=== PATIENT | male | born 1955 | race Two or more races ===

== ENCOUNTER 2020-01-07 09:00 | Outpatient (REF) | payer MEDICARE, MEDICAID, SELFPAY ==
--- NOTE | 2020-01-07 09:10 | MR_ITS ---
EXAMINATION: MR LUMBAR SPINE WITHOUT CONTRAST CLINICAL INFORMATION: Low back pain and sciatica. COMPARISON: None TECHNIQUE: MRI of the lumbar spine was obtained using routine sequences without contrast. FINDINGS: VERTEBRAL BODIES AND PARASPINAL STRUCTURES: The marrow signal is homogeneous. There is a slight retrosubluxation at L4-L5. No compression fractures identified. Epidural lipomatosis present in the mid to lower lumbar spinal canal with varying degrees of thecal sac distortion. The paraspinal soft tissues are unremarkable. There are mild degenerative changes of the SI joints. CONUS MEDULLARIS AND CAUDA EQUINA: Normal, terminating at the level of L1. No lower cord signal abnormality is seen. The cauda equina nerve roots appear normal. SPINAL LEVELS: L1-L2: No significant disc pathology. No central canal stenosis or foraminal narrowing. L2-L3: Very small central disc protrusion and mild facet arthropathy. No central canal stenosis or foraminal narrowing. L3-L4: Mild generalized disc bulge and oxbo-go-xufuprto facet arthropathy without central canal stenosis. Epidural lipomatosis mildly distorts the thecal sac. Mild bilateral foraminal narrowing. L4-L5: Mild posterior disc bulge with a shallow central disc protrusion. No central canal stenosis. Mild facet arthropathy. Epidural lipomatosis funv-ds-tzkqqjzgud distorts the thecal sac. Hdri-ut-lhvtbwjh bilateral foraminal narrowing, more so on the right side. L5-S1: Obbx-vl-cinnfcpi facet arthropathy. Epidural lipomatosis present. No disc abnormality. No central canal stenosis or foraminal narrowing. MR/MR lumbar spine wo con IMPRESSION: Mild lumbar spondylitic changes. Small disc protrusions at L2-L3 and L3-L4. No central canal stenosis. Moderate right-sided foraminal narrowing at L4-L5. Epidural lipomatosis in the mid to lower lumbar spinal canal with thecal sac distortion.
== END 2020-01-07 09:01 | disposition home or self-care (01) ==
LOC: HO.MRI 09:00
PROVIDERS: PCP Internal Medicine Geriatric Medicine; Visit Provider Emergency Medicine
DX: M54.40 Lumbago with sciatica, unspecified side (principal); R29.898 Other symptoms and signs involving the musculoskeletal system
CPT/HCPCS: 72148

== ENCOUNTER → 2020-03-28 10:54 | Outpatient (BNVA) | payer MEDICARE, MEDICAID, SELFPAY | PROVIDERS: PCP Internal Medicine Geriatric Medicine; Visit Provider Nurse Practitioner Family | DX: I47.1 Supraventricular tachycardia (principal); I10 Essential (primary) hypertension; R00.2 Palpitations | CPT/HCPCS: 99212 ==

== ENCOUNTER → 2020-10-04 13:12 | Outpatient (BNVA) | payer OTHER, MEDICAID, SELFPAY | PROVIDERS: PCP Internal Medicine Geriatric Medicine; Referring Provider Internal Medicine Geriatric Medicine; Visit Provider Internal Medicine Cardiovascular Disease ==

== ENCOUNTER 2020-12-06 17:26 | Outpatient (REF) | payer OTHER, MEDICAID, SELFPAY ==
--- NOTE | ~2020-12-06 | MR_ITS ---
EXAMINATION: MR SHOULDER WITHOUT CONTRAST, LEFT CLINICAL INFORMATION: Left shoulder pain. Decreased range of motion. COMPARISON: Left shoulder radiographs dated 10/16/2016 TECHNIQUE: Multisequence MR imaging of the left shoulder was obtained without contrast on a high-field strength scanner. FINDINGS: ROTATOR CUFF: Mild supraspinatus and infraspinatus tendinosis. No measurable rotator cuff tendon defect. No muscle atrophy or fatty infiltration. BICEPS: Normal. CORACOACROMIAL ARCH: The undersurface of the acromion is curved with lateral subacromial spurs. Moderate acromioclavicular osteoarthritis. Mild fluid and edema within the subacromial-subdeltoid bursa, consistent with minimal bursitis. Subacromial space: 0.4 cm. Subcoracoid space: 0.8 cm. LABRUM/CAPSULE: No displaced labral tear. Intact joint capsule. GLENOHUMERAL JOINT/MARROW: Central glenoid and medial humeral head articular cartilage thinning with areas of fpho-lkny-sliwzknsv loss. Tiny marginal osteophytes. MR/MR shoulder LT wo con IMPRESSION: 1. Mild supraspinatus and infraspinatus tendinosis without a measurable tendon defect. The subacromial space is narrowed measuring 0.4 cm, which can be seen in the setting of impingement. 2. Minimal subacromial-subdeltoid bursitis. 3. Moderate acromioclavicular and mild glenohumeral osteoarthritis.
== END 2020-12-06 17:27 | disposition home or self-care (01) ==
LOC: HO.MRI 17:26
PROVIDERS: PCP Internal Medicine Geriatric Medicine; Visit Provider Nurse Practitioner Primary Care
DX: M19.012 Primary osteoarthritis, left shoulder (principal); M25.512 Pain in left shoulder
CPT/HCPCS: 73221

== ENCOUNTER 2020-12-12 08:13 | Outpatient (REF) | payer OTHER, MEDICAID, SELFPAY ==
--- NOTE | ~2020-12-12 | XR_ITS ---
EXAMINATION: XR SHOULDER, LEFT CLINICAL INFORMATION: Left shoulder pain. COMPARISON: Left shoulder MRI dated 12/06/2020. TECHNIQUE: Grashey, scapular Y, and axillary views of the left shoulder. FINDINGS: Small acromioclavicular marginal osteophytes with subacromial spurring appears unchanged. Moderate glenohumeral joint space narrowing with marginal osteophytes, unchanged. No osseous erosion. No fracture or dislocation. XR/XR shoulder LT min 2V IMPRESSION: Moderate glenohumeral and acromioclavicular osteoarthritis as well as subacromial spurring. Findings are unchanged.
== END 2020-12-12 08:14 | disposition home or self-care (01) ==
LOC: HO.HOSX 08:13
PROVIDERS: Visit Provider Physician Assistant
DX: M75.102 Unspecified rotator cuff tear or rupture of left shoulder, not specified as traumatic (principal); M19.012 Primary osteoarthritis, left shoulder
CPT/HCPCS: 73030; J1020

== ENCOUNTER → 2021-01-23 11:47 | Outpatient (BNVA) | payer OTHER, MEDICAID, SELFPAY | PROVIDERS: Visit Provider Physician Assistant ==

== ENCOUNTER → 2021-04-03 12:34 | Outpatient (BNVA) | payer OTHER, MEDICAID, SELFPAY | PROVIDERS: Visit Provider Physician Assistant ==

== ENCOUNTER → 2021-05-02 11:36 | Outpatient (BNVA) | payer OTHER, MEDICAID, SELFPAY | PROVIDERS: Visit Provider Physician Assistant ==

== ENCOUNTER → 2021-06-06 14:46 | Outpatient (BNVA) | payer OTHER, MEDICAID, SELFPAY | PROVIDERS: PCP Internal Medicine Geriatric Medicine; Visit Provider Nurse Practitioner Family | DX: Z13.89 Encounter for screening for other disorder (principal) ==

== ENCOUNTER 2021-06-09 09:28 | Outpatient (REF) | payer MEDICARE, MEDICAID, SELFPAY ==
--- NOTE | ~2021-06-09 | XR_ITS ---
EXAMINATION: XR HIP, LEFT CLINICAL INFORMATION: Pain COMPARISON: None TECHNIQUE: Two views of the left hip. FINDINGS: Bone alignment is normal. No fracture or dislocation is seen. There is mild arthritis at the left hip joint with joint space narrowing and osteophyte formation. Soft tissues are unremarkable. XR/XR hip LT min 2V IMPRESSION: Mild left hip arthritis.
[2021-06-09 10:19] LABS: Hematocrit 44.6 % (42.0-52.0); Hemoglobin 13.9 g/dl (14.0-18.0); Mean Corpuscular HGB Conc 31.2 g/dl (31.0-36.0); Mean Corpuscular Hemoglobin 25.3 pg (27.0-33.0); Mean Corpuscular Volume 81.1 fL (80.0-98.0); Mean Platelet Volume 10.3 fL (9.4-12.4); Platelet Count 178 X10*3/uL (160-400); Red Cell Distribution Width 13.5 % (11.0-16.0); White Blood Count 3.9 X10*3/uL (4.8-10.8)
[2021-06-09 10:48] LABS: Alanine Aminotransferase 14 U/L (0-40); Albumin Level 4.4 g/dL (3.5-5.0); Alkaline Phosphatase 106 U/L (39-117); Anion Gap 13 (12-20); Aspartate Amino Transferase 13 U/L (5-37); Bilirubin Direct 0.2 mg/dL (0.0-0.5); Bilirubin Total 0.4 mg/dL (0.0-1.0); Blood Urea Nitrogen 13 mg/dL (9-16); Carbon Dioxide 25 mmol/L (22-29); Chloride 102 mmol/L (96-108); Cholesterol 130 mg/dL; Estimated Glomerular Filt Rate > 60; Glucose Random 285 mg/dL (60-115); HDL Cholesterol 38 mg/dL; LDL Cholesterol Calculated 75 mg/dl; Potassium 5.1 mmol/L (3.3-5.1); Sodium 135 mmol/L (135-145); Total Protein 6.9 g/dL (6.5-8.0); Triglycerides 85 mg/dL
[2021-06-09 11:09] LABS: Prostate Specific Antigen 1.75 ng/mL (<0.05-4.0)
[2021-06-09 11:30] LABS: Creatinine Urine 54.92 mg/dL; Microalbumin Urine < 5.0 mg/L
== END 2021-06-09 09:29 | disposition home or self-care (01) ==
LOC: HO.XRAY 09:28
PROVIDERS: Absent Provider Internal Medicine Geriatric Medicine; PCP Internal Medicine Geriatric Medicine; Visit Provider Nurse Practitioner Family
DX: Z12.5 Encounter for screening for malignant neoplasm of prostate (principal); M25.552 Pain in left hip; E11.9 Type 2 diabetes mellitus without complications; Z79.899 Other long term (current) drug therapy
CPT/HCPCS: 36415; 73502; 80048; 80061; 80076; 82043; 84153; 85027

== ENCOUNTER 2021-08-15 06:36 | Outpatient (REF) | payer MEDICARE, MEDICAID, SELFPAY ==
--- NOTE | ~2021-08-15 | FL_ITS ---
EXAMINATION: XR FLUOROSCOPY WITH IMAGES CLINICAL INFORMATION: Sacral coccygeal disorder COMPARISON: None. TECHNIQUE: Fluoroscopy performed by Dr. Evangelista Farias. Fluoroscopy time: 0.2 minutes DAP: 1.19 Gycm2 Images: 2 FINDINGS: Images demonstrate needle overlying the left sacroiliac joint. FL/FL guidance in treatment room IMPRESSION: Fluoroscopy for pain management procedure.
== END 2021-08-15 06:37 | disposition home or self-care (01) ==
LOC: HO.RADIR 06:36
PROVIDERS: Visit Provider Anesthesiology
DX: M53.3 Sacrococcygeal disorders, not elsewhere classified (principal); M25.552 Pain in left hip; M47.816 Spondylosis without myelopathy or radiculopathy, lumbar region
CPT/HCPCS: 27096; J3300

== ENCOUNTER → 2021-09-05 13:02 | Outpatient (BNVA) | payer MEDICARE, MEDICAID, SELFPAY | PROVIDERS: PCP Internal Medicine Geriatric Medicine; Visit Provider Nurse Practitioner Family | DX: M47.816 Spondylosis without myelopathy or radiculopathy, lumbar region (principal); M53.3 Sacrococcygeal disorders, not elsewhere classified; M25.552 Pain in left hip; Z98.890 Other specified postprocedural states | CPT/HCPCS: 99212 ==

== ENCOUNTER 2021-10-10 06:24 | Outpatient (REF) | payer MEDICARE, MEDICAID, SELFPAY ==
--- NOTE | ~2021-10-10 | FL_ITS ---
EXAMINATION: XR FLUOROSCOPY WITH IMAGES CLINICAL INFORMATION: M47.816 - Spondylosis without myelopathy or radiculopathy, lumbar region COMPARISON: MR lumbar spine 01/07/2020 TECHNIQUE: Fluoroscopy performed by Dr. Evangelista Farias. Fluoroscopy time: 0.4 minutes. Cumulative Dose: 19.1 mGy. DAP: 5.22 Gy-cm2. Images: 4. FINDINGS: There are spinal needles overlying the outer left neural foramina at L2, L3, L4, and L5. There is contrast seen in the respective nerve sheaths. Some early transforaminal epidural extension is suggested. No visible vascular communication. FL/FL guidance in treatment room IMPRESSION: Fluoroscopy for pain management procedures.
== END 2021-10-10 06:25 | disposition home or self-care (01) ==
LOC: HO.RADIR 06:24
PROVIDERS: Visit Provider Anesthesiology
DX: M47.816 Spondylosis without myelopathy or radiculopathy, lumbar region (principal); M53.3 Sacrococcygeal disorders, not elsewhere classified; M25.552 Pain in left hip
CPT/HCPCS: 64493; 64494; 64495

== ENCOUNTER → 2021-10-11 12:59 | Outpatient (BNVA) | payer MEDICARE, MEDICAID, SELFPAY | PROVIDERS: PCP Internal Medicine Geriatric Medicine; Visit Provider Internal Medicine Cardiovascular Disease | DX: I47.1 Supraventricular tachycardia (principal); I10 Essential (primary) hypertension; Z79.899 Other long term (current) drug therapy | CPT/HCPCS: 93005; 99212 ==

== ENCOUNTER → 2021-12-29 11:12 | Outpatient (BNVA) | payer MEDICARE, MEDICAID, SELFPAY | PROVIDERS: PCP Internal Medicine Geriatric Medicine; Visit Provider Nurse Practitioner Family | DX: M25.512 Pain in left shoulder (principal); M75.102 Unspecified rotator cuff tear or rupture of left shoulder, not specified as traumatic; M53.3 Sacrococcygeal disorders, not elsewhere classified; M47.816 Spondylosis without myelopathy or radiculopathy, lumbar region; M54.50 Low back pain, unspecified | CPT/HCPCS: 99212 ==

== ENCOUNTER → 2022-04-20 12:20 | Outpatient (BNVA) | payer MEDICARE, MEDICAID, SELFPAY | PROVIDERS: PCP Internal Medicine Geriatric Medicine; Visit Provider Physician Assistant | DX: M75.102 Unspecified rotator cuff tear or rupture of left shoulder, not specified as traumatic (principal) | CPT/HCPCS: 20610; 99212; J1020 ==

== ENCOUNTER 2022-06-08 09:45 | Outpatient (REF) | payer MEDICARE, MEDICAID, SELFPAY ==
--- NOTE | ~2022-06-08 | XR_ITS ---
EXAMINATION: XR CERVICAL SPINE CLINICAL INFORMATION: Spondylosis and radiculopathy. COMPARISON: None available. TECHNIQUE: 6 views of the cervical spine, inclusive of flexion and extension views, were obtained. FINDINGS: Vertebral bodies normally aligned with normal height. Multilevel degenerative disc change manifested by endplate osteophytes with mild and/or minimal disc space narrowing with involvement of C5-C6, C6-C7 and C7-T1. Mild bony encroachment on the right neural foramina C5-C6 and C6-C7 and on the left C6-C7. Remaining bone and soft tissues unremarkable. XR/XR cervical spine min 6V IMPRESSION: Mild multilevel spondylosis of the cervical spine.
== END 2022-06-08 09:46 | disposition home or self-care (01) ==
LOC: HO.XRAY 09:45
PROVIDERS: PCP Internal Medicine Geriatric Medicine; Visit Provider Nurse Practitioner Family
DX: M47.22 Other spondylosis with radiculopathy, cervical region (principal); M62.838 Other muscle spasm; M25.512 Pain in left shoulder
CPT/HCPCS: 72052; 99212

== ENCOUNTER → 2022-06-21 15:28 | Outpatient (BNVA) | payer MEDICARE, MEDICAID, SELFPAY | PROVIDERS: PCP Internal Medicine Geriatric Medicine; Visit Provider Nurse Practitioner Family | DX: M62.838 Other muscle spasm (principal); M25.512 Pain in left shoulder; M75.102 Unspecified rotator cuff tear or rupture of left shoulder, not specified as traumatic; M47.812 Spondylosis without myelopathy or radiculopathy, cervical region; M54.12 Radiculopathy, cervical region | CPT/HCPCS: 99212 ==

== ENCOUNTER 2022-08-01 06:10 | Outpatient (REF) | payer MEDICARE, MEDICAID, SELFPAY ==
--- NOTE | ~2022-08-01 | FL_ITS ---
EXAMINATION: FL FLUOROSCOPY WITH IMAGES CLINICAL INFORMATION: Radiculopathy, cervical region. COMPARISON: None available. TECHNIQUE: Fluoroscopy Supervised By: Dr. Caldwell Fluoroscopy Time: 0.5 minutes Cumulative Dose: 3.84 mGy-cm DAP: 0.517 uGy-cm2 Images: 4 FINDINGS: Images demonstrate needle placement and contrast injection adjacent to the bilateral lateral C3-C4 and C5 vertebrae FL/FL guidance in treatment room IMPRESSION: Fluoroscopic guidance for pain management procedure
== END 2022-08-01 06:11 | disposition home or self-care (01) ==
LOC: CF 06:10
PROVIDERS: Visit Provider Internal Medicine
DX: M47.812 Spondylosis without myelopathy or radiculopathy, cervical region (principal); M54.12 Radiculopathy, cervical region
CPT/HCPCS: 64490; 64491

== ENCOUNTER 2022-10-08 08:22 | Outpatient (REF) | payer MEDICARE, MEDICAID, SELFPAY ==
[2022-10-08 12:23] LABS: Estimated Average Glucose 160 mg/dL; Hemoglobin A1c % 7.2 %
[2022-10-08 12:32] LABS: Alanine Aminotransferase 16 U/L (0-40); Albumin Level 4.4 g/dL (3.5-5.0); Alkaline Phosphatase 91 U/L (39-117); Aspartate Amino Transferase 15 U/L (5-37); Bilirubin Direct 0.1 mg/dL (0.0-0.5); Bilirubin Total 0.3 mg/dL (0.0-1.0); Cholesterol 201 mg/dL; HDL Cholesterol 51 mg/dL; LDL Cholesterol Calculated 116 mg/dl; Total Protein 7.3 g/dL (6.5-8.0); Triglycerides 170 mg/dL
[2022-10-08 13:04] LABS: Vitamin B12 616 pg/mL (200-900)
== END 2022-10-08 08:23 | disposition home or self-care (01) ==
LOC: HO.HHCL 08:22
PROVIDERS: Visit Provider Internal Medicine Geriatric Medicine
DX: E11.9 Type 2 diabetes mellitus without complications (principal); Z79.4 Long term (current) use of insulin
CPT/HCPCS: 36415; 80061; 80076; 82607; 83036

== ENCOUNTER 2022-11-09 08:52 | Outpatient (AMB) | payer MEDICARE, MEDICAID, SELFPAY ==
--- NOTE | 2022-11-09 09:14 | A.OFFVIS_ITS ---
Intake Vital Signs 11/09/22 09:15 Height 5 ft 9 in Weight 206 lb 12.697 oz BMI 30.5 BP 120/82 Blood Pressure Location Lt brachial Position Sitting Pulse 69 Pulse Source Monitor Intake Visit Reasons: 1 year f/u Intake Note: 1 year follow up with EKG. 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 Name: Jana [id number] [employer] Accompanied by: Self / Same As Patient Allergies No Known Allergies [No Known Allergies*] Allergy (Verified 11/09/22 09:17) Medication List - Last Reconciled 11/09/22 by ELIZABETH Farfan amitriptyline 75 mg PO BEDTIME buspirone 5 mg PO DAILY carvedilol 6.25 mg PO BID docusate sodium 100 mg PO BID empagliflozin (Jardiance) 25 mg PO QAM finasteride 5 mg PO QAM ibuprofen 600 mg PO Q6H PRN insulin glargine (Lantus Solostar U-100 Insulin) 28 units subcut QAM insulin lispro 10 units subcut TID lancets (OneTouch Delica Plus Lancet) As directed lisinopril 20 mg PO DAILY magnesium oxide 400 mg PO DAILY metformin 850 mg PO BID metformin 500 mg PO BID methocarbamol 750 mg PO BID PRN 30 days naloxone 4 mg/actuation 1 spray intranasal DAILY omeprazole 40 mg PO DAILY oxycodone-acetaminophen 5-325 mg (Percocet) 1 tab PO TID PRN pen needle, diabetic ([place]) As directed rosuvastatin 40 mg PO DAILY sertraline 50 mg PO QAM sildenafil (Viagra) 50 mg PO DAILY PRN tamsulosin 0.8 mg PO DAILY HPI 1 year f/u HPI Details Landen is a 67-year-old male with past medical history of diabetes, hypertension, hyperlipidemia, SVT who presents for follow-up. Today he reports he has been feeling generally well. He does notice heart palpitations at times occurring about once a month and lasting up to 30 seconds. No sustained rapid or irregular rates noted. He is not overly bothered by this sensation. He denies having chest pain or pressure at rest or with activity. No concerning shortness of breath, presyncope, syncope, falls. No PND, orthopnea or edema. He tells me he walks routinely and is able to climb stairs without issues. He is taking his meds as directed. 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 [facility] Medical History Diabetes type 2, controlled Palpitations SVT (supraventricular tachycardia) HLD (hyperlipidemia) HTN (hypertension) Surgical History S/P shoulder surgery Family History Father CVD (cardiovascular disease) Mother Cancer Social History Alcohol intake: former Year quit: 2016 Patient Tobacco Use Status: Former Tobacco user Quit Date: 2009 Years Smoked: 25 +/- Current occupational status: retired Current occupation: rt handed Review of Systems Const All systems reviewed & are unremarkable except as noted in HPI and below Denies weakness ENT Denies dizziness Card Denies chest pain, Denies chest pain with activity, Denies syncope, Denies rapid heart rate, Denies pedal edema, Denies edema, Denies leg edema, Denies lightheadedness, Denies palpitations, Denies dyspnea, Denies dyspnea on exertion and Denies orthopnea Resp Denies cough, Denies dyspnea and Denies dyspnea on exertion GI Denies hematochezia and Denies change in stool character Musc Denies abnormal gait, Denies muscle cramps, Denies muscle weakness, Denies n umbness, Denies radiating pain into limb and Denies tingling Neuro Denies abnormal gait, Denies dizziness, Denies syncope, Denies numbness, Denies tingling and Denies weakness Endo Denies palpitations Physical Exam Vital Signs: Last Vital Signs Pulse 69 11/09/22 09:15 BP 120/82 11/09/22 09:15 BMI result Body Mass Index 30.5 Const General: cooperative, healthy appearing, comfortable and no acute distress Orientation/consciousness: patient oriented x3 Neck Neck: Yes normal visual inspection Resp Effort & Inspection: normal respiratory effort Auscultation: clear to auscultation bilaterally, no crackles, no rales, no rhonchi and no wheezes Cardio Jugular venous distension: no JVD Rate: regular rate Rhythm: regular rhythm Heart sounds: S1 normal heart sound present, S2 normal heart sound present, no murmurs and no rubs Neuro General: patient oriented x3 Extrem General: Yes normal to inspection Psych Appearance: grossly normal Mental Status: mental status grossly normal Speech and movement: Normal speech and movement present Office Procedures EKG Details: Today, read by me, normal sinus rhythm with sinus arrhythmia, left axis deviation, can not exclude prior anterior infarct, rate 69, QTC 385 ms [id number], Complete Assessment & Plan Assessment & Plan (1) SVT (supraventricular tachycardia): Code(s): I47.1 - Supraventricular tachycardia Plan: History of SVT. He has been on carvedilol for heart rate control. He does report brief intermittent heart palpitations about once a month lasting seconds and resolving. He is not bothered or concerned by this palpitation. Reviewed reduction in caffeinated beverages, staying well hydrated getting good rest. Activity as tolerated. Instructed to call if he has increasing amounts of heart palpitations. (2) Palpitations: Code(s): R00.2 - Palpitations (3) Abnormal EKG: Code(s): R94.31 - Abnormal electrocardiogram [ECG] [EKG] Plan: EKG done today is showing normal sinus rhythm with sinus arrhythmia, left axis deviation and can not exclude anterior infarct. In appearance this EKG does seem similar to his last EKG however no recent cardiac testing is noted in our system. He has multiple cardiac risk factors including obesity, hypertension, hyperlipidemia and uncontrolled diabetes. He has no reports of anginal sounding symptoms but is not doing much for exertional activities. Will obtain an echocardiogram to assess for any structural heart disease. Will check an exercise nuclear stress test to evaluate for ischemia or prior infarct. Cardiology follow-up 2 months, sooner if needed. Signs and symptoms of angina reviewed with him. (4) HTN (hypertension): Code(s): I10 - Essential (primary) hypertension Qualifiers: Hypertension type: primary hypertension Qualified Code(s): I10 - Essential (primary) hypertension Plan: Well controlled at this time (5) HLD (hyperlipidemia): Code(s): E78.5 - Hyperlipidemia, unspecified Qualifiers: Hyperlipidemia type: unspecified Qualified Code(s): E78.5 - Hyperlipidemia, unspecified Plan: [place] LDL goal less than 70 in patient with diabetes. Followed by his PCP. Continue rosuvastatin Orders: Orders CA echo transthoracic complete Today R00.2 - Palpitations, R94.31 - Abnormal electrocardiogram [ECG] [EKG] CA stress test Today R00.2 - Palpitations, R94.31 - Abnormal electrocardiogram [ECG] [EKG] NM cardiolite stress test Today R00.2 - Palpitations, R94.31 - Abnormal electrocardiogram [ECG] [EKG] Coding Level of Care Code Est Pt Level 4 (36822) Diagnoses SVT (supraventricular tachycardia) I47.1 Palpitations R00.2 Abnormal EKG R94.31 Primary hypertension I10 Hypertension type: primary hypertension Hyperlipidemia, unspecified hyperlipidemia type E78.5 Hyperlipidemia type: unspecified CPT Codes EKG - CPT: [id number], Complete ([id number])
[2022-11-09 09:15] VITALS: BP 120/82; PULSE 69; BMI 30.5
== END 2022-11-09 09:58 | disposition home or self-care (01) ==
PROVIDERS: PCP Internal Medicine Geriatric Medicine; Referring Provider Internal Medicine Geriatric Medicine; Visit Provider Nurse Practitioner Family
DX: I47.1 Supraventricular tachycardia (principal); R00.2 Palpitations; R94.31 Abnormal electrocardiogram [ECG] [EKG]; I10 Essential (primary) hypertension; E78.5 Hyperlipidemia, unspecified
CPT/HCPCS: 93010; 99214

== ENCOUNTER → 2022-11-09 08:52 | Outpatient (BNVA) | payer MEDICARE, MEDICAID, SELFPAY | PROVIDERS: PCP Internal Medicine Geriatric Medicine; Referring Provider Internal Medicine Geriatric Medicine; Visit Provider Nurse Practitioner Family | DX: I47.1 Supraventricular tachycardia (principal); I10 Essential (primary) hypertension; R00.2 Palpitations; R94.31 Abnormal electrocardiogram [ECG] [EKG]; E78.5 Hyperlipidemia, unspecified | CPT/HCPCS: 93005; 99212 ==

== ENCOUNTER → 2022-12-06 13:41 | Outpatient (REF) | payer MEDICARE, MEDICAID, SELFPAY ==
--- NOTE | 2022-12-06 13:44 | CA_ITS ---
Transthoracic Echocardiogram Patient (Last, First, Middle): Landen Byers, Gender: Male Date of : 1955 Age: 67 Procedure Date: 12/06/2022 Procedure Type: Transthoracic Echocardiogram Location: OP Height: 175.26 cm Weight: 92.99 kg BSA: 2.09 m2 Heart Rate: bpm BP: 110 / 68 mmHg Disability Manager: TO Referring MD: Macey Noe RAIL BONDERKingsley Symptoms: R94.31 - Abnormal electrocardiogram [ECG] [EKG] Study Quality: Adequate Conclusions: - Normal left ventricular size, thickness, systolic function, and wall motion. The visually estimated ejection fraction is between 55-60%. Diastolic function is normal for age. - Normal right ventricular cavity size and systolic function. Findings Left Ventricle Normal left ventricular size, thickness, systolic function, and wall motion. The visually estimated ejection fraction is between 55-60%. Diastolic function is normal for age. Right Ventricle Normal right ventricular cavity size and systolic function. Atria The left atrium is likely dilated. The right atrium is normal in size. Aortic Valve Normal aortic valve structure and function. There is no aortic valve stenosis. There is no aortic valve regurgitation. Mitral Valve The mitral valve appears normal. There is no mitral valve regurgitation. There is no mitral valve stenosis. Pulmonic Valve The pulmonic valve is normal. There is no pulmonic valve regurgitation. Tricuspid Valve Normal tricuspid valve structure. There is trace tricuspid valve regurgitation. Normal right atrial pressure. There is no evidence of pulmonary hypertension. Great Vessels There is mild dilatation of the ascending aorta measuring 3.50 cm. The visualized portions of the pulmonary artery and branches are normal. Venous The inferior vena cava is normal in size and collapses greater than 50% with inspiration. Pericardium/Pleural There is no evidence of pericardial effusion. Measurements 2D Linear Measurements IVSd: 1.10 0.6-0.9/0.6-1.0 cm LVIDd: 5.03 3.9-5.3/4.2-5.9 cm LVIDd Index: 2.41 2.4-3.2/2.2-3.1 cm/m2 LVIDs: 2.84 2.0-3.6 cm LVPWd: 0.84 0.7-1.1 cm LA Diam: 3.30 2.7-3.8/3.0-4.0 cm LAIDs Index: 1.58 1.5-2.3 cm/m2 LV Mass: 219.65 67-162/88-224 g LV Mass Index: 105.09 43-95/49-115 g/m2 LVOT Diam: 2.20 3.0+(-)1.3 cm 2D Systolic Function EF 4C: 60.20 >55% EF 2C: 61.80 >55% EF BiP: 60.40 >55% Mitral Valve MV VTI: 0.26 MV Pk Miko: 1.22 MV Mn Miko: 0.69 MV Pk Grad: 6.00 MV Mn Grad: 2.00 MV Pk E: 0.78 MV PK A: 0.87 MV Decel Time: 221.00 E/A: 0.90 E'Lateral: 11.90 E'Medial: 6.53 E/E' Med: 12.00 E/E' Lat: 6.60 PHT: 65.00 MVA PHT: 3.38 MVA Continuity: 2.86 Decel [place]: 3.55 Aortic Valve AoV Pk Miko: 1.25 AoV Mn Mkio: 0.88 AoV VTI: 0.25 AoV Pk Grad: 6.00 Aov Mn Grad: 3.00 JOHN Cont.VTI: 2.94 LVOT LVOT Pk Miko: 1.02 LVOT Mn Miko: 0.66 LVOT VTI: 0.19 LVOT Pk Grad: 4.00 LVOT Mn Grad: 2.00 LVOT Diam: 2.20 LVOT Area: 3.80 Diastolic Function MV Pk E: 0.78 MV Pk A: 0.87 E/A: 0.90 E'Medial: 6.53 E/E' Med: 12.00 E' Laterial: 11.90 E/E' Lat: 6.60 Right Ventricle TAPSE (mm): 25.80 TVS' Miko: 13.40 Tricuspid Valve TR Pk Miko: 1.43 TR Pk Grad: 8.00 RA Press: 3.00 RVSP: 11.00 Great Vessels Aorta Sinus of Valsalva: 3.62 2.0-3.5 cm Ao Asc: 3.50 2.1-3.4 cm Updated in Other Vendor System with Status of Final Barak Monsalve MD electronically signed on 12/08/2022 6:10:23 PM with status of Final
== END ==
LOC: HO.CARD 13:41
PROVIDERS: PCP Internal Medicine Geriatric Medicine; Visit Provider Nurse Practitioner Family
DX: R00.2 Palpitations (principal); R94.31 Abnormal electrocardiogram [ECG] [EKG]
CPT/HCPCS: 93306

== ENCOUNTER → 2022-12-06 13:44 | Outpatient (BNV) | payer MEDICARE, MEDICAID, SELFPAY | PROVIDERS: PCP Internal Medicine Geriatric Medicine; Visit Provider Internal Medicine Cardiovascular Disease | DX: R94.31 Abnormal electrocardiogram [ECG] [EKG] (principal) | CPT/HCPCS: 93306 ==

== ENCOUNTER 2022-12-07 10:20 | Outpatient (AMB) | payer MEDICARE, MEDICAID, SELFPAY ==
[2022-12-07 11:28] VITALS: BP 131/75; PULSE 91; O2SAT 99; BMI 30.5
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
== END 2022-12-07 11:37 | disposition home or self-care (01) ==
PROVIDERS: PCP Internal Medicine Geriatric Medicine; Visit Provider Nurse Practitioner Family
DX: M47.817 Spondylosis without myelopathy or radiculopathy, lumbosacral region (principal); M51.36 Other intervertebral disc degeneration, lumbar region; M54.16 Radiculopathy, lumbar region
CPT/HCPCS: 99214

== ENCOUNTER → 2022-12-07 10:20 | Outpatient (BNVA) | payer MEDICARE, MEDICAID, SELFPAY | PROVIDERS: PCP Internal Medicine Geriatric Medicine; Visit Provider Nurse Practitioner Family | DX: M47.817 Spondylosis without myelopathy or radiculopathy, lumbosacral region (principal); M51.36 Other intervertebral disc degeneration, lumbar region; M54.16 Radiculopathy, lumbar region | CPT/HCPCS: 99212 ==

== ENCOUNTER → 2022-12-11 07:31 | Outpatient (REF) | payer MEDICARE, MEDICAID, SELFPAY ==
--- NOTE | ~2022-12-11 | NM_ITS ---
EXERCISE MYOCARDIAL PERFUSION STUDY INDICATION: Abnormal EKG, assess for coronary disease and ischemia TECHNIQUE: The patient was brought in for an exercise perfusion study on 12/11/2022. Patient performed exercise as per Gabe protocol and was injected 30 mCi of sestamibi once target heart rate was achieved. Images were obtained using the SPECT gamma camera interlaced with the gating device. Images were obtained in supine position. Resting perfusion study was performed on 12/13/2022. Patient was administered 30 mCi of sestamibi intravenously at rest. Images were then obtained in supine position. Images were processed with the software and compared side to side in short axis, horizontal long axis and vertical long axis views. Total DLP 84mGy-cm. FINDINGS: Raw images were reviewed. There is subdiaphragmatic tracer uptake noted near the inferior wall. The stress perfusion study showed no significant perfusion abnormality. Both uncorrected as well as CT attenuation corrected images. The gated study shows reduced LV systolic function with calculated LVEF of 47%. LV cavity is normal in size. The gated study shows normal wall thickening and contraction of segments. Resting study shows no significant perfusion defects. Gating at rest not performed. The findings are consistent with no clear reversible or fixed perfusion defects. NM/NM cardiolite stress test IMPRESSION: 1. Myocardial perfusion imaging study shows probably normal myocardial perfusion. 2. Gated LVEF is 47% during stress. Gating not obtained during rest. Correlate with echocardiogram. EKG component of the test reported separately.
--- NOTE | 2022-12-11 07:33 | CA_ITS ---
Acquisition Time: 2022-12-11 07:51:12 Total Exercise Time: 00:05:01 Test Indications: ABN EKG Medications: SEE H Protocol: MERCEDES Max HR: 139 BPM 91% of Pred: 152 BPM Max BP: 164/080 mmHG Max Work Load: 7.0 METS Exercise stress test exercise 5 min 1 sec of Mercedes protocl achieving 90% MPHR, without anginal symptoms, without arrhythmias, with normotensive response to exercise, without EKG changes. Nuclear images pending. Test reviewed with Dr. Lopez. Referred By: Macey Noe Overread By: Evelyn Staley
== END ==
LOC: HO.CARD 07:31
PROVIDERS: PCP Internal Medicine Geriatric Medicine; Visit Provider Nurse Practitioner Family
DX: R00.2 Palpitations (principal); R94.31 Abnormal electrocardiogram [ECG] [EKG]
CPT/HCPCS: 78452; 93017; A9500

== ENCOUNTER → 2022-12-11 07:33 | Outpatient (BNV) | payer MEDICARE, MEDICAID, SELFPAY | PROVIDERS: PCP Internal Medicine Geriatric Medicine; Visit Provider Nurse Practitioner | DX: R94.31 Abnormal electrocardiogram [ECG] [EKG] (principal); R00.2 Palpitations | CPT/HCPCS: 78452; 93016; 93018 ==

== ENCOUNTER → 2022-12-14 11:54 | Outpatient (BNVA) | payer MEDICARE, MEDICAID, SELFPAY | PROVIDERS: PCP Internal Medicine Geriatric Medicine; Visit Provider Nurse Practitioner ==

== ENCOUNTER 2023-01-04 09:27 | Outpatient (AMB) | payer MEDICARE, MEDICAID, SELFPAY ==
[2023-01-04 09:54] VITALS: BP 114/72; PULSE 85; BMI 30.5
--- NOTE | 2023-01-04 09:54 | MHC.OFFVIS ---
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[employer] Language: [employer] Custodian Name: gulshan narvaez [id number] Allergies No Known Allergies [No Known Allergies*] Allergy (Verified 01/04/23 09:56) Medication List - Last Reconciled 01/04/23 by Macey Noe NP-C amitriptyline 75 mg PO BEDTIME buspirone 5 mg PO DAILY carvedilol 6.25 mg PO BID docusate sodium 100 mg PO BID empagliflozin (Jardiance) 25 mg PO QAM finasteride 5 mg PO QAM ibuprofen 600 mg PO Q6H PRN insulin glargine (Lantus Solostar U-100 Insulin) 28 units subcut QAM insulin lispro 10 units subcut TID lancets (OneTouch Delica Plus Lancet) As directed lisinopril 20 mg PO DAILY magnesium oxide 400 mg PO DAILY metformin 500 mg PO BID methocarbamol 750 mg PO BID PRN 30 days naloxone 4 mg/actuation 1 spray intranasal DAILY omeprazole 40 mg PO DAILY oxycodone-acetaminophen 5-325 mg (Percocet) 1 tab PO TID PRN pen needle, diabetic (P[place]ips) As directed rosuvastatin 40 mg PO DAILY sertraline 50 mg PO QAM sildenafil (Viagra) 50 mg PO DAILY PRN tamsulosin 0.8 mg PO DAILY HPI 3 month f/u after testing HPI Details Landne is a 67-year-old male with past medical history of diabetes, hypertension, hyperlipidemia, SVT, abnormal EKG who recently had an echocardiogram and nuclear stress test and now presents for follow-up. Today he reports he has been doing well since his last visit. He has no concerning symptoms. He denies chest discomfort, shortness of breath. He has no sustained rapid or irregular heart palpitations. No presyncope, syncope, falls. He is taking his medications as directed. is present. 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 [facility] Medical History Lumbar degenerative disc disease Diabetes type 2, controlled Palpitations SVT (supraventricular tachycardia) HLD (hyperlipidemia) HTN (hypertension) Surgical History S/P shoulder surgery Family History Father CVD (cardiovascular disease) Mother Cancer Social History Alcohol intake: former Year quit: 2016 Patient Tobacco Use Status: Former Tobacco user Quit Date: 2009 Years Smoked: 25 +/- Current occupational status: retired Current occupation: rt handed Review of Systems Const All systems reviewed & are unremarkable except as noted in HPI and below ENT Denies dizziness Card Denies chest pain, Denies chest pain at rest, Denies chest pain with activity, Denies rapid heart rate, Denies pedal edema, Denies edema, Denies leg edema, Denies lightheadedness, Denies palpitations, Denies dyspnea, Denies dyspnea on exertion and Denies orthopnea Resp Denies cough, Denies dyspnea and Denies dyspnea on exertion GI Denies hematochezia and Denies change in stool character Musc Denies abnormal gait, Denies limited range of motion, Denies muscle cramps, Denies muscle weakness, Denies numbness, Denies radiating pain into limb, Denies stiffness and Denies tingling Neuro Denies abnormal gait, Denies dizziness, Denies numbness and Denies tingling Endo Denies palpitations Physical Exam Vital Signs: Last Vital Signs Pulse 85 01/04/23 09:54 BP 114/72 01/04/23 09:54 BMI result Body Mass Index 30.5 Const General: cooperative, healthy appearing, comfortable and no acute distress Orientation/consciousness: patient oriented x3 Neck Neck: Yes normal visual inspection Resp Effort & Inspection: normal respiratory effort Auscultation: clear to auscultation bilaterally, no crackles, no rales, no rhonchi and no wheezes Cardio Jugular venous distension: no JVD Rate: regular rate Rhythm: regular rhythm Heart sounds: S1 normal heart sound present, S2 normal heart sound present, no murmurs and no rubs Skin General skin exam: no rashes or lesions noted Neuro General: patient oriented x3 Extrem General: Yes normal to inspection, No no pedal edema and No calf tenderness Psych Appearance: grossly normal Mental Status: mental status grossly normal Speech and movement: Normal speech and movement present Assessment & Plan Assessment & Plan (1) Abnormal EKG: Code(s): R94.31 - Abnormal electrocardiogram [ECG] [EKG] Plan: EKG done last visit was showing normal sinus rhythm with sinus arrhythmia, left axis deviation and can not exclude anterior infarct. In appearance this EKG was similar to his last EKG however no recent cardiac testing wa noted in our system. He has multiple cardiac risk factors including obesity, hypertension, hyperlipidemia and uncontrolled diabetes. He has no reports of anginal sounding symptoms but is not doing much for exertional activities. He then underwent echocardiogram on 12/06/2022 showing EF 55-60%, no valve abnormalities, no regional wall motion abnormalities, normal RV. An exercise nuclear stress test was done on 12/11/2022 showing exercise 5 minutes, no anginal symptoms, no EKG changes and normal myocardial perfusion imaging however EF noted at 47%. The EF on his echocardiogram was normal. Spent time reviewing test results with him in detail. Cardiac risk factor modification reviewed. No medication changes made. Signs and symptoms of angina reviewed. Cardiology follow-up in 1 year, sooner if needed (2) SVT (supraventricular tachycardia): Code(s): I47.1 - Supraventricular tachycardia Plan: History of SVT. He has been on carvedilol for heart rate control. He does report brief intermittent heart palpitations about once a month lasting seconds and resolving. He is not bothered or concerned by this palpitation. Reviewed reduction in caffeinated beverages, staying well hydrated getting good rest. Activity as tolerated. Instructed to call if he has increasing amounts of heart palpitations. (3) Palpitations: Code(s): R00.2 - Palpitations (4) HTN (hypertension): Code(s): I10 - Essential (primary) hypertension Qualifiers: Hypertension type: primary hypertension Qualified Code(s): I10 - Essential (primary) hypertension Plan: Well controlled at this time (5) HLD (hyperlipidemia): Code(s): E78.5 - Hyperlipidemia, unspecified Qualifiers: Hyperlipidemia type: unspecified Qualified Code(s): E78.5 - Hyperlipidemia, unspecified Plan: [place] LDL goal less than 70 in patient with diabetes. Followed by his PCP. Continue rosuvastatin Coding Level of Care Code Est Pt Level 3 (82586) Diagnoses Abnormal EKG R94.31 SVT (supraventricular tachycardia) I47.1 Palpitations R00.2 Primary hypertension I10 Hypertension type: primary hypertension Hyperlipidemia, unspecified hyperlipidemia type E78.5 Hyperlipidemia type: unspecified Time Spent (min) 22
== END 2023-01-04 10:16 | disposition home or self-care (01) ==
PROVIDERS: PCP Internal Medicine Geriatric Medicine; Visit Provider Nurse Practitioner Family
DX: R94.31 Abnormal electrocardiogram [ECG] [EKG] (principal); I47.1 Supraventricular tachycardia; R00.2 Palpitations; I10 Essential (primary) hypertension; E78.5 Hyperlipidemia, unspecified
CPT/HCPCS: 99213

== ENCOUNTER → 2023-01-04 09:27 | Outpatient (BNVA) | payer MEDICARE, MEDICAID, SELFPAY | PROVIDERS: PCP Internal Medicine Geriatric Medicine; Visit Provider Nurse Practitioner Family | DX: R94.31 Abnormal electrocardiogram [ECG] [EKG] (principal); I10 Essential (primary) hypertension; I47.10 Supraventricular tachycardia, unspecified; R00.2 Palpitations; E78.5 Hyperlipidemia, unspecified | CPT/HCPCS: 99212 ==

== ENCOUNTER 2023-01-07 08:46 | Outpatient (REF) | payer MEDICARE, MEDICAID, SELFPAY ==
[2023-01-07 11:51] LABS: Alanine Aminotransferase 16 U/L (0-40); Albumin Level 4.5 g/dL (3.5-5.0); Alkaline Phosphatase 97 U/L (39-117); Aspartate Amino Transferase 15 U/L (5-37); Bilirubin Direct 0.2 mg/dL (0.0-0.5); Bilirubin Total 0.2 mg/dL (0.0-1.0); Cholesterol 123 mg/dL (<200); HDL Cholesterol 48 mg/dL (>40); LDL Cholesterol Calculated 50 mg/dL (<100); Total Protein 7.3 g/dL (6.5-8.0); Triglycerides 129 mg/dL (<150)
== END 2023-01-07 08:47 | disposition home or self-care (01) ==
LOC: HO.HHCL 08:46
PROVIDERS: Visit Provider Internal Medicine Geriatric Medicine
DX: E11.9 Type 2 diabetes mellitus without complications (principal); Z79.4 Long term (current) use of insulin
CPT/HCPCS: 36415; 80061; 80076

== ENCOUNTER 2023-03-12 15:41 | Outpatient (REF) | payer MEDICARE, MEDICAID, SELFPAY ==
--- NOTE | ~2023-03-12 | MR_ITS ---
EXAMINATION: MR LUMBAR SPINE WITHOUT CONTRAST CLINICAL INFORMATION: Right lower extremity radiculopathy. Low back pain. COMPARISON: Prior MRI dated 01/07/2020. TECHNIQUE: Multiplanar, multisequence imaging was obtained. FINDINGS: VERTEBRAL BODIES AND PARASPINAL STRUCTURES: The marrow signal is within normal limits. No loss of disc height evident. Reduced intradiscal signal again most notable at the L4-L5 level where there is a mild posterior subluxation. No marrow or soft tissue edema is seen. There is a mild rightward curvature of the lumbar spine. The paraspinal soft tissues appear normal and there are mild degenerative changes of the sacroiliac joints. CONUS MEDULLARIS AND CAUDA EQUINE: The distal cord, conus tip, and cauda equina nerve roots appear normal. Lumbar epidural lipomatosis is again visible which contributes to varying degrees of thecal sac distortion. SPINAL LEVELS: L1-L2: No disc pathology, central canal stenosis, or foraminal narrowing. L2-L3: Small central disc protrusion and mild disc bulge with mild facet arthropathy. No central canal stenosis or foraminal narrowing. L3-L4: Mild disc bulge and bcrk-dg-nfwehpfj hypertrophic facet arthropathy are stable without central canal stenosis. Mild epidural fat prominence contributes to a mild degree of thecal sac distortion, as on prior imaging. Mild bilateral foraminal narrowing. L4-L5: Retrosubluxation and broad-based disc bulge with a small left paracentral disc protrusion are stable with mild facet arthropathy. Epidural fat prominence contributes to mild thecal sac distortion. No central canal stenosis. Mild left and moderate right foraminal narrowing are stable. The thecal sac is mild to moderately distorted at the mid L4 vertebral body level due to epidural fat prominence. L5-S1: Well-hydrated disc with hypertrophic facet arthropathy. No central canal stenosis. Facet spurring mildly encroaches upon the superior portions of the neural foramina contacting the exiting L5 nerve roots, otherwise unchanged. Epidural fat prominence is stable with moderate thecal sac distortion at the mid L5 vertebral body level. MR/MR lumbar spine wo con IMPRESSION: Relatively stable multilevel lumbar spondylosis with epidural lipomatosis contributing to mild to moderate thecal sac distortion. Small disc protrusions at the L2-L3 and L4-L5 levels. No central canal stenosis. Moderate right foraminal narrowing at the L4-L5 level. Facet spurring at the L5-S1 level mildly encroaches upon the superior portions of the neural foramina with stable mild impression upon the exiting L5 nerve roots.
== END 2023-03-12 15:42 | disposition home or self-care (01) ==
LOC: HO.MRI 15:41
PROVIDERS: PCP Internal Medicine Geriatric Medicine; Visit Provider Nurse Practitioner Family
DX: M54.16 Radiculopathy, lumbar region (principal); M51.36 Other intervertebral disc degeneration, lumbar region; M47.817 Spondylosis without myelopathy or radiculopathy, lumbosacral region
CPT/HCPCS: 72148

== ENCOUNTER 2023-03-19 07:12 | Day surgery (SDC) | payer OTHER, SELFPAY ==
--- NOTE | 2023-03-18 09:00 | P.CONAN_ITS ---
HPI - Anesthesia Eval Consult details Narrative: 67yo M for Colonoscopy Cardiac w/u 11/2022 for hx SVT and abnormal EKG. ECHO and Stress OK. [facility] Active Problems Active Problems: All Active Problems (Updated 01/24/23 @ 18:47 by ROSALIND Etienne) Tubular adenoma of colon (Acute) Pre-op examination (Acute) Glenohumeral arthritis (Acute) Chronic, continuous use of opioids (Acute) Chronic pain (Acute) BPH (benign prostatic hyperplasia) (Acute) History of pancreatitis (Acute) History of alcohol abuse (Acute) Lumbosacral spondylosis (Acute) Lumbar degenerative disc disease (Acute) Abnormal EKG (Acute) Cervical radiculitis (Acute) Cervical spondylosis (Acute) Muscle spasm (Acute) Cervical spondylosis with radiculopathy (Acute) Left shoulder pain (Acute) Spondylosis of lumbar region without myelopathy or radiculopathy (Acute) Sacroiliac joint pain (Acute) Left hip pain (Acute) Low back pain (Acute) Lumbar radiculopathy (Acute) Painful arc syndrome of left shoulder (Acute) Palpitations (Acute) SVT (supraventricular tachycardia) (Acute) HLD (hyperlipidemia) (Acute) HTN (hypertension) (Acute) Past Medical History Medical History Lumbar degenerative disc disease Diabetes type 2, controlled Palpitations SVT (supraventricular tachycardia) HLD (hyperlipidemia) HTN (hypertension) Family History Family History Father CVD (cardiovascular disease) Mother Cancer Surgical History Surgical History S/P shoulder surgery Social History Social History Alcohol intake: former Year quit: 2016 Patient Tobacco Use Status: Former Tobacco user Quit Date: 2009 Years Smoked: 25 +/- Current occupational status: retired Current occupation: rt handed Meds Allergies Allergy/AdvReac Type Severity Reaction Status Date / Time No Known Allergies Allergy Verified 01/04/23 09:56 [No Known Allergies*] Home Medications Medication Instructions Recorded Confirmed Last Taken Type lisinopril 20 mg tablet 20 mg PO DAILY 02/01/21 11/10/23 Unknown History oxycodone-acetaminophen 5 mg-325 1 tab PO TID PRN 03/28/20 01/04/23 Unknown History mg tablet (Percocet) sertraline 50 mg tablet 50 mg PO QAM 10/11/21 01/04/23 Unknown History amitriptyline 75 mg tablet 75 mg PO BEDTIME 12/29/21 01/04/23 Unknown History docusate sodium 100 mg capsule 100 mg PO BID 12/29/21 01/04/23 Unknown History ibuprofen 600 mg tablet 600 mg PO Q6H PRN moderate pain 12/29/21 01/04/23 Unknown History naloxone 4 mg/actuation nasal spray 1 spray intranasal DAILY 12/29/21 01/04/23 Unknown History omeprazole 40 mg capsule,delayed 40 mg PO DAILY 12/29/21 01/04/23 Unknown History release sildenafil 50 mg tablet (Viagra) 50 mg PO DAILY PRN 12/29/21 01/04/23 Unknown History carvedilol 6.25 mg tablet 6.25 mg PO BID 06/08/22 01/04/23 Unknown History finasteride 5 mg tablet 5 mg PO QAM 06/08/22 01/04/23 Unknown History insulin lispro 100 unit/mL 10 unit subcut TID 06/08/22 01/04/23 Unknown History subcutaneous pen lancets 33 gauge (OneTouch Delica #100 ea 06/08/22 01/04/23 Unknown History Plus Lancet) pen needle, diabetic 32 gauge x #50 ea 06/08/22 01/04/23 Unknown History (Pentips) tamsulosin 0.4 mg capsule 0.8 mg PO DAILY 06/21/22 01/04/23 Unknown History buspirone 5 mg tablet 5 mg PO DAILY 11/09/22 01/04/23 Unknown History empagliflozin 25 mg tablet 25 mg PO QAM 11/09/22 01/04/23 Unknown History (Jardiance) insulin glargine 100 unit/mL (3 28 unit subcut QAM 11/09/22 01/04/23 Unknown History mL) subcutaneous pen (Lantus Solostar U-100 Insulin) metformin 500 mg tablet 500 mg PO BID 11/09/22 01/04/23 Unknown History rosuvastatin 40 mg tablet 40 mg PO DAILY 11/09/22 01/04/23 Unknown History Exam Narrative Narrative: EKG 10/2022 normal sinus rhythm with sinus arrhythmia, left axis deviation, can not exclude prior anterior infarct, rate 69, QTC 385 ms ECHO 11/2022 Conclusions: - Normal left ventricular size, thickness, systolic function, and wall motion. The visually estimated ejection fraction is between 55-60%. Diastolic function is normal for age. - Normal right ventricular cavity size and systolic function. NM cardiolite stress test 11/2022 IMPRESSION: 1. Myocardial perfusion imaging study shows probably normal myocardial perfusion. 2. Gated LVEF is 47% during stress. Gating not obtained during rest. Correlate with echocardiogram. EKG component of the test reported separately. Assessment and Plan Assessment Anesthesia Assessment: Chart Reviewed
[2023-03-19 08:00] VITALS: BMI 30.2
[2023-03-19 08:18] VITALS: BP 148/80; PULSE 97; RESP 18; TEMP 36.7; O2SAT 96
[2023-03-19] MEDS: Lactated Ringers 1,000 ML 100 ML IVCONT (08:26)
[2023-03-19 08:28] LABS: Glucose, Whole Blood 197 mg/dL (60-115)
--- NOTE | 2023-03-19 08:28 | MHC.SHP ---
Pre-Procedural Eval Section A Date of Service: 03/19/23 The patient is an INPATIENT: No The History & Physical has been completed within 30 days and I have reviewed it.: No Section B Chief Complaint: Colon cancer screening Relevant Family History (Specify if Yes): No Relevant Social History: Tobacco Use (former smoker) Present Medications: see Short Stay Collaborative assessment Medical History: Significant History (Lumbar degenerative disc disease Diabetes type 2, controlled Palpitations SVT (supraventricular tachycardia) HLD (hyperlipidemia) HTN (hypertension)) History of Previous Operations: Relevant previous surgery/procedure and date(s) (History of shoulder surgery) Allergies: Allergies Allergy/AdvReac Type Severity Reaction Status Date / Time No Known Allergies Allergy Verified 01/04/23 09:56 [No Known Allergies*] Review of Systems Sugical H&P ROS: Negative: Constitution, Cardiovascular, Respiratory and Gastrointestinal Exam Surgical H&P Exam: Normal: Heart, Normal: Lungs, Normal: Extremities and Normal: Abdomen Plan Diagnosis/Plan: Unchanged I have reviewed the history and physical and performed a pertinent physical examination on my patient. No changes have occurred unless specified. Time Spent With Patient Time: Total time managing care of this patient today ____ minutes.
--- NOTE | 2023-03-19 08:39 | HO.ANESPROP2 ---
[facility] Active Problems Active Problems: All Active Problems (Updated 01/24/23 @ 18:47 by ROSALIND Etienne) Tubular adenoma of colon (Acute) Pre-op examination (Acute) Glenohumeral arthritis (Acute) Chronic, continuous use of opioids (Acute) Chronic pain (Acute) BPH (benign prostatic hyperplasia) (Acute) History of pancreatitis (Acute) History of alcohol abuse (Acute) Lumbosacral spondylosis (Acute) Lumbar degenerative disc disease (Acute) Abnormal EKG (Acute) Cervical radiculitis (Acute) Cervical spondylosis (Acute) Muscle spasm (Acute) Cervical spondylosis with radiculopathy (Acute) Left shoulder pain (Acute) Spondylosis of lumbar region without myelopathy or radiculopathy (Acute) Sacroiliac joint pain (Acute) Left hip pain (Acute) Low back pain (Acute) Lumbar radiculopathy (Acute) Painful arc syndrome of left shoulder (Acute) Palpitations (Acute) SVT (supraventricular tachycardia) (Acute) HLD (hyperlipidemia) (Acute) HTN (hypertension) (Acute) Past Medical History Medical History Lumbar degenerative disc disease Diabetes type 2, controlled Palpitations SVT (supraventricular tachycardia) HLD (hyperlipidemia) HTN (hypertension) Family History Family History Father CVD (cardiovascular disease) Mother Cancer Family history of problems with anesthesia: No Surgical History Surgical History S/P shoulder surgery History of Problems with Anesthesia: No Social History Social History Alcohol intake: former Year quit: 2017 Patient Tobacco Use Status: Former Tobacco user Quit Date: 2009 Years Smoked: 25 +/- Are you DNR?: No Advance Directives: No Advance Directives Information Provided: Yes Nutrition Risks: No Nutritional Risk Current occupational status: retired Current occupation: rt handed Meds Allergies Allergy/AdvReac Type Severity Reaction Status Date / Time No Known Allergies Allergy Verified 01/04/23 09:56 [No Known Allergies*] Active Medications: Current Medications Lactated Ringer's (Lr) 1,000 mls @ 100 mls/hr IVCONT .Q10H JOEL Last Admin: 03/19/23 08:26 Dose: 100 mls/hr Home Medications Medication Instructions Recorded Confirmed Last Taken Type lisinopril 20 mg tablet 20 mg PO DAILY 03/28/20 01/04/23 Unknown History oxycodone-acetaminophen 5 mg-325 1 tab PO TID PRN 03/28/20 01/04/23 Unknown History mg tablet (Percocet) sertraline 50 mg tablet 50 mg PO QAM 10/11/21 01/04/23 Unknown History amitriptyline 75 mg tablet 75 mg PO BEDTIME 12/29/21 01/04/23 Unknown History docusate sodium 100 mg capsule 100 mg PO BID 12/29/21 01/04/23 Unknown History ibuprofen 600 mg tablet 600 mg PO Q6H PRN moderate pain 12/29/21 01/04/23 Unknown History naloxone 4 mg/actuation nasal spray 1 spray intranasal DAILY 12/29/21 01/04/23 Unknown History omeprazole 40 mg capsule,delayed 40 mg PO DAILY 12/29/21 01/04/23 Unknown History release sildenafil 50 mg tablet (Viagra) 50 mg PO DAILY PRN 12/29/21 01/04/23 Unknown History carvedilol 6.25 mg tablet 6.25 mg PO BID 06/08/22 01/04/23 Unknown History finasteride 5 mg tablet 5 mg PO QAM 06/08/22 01/04/23 Unknown History insulin lispro 100 unit/mL 10 unit subcut TID 06/08/22 01/04/23 Unknown History subcutaneous pen lancets 33 gauge (OneTouch Delica #100 ea 06/08/22 01/04/23 Unknown History Plus Lancet) pen needle, diabetic 32 gauge x #50 ea 06/08/22 01/04/23 Unknown History (Pentips) tamsulosin 0.4 mg capsule 0.8 mg PO DAILY 06/21/22 01/04/23 Unknown History buspirone 5 mg tablet 5 mg PO DAILY 11/09/22 01/04/23 Unknown History empagliflozin 25 mg tablet 25 mg PO QAM 11/09/22 01/04/23 Unknown History (Jardiance) insulin glargine 100 unit/mL (3 28 unit subcut QAM 11/09/22 01/04/23 Unknown History mL) subcutaneous pen (Lantus Solostar U-100 Insulin) metformin 500 mg tablet 500 mg PO BID 11/09/22 01/04/23 Unknown History rosuvastatin 40 mg tablet 40 mg PO DAILY 11/09/22 01/04/23 Unknown History Exam Height,Weight and Vital Signs: Height 5 ft 9 in Weight 92.624 kg Last Vital Signs Temp 98.1 F 03/19/23 08:18 Pulse 97 03/19/23 08:18 Resp 18 03/19/23 08:18 BP 148/80 H 03/19/23 08:18 Pulse Ox 96 03/19/23 08:18 O2 Del Method Room Air 03/19/23 08:18 Pertinent Lab Results Pertinent Lab Results: Laboratory Tests 03/19/23 08:06 POC Glucose 197 H Airway Mallampati Class: III TM Dist: >3cm Neck ROM: Full Assessment and Plan Assessment Anesthesia Assessment: Anesthesia Plan Discussed and Chart Reviewed Final Anesthetic Review Family History of Problems with Anesthesia: No History of Problems with Anesthesia: No NPO: Yes ASA Class: II Final Preanesthetic Review: No Changes in Pt Med Stat, Meds/Allgs Chart Reviewed, Consent Obtained/Reviewed and Anes Risks/Benef Reviewed Patient Risk: Intermediate Procedure Risk: Low Anesthetic Plan Anesthetic Plan: TIVA Disposition: Standard PACU
--- NOTE | 2023-03-19 09:45 | W.PM.OPN ---
Operative Note Operative Note Date of Service: 03/19/23 Narrative: COLONOSCOPY TILL CECUM WITH SNARE POLYPECTOMY Pre-op diagnosis: Colon cancer screening Post-op diagnosis:? Colon polyps, AVMs right colon, diverticulosis, hemorrhoid Endoscopist:? Clint Suarez MD Anesthesia:?MAC Consent: Indications for the procedure and potential complications of bleeding, perforation, reaction to medications and missed diagnosis were discussed with the patient and informed consent was obtained. Instrument: Olympus PCF H 190 L variable stiffness pediatric colonoscope Monitoring: Vital signs and clinical assessment, intermittent blood pressure monitoring, continuous EKG monitoring, Pulse oximetry and Carbon Dioxide monitoring were done throughout the procedure. Please see anesthesia flowsheet. Colon withdrawl time was 24 minutes. Procedure: The patient was placed in the left lateral decubitis position and pre-procedure medications were administered. After a digital rectal examination of the ano-rectum, the video colonoscope was inserted into the rectum and advanced through the colon to the cecum. The colonoscope was slowly withdrawn in a retrograde panoramic fashion and the colon mucosa was carefully examined including a retroflexed view of the rectum. Findings and interventions are described below. Procedure Difficulty: Colon was long and tortuous and there was some loop formation. LLQ pressure was applied to intubate the cecum Findings: Terminal Ileum: Not evaluated Cecum: Two 10-12 mm non-bleeding AVMs Ascending Colon: Two 10-12 mm non-bleeding AVMs Transverse Colon: Normal Descending Colon: Normal Sigmoid Colon: Two 7-8 mm diminutive appearing polyps - removed with a cold snare and both the polyps were not retrieved. Moderate diverticulosis Rectum: Normal Ano-rectum: Moderate internal hemorrhoids Colon preparation: Fair despite copious irrigation There was undigested vegetable matter throughout the colon which could not be suctioned [place] Bowel Preparation Scale Right colon; 1 Transverse colon: 1 Left colon; 1 (0 = Unprepared colon segment with mucosa not seen due to solid stool that cannot be cleared. 1 = Portion of mucosa of the colon segment seen, but other areas of the colon segment not well seen due to staining, residual stool and/or opaque liquid. 2 = Minor amount of residual staining, small fragments of stool and/or opaque liquid, but mucosa of colon segment seen well. 3 = Entire mucosa of colon segment seen well with no residual staining, small fragments of stool or opaque liquid) Impression and Post Procedure Diagnosis: Colonoscopy Findings: Two small polyps removed - polyps were not retrieved A few 10-12 mm non-bleeding AVMs in the right colon Moderate diverticulosis seen in the sigmoid colon Moderate hemorrhoids on retroflexed exam. Prep was fair despite copious irrigation There was undigested vegetable matter throughout the colon which could not be suctioned Plan: Patient has an appointment on 04/02/23 in the [facility] with Dori Darling NP . Repeat Colonoscopy in 1-2 years due to fair prep (Dulcolax 2 tablets) daily starting 5 days before colonoscopy and adult colonoscope for next colonoscopy. Colon polyps and diverticulosis handouts were given in the discharge area
[2023-03-19 10:59] VITALS: BP 117/97; PULSE 110; RESP 16; TEMP 36.2; O2SAT 98
[2023-03-19 11:22] VITALS: BP 127/73; PULSE 88; RESP 16; TEMP 36.2; O2SAT 98
== END 2023-03-19 11:50 | disposition home or self-care (01) ==
PROVIDERS: PCP Internal Medicine Geriatric Medicine; Visit Provider Internal Medicine Gastroenterology
PROC: 0DJD8ZZ Inspection of Lower Intestinal Tract, Via Natural or Artificial Opening Endoscopic (ICD-10-PCS; CPT 45378; principal; 2023-03-19 09:20)
DX: Z12.11 Encounter for screening for malignant neoplasm of colon (principal); K55.20 Angiodysplasia of colon without hemorrhage; K57.30 Diverticulosis of large intestine without perforation or abscess without bleeding; K64.8 Other hemorrhoids; K56.2 Volvulus; Z86.010 Personal history of colon polyps; E11.9 Type 2 diabetes mellitus without complications; I10 Essential (primary) hypertension; E78.5 Hyperlipidemia, unspecified; F10.11 Alcohol abuse, in remission; Z87.891 Personal history of nicotine dependence; Z79.4 Long term (current) use of insulin; Z79.02 Long term (current) use of antithrombotics/antiplatelets; Z79.84 Long term (current) use of oral hypoglycemic drugs; Z79.899 Other long term (current) drug therapy
CPT/HCPCS: 45385; 82947; J1596; J2704

== ENCOUNTER → 2023-03-19 07:12 | Outpatient (BNV) | payer OTHER, SELFPAY | PROVIDERS: PCP Internal Medicine Geriatric Medicine; Visit Provider Internal Medicine Gastroenterology | DX: Z12.11 Encounter for screening for malignant neoplasm of colon (principal); K55.20 Angiodysplasia of colon without hemorrhage; K57.30 Diverticulosis of large intestine without perforation or abscess without bleeding; K64.8 Other hemorrhoids | CPT/HCPCS: 45385 ==

== ENCOUNTER 2023-03-22 12:58 | Outpatient (AMB) | payer OTHER, SELFPAY ==
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
[2023-03-22 13:16] VITALS: BP 139/68; PULSE 88; O2SAT 97; BMI 30.3
== END 2023-03-22 13:45 | disposition home or self-care (01) ==
PROVIDERS: PCP Internal Medicine Geriatric Medicine; Visit Provider Nurse Practitioner Family
DX: M62.838 Other muscle spasm (principal); G89.29 Other chronic pain; M53.3 Sacrococcygeal disorders, not elsewhere classified; M54.16 Radiculopathy, lumbar region; M51.36 Other intervertebral disc degeneration, lumbar region; M47.817 Spondylosis without myelopathy or radiculopathy, lumbosacral region
CPT/HCPCS: 99214

== ENCOUNTER → 2023-03-22 12:58 | Outpatient (BNVA) | payer OTHER, SELFPAY | PROVIDERS: PCP Internal Medicine Geriatric Medicine; Visit Provider Nurse Practitioner Family | DX: M62.838 Other muscle spasm (principal); G89.29 Other chronic pain; M53.3 Sacrococcygeal disorders, not elsewhere classified; M54.16 Radiculopathy, lumbar region; M51.36 Other intervertebral disc degeneration, lumbar region; M47.817 Spondylosis without myelopathy or radiculopathy, lumbosacral region | CPT/HCPCS: 99212 ==

== ENCOUNTER 2023-04-02 12:36 | Outpatient (AMB) | payer OTHER, SELFPAY ==
--- NOTE | 2023-04-02 12:48 | MHC.OFFVIS ---
Intake Vital Signs 04/02/23 12:57 Height 5 ft 9 in Weight 200 lb BMI 29.5 BP 114/63 Blood Pressure Location Lt brachial Position Sitting Pulse 86 Intake Visit Reasons: S/P [place]; Dr. Young Intake Note: Patient follow up for Colonoscopy results. Patient cc: acid reflex with burning sensation more at night time, constipation and some throat discomfort with hot drinks. Patient wanted an EGD. Denies any other GI issues. Floor Care Specialist Required: Yes Floor Care Specialist Name: [facility] [place] Accompanied by: Self / Same As Patient Allergies No Known Allergies [No Known Allergies*] Allergy (Verified 03/22/23 13:16) HPI S/P [place]; Dr. Young HPI Details Assessment & Plan (1) Pre-op examination: Code(s): Z01.818 - Encounter for other preprocedural examination Plan: [place] #Elaina Live He is here with his who is supportive. He has had a prior colonoscopy about 5 years ago. This was at [facility], he does not know the results. He suffers CIC which is well controlled on his colace and he has GERD that is well controlled on his omeprazole. There are no prior problems with anesthesia or sedation. He was just cleared by cardiology for an irregular HB and he denies any respiratory problems. No ID problems. He may have had polyps on his last colonoscopy, this is very unclear, there is no known FHX of crc or polyps. . (2) Tubular adenoma of colon: Code(s): D12.6 - Benign neoplasm of colon, unspecified (3) Chronic, continuous use of opioids: Code(s): F11.90 - Opioid use, unspecified, uncomplicated (4) History of alcohol abuse: Code(s): F10.11 - Alcohol abuse, in remission (5) SVT (supraventricular tachycardia): Code(s): I47.1 - Supraventricular tachycardia COLONOSCOPY 03/19/23 Findings: Terminal Ileum: Not evaluated Cecum: Two 10-12 mm non-bleeding AVMs Ascending Colon: Two 10-12 mm non-bleeding AVMs Transverse Colon: Normal Descending Colon: Normal Sigmoid Colon: Two 7-8 mm diminutive appearing polyps - removed with a cold snare and both the polyps were not retrieved. Moderate diverticulosis Rectum: Normal Ano-rectum: Moderate internal hemorrhoids Colon preparation: Fair despite copious irrigation There was undigested vegetable matter throughout the colon which could not be suctioned Impression and Post Procedure Diagnosis: Colonoscopy Findings: Two small polyps removed - polyps were not retrieved A few 10-12 mm non-bleeding AVMs in the right colon Moderate diverticulosis seen in the sigmoid colon Moderate hemorrhoids on retroflexed exam. Prep was fair despite copious irrigation There was undigested vegetable matter throughout the colon which could not be suctioned Plan: Patient has an appointment on 04/02/23 in the GI Clinic with Dori Darling NP . Repeat Colonoscopy in 1-2 years due to fair prep (Dulcolax 2 tablets) daily starting 5 days before colonoscopy and adult colonoscope for next colonoscopy TODAY'S VISIT [place] #Elaina Hernandez The procedure needs to be repeated in 2 years due to insufficient prep and an un retrieved polyp.(Dulcolax 2 tablets) daily starting 5 days before colonoscopy and adult colonoscope for next colonoscopy. With review of the instructions, he says that no one called me to explain how to prep,I called the office the night before. He also ate solid foods, fearing that his BS would drop, until noon the day before. He is on insulin, so I will also provide instructions about holding insulin the day before to avoid hypoglycemia. The procedure was well tolerated. The results were explained and the patient is agreeable to the follow-up interval as stated. The bowel pattern has returned to normal. Education was provided to tell any 1st degree relatives about their findings to be sure that they are screened by age 45. Educated that they will be put on a recall list when it is time for their repeat scope but should they move out of state or away from the hospital they will need to remember along with their primary to repeat the procedure in a timely fashion to avoid any adverse complications. He presents with a new complaint of increasing GERD. This has been a problem since I was dx'ed as diabetic. This was 7 years ago. He has a lot of CIC and says I am always taking laxatives. But he describes a gel tab that sounds like colace and admits he goes 2-3 days w/o a BM. He also has comorbid chronic percocet use as a c/f. Not on any GLP -1's r/t risk of pancreatits. He had requested an EGD, but I think there are other things to be explored first. Also getting HP stool. ROV 4 weeks. [facility] Medical History (Updated 04/02/23 @ 14:02 by ROSALIND Etienne) Pre-op examination Cervical radiculitis Cervical spondylosis Muscle spasm Left shoulder pain Low back pain Lumbar degenerative disc disease Diabetes type 2, controlled Palpitations SVT (supraventricular tachycardia) HLD (hyperlipidemia) HTN (hypertension) Surgical History Hx of colonoscopy S/P shoulder surgery Family History Father CVD (cardiovascular disease) Mother Cancer Social History Alcohol intake: former Year quit: 2017 Patient Tobacco Use Status: Former Tobacco user Quit Date: 2009 Years Smoked: 25 +/- Current occupational status: retired Current occupation: rt handed Review of Systems Const Denies fatigue, Denies fever(s), Denies night sweats, Denies poor appetite and Denies weight loss ENT Reports Normal hearing present, Denies dental pain, Denies dysphagia, Denies hearing loss, Denies mouth pain, Denies odynophagia, Denies throat swelling, Denies tongue swelling and Reports other (Dentition adequate) Card Reports no additional complaints Resp Reports no additional complaints GI Details: Denies abdominal pain, Denies melena, Reports bloating, Denies hematochezia, Reports constipation, Denies GI cramping, Denies dysphagia, Denies excessive flatus, Denies early satiety, Reports heartburn, Denies diarrhea, Denies nausea, Denies odynophagia, Denies vomiting and Denies hematemesis Musc Reports back pain, Reports myalgias, Reports arthralgias and Reports stiffness Skin/Breast Denies pruritus, Denies lesions, Denies rash and Denies jaundice Neuro Reports Normal hearing present and Denies Abnormal speech present Endo Denies fatigue Aller/Immun Denies throat swelling and Denies tongue swelling Physical Exam Vital Signs: Last Vital Signs Pulse 86 04/02/23 12:57 BP 114/63 04/02/23 12:57 BMI result Body Mass Index 29.5 Const General: cooperative, no acute distress, well developed and well groomed Nutritional Appearance: well nourished and overweight Orientation/consciousness: oriented to person, oriented to place and oriented to time Limitations: No language barrier HEENT Head: Yes normocephalic and Yes atraumatic Eyes General: appearance normal, both eyes and all related structures Pupils: Equal, round and reactive pupils present Neck Neck: Yes normal visual inspection and Yes no lymphadenopathy Thyroid: Thyroid normal Resp Effort & Inspection: normal respiratory effort and able to speak in complete sentences Auscultation: clear to auscultation bilaterally Cardio Rate: regular rate Rhythm: regular rhythm Heart sounds: Normal, physiologic split S2 sound present Peripheral pulses: radial pulses present and posterior tibial pulses present GI Inspection: No distended and No Abdominal panniculus present Palpation (GI): Soft to palpation, nontender, no guarding, not rigid and No hepatosplenomegaly present Percussion: Yes normal to percussion Auscultation: normal bowel sounds Rectal Exam - Male: Yes deferred Skin General skin exam: no rashes or lesions noted, turgor normal, skin not dry, no jaundice, No spider nevi and no striae Rashes: no rashes Nails: normal Neuro General: oriented to person, oriented to place and oriented to time Cranial nerves: Yes Equal, round and reactive pupils present and Yes Normal hearing present Speech: No Abnormal speech present Extrem General: Yes normal to inspection, No clubbing, No cyanosis and No edema Psych Appearance: grossly normal and well kempt Mental Status: mental status grossly normal Speech and movement: Normal speech and movement present Affect: normal affect Attitude: cooperative Thought process: Normal thought process present and not confabulating Thought content: Normal thought content present Insight: Limited insight present (Psych) Judgement: Limited judgement present (Psych) Results Reviewed Results Reviewed: COLONOSCOPY 03/19/23 Findings: Terminal Ileum: Not evaluated Cecum: Two 10-12 mm non-bleeding AVMs Ascending Colon: Two 10-12 mm non-bleeding AVMs Transverse Colon: Normal Descending Colon: Normal Sigmoid Colon: Two 7-8 mm diminutive appearing polyps - removed with a cold snare and both the polyps were not retrieved. Moderate diverticulosis Rectum: Normal Ano-rectum: Moderate internal hemorrhoids Colon preparation: Fair despite copious irrigation There was undigested vegetable matter throughout the colon which could not be suctioned Impression and Post Procedure Diagnosis: Colonoscopy Findings: Two small polyps removed - polyps were not retrieved A few 10-12 mm non-bleeding AVMs in the right colon Moderate diverticulosis seen in the sigmoid colon Moderate hemorrhoids on retroflexed exam. Prep was fair despite copious irrigation There was undigested vegetable matter throughout the colon which could not be suctioned Plan: Patient has an appointment on 04/02/23 in the GI Clinic with Dori Darling NP . Repeat Colonoscopy in 1-2 years due to fair prep (Dulcolax 2 tablets) daily starting 5 days before colonoscopy and adult colonoscope for next colonoscopy Assessment & Plan Assessment & Plan (1) Tubular adenoma of colon: Comment: 2023 scope= poor prep and several un retrieved polyps repeat in 2 years; With review of the instructions, he says that no one called me to explain how to prep,I called the office the night before. He also ate solid foods, fearing that his BS would drop, until noon the day before. He is on insulin, so I will also provide instructions about holding insulin the day before to avoid hypoglycemia. aeb Code(s): D12.6 - Benign neoplasm of colon, unspecified (2) AVM (arteriovenous malformation) of colon: Comment: Discovered on 2023 scope, nonbleeding at that time Code(s): K55.20 - Angiodysplasia of colon without hemorrhage (3) Chronic idiopathic constipation: Code(s): K59.04 - Chronic idiopathic constipation (4) GERD (gastroesophageal reflux disease): Code(s): K21.9 - Gastro-esophageal reflux disease without esophagitis Plan [place] #Elaina David The procedure needs to be repeated in 2 years due to insufficient prep and an un retrieved polyp.(Dulcolax 2 tablets) daily starting 5 days before colonoscopy and adult colonoscope for next colonoscopy. With review of the instructions, he says that no one called me to explain how to prep,I called the office the night before. He also ate solid foods, fearing that his BS would drop, until noon the day before. He is on insulin, so I will also provide instructions about holding insulin the day before to avoid hypoglycemia. The procedure was well tolerated. The results were explained and the patient is agreeable to the follow-up interval as stated. The bowel pattern has returned to normal. Education was provided to tell any 1st degree relatives about their findings to be sure that they are screened by age 45. Educated that they will be put on a recall list when it is time for their repeat scope but should they move out of state or away from the hospital they will need to remember along with their primary to repeat the procedure in a timely fashion to avoid any adverse complications. He presents with a new complaint of increasing GERD. This has been a problem since I was dx'ed as diabetic. This was 7 years ago. He has a lot of CIC and says I am always taking laxatives. But he describes a gel tab that sounds like colace and admits he goes 2-3 days w/o a BM. He also has comorbid chronic percocet use as a c/f. Not on any GLP -1's r/t risk of pancreatits. He has chronic back pain but denies taking a lot of NSAIDs which could contribute to his GERD is well. He will soon be having repeat back injections and shoulder injections which he is found helpful for his chronic pain in the past. He has failed Colace, senna, Dulcolax, MiraLax, and fiber therapy in the past for his constipation. I am going to try starting him on Linzess although I am uncertain what exactly his insurance covers so we may need to change this to a different chronic constipation medication. He is on omeprazole 40 mg once a day. However, if we can not restore general GI motility it will help to increase his acid reducing therapy. He had requested an EGD, but I think there are other things to be explored first. Also getting HP stool. ROV 4 weeks. Orders: Orders H pylori Ag Stool Today K21.9 - Gastro-esophageal reflux disease without esophagitis Medications: New omeprazole 40 mg PO DAILY 30 caps 6RF K21.9 - Gastro-esophageal reflux disease without esophagitis linaclotide (Linzess) 145 mcg PO QAM 30 caps 3RF K59.04 - Chronic idiopathic constipation Coding Level of Care Code Est Pt Level 4 (99945) Diagnoses Tubular adenoma of colon D12.6 AVM (arteriovenous malformation) of colon K55.20 Chronic idiopathic constipation K59.04 GERD (gastroesophageal reflux disease) K21.9
[2023-04-02 12:57] VITALS: BP 114/63; PULSE 86; BMI 29.5
== END 2023-04-02 13:27 | disposition home or self-care (01) ==
PROVIDERS: PCP Internal Medicine Geriatric Medicine; Visit Provider Nurse Practitioner
DX: D12.6 Benign neoplasm of colon, unspecified (principal); K55.20 Angiodysplasia of colon without hemorrhage; K59.04 Chronic idiopathic constipation; K21.9 Gastro-esophageal reflux disease without esophagitis
CPT/HCPCS: 99214

== ENCOUNTER → 2023-04-02 12:36 | Outpatient (BNVA) | payer OTHER, SELFPAY | PROVIDERS: PCP Internal Medicine Geriatric Medicine; Visit Provider Nurse Practitioner | DX: D12.6 Benign neoplasm of colon, unspecified (principal); K55.20 Angiodysplasia of colon without hemorrhage; K59.04 Chronic idiopathic constipation; K21.9 Gastro-esophageal reflux disease without esophagitis | CPT/HCPCS: 99212 ==

== ENCOUNTER 2023-04-29 09:35 | Outpatient (REF) | payer OTHER, SELFPAY | END 2023-04-29 09:36 | disposition home or self-care (01) | LOC: HO.LNP 09:35 | PROVIDERS: Visit Provider Nurse Practitioner | DX: K21.9 Gastro-esophageal reflux disease without esophagitis (principal) | CPT/HCPCS: 87338 ==

== ENCOUNTER 2023-05-01 12:46 | Outpatient (AMB) | payer OTHER, SELFPAY ==
--- NOTE | 2023-05-01 12:57 | A.OFFVIS_ITS ---
Intake Vital Signs 05/01/23 13:01 Height 5 ft 9 in Weight 210 lb 12.191 oz BMI 31.1 BP 111/71 Blood Pressure Location Rt brachial Position Sitting Pulse 101 H Intake Visit Reasons: 4 week follow up GERD, CIC Intake Note: Patient in follow up of GERD and CIC. CC: Patient c/o GERD he states he is taking Omeprazole but it does not help much. National Account Manager Required: Yes Accompanied by: Self / Same As Patient Allergies No Known Allergies [No Known Allergies*] Allergy (Verified 05/01/23 13:10) HPI 4 week follow up GERD, CIC HPI Details Assessment & Plan (1) Tubular adenoma of colon: Comment: 2023 scope= poor prep and several un ret rieved polyps repeat in 2 years; With review of the instructions, he says that no one called me to explain how to prep,I called the office the night before. He also ate solid foods, fearing that his BS would drop, until noon the day before. He is on insulin, so I will also provide instructions about holding insulin the day before to avoid hypoglycemia. aeb Code(s): D12.6 - Benign neoplasm of colon, unspecified (2) AVM (arteriovenous malformation) of colon: Comment: Discovered on 2023 scope, nonbleeding at that time Code(s): K55.20 - Angiodysplasia of colon without hemorrhage (3) Chronic idiopathic constipation: Code(s): K59.04 - Chronic idiopathic constipation (4) GERD (gastroesophageal reflux diseas e): Code(s): K21.9 - Gastro-esophageal reflux disease without esophagitis Plan [place] #Elaina David The procedure needs to be repeated in 2 years due to insufficient prep and an un retrieved polyp.(Dulcolax 2 tablets) daily starting 5 days before colonoscopy and adult colonoscope for next colonoscopy. With review of the instructions, he says that no one called me to explain how to prep,I called the office the night before. He also ate solid foods, fearing that his BS would drop, until noon the day before. He is on insulin, so I will also provide instructions about holding insulin the day before to avoid hypoglycemia. The procedure was well tolerated. The results were explained and the patient is agreeable to the follow-up interval as stated. The bowel pattern has returned to normal. Education was provided to tell any 1st degree relatives about their findings to be sure that they are screened by age 45. Educated that they will be put on a recall list when it is time for their repeat scope but should they move out of state or away from the hospital they will need to remember along with their primary to repeat the procedure in a timely fashion to avoid any adverse complications. He presents with a new complaint of increasing GERD. This has been a problem since I was dx'ed as diabetic. This was 7 years ago. He has a lot of CIC and says I am always taking laxatives. But he describes a gel tab that sounds like colace and admits he goes 2-3 days w/o a BM. He also has comorbid chronic percocet use as a c/f. Not on any GLP -1's r/t risk of pancreatits. He has chronic back pain but denies taking a lot of NSAIDs which could contribute to his GERD is well. He will soon be having repeat back injections and shoulder injections which he is found helpful for his chronic pain in the past. He has failed Colace, senna, Dulcolax, MiraLax, and fiber therapy in the past for his constipation. I am going to try starting him on Linzess although I am uncertain what exactly his insurance covers so we may need to change this to a different chronic constipation medication. He is on omeprazole 40 mg once a day. However, if we can not restore general GI motility it will help to incre ase his acid reducing therapy. He had requested an EGD, but I think there are other things to be explored first. Also getting HP stool. ROV 4 weeks. Orders: Orders H pylori Ag Stool Today K21.9 - Gastro-eso phageal reflux dis ease without esoph agitis Medications: New omeprazole 40 mg PO DAILY 30 caps 6RF K21.9 - Gastro-eso phageal reflux dis ease without esoph agitis linaclotide (Linze ss) 145 mcg PO QAM 30 caps 3RF K59.04 - Chronic i diopathic constipa tion Laboratory Tests 04/29/23 07:55 Stool H. pylori Ag negative TODAYS VISIT [place]ian #[id number] He received the Linzess 145 and the omeprazole 40mg qd but he still is not moving his bowels well, and the omeprazole is only helping a bit as she still has acid brash and food going up. We will increase the Linzess to 290mcg and add famotidine to the omeprazole. Contributing factors for his CIC are percocet, CCB, TCA, metformin. ROV 3 weeks. PFSH Medical History Pre-op examination Cervical radiculitis Cervical spondylosis Muscle spasm Left shoulder pain Low back pain Lumbar degenerative disc disease Diabetes type 2, controlled Palpitations SVT (supraventricular tachycardia) HLD (hyperlipidemia) HTN (hypertension) Surgical History Hx of colonoscopy S/P shoulder surgery Family History Father CVD (cardiovascular disease) Mother Cancer Social History Alcohol intake: former Year quit: 2017 Patient Tobacco Use Status: Former Tobacco user Quit Date: 2009 Years Smoked: 25 +/- Current occupational status: retired Current occupation: rt handed Review of Systems Const Denies fatigue, Denies fever(s), Denies night sweats, Denies poor appetite and Denies weight loss ENT Reports Normal hearing present, Denies dental pain, Denies dysphagia, Denies hearing loss, Denies mouth pain, Denies odynophagia, Denies throat swelling, Denies tongue swelling and Reports other (Dentition adequate) Card Reports no additional complaints Resp Reports no additional complaints GI Details: Denies abdominal pain, Denies melena, Denies bloating, Denies hematochezia, Reports constipation, Denies GI cramping, Denies dysphagia, Denies excessive flatus, Denies early satiety, Reports heartburn, Denies diarrhea, Denies nausea, Denies odynophagia, Denies vomiting and Denies hematemesis Skin/Breast Denies pruritus, Denies lesions, Denies rash and Denies jaundice Neuro Reports Normal hearing present and Denies Abnormal speech present Endo Denies fatigue Aller/Immun Denies throat swelling and Denies tongue swelling Physical Exam Vital Signs: Last Vital Signs Pulse 101 H 05/01/23 13:01 BP 111/71 05/01/23 13:01 BMI result Body Mass Index 31.1 Const General: cooperative, no acute distress, well developed and well groomed Nutritional Appearance: well nourished and obese Orientation/consciousness: oriented to person, oriented to place and oriented to time Limitations: language barrier HEENT Head: Yes normocephalic and Yes atraumatic Eyes General: appearance normal, both eyes and all related structures Pupils: Equal, round and reactive pupils present Neck Neck: Yes normal visual inspection and Yes no lymphadenopathy Thyroid: Thyroid normal Resp Effort & Inspection: normal respiratory effort and able to speak in complete sentences Auscultation: clear to auscultation bilaterally Cardio Rate: regular rate Rhythm: regular rhythm Heart sounds: Normal, physiologic split S2 sound present Peripheral pulses: radial pulses present and posterior tibial pulses present GI Inspection: No distended, No Abdominal panniculus present and Yes obesity Palpation (GI): Soft to palpation, nontender, no guarding, not rigid and No hepatosplenomegaly present Percussion: Yes normal to percussion Auscultation: normal bowel sounds Rectal Exam - Male: Yes deferred Skin General skin exam: no rashes or lesions noted, turgor normal, skin not dry, no jaundice, No spider nevi and no striae Rashes: no rashes Nails: normal Neuro General: oriented to person, oriented to place and oriented to time Cranial nerves: Yes Equal, round and reactive pupils present and Yes Normal hearing present Speech: No Abnormal speech present Extrem General: Yes normal to inspection, No clubbing, No cyanosis and No edema Psych Appearance: grossly normal and well kempt Mental Status: mental status grossly normal Speech and movement: Normal speech and movement present Affect: normal affect Attitude: cooperative Thought process: Normal thought process present and not confabulating Thought content: Normal thought content present Insight: Limited insight present (Psych) Judgement: Limited judgement present (Psych) Assessment & Plan Assessment & Plan (1) GERD (gastroesophageal reflux disease): Code(s): K21.9 - Gastro-esophageal reflux disease without esophagitis (2) Chronic idiopathic constipation: Code(s): K59.04 - Chronic idiopathic constipation (3) Tubular adenoma of colon: Comment: 2023 scope= poor prep and several un retrieved polyps repeat in 2 years; With review of the instructions, he says that no one called me to explain how to prep,I called the office the night before. He also ate solid foods, fearing that his BS would drop, until noon the day before. He is on insulin, so I will also provide instructions about holding insulin the day before to avoid hypoglycemia. aeb Code(s): D12.6 - Benign neoplasm of colon, unspecified Plan [place] #[id number] He received the Linzess 145 and the omeprazole 40mg qd but he still is not moving his bowels well, and the omeprazole is only helping a bit as she still has acid brash and food going up. We will increase the Linzess to 290mcg and add famotidine to the omeprazole. Contributing factors for his CIC are percocet, CCB, TCA, metformin. ROV 3 weeks. Medications: New linaclotide (Linzess) 290 mcg PO QAM 30 days 30 caps 6RF K59.04 - Chronic idiopathic constipation famotidine (Pepcid) 40 mg PO BEDTIME 30 tabs 6RF On Hold linaclotide (Linzess) Hold Comment: Doctor's Order 145 mcg PO QAM 30 caps 3RF K59.04 - Chronic idiopathic constipation Coding Level of Care Code Est Pt Level 3 (32464) Diagnoses GERD (gastroesophageal reflux disease) K21.9 Chronic idiopathic constipation K59.04 Tubular adenoma of colon D12.6
[2023-05-01 13:01] VITALS: BP 111/71; PULSE 101; BMI 31.1
== END 2023-05-01 13:33 | disposition home or self-care (01) ==
PROVIDERS: PCP Internal Medicine Geriatric Medicine; Visit Provider Nurse Practitioner
DX: K21.9 Gastro-esophageal reflux disease without esophagitis (principal); K59.04 Chronic idiopathic constipation; D12.6 Benign neoplasm of colon, unspecified
CPT/HCPCS: 99213

== ENCOUNTER → 2023-05-01 12:46 | Outpatient (BNVA) | payer OTHER, SELFPAY | PROVIDERS: PCP Internal Medicine Geriatric Medicine; Visit Provider Nurse Practitioner | DX: K21.9 Gastro-esophageal reflux disease without esophagitis (principal); K59.04 Chronic idiopathic constipation; D12.6 Benign neoplasm of colon, unspecified | CPT/HCPCS: 99212 ==

== ENCOUNTER 2023-05-23 13:58 | Outpatient (AMB) | payer OTHER, SELFPAY ==
--- NOTE | 2023-05-23 13:59 | A.OFFVIS_ITS ---
Intake Vital Signs 05/23/23 14:00 Height 5 ft 9 in Weight 215 lb 2.738 oz BMI 31.8 BP 129/75 Blood Pressure Location Lt brachial Position Sitting Pulse 86 Intake Visit Reasons: 3 week follow up Intake Note: Landen returns to in office visit today in follow up of constipation. CC: Patient reports that he continues having constipation after taking the Linzess. States that he feels better from GERD after starting the Famotidine. Tube Station Attendant Required: Yes Accompanied by: Self / Same As Patient Allergies No Known Allergies [No Known Allergies*] Allergy (Verified 05/23/23 14:04) HPI 3 week follow up HPI Details Assessment & Plan (1) GERD (gastroesophageal reflux diseas e): Code(s): K21.9 - Gastro-esophageal reflux disease without esophagitis (2) Chronic idiopathic constipation: Code(s): K59.04 - Chronic idiopathic constipation (3) Tubular adenoma of colon: Comment: 2023 scope= poor prep and several un ret rieved polyps repeat in 2 years; With review of the instructions, he says that no one called me to explain how to prep,I called the office the night before. He also ate solid foods, fearing that his BS would drop, until noon the day before. He is on insulin, so I will also provide instructions about holding insulin the day before to avoid hypoglycemia. aeb Code(s): D12.6 - Benign neoplasm of colon, unspecified Plan Sami #[id number] He received the Linzess 145 and the omeprazole 40mg qd but he still is not moving his bowels well, and the omeprazole is only helping a bit as she still has acid brash and food going up. We will increase the Linzess to 290mcg and add famotidine to the omeprazole. Contributing factors for his CIC are percocet, CCB, TCA, metformin. ROV 3 weeks. Medications: New linaclotide (Linze ss) 290 mcg PO QAM 30 days 30 caps 6RF K59.04 - Chronic i diopathic constipa tion famotidine (Pepcid ) 40 mg PO BEDTIME 30 tabs 6RF On Hold linaclotide (Linze ss) Hold Commen t: Doctor's Order 145 mcg PO QAM 30 caps 3RF K59.04 - Chronic i diopathic constipa tion TODAY'S VISIT Stateless #Trudy Hernandez He is taking the LInzess 290mcg but is only moving very hard stools every other day. We will now add bisacodyl 2 tabs qhs. We may need to consider reglan as well going forward. Contributing factors for his CIC are percocet, CCB, TCA, metformin Her received the famotidine and it is helping him quite well with the HB along with he omeprazole. He will be getting back injections soon for his chronic lower back pain. ROV 3-4 weeks. [facility] Medical History Pre-op examination Cervical radiculitis Cervical spondylosis Muscle spasm Left shoulder pain Low back pain Lumbar degenerative disc disease Diabetes type 2, controlled Palpitations SVT (supraventricular tachycardia) HLD (hyperlipidemia) HTN (hypertension) Surgical History Hx of colonoscopy S/P shoulder surgery Family History Father CVD (cardiovascular disease) Mother Cancer Social History Alcohol intake: former Year quit: 2016 Patient Tobacco Use Status: Former Tobacco user Quit Date: 2009 Years Smoked: 25 +/- Current occupational status: retired Current occupation: rt handed Review of Systems Const Denies fatigue, Denies fever(s), Denies night sweats, Denies poor appetite and Denies weight loss ENT Reports Normal hearing present, Denies dental pain, Denies dysphagia, Denies hearing loss, Denies mouth pain, Denies odynophagia, Denies throat swelling, Denies tongue swelling and Reports other (Dentition adequate) Card Reports no additional complaints Resp Reports no additional complaints GI Details: Denies abdominal pain, Denies melena, Denies bloating, Denies hematochezia, Reports constipation, Denies GI cramping, Denies dysphagia, Denies excessive flatus, Denies early satiety, Reports heartburn, Denies diarrhea, Denies nausea, Denies odynophagia, Denies vomiting and Denies hematemesis Musc Reports back pain Skin/Breast Denies pruritus, Denies lesions, Denies rash and Denies jaundice Neuro Reports Normal hearing present and Denies Abnormal speech present Endo Denies fatigue Aller/Immun Denies throat swelling and Denies tongue swelling Physical Exam Vital Signs: Last Vital Signs Pulse 86 05/23/23 14:00 BP 129/75 05/23/23 14:00 BMI result Body Mass Index 31.8 Const General: cooperative, no acute distress, well developed and well groomed Nutritional Appearance: well nourished and obese Orientation/consciousness: oriented to person, oriented to place and oriented to time Limitations: language barrier HEENT Head: Yes normocephalic and Yes atraumatic Eyes General: appearance normal, both eyes and all related structures Pupils: Equal, round and reactive pupils present Neck Neck: Yes normal visual inspection and Yes no lymphadenopathy Thyroid: Thyroid normal Resp Effort & Inspection: normal respiratory effort and able to speak in complete sentences Auscultation: clear to auscultation bilaterally Cardio Rate: regular rate Rhythm: regular rhythm Heart sounds: Normal, physiologic split S2 sound present Peripheral pulses: radial pulses present and posterior tibial pulses present GI Inspection: No distended, No Abdominal panniculus present and Yes obesity Palpation (GI): Soft to palpation, nontender, no guarding, not rigid and No hepatosplenomegaly present Percussion: Yes normal to percussion Auscultation: normal bowel sounds Rectal Exam - Male: Yes deferred Skin General skin exam: no rashes or lesions noted, turgor normal, skin not dry, no jaundice, No spider nevi and no striae Rashes: no rashes Nails: normal Neuro General: oriented to person, oriented to place and oriented to time Cranial nerves: Yes Equal, round and reactive pupils present and Yes Normal hearing present Speech: No Abnormal speech present Extrem General: Yes normal to inspection, No clubbing, No cyanosis and No edema Psych Appearance: grossly normal and well kempt Mental Status: mental status grossly normal Speech and movement: Normal speech and movement present Affect: normal affect Attitude: cooperative Thought process: Normal thought process present and not confabulating Thought content: Normal thought content present Insight: Limited insight present (Psych) Judgement: Limited judgement present (Psych) Assessment & Plan Assessment & Plan (1) Chronic idiopathic constipation: Code(s): K59.04 - Chronic idiopathic constipation (2) GERD (gastroesophageal reflux disease): Code(s): K21.9 - Gastro-esophageal reflux disease without esophagitis Plan Stateless #Trudy Live He is taking the LInzess 290mcg but is only moving very hard stools every other day. We will now add bisacodyl 2 tabs qhs. We may need to consider reglan as well going forward. Contributing factors for his CIC are percocet, CCB, TCA, metformin Her received the famotidine and it is helping him quite well with the HB along with he omeprazole. He will be getting back injections soon for his chronic lower back pain. ROV 3-4 weeks. Medications: New bisacodyl (Dulcolax (bisacodyl)) 10 mg (2 x 5 mg) PO BEDTIME 30 days 60 tabs 6RF Discontinued linaclotide (Linzess) Discontinued Reason: Doctor's Order 145 mcg PO QAM 30 caps 3RF K59.04 - Chronic idiopathic constipation Coding Level of Care Code Est Pt Level 3 (91785) Diagnoses Chronic idiopathic constipation K59.04 GERD (gastroesophageal reflux disease) K21.9
[2023-05-23 14:00] VITALS: BP 129/75; PULSE 86; BMI 31.8
== END 2023-05-23 14:23 | disposition home or self-care (01) ==
PROVIDERS: PCP Internal Medicine Geriatric Medicine; Visit Provider Nurse Practitioner
DX: K59.04 Chronic idiopathic constipation (principal); K21.9 Gastro-esophageal reflux disease without esophagitis
CPT/HCPCS: 99213

== ENCOUNTER → 2023-05-23 13:58 | Outpatient (BNVA) | payer OTHER, SELFPAY | PROVIDERS: PCP Internal Medicine Geriatric Medicine; Visit Provider Nurse Practitioner | DX: K59.04 Chronic idiopathic constipation (principal); K21.9 Gastro-esophageal reflux disease without esophagitis | CPT/HCPCS: 99212 ==

== ENCOUNTER 2023-05-28 07:10 | Outpatient (REF) | payer OTHER, SELFPAY | END 2023-05-28 07:11 | disposition home or self-care (01) | LOC: CF 07:10 | PROVIDERS: Visit Provider Anesthesiology | DX: Z13.89 Encounter for screening for other disorder (principal) ==

== ENCOUNTER 2023-06-04 06:08 | Outpatient (REF) | payer OTHER, SELFPAY ==
--- NOTE | ~2023-06-04 | FL_ITS ---
EXAMINATION: XR FLUOROSCOPY WITH IMAGES CLINICAL INFORMATION: Lumbar radiculopathy. COMPARISON: Portions of the MRI lumbar spine dated 03/12/2023; intraoperative fluoroscopy dated 08/01/2022. TECHNIQUE: Fluoroscopy Supervised By: Dr. Evangelista Farias. Fluoroscopy Time: 0.6 minutes. Cumulative Dose: 13.0 mGy. DAP: 2.58 Gycm2. Images: 2. FINDINGS: The submitted images show injection needles and injected contrast in the vicinity of the bilateral L4-L5 neural foramina. FL/FL guidance in treatment room IMPRESSION: Intraoperative fluoroscopic guidance is provided during lumbar pain management procedure. Please see the patient's Operative Report for full procedural details.
== END 2023-06-04 06:09 | disposition home or self-care (01) ==
LOC: CF 06:08
PROVIDERS: Visit Provider Anesthesiology
DX: M54.16 Radiculopathy, lumbar region (principal); M62.838 Other muscle spasm; M53.3 Sacrococcygeal disorders, not elsewhere classified; M47.817 Spondylosis without myelopathy or radiculopathy, lumbosacral region
CPT/HCPCS: 64483; J3301; Q9967

== ENCOUNTER 2023-06-04 08:02 | Outpatient (AMB) | payer OTHER, SELFPAY ==
--- OUTSIDE RECORDS SUMMARY | 2023-06-04 08:03 | XMS_ITS ---
Author Name Cleve Johnson Address [address] [place] [id number] Organization Unknown Address [address] [place] [id number] ALLERGIES AND ADVERSE REACTIONS No information ASSESSMENT No information CHIEF COMPLAINT No information MEDICATIONS No information OBJECTIVE DATA No information PHYSICAL EXAMINATION No information TREATMENT PLAN Planned Care Start Date Provider Encounter for Check-up [phone] PROBLEMS No information RESULTS No information REVIEW OF SYSTEMS No information SUBJECTIVE DATA No information VITAL SIGNS No information
[2023-06-04 08:08] VITALS: BP 130/70; PULSE 89; RESP 14; O2SAT 100
--- NOTE | 2023-06-04 08:08 | MHC.OFFVIS ---
Intake Vital Signs 06/04/23 08:08 06/04/23 09:23 BP 130/70 120/70 Blood Pressure Location Lt brachial Lt brachial Position Sitting Sitting Respiration 14 14 Pulse 89 80 Pulse Source Pulse Oximeter Pulse Oximeter Pulse Oximetry (%) 100 99 Oxygen Delivery Method Room Air Room Air Intake Visit Reasons: BILATERAL L4,L5 TFESI Allergies No Known Allergies [No Known Allergies*] Allergy (Verified 06/04/23 08:08) PFSH Medical History Pre-op examination Cervical radiculitis Cervical spondylosis Muscle spasm Left shoulder pain Low back pain Lumbar degenerative disc disease Diabetes type 2, controlled Palpitations SVT (supraventricular tachycardia) HLD (hyperlipidemia) HTN (hypertension) Surgical History Hx of colonoscopy S/P shoulder surgery Family History Father CVD (cardiovascular disease) Mother Cancer Social History Alcohol intake: former Year quit: 2017 Patient Tobacco Use Status: Former Tobacco user Quit Date: 2009 Years Smoked: 25 +/- Current occupational status: retired Current occupation: rt handed Physical Exam Vital Signs: Last Vital Signs Pulse 80 06/04/23 09:23 Resp 14 06/04/23 09:23 BP 120/70 06/04/23 09:23 Pulse Ox 99 06/04/23 09:23 Oxygen Delivery Method Room Air 06/04/23 09:23 Assessment & Plan Assessment & Plan (1) Muscle spasm: Code(s): M62.838 - Other muscle spasm Plan: Transforaminal epidural steroid injection bilateral L4-5. Informed consent was thoroughly explained to the patient before the procedure.? The patient came to the operating room.? He was positioned prone on operating table with a pillow under his abdomen.? Time-out was performed delineating correct site and side of the procedure, nature of the injection, name and date of of the patient. The lower back of the patient was prepped with ChloraPrep and draped with sterile utility towels.? C-arm was brought over the operating field and sq picture of L4 vertebra were demonstrated on the screen.? The right side was chosen as the side of the injection.? Tilting machine ipsilateral to the right at the level of L4 1st the most prominent picture of the left pedicle was obtained on the screen.? 3 mm below the level of the lowest point of the pedicle projection to the skin small amount of lidocaine 1% 3-4 cc was injected to anesthetize the skin.? After that 5 in 22 gauge Quincke point needle was inserted through the skin wheal and was advanced to were the L4-5 foramina on anterior posterior and oblique views intermittently.? When tip of the needle entered foramina projection on AP view injection of the contrast was performed demonstrating epidural and perineural spread of the contrast.? After that injection of the treatment medicine 4 cc of lidocaine 1% mixed with Kenalog 40 mg was injected into the foramina.? After that procedure was performed on the left side in mirror image fashion. No intrathecal and no intravascular spread of the contrast was noted. The patient tolerated procedure well. He went home without immediate complications (2) Chronic pain: Code(s): G89.29 - Other chronic pain (3) Sacroiliac joint pain: Code(s): M53.3 - Sacrococcygeal disorders, not elsewhere classified (4) Lumbar radiculopathy: Code(s): M54.16 - Radiculopathy, lumbar region (5) Lumbar degenerative disc disease: Code(s): M51.36 - Other intervertebral disc degeneration, lumbar region (6) Lumbosacral spondylosis: Code(s): M47.817 - Spondylosis without myelopathy or radiculopathy, lumbosacral region Plan Lumbar spine MRI results reviewed today and are noted above. For radicular pain, worse on the right side but with occasional symptoms on left, we will proceed with Bilateral L4-L5 TFESI with local and fluoroscopy. Most recent A1C 7.2. Patient is aware to call if pain worsens or if he develops any red flag symptoms to seek emergency care. All questions and concerns have been answered and patient agreed with the plan. Follow up after injections and sooner if needed. Anticoagulation: Patient not on anticoagulant Justification for interventional therapy: ? Patient with average pain > 6/10 ? Patient has exhausted conservative therapy, NSAIDs, physical therapy The risks, consequences, alternatives, and benefits of various treatment options were discussed with the patient in great detail, including conservative management, injections and procedures. Informed patient of hyperglycemic effects of steroids. Coding Level of Care Code Procedure Only Diagnoses Muscle spasm M62.838 Chronic pain G89.29 Sacroiliac joint pain M53.3 Lumbar radiculopathy M54.16 Lumbar degenerative disc disease M51.36 Lumbosacral spondylosis M47.817
[2023-06-04 09:23] VITALS: BP 120/70; PULSE 80; RESP 14; O2SAT 99
== END 2023-06-04 09:39 | disposition home or self-care (01) ==
LOC: HO.PMCPRC 08:02
PROVIDERS: PCP Internal Medicine Geriatric Medicine; Visit Provider Anesthesiology
DX: M54.16 Radiculopathy, lumbar region (principal); M51.36 Other intervertebral disc degeneration, lumbar region
CPT/HCPCS: 64483

== ENCOUNTER 2023-07-02 12:57 | Outpatient (AMB) | payer OTHER, SELFPAY ==
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
[2023-07-02 13:05] VITALS: BP 126/66; PULSE 102; RESP 16; O2SAT 98; BMI 30.9
== END 2023-07-02 13:12 | disposition home or self-care (01) ==
PROVIDERS: PCP Internal Medicine Geriatric Medicine; Visit Provider Nurse Practitioner Family
DX: M53.3 Sacrococcygeal disorders, not elsewhere classified (principal); M47.817 Spondylosis without myelopathy or radiculopathy, lumbosacral region; M51.36 Other intervertebral disc degeneration, lumbar region
CPT/HCPCS: 99214

== ENCOUNTER → 2023-07-02 12:57 | Outpatient (BNVA) | payer OTHER, SELFPAY | PROVIDERS: PCP Internal Medicine Geriatric Medicine; Visit Provider Nurse Practitioner Family | DX: M53.3 Sacrococcygeal disorders, not elsewhere classified (principal); M47.26 Other spondylosis with radiculopathy, lumbar region; M51.36 Other intervertebral disc degeneration, lumbar region; Z98.890 Other specified postprocedural states | CPT/HCPCS: 99212 ==

== ENCOUNTER 2023-07-11 08:43 | Outpatient (REF) | payer OTHER, SELFPAY ==
[2023-07-11 11:24] LABS: MANUAL DIFF FLAG NO
[2023-07-11 11:34] LABS: Basophils Percent Auto 0.6 % (0-2); Eosinophils Absolute Auto 0.1 X10*3/uL (0.0-0.4); Eosinophils Percent Auto 3.8 % (0-4); Hematocrit 45.4 % (42.0-52.0); Hemoglobin 14.4 g/dl (14.0-18.0); Imm Gran Abs Auto 0.05 X10*3/uL (0.00-0.03); Imm Gran Pct Auto 1.6 % (0.0-0.4); Lymphocytes Absolute Auto 1.2 X10*3/uL (1.2-4.9); Lymphocytes Percent Auto 38.6 % (20-40); Mean Corpuscular HGB Conc 31.7 g/dl (31.0-36.0); Mean Corpuscular Hemoglobin 26.1 pg (27.0-33.0); Mean Corpuscular Volume 82.2 fL (80.0-98.0); Mean Platelet Volume 10.2 fL (9.4-12.4); Monocytes Absolute Auto 0.3 X10*3/uL (0.1-1.2); Monocytes Percent Auto 10.3 % (2-11); Neutrophils Absolute Auto 1.4 x10*3/uL (2.0-8.3); Neutrophils Percent Auto 45.1 % (45-73); Platelet Count 167 X10*3/uL (160-400); Red Blood Count 5.52 X10*6/uL (4.60-5.80); Red Cell Distribution Width 15.7 % (11.0-16.0); White Blood Count 3.2 X10*3/uL (4.8-10.8)
[2023-07-11 11:48] LABS: Alanine Aminotransferase 12 U/L (0-40); Albumin Level 4.4 g/dL (3.5-5.0); Alkaline Phosphatase 67 U/L (39-117); Anion Gap 12 (12-20); Aspartate Amino Transferase 15 U/L (5-37); Bilirubin Total 0.3 mg/dL (0.0-1.0); Blood Urea Nitrogen 12 mg/dL (9-16); Calcium 9.9 mg/dL (8.4-10.2); Carbon Dioxide 28 mmol/L (22-29); Chloride 104 mmol/L (96-108); Estimated Glomerular Filt Rate > 60; Glucose Random 99 mg/dL (60-115); Sodium 140 mmol/L (135-145)
[2023-07-11 11:53] LABS: Estimated Average Glucose 177 mg/dL; Hemoglobin A1c % 7.8 % (<6.0)
[2023-07-11 13:03] LABS: Microalbumin Urine < 5.0 mg/L
== END 2023-07-11 08:44 | disposition home or self-care (01) ==
LOC: HO.HHCL 08:43
PROVIDERS: Visit Provider Internal Medicine Geriatric Medicine
DX: E11.9 Type 2 diabetes mellitus without complications (principal); I10 Essential (primary) hypertension; Z79.4 Long term (current) use of insulin
CPT/HCPCS: 36415; 80053; 82043; 82570; 83036; 85025

== ENCOUNTER 2023-07-19 10:20 | Outpatient (REF) | payer OTHER, SELFPAY ==
--- NOTE | ~2023-07-19 | XR_ITS ---
EXAMINATION: XR LUMBAR SPINE XR SACROILIAC JOINTS CLINICAL INFORMATION: Spondylosis without myelopathy or radiculopathy. COMPARISON: MRI lumbar spine 03/12/2023, x-ray lumbar spine 10/16/2016. TECHNIQUE: 5 views of the lumbar spine. 4 views of bilateral sacral joints. FINDINGS: LUMBAR SPINE: Dextroscoliosis of the thoracolumbar spine. Bones are diffusely demineralized. Facet arthritis in the lower lumbar spine. Mild multilevel lumbar spondylosis. Mild loss of disc space height at L4-L5. Atherosclerotic aortoiliac calcifications. Spondylolysis at L5-S1. BILATERAL SACROILIAC JOINTS: The bones are diffusely demineralized. Moderate degenerative changes with joint space narrowing and hypertrophic change of the bilateral sacroiliac joints. Moderate degenerative changes on limited views of the bilateral hips. XR/XR lumbar spine 4V min IMPRESSION: 1. Mild multilevel lumbar spondylosis. 2. Moderate degenerative changes bilateral sacroiliac joints.
--- NOTE | ~2023-07-19 | XR_ITS ---
EXAMINATION: XR LUMBAR SPINE XR SACROILIAC JOINTS CLINICAL INFORMATION: Spondylosis without myelopathy or radiculopathy. COMPARISON: MRI lumbar spine 03/12/2023, x-ray lumbar spine 10/16/2016. TECHNIQUE: 5 views of the lumbar spine. 4 views of bilateral sacral joints. FINDINGS: LUMBAR SPINE: Dextroscoliosis of the thoracolumbar spine. Bones are diffusely demineralized. Facet arthritis in the lower lumbar spine. Mild multilevel lumbar spondylosis. Mild loss of disc space height at L4-L5. Atherosclerotic aortoiliac calcifications. Spondylolysis at L5-S1. BILATERAL SACROILIAC JOINTS: The bones are diffusely demineralized. Moderate degenerative changes with joint space narrowing and hypertrophic change of the bilateral sacroiliac joints. Moderate degenerative changes on limited views of the bilateral hips. XR/XR sacroiliac joint min 3V IMPRESSION: 1. Mild multilevel lumbar spondylosis. 2. Moderate degenerative changes bilateral sacroiliac joints.
== END 2023-07-19 10:21 | disposition home or self-care (01) ==
LOC: HO.XRAY 10:20
PROVIDERS: PCP Internal Medicine Geriatric Medicine; Visit Provider Nurse Practitioner Family
DX: M47.817 Spondylosis without myelopathy or radiculopathy, lumbosacral region (principal); M53.3 Sacrococcygeal disorders, not elsewhere classified; M51.36 Other intervertebral disc degeneration, lumbar region; M54.16 Radiculopathy, lumbar region
CPT/HCPCS: 72110; 72202

== ENCOUNTER 2023-08-20 06:22 | Outpatient (REF) | payer OTHER, SELFPAY ==
--- NOTE | ~2023-08-20 | FL_ITS ---
EXAMINATION: XR FLUOROSCOPY WITH IMAGES CLINICAL INFORMATION: Sacrococcygeal disorder. COMPARISON: None available. TECHNIQUE: Fluoroscopy Supervised By: Dr. Evangelista Farias. Fluoroscopy Time: 9.3 seconds. Cumulative Dose: 2.8512 mGy. DAP: 1.2403 Gy-cm2. Images: 1. FINDINGS: Intraoperative fluoroscopy and spot films were performed during a procedure in the OR. A needle is present overlying the left SI joint with contrast seen within the joint. Please correlate with Dr. Evangelista Farias's report for complete details. FL/FL guidance in treatment room IMPRESSION: Intraoperative fluoroscopy and spot films were obtained. Please see Dr. Evangelista Farias's report for complete details.
== END 2023-08-20 06:23 | disposition home or self-care (01) ==
LOC: CF 06:22
PROVIDERS: Visit Provider Anesthesiology
DX: M53.3 Sacrococcygeal disorders, not elsewhere classified (principal); M47.817 Spondylosis without myelopathy or radiculopathy, lumbosacral region; M54.16 Radiculopathy, lumbar region; M51.36 Other intervertebral disc degeneration, lumbar region
CPT/HCPCS: 27096; J2795; Q9967

== ENCOUNTER 2023-08-20 12:42 | Outpatient (AMB) | payer OTHER, SELFPAY ==
--- NOTE | 2023-08-20 13:45 | A.OFFVIS_ITS ---
Vital Signs 08/20/23 13:47 08/20/23 13:48 Height 5 ft 9 in 5 ft 9 in Weight 209 lb 2 oz 209 lb 2 oz BMI 30.9 30.9 BP 126/56 L 120/60 Blood Pressure Location Lt brachial Lt brachial Position Sitting Sitting Respiration 16 16 Pulse 105 H 102 H Pulse Source Pulse Oximeter Pulse Oximeter Pulse Oximetry (%) 98 98 Oxygen Delivery Method Room Air Room Air Comment pre-op post-op Intake Visit Reasons: LEFT DIAGNOSTIC SIJ INJECTION Allergies No Known Allergies [No Known Allergies*] Allergy (Verified 08/20/23 13:49) PFSH Medical History Pre-op examination Cervical radiculitis Cervical spondylosis Muscle spasm Left shoulder pain Low back pain Lumbar degenerative disc disease Diabetes type 2, controlled Palpitations SVT (supraventricular tachycardia) HLD (hyperlipidemia) HTN (hypertension) Surgical History Hx of colonoscopy S/P shoulder surgery Family History Father CVD (cardiovascular disease) Mother Cancer Social History Alcohol intake: former Year quit: 2016 Patient Tobacco Use Status: Former Tobacco user Years Smoked: 25 +/- Current occupational status: retired Current occupation: rt handed Physical Exam Vital Signs: Last Vital Signs Pulse 102 H 08/20/23 13:48 Resp 16 08/20/23 13:48 BP 120/60 08/20/23 13:48 Pulse Ox 98 08/20/23 13:48 Oxygen Delivery Method Room Air 08/20/23 13:48 BMI result Body Mass Index 30.9 Assessment & Plan Assessment & Plan (1) Sacroiliac joint pain: Code(s): M53.3 - Sacrococcygeal disorders, not elsewhere classified Category: Medical Plan: Left diagnostic sacroiliac joint injection Informed consent was explained thoroughly to the patient. All questions about benefits and risks for the procedure were answered. Patient came to the operating room and was positioned prone on the operating table with the pillow under the pelvis. Time out was performed delineating name and of the patient, allergies and the nature of the procedure. The lower back and buttocks of the patient were prepped with ChloraPrep prepped and draped with sterile utility towels. C-arm was brought over the operating field and sq picture of patient's pelvis was demonstrated on the screen. For the left joint tilting C-arm contralateral to the site of the joint the most posterior portion of the joints was superimposed with anterior silhouette of the joint. Skin was injected in the projection of the joint slightly medial to the location of the joint with 25 gauge 1/2 inch needle using local lidocaine 2% .After that 22 gauge 3 and 1/2 inch needle was driven to the right joint in tunnel vision fashion. When needle entered the joint capsule injection of the contrast was performed demonstrating intra-articular and minimally periarticular spread of the contrast. After that 4 cc. of ropivacaine 0.5% was injected into the joint. Upon completion of the injections the needle was removed Sterile dressing was applied. Upon completion of the injection patient was taken outside of the operating room to the recovery room where recovered uneventfully. (2) Lumbosacral spondylosis: Code(s): M47.817 - Spondylosis without myelopathy or radiculopathy, lumbosacral region Category: Medical (3) Lumbar radiculopathy: Code(s): M54.16 - Radiculopathy, lumbar region Category: Medical (4) Lumbar degenerative disc disease: Code(s): M51.36 - Other intervertebral disc degeneration, lumbar region Category: Medical Plan Patient 1 month status post bilateral L4-L5 TFESI with 70% pain improvement in his back and leg pain. He he also reports left-sided low back pain that extends to his left sacral and lateral hip area with positive provocative testing for SI joint pain. Patient received therapeutic left SI joint injection in July 2021 which provided him complete pain relief for 2 weeks and 40% pain relief for next few months. Patient is interested to undergo Diagnostic Left SIJ injection with local and fluoroscopy for potential longer term treatments such as PNS Curonix trial, SI joint stabilization or RFA procedure. 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 Expectations, risks and benefits were reviewed. Patient is aware she will be contacted to schedule this procedure. All questions were answered and the patient is in agreement of plan. Follow-up after injections and sooner as needed. Anticoagulation: Patient not on anticoagulant Justification for interventional therapy: ? Patient with average pain > 6/10 ? Patient has exhausted conservative therapy, NSAIDs, physical therapy The risks, consequences, alternatives, and benefits of various treatment options were discussed with the patient in great detail, including conservative management, injections and procedures. Orders: Orders FL guidance in treatment room Today M53.3 - Sacrococcygeal disorders, not elsewhere classified Coding Level of Care Code Procedure Only Diagnoses Sacroiliac joint pain M53.3 Lumbosacral spondylosis M47.817 Lumbar radiculopathy M54.16 Lumbar degenerative disc disease M51.36
[2023-08-20 13:47] VITALS: BP 126/56; PULSE 105; RESP 16; O2SAT 98; BMI 30.9
[2023-08-20 13:48] VITALS: BP 120/60; PULSE 102; RESP 16; O2SAT 98; BMI 30.9
== END 2023-08-20 13:50 | disposition home or self-care (01) ==
LOC: HO.PMCPRC 12:42
PROVIDERS: PCP Internal Medicine Geriatric Medicine; Visit Provider Anesthesiology
DX: M53.3 Sacrococcygeal disorders, not elsewhere classified (principal)
CPT/HCPCS: 27096

== ENCOUNTER 2023-08-27 13:23 | Outpatient (AMB) | payer OTHER, SELFPAY ==
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
[2023-08-27 13:39] VITALS: BP 138/80; PULSE 88; O2SAT 100; BMI 31.0
== END 2023-08-27 13:32 | disposition home or self-care (01) ==
PROVIDERS: PCP Internal Medicine Geriatric Medicine; Visit Provider Nurse Practitioner Family
DX: M47.817 Spondylosis without myelopathy or radiculopathy, lumbosacral region (principal); M53.3 Sacrococcygeal disorders, not elsewhere classified; G89.29 Other chronic pain
CPT/HCPCS: 99214

== ENCOUNTER → 2023-08-27 13:23 | Outpatient (BNVA) | payer OTHER, SELFPAY | PROVIDERS: PCP Internal Medicine Geriatric Medicine; Visit Provider Nurse Practitioner Family | DX: M47.817 Spondylosis without myelopathy or radiculopathy, lumbosacral region (principal); M53.3 Sacrococcygeal disorders, not elsewhere classified; G89.29 Other chronic pain | CPT/HCPCS: 99212 ==

== ENCOUNTER 2024-02-17 14:02 | Outpatient (AMB) | payer OTHER, SELFPAY ==
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
[2024-02-17 14:24] VITALS: BP 138/80; PULSE 78; RESP 18; BMI 31.0
== END 2024-02-17 14:44 | disposition home or self-care (01) ==
PROVIDERS: PCP Internal Medicine Geriatric Medicine; Visit Provider Nurse Practitioner Family
DX: M53.3 Sacrococcygeal disorders, not elsewhere classified (principal); G89.29 Other chronic pain; M51.369 Other intervertebral disc degeneration, lumbar region without mention of lumbar back pain or lower extremity pain; M47.816 Spondylosis without myelopathy or radiculopathy, lumbar region
CPT/HCPCS: 99214; G2211

== ENCOUNTER → 2024-02-17 14:02 | Outpatient (BNVA) | payer OTHER, SELFPAY | PROVIDERS: PCP Internal Medicine Geriatric Medicine; Visit Provider Nurse Practitioner Family | DX: M53.3 Sacrococcygeal disorders, not elsewhere classified (principal); M47.816 Spondylosis without myelopathy or radiculopathy, lumbar region; M51.360 Other intervertebral disc degeneration, lumbar region with discogenic back pain only; G89.29 Other chronic pain | CPT/HCPCS: 99212 ==

== ENCOUNTER 2024-05-12 06:28 | Outpatient (REF) | payer OTHER, SELFPAY ==
--- NOTE | ~2024-05-12 | FL_ITS ---
EXAMINATION: FL GUIDANCE ONLY HISTORY: M53.3 - Sacrococcygeal disorders, not elsewhere classified COMPARISON: None available. TECHNIQUE: Fluoroscopy time: 0.1 minutes. Cumulative Dose: 1.21 mGy. DAP: 0.0211 mGym2 Images: 1. FINDINGS: A fluoroscopic spot film of the pelvis demonstrates a needle and contrast material in the region of the left sacroiliac joint. FL/FL guidance in treatment room IMPRESSION: Fluoroscopy during procedure. Please see procedure report for additional information. Electronically signed by: Darryl Martines MD 05/13/2024 07:05 AM EDT
== END 2024-05-12 06:29 | disposition home or self-care (01) ==
LOC: CF 06:28
PROVIDERS: Visit Provider Anesthesiology
DX: M53.3 Sacrococcygeal disorders, not elsewhere classified (principal)
CPT/HCPCS: 27096; J2003; J2795; J3301; Q9967

== ENCOUNTER 2024-05-12 12:19 | Outpatient (AMB) | payer OTHER, SELFPAY ==
[2024-05-12 12:54] VITALS: BP 160/72; PULSE 93; RESP 16; O2SAT 99
--- NOTE | 2024-05-12 12:54 | A.OFFVIS_ITS ---
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: No Allergies No Known Allergies [No Known Allergies*] Allergy (Verified 05/12/24 12:55) Medication List - Last Reconciled 05/12/24 by Luiza Fine LPN amitriptyline 75 mg PO BEDTIME bisacodyl (Dulcolax (bisacodyl)) 10 mg (2 x 5 mg) PO BEDTIME 30 days buspirone 5 mg PO DAILY carvedilol 6.25 mg PO BID docusate sodium 100 mg PO BID famotidine 40 mg PO BEDTIME finasteride 5 mg PO QAM ibuprofen 600 mg PO Q6H PRN insulin glargine (Lantus Solostar U-100 Insulin) 28 units subcut QAM insulin lispro 10 units subcut TID lancets (OneTouch Delica Plus Lancet) As directed linaclotide (Linzess) 290 mcg PO QAM 30 days lisinopril 20 mg PO DAILY magnesium oxide 400 mg PO DAILY metformin 1,000 mg PO BID methocarbamol 750 mg PO BID PRN 30 days naloxone 4 mg/actuation 1 spray intranasal DAILY omeprazole 40 mg PO DAILY oxycodone-acetaminophen 5-325 mg (Percocet) 1 tab PO TID PRN pen needle, diabetic (Pentips Pen Needle) As directed rosuvastatin 40 mg PO DAILY sertraline 50 mg PO QAM sildenafil (Viagra) 50 mg PO DAILY PRN tamsulosin 0.8 mg PO DAILY PFSH Medical History Pre-op examination Cervical radiculitis Cervical spondylosis Muscle spasm Left shoulder pain Low back pain Lumbar degenerative disc disease Diabetes type 2, controlled Palpitations SVT (supraventricular tachycardia) HLD (hyperlipidemia) HTN (hypertension) Surgical History Hx of colonoscopy S/P shoulder surgery Family History Father CVD (cardiovascular disease) Mother Cancer Social History Alcohol intake: former Year quit: 2017 Patient Tobacco Use Status: Former Tobacco user Years Smoked: 25 +/- Current occupational status: retired Current occupation: rt handed Physical Exam Vital Signs: Last Vital Signs Pulse 100 05/12/24 13:15 Resp 16 05/12/24 13:15 BP 145/65 H 05/12/24 13:15 Pulse Ox 100 05/12/24 13:15 Oxygen Delivery Method Room Air 05/12/24 13:15 Assessment & Plan Assessment & Plan (1) Sacroiliac joint pain: Code(s): M53.3 - Sacrococcygeal disorders, not elsewhere classified Category: Medical Plan Left therapeutic sacroiliac joint injection. Informed consent was thoroughly explained to the patient before the procedure.? The patient came to the operating room.? hewas positioned prone on operating table with a pillow under her abdomen.? Time-out was performed delineating correct site and side of the procedure, nature of the injection, name and date of of the patient. The lower back and upper buttocks of the patient was prepped with ChloraPrep and draped with sterile utility towels.? C-arm was brought over the operating field the image of the left sacroiliac joint was demonstrated on the screen. Tilting machine contralateral to the right the anterior portion of sacroiliac joint was superimposed of the posterior portion of the sacroiliac joint. After that projection of the sacroiliac joint to the skin was injected with mixture of lidocaine 2 % and ropivacaine 0.5% to form a skin wheal. After that 22 gauge 3- 1/2 inch needle was inserted through the skin wheal and advanced to the sacroiliac joint. After that injection of the contrast was performed delineating arthrogram of the sacroiliac joint. After that injection of the ropivacaine 0.5% 5 cc mixed with Kenalog 40 mg was performed into the joint. The needle was removed sterile Band-Aid was applied. Patient tolerated the pro cedure well. Orders: Orders FL guidance in treatment room Today M53.3 - Sacrococcygeal disorders, not elsewhere classified Coding Level of Care Code Procedure Only Diagnoses Sacroiliac joint pain M53.3
[2024-05-12 13:15] VITALS: BP 145/65; PULSE 100; RESP 16; O2SAT 100
--- OUTSIDE RECORDS SUMMARY | 2024-05-12 14:36 | XMS_ITS | Clinical Summary ---
Author Organization [employer] Address [address] [facility] 7t [place] [address] Care Team Providers Care Set Up Operator Tool Name Role Phone Name, Jh RACHEL Primary Care Provider [phone] Juliet Wren PharmD Unavailable [phone] Allergies No known active allergies Medications amitriptyline (Elavil) 75 MG tablet Take 1 tablet by mouth at bedtime. 02/22/20 22 Active busPIRone (Buspar) 5 MG tablet Take 1 tablet by mouth 2 times daily. 01/31/20 22 Active magnesium oxide (Mag-Ox) 400 (240 Mg) MG tablet Take 1 tablet by mouth 1 (one) time each day. 01/31/20 22 Active sertraline (Zoloft) 50 MG tablet Take 1 tablet by mouth in the morning. 01/31/20 22 Active Multiple Vitamins-Minera ls (Centrum Silver 50+Men) tablet Take 1 tablet by mouth Once daily. (OTC) Active docusate sodium (Colace) 100 MG capsule TAKE ONE CAPSULE TWICE DAILY 60 capsule 7 09/24/19 24 Active tamsulosin (Flomax) 0.4 MG 24 hr capsule TAKE TWO CAPSULES DAILY 30 MINUTES AFTER THE SAME MEAL 60 capsule 5 11/25/19 24 Active omeprazole (PriLOSEC) [address] capsuleIndicati ons:Essential hypertension TAKE 1 CAPSULE BY MOUTH EVERY DAY BEFORE A MEAL 30 capsule 5 11/25/19 24 Active insulin degludec (Tresiba FlexTouch) 100 UNIT/ML injectionIndica tions:Type 2 diabetes mellitus without complication, with long-term current use of insulin ([facility]) Inject 34 Units under the skin in the morning. 15 mL 5 12/24/19 24 Active insulin lispro (HumaLOG KWIKPEN) 100 UNIT/ML injectionIndica tions:Type 2 diabetes mellitus without complication, with long-term current use of insulin ([facility]) Inject 8 units subQ three times daily with meals. Do not use if not eating / skipping a meal. 15 mL 5 12/24/19 24 Active metFORMIN (Glucophage) 1000 MG tabletIndicatio ns:Type 2 diabetes mellitus without complication, with long-term current use of insulin ([facility]) Take 1 tablet (1,000 mg) by mouth with breakfast and with evening meal. 180 tablet 3 01/28/20 24 2024 Active lisinopril 20 MG tabletIndicatio ns:Type 2 diabetes mellitus without complication, with long-term current use of insulin ([facility]),Essen tial hypertension Take 1 tablet (20 mg) by mouth Once per day. 90 tablet 3 01/28/20 24 Active Viagra 100 MG tablet TAKE 1 TABLET 1 HOUR BEFORE SEXUAL RELATIONS ONCE DAILY NEEDED. 10 tablet 3 03/02/19 25 Active carvedilol (Coreg) 6.25 MG tabletIndicatio ns:Essential hypertension TAKE ONE TABLET TWICE DAILY WITH FOOD 180 tablet 1 03/18/19 25 Active naloxone (Narcan) 4 mg/0.1 mL nasal spray FOR SUSPECTED OPIOID OVERDOSE. SPRAY 0.1mL IN ONE NOSTRIL. REPEAT IN ALTERNATE NOSTRIL EVERY 2-3 MINUTES IF NEEDED. SEEK MEDICAL ATTENTION IMMEDIATELY EVEN IF PT RESPONDS. 2 each 2 04/09/19 25 Active oxyCODONE-aceta minophen (Percocet) 5-325 MG tabletIndicatio ns:Chronic pain syndrome TAKE ONE TABLET EVERY 8 HOURS NEEDED FOR PAIN 84 tablet 04/24/19 25 Active TechLite Plus Pen Skandia 32G X 4 MM misc USE FOUR DAILY 100 each 4 04/29/19 25 Active Continuous Glucose Strategic Intelligence Officer (FreeStyle Laurent 3 [place]) deviceIndicatio ns:Type 2 diabetes mellitus without complication, with long-term current use of insulin (CMS/HCC) 1 each Once per day. Use as directed for CGM 1 each 04/29/19 25 Active Continuous Glucose Sensor (FreeStyle Laurent 3 Plus Sensor) miscIndications :Type 2 diabetes mellitus without complication, with long-term current use of insulin (CMS/HCC) Apply 1 every 15 days as directed for CGM 2 each 04/29/19 25 Active glucose blood (FreeStyle Precision Chano Test) test stripIndication s:Type 2 diabetes mellitus without complication, with long-term current use of insulin ([facility]) Use to test blood sugar up to 3 times daily, as directed 100 each 04/29/19 25 Active rosuvastatin (Crestor) 40 MG tabletIndicatio ns:Type 2 diabetes mellitus without complication, with long-term current use of insulin (CMS/HCC) Take 1 tablet (40 mg) by mouth Once daily. 90 tablet 3 04/29/19 25 Active OneTouch Verio test stripIndication s:Type 2 diabetes mellitus without complication, with long-term current use of insulin ([facility]) TEST BLOOD SUGAR THREE TIMES DAILY 100 strip 11 04/30/19 25 Active Lancets (OneTouch Delica Plus [id number]) miscIndications :Type 2 diabetes mellitus without complication, with long-term current use of insulin ([facility]) TEST BLOOD SUGAR THREE TIMES DAILY 100 each 11 04/30/19 25 Active OneTouch Verio test strip TEST BLOOD SUGAR THREE TIMES DAILY 100 strip 08/31/19 23 2024 Discontinued Lancets (OneTouch Delica Plus [id number]) misc TEST BLOOD SUGAR THREE TIMES DAILY 100 each 11 08/31/19 23 2024 Discontinued Continuous Glucose Strategic Intelligence Officer (FreeStyle Laurent 2 [place]) deviceIndicatio ns:Type 2 diabetes mellitus without complication, with long-term current use of insulin ([facility]) Use as directed 1 each 06/12/19 24 2024 Discontinued(A lternate therapy) Continuous Glucose Sensor (FreeStyle Laurent 2 Sensor) miscIndications :Type 2 diabetes mellitus without complication, with long-term current use of insulin ([facility]/H[facility]) USE DIRECTED AND CHANGE EVERY 14 DAYS 2 each 06/14/19 24 2024 Discontinued(A lternate therapy) famotidine (Pepcid) 40 MG tablet TOME MICHELLE TABLETA POR V A ORAL AL ACOSTARSE 05/01/19 24 2024 Discontinued(M ed list cleanup (will not trigger notification to Pharmacy)) rosuvastatin (Crestor) 40 MG tabletIndicatio ns:Type 2 diabetes mellitus without complication, with long-term current use of insulin ([facility]) Take 1 tablet (40 mg) by mouth Once daily. 90 tablet 3 09/10/19 24 2024 Discontinued(R eorder (will not trigger notification to Pharmacy)) finasteride (Proscar) 5 MG tabletIndicatio ns:Type 2 diabetes mellitus without complication, with long-term current use of insulin ([facility]),Benig n prostatic hyperplasia with weak urinary stream TAKE ONE TABLET EVERY MORNING. DO NOT BREAK, CRUSH, DISSOLVE OR CHEW 30 tablet 10/08/19 24 2024 Discontinued(M ed list cleanup (will not trigger notification to Pharmacy)) TechLite Plus Pen Skandia 32G X 4 MM misc USE FOUR DAILY 100 each 4 11/11/19 24 2024 Discontinued oxyCODONE-aceta minophen (Percocet) 5-325 MG tabletIndicatio ns:Chronic pain syndrome Take 1 tablet by mouth every 8 (eight) hours if needed for severe pain for up to 28 days. Do not start before March 26, 2024. 84 tablet 03/26/19 25 2024 Discontinued Active Problems Problem Noted Date Diagnosed Date Acute necrotizing pancreatitis 12/12/2023 QT prolongation 12/12/2023 ISAC (iron deficiency anemia) 12/12/2023 Gastroesophageal reflux disease 12/12/2023 Fatty liver, alcoholic 12/12/2023 Hyperlipidemia 12/12/2023 Class 1 obesity 12/12/2023 Alcohol dependence in remission 12/12/2023 Tubular adenoma 10/17/2022 Overview (10/17/2022): Of the sigmoid colon [address] [place] [facility] [place] [facility] Type 2 diabetes mellitus 03/02/2022 Irregular heart beat 12/16/2017 Benign prostatic hyperplasia 09/23/2017 Nocturia 07/15/2017 Hypertension 05/14/2017 Tubular adenoma of colon 12/19/2016 Overview (12/12/2023): repeat screening colonoscopy in 2021 Splenic vein thrombosis 10/24/2016 Chronic low back pain 06/01/2016 History of alcohol abuse 06/01/2016 Shoulder pain 06/01/2016 Pseudocyst of pancreas 06/01/2016 Encounters Date Type Department Care Team Description 04/28/2024 Refill [facility] [address] [place] [address] Jh Bullard MD Type 2 diabetes mellitus without complication, with long-term current use of insulin ([facility]) 04/28/2024 Refill C [facility] [address] [place] [address] Jh Bullard MD 04/20/2024 Refill [facility] [address] [place] [address] Jh Bullard MD Chronic pain syndrome 04/08/2024 Refill C MEDICINE [address] [place] [address] Jh Bullard MD 03/25/2024 Refill C [facility] [address] [place] [address] Jh Bullard MD Chronic pain syndrome 03/18/2024 Refill C MEDICINE [address] [place] [address] Jh Bullard MD Essential hypertension 03/05/2024 1:00 PM EST Clinical Support [facility] [address] [place] [address] Cee Toussaint RN Chronic midline low back pain, unspecified whether sciatica present (Primary Dx) 03/05/2024 Telephone [facility] [address] [place] [address] Gaby Jean [place] feb recalls 03/05/2024 Travel 03/05/2024 Telephone [facility] [address] [place] [address] Cee Toussaint, EMILIO Recommend GUARD MANAGER Tier 3 02/29/2024 Refill C MEDICINE [address] [place] [address] Jh Bullard MD 02/27/2024 Refill C MEDICINE [address] [place] [address] Jh Bullard MD Chronic pain syndrome 02/24/2024 Telephone [facility] [address] [place] [address] Name, MD Jh from Last 3 Months Immunizations Name Administration Dates Next Due Pfizer Covid-19 Vaccine 12+ 02/28/2023, 1,04/08/2020 Pfizer Covid-19 Vaccine 12+ julio-sucrose (Cook Cap) 07/31/2021 Pneumococcal Conjugate PCV 13 11/19/2019 Pneumococcal Polysaccharide PPSV23 03/05/2017, RSV Bivalent 03/05/2023 TD (adult), 2 Lf tetanus tox oid, preservative free, adsorbed 03/05/2017 Tdap 06/03/2012 Zoster, Recombinant 08/01/2023(Deferred: Patient decision) Social History Tobacco Use Types Packs/Day Years Used Date Smoking Tobacco: Never Smokeless Tobacco: Never Tobacco Cessation:Counseling Given: Not Answered Alcohol Use Standard Drinks/Week Comments Never 0 (1 standard drink = 0.6 oz pur e alcohol) Depression Answer Date Recorded Patient Health Questionnaire-9 Score 0 06/14/2023 Patient Health Questionnaire-9 Score 0 06/14/2023 Last PHQ-9: Questionnaire Data Not on file 0 06/14/2023 Housing Stability Answer Date Recorded What is your housing situation today? I have kate arce 06/14/[address] you li ve. Do you have problems with any of the following? None of the above 06/14/2023 Food Insecurity Answer Date Recorded Within the past 12 months, y ou worried that your food would run out before you got money to buy more: Never True 06/14/2023 Within the past 12 months,th e food you bought just didn't last and you didn't have enough money to get more: Never True Transportation Answer Date Recorded In the past 12 months, has l ack of transportation kept you from medical appts, meetings, work or from getting things needed for daily living? No 06/14/2023 Utilities Answer Date Recorded In the past 12 months, has t he electric, gas, oil or water company threatened to shut off services in your home? No 06/14/2023 Depression Answer Date Recorded Patient Health Questionnaire-2 Score 0 06/14/2023 Sex and Gender Information Value Date Recorded Sex Assigned at Male 12/25/2021 10:25 AM EDT Legal Sex Male 10:25 AM EDT Gender Identity Male 12/25/2021 10:25 AM EDT Sexual Orientation Straight 12/25/2021 10 :25 AM EDT Last Filed Vital Signs Vital Sign Reading Time Taken Comments Blood Pressure 128/70 04/28/2024 1:27 PM EST Pulse 77 12/13/2023 2:14 PM EDT Temperature 36.6 ??C (97.8 ??F) 12/13/2023 2:14 PM ED T Respiratory Rate 14 12/13/2023 2:14 PM EDT Oxygen Saturation 98% 12/13/2023 2:14 PM EDT Inhaled Oxygen Concentration - - Weight 97.3 kg (214 lb 6.4 oz) 12/13/2023 2:14 P M EDT Height 175.3 cm (5' 9 ) 12/13/2023 2:14 PM EDT Body Mass Index 31.66 12/13/2023 2:14 PM EDT Plan of Treatment Upcoming Encounters Date Type Department Care Team (Late st Contact Info) Description 05/18/2024 1:45 PM EDT Office Visit [facility] [address] [place] [phone] Name, MD Jh [address] [place] [address] 06/04/2024 1:00 PM EDT Clinical Support [facility] [address] [place] [address] Cee Toussaint, EMILIO 06/25/2024 1:00 PM EDT Office Visit [facility] [address] [place] [address] Milvia Lincoln, OD [address] [place] [address] 10/29/2024 1:00 PM EDT Medication Management [facility] [address] [place] [address] Juliet Wren, PharmD [address] [place] [address] Health Maintenance Due Date Last Done Comments CT Colonography 1954 FIT DNA/Cologuard 1954 FIT 1954 FOBT 1954 Sigmoidoscopy 1954 Diabetes: Foot Exam 1964 Hepatitis C Screening 1972 Hepatitis A Vaccines (1 of 2 - Risk 2-dose series) 1973 Zoster Vaccines (1 of 2) 2004 Hepatitis B Vaccines (1 of 3 - Risk 3-dose series) 2014 COVID-19 Vaccine ( season) 2023 02/28/2023, 01/05/2022, 07/31/2021, Additional history exists Influenza Vaccine (#1) 2023 Lipid Panel 01/08/2024 01/07/2023, 09/25, 07/17/2022, Additional history exists Colonoscopy 04/02/2024 04/02/2023, 02/26, 12/12/2016, Additional history exists Colorectal Cancer Screening 04/02/2024 Depression Screening 06/13/2024 06/14/2023, 06/14/19 24 SDOH Screening 06/13/2024 06/14/2023 Diabetes: Urine Protein Screening 07/10/2024 07/11/2023, 07/17/2022, 02/21/2022, Additional history exists Diabetes: Hemoglobin A1C 07/29/2024 025, 01/28/2024, 10/29/2023, Additional history exists Alcohol/Substance Use Screening 08/27/2024 08/28/2023 Pneumococcal Vaccine: 50+ Years (3 of 3 - PCV20 or PCV21) 11/18/2024 11/19/2019, 03/05/2017, 04/02/2016 Eye Exam 11/23/2024 11/23/2022, 10/27, 11/23/2022, Additional history exists Tobacco Screening 12/12/2024 12/13/2023 DTaP/Tdap/Td Vaccines (3 - Td or Tdap) 03/05/2027 03/05/2017, 06/03/2012 RSV Patients and Patients Aged 60 years or older Completed 03/05/2023 HIB Vaccines Aged Out No longer eligi ble based on patient's age to complete this topic HPV Vaccines Aged Out No longer eligi ble based on patient's age to complete this topic IPV Vaccines Aged Out No longer eligi ble based on patient's age to complete this topic Meningococcal Vaccine Aged Out No mike lissy eligible based on patient's age to complete this topic RSV under 20 months Aged Out No longe r eligible based on patient's age to complete this topic Rotavirus Vaccines Aged Out No longer eligible based on patient's age to complete this topic Goals Goal Patient Goal Type Associated Problems Recent Progress Patient-Stated? Author Record your blood pressure once a week Blood Pressure No Puia, Juliet, PharmD Blood Pressure < 140/90 Blood Pressure 128/70(2024 1:27 PM EST) No Puia, Juliet, PharmD Hemoglobin A1c < 7.5 Result Component 7.2( 1:48 PM EST) No Puia, Juliet, PharmD Record your blood sugar as directed Result Component No Puia, Juliet, PharmD Note: Use CGM, ensuring sensor is scanned at least once every 8 hours to capture 24H data. Check BG manually, as directed. Procedures Procedure Name Priority Date/Time Associated Diagnosis Comments POCT GLYCATED HEMOGLOBIN, TOTAL Routine 04/28/2024 1:48 PM EST Type 2 diabetes mellitus without complication, with long-term current use of insulin ([facility]) POCT MARCELLE-14 URINE DRUG SCREEN Routine 03/05/2024 1:17 PM EST Chronic midline low back pain, unspecified whether sciatica present ALBUMIN, RANDOM URINE W/CREATININE Routine 07/11/2023 8:44 AM EDT Type 2 diabetes mellitus without complication, with long-term current use of insulin ([facility]) HM COLONOSCOPY Routine 04/02/2023 LIPID PANEL, STANDARD Routine 01/07/2023 8:51 AM EST from Last 3 Months or Most Recently Relevant to Health Maintenance Results * (ABNORMAL) POCT HGB A1C (04/28/2024 1:48 PM EST) [facility] Hemoglobin A1C 7.2(A) 4.0 - 6.0 % QC Media Lot # [id number] Blood 04/28/2024 1:48 PM EST us Jh Bullard MD POINT OF CARE TEST ENTER/EDIT OR DERABLES Final Result * POCT MARCELLE-14 Urine Drug Screen (03/05/2024 1:17 PM EST) [facility] TCA, Urine Positive Oxycodone Screen, Urine Positive Urine Urine specimen obtained by clean catch procedure / Unknown 03/05/2024 1:17 PM EST Cee Isidro RN - 03/05/2024 1:17 PM EST UTOX cup Lot#[id number] Exp. 11/19/25 Internal Pass Control us Jh Bullard MD POINT OF CARE TEST ENTER/EDIT OR DERABLES Final Result * Albumin, Random Urine W/Creatinine (07/11/2023 8:44 AM EDT) [facility] Creatinine, Urine 36.00 mg/dL [facility] Microalbumin Urine <5.0 mg/L [facility] Microalbum Creatinine Ratio Ur TNP <30 ug/mg cr [facility] Comment:Unable to calculate albumin/creatinine ratio due to lowmicroalbumin or creatinine result. Urine (Urine, Random) 07/11/2023 8:44 AM EDT 07/11/2023 11:17 AM EDT us Jh Bullard MD LAB URINE ORDERABLES Final Resul t [facility] [address] [place] [phone] * (ABNORMAL) Colonoscopy (04/02/2023) Colonoscopy Abnormal( A) Normal Comment:Tubular adenoma cecelia bob. us Jh Bullard MD HEALTH MAINTENANCE Final Result * Lipid Panel, Standard (01/07/2023 8:51 AM EST) Triglycerides 129 <150 mg/dL [facility] Comment:Desirable Triglyceri de: less than 150 mg/dLBorderline High Triglyceride 150-199 mg/dLHigh Triglyceride: 200-499 mg/dLVery High Triglyceride: greater than or equal to 5OO mg/dL Cholesterol 123 <200 mg/dL [facility] Comment:Desirable Cholestero l: less than 200 mg/dLBorderline High Cholesterol: 200-239 mg/dLHigh Cholesterol: greater than 239 mg/dL LDL Cholesterol Calculated 50 <100 mg/dL [facility] Comment:Desirable LDL: less than 100 mg/dLNear Optimal/Above Optimal LDL: 110- 129 mg/dLBorderline High LDL: 130-159 mg/dLHigh LDL: 160-189 mg/dLVery High LDL: greater than or equal to 190 mg/dL HDL Cholesterol 48 >40 mg/dL [facility] Comment:Desirable HDL: great er than 40 mg/dL Note: This HDL assay may give artificially low results in patients with liver disease. 01/07/2023 8:51 AM EST 01/07/2023 10:59 AM EST us Jh Bullard MD LAB BLOOD ORDERABLES Final Resul t [facility] [address] [place] [address] [phone] from Last 3 Months or Most Recently Relevant to Health Maintenance [id number] STANDARD Care Teams Set Up Operator Tool Relationship Specialty Start Date End Date Name, MD Jh [address] [place] [address] PCP - General Family Medicine 05/29/16 Juliet Wren, FabyD [address] [place] [address] Pharmacist Internal Medicine 07/17/22
--- OUTSIDE RECORDS SUMMARY | 2024-05-12 14:36 | XMS_ITS | Encounter Summary ---
Author Organization [employer] Address [address] [facility] [address]t [place] [address] Care Team Providers Care Milking Machine Technician Name Role Phone Jh Bullard MD Primary Care Provider [phone] Juliet Wren PharmD Unavailable [phone] Reason for Visit * Reason Onset Date Comments triage 02/08/2022 Encounter Details Date Type Department Care Team (Late st Contact Info) Description 02/08/2022 Telephone [facility] [address] [place], [place] [phone] Name, MD Jh [address] [place] [address] triage Social History Tobacco Use Types Packs/Day Years Used Date Smoking Tobacco: Never Assessed Sex and Gender Information Value Date Recorded Sex Assigned at Male 12/25/2021 10:25 AM EDT Legal Sex Male 10:25 AM EDT Gender Identity Male 12/25/2021 10:25 AM EDT Sexual Orientation Straight 12/25/2021 10 :25 AM EDT documented as of this encounter Miscellaneous Notes * Telephone Encounter - Alan Freeman - 02/08/2022 4:16 PM EST Symptoms: Back Pain - Not From Injury, Pain - Severe Outcome: Schedule an urgent appointment (within 1 hour) or talk to a nurse or provider soon Reason: No high acuity concerns reported by caller The caller accepted this outcome speaks [place] Islander documented in this encounter Plan of Treatment Upcoming Encounters Date Type Department Care Team (Late st Contact Info) Description 05/18/2024 1:45 PM EDT Office Visit [facility] [address] [facility] [place] [address] Name, MD Jh [address] [facility] [place] [address] 06/04/2024 1:00 PM EDT Clinical Support [facility] [address] [place] [address] Cee Toussaint, RN 06/25/2024 1:00 PM EDT Office Visit [facility] [address] [place] [address] Milvia Lincoln, OD [address] [facility] [place] [address] 10/29/2024 1:00 PM EDT Medication Management [facility] [address] [facility] [place] [address] Juliet Wren PharmD [address] [facility] [place] [address] documented as of this encounter Visit Diagnoses Not on filedocumented in this encounter Care Teams Milking Machine Technician Relationship Specialty Start Date End Date Name, MD Jh [facility] [place] [address] PCP - General Family Medicine 05/29/16 Juliet Wren, PharmD [facility] [place] [address] Pharmacist Internal Medicine 07/17/22 documented as of this encounter
--- OUTSIDE RECORDS SUMMARY | 2024-05-12 14:36 | XMS_ITS | Encounter Summary ---
Author Organization [employer] Address [address] [facility] [address] [place] [address] Care Team Providers Care Family Service Worker Name Role Phone Name, Jh RACHEL Primary Care Provider [phone] Juliet Wren PharmD Unavailable [phone] Reason for Visit * Reason Comments Med Refill Encounter Details Date Type Department Care Team ([facility] Contact Info) Description 04/20/2024 Refill [facility] [address] [place], [place] [phone] Name, MD Jh [address] [place] [address] Chronic pain syndrome Social History Tobacco Use Types Packs/Day Years Used Date Smoking Tobacco: Never Smokeless Tobacco: Never Alcohol Use Standard Drinks/Week Comments Never 0 [...] AM EDT documented as of this encounter Plan of Treatment Upcoming Encounters Date Type Department Care Team (Late st Contact Info) Description 05/18/2024 1:45 PM EDT Office Visit [facility] [address] [place] [phone] Name, MD Jh [address] [place] [address] 06/04/2024 1:00 PM EDT Clinical Support [facility] [address] [place] [address] Cee Toussaint RN 06/25/2024 1:00 PM EDT Office Visit [facility] [address] [place] [address] Milvia Lincoln, OD [address] [place] [address] 10/29/2024 1:00 PM EDT Medication Management [facility] [address] [place] [address] Juliet Wren PharmD [address] [place] [address] documented as of this encounter Goals Goal Patient Goal Type Associated Problems Recent Progress Patient-Stated? Author Record your blood pressure once a week Blood Pressure No Juliet Wren PharmD Blood Pressure < 140/90 Blood Pressure 128/70(2024 1:27 PM EST) No Emiliaia, Juliet, PharmD Hemoglobin A1c < 7.5 Result Component 7.2( 1:48 PM EST) No Juliet Wren, PharmD Record your blood sugar as directed Result Component No Severo Wrenyssa, PharmD Note: Use CGM, ensuring sensor is scanned at least once every 8 hours to capture 24H data. Check BG manually, as directed. documented as of this encounter Visit Diagnoses Diagnosis Chronic pain syndrome documented in this encounter Additional Health Concerns Assessment Noted Time PHQ-9 Depression Total Score: 0 06/14/19 24 2:15 PM EDT documented as of this encounter Care Teams Family Service Worker Relationship Specialty Start Date End Date Name, MD Jh [address] [place] [id number] PCP - General Family Medicine 05/29/16 Juliet Wren PharmD [address] [place] [phone] Pharmacist Internal Medicine 07/17/22 documented as of this encounter
--- OUTSIDE RECORDS SUMMARY | 2024-05-12 14:36 | XMS_ITS | Encounter Summary ---
Author Organization [employer] Address 75 [facility] 7t [place] [address] Care Team Providers Care Water Resource Specialist Name Role Phone Name, Jh RACHEL Primary Care Provider Juliet Wren PharmD Unavailable [phone] Reason for Visit * Reason Comments Med Refill Encounter Details Date Type Department Care Team ([facility] Contact Info) Description 04/28/2024 Refill [facility] CHC MED & PEDS [address] [place], [place] [phone] Name, MD Jh [address] [place] [address] Type 2 diabetes mellitus without complication, with long-term current use of insulin ([facility]) Social History Tobacco Use Types Packs/Day Years [...] Description 05/18/2024 1:45 PM EDT Office Visit [facility] MEDICINE [address] [place] [address] Name, MD Jh [address] [place] [address] 06/04/2024 1:00 PM EDT Clinical Support [address] [address] Cee Toussaint RN 06/25/2024 1:00 PM EDT Office Visit [facility] OPTOMETRY [address] [place] [address] Milvia Lincoln, OD 230 [place] [address] 10/29/2024 1:00 PM EDT Medication Management [address] [address] Juliet Wren PharmD [address] [place] [address] documented as of this encounter Goals Goal Patient Goal Type Associated Problems Recent Progress Patient-Stated? Author Record your blood pressure once a week Blood Pressure No Puia, Juliet, PharmD Blood Pressure < 140/90 Blood Pressure 128/70(2024 1:27 PM EST) No Juliet Wren, PharmD Hemoglobin A1c < 7.5 Result Component 7.2( 1:48 PM EST) No Juliet Wren, PharmD Record your blood sugar as directed Result Component No Juleit Wren, PharmD Note: Use CGM, ensuring sensor is scanned at least once every 8 hours to capture 24H data. Check BG manually, as directed. documented as of this encounter Visit Diagnoses Diagnosis Type 2 diabetes mellitus without complication, with long-term current use of insulin ([facility]) documented in this encounter Additional Health Concerns Assessment Noted Time PHQ-9 Depression Total Score: 0 06/14/19 24 2:15 PM EDT documented as of this encounter Care Teams Water Resource Specialist Relationship Specialty Start Date End Date Name, MD Jh [address] [place] [address] PCP - General Family Medicine 05/29/16 Juliet Wren PharmD [address] [place] [address] Pharmacist Internal Medicine 07/17/22 documented as of this encounter
--- OUTSIDE RECORDS SUMMARY | 2024-05-12 14:36 | XMS_ITS | Encounter Summary ---
Author Organization [email or web address] Address 75 [facility] 7t [place] [address] Care Team Providers Care Pack Mule Worker Name Role Phone Name, Jh RACHEL Primary Care Provider [phone] Juliet Wren PharmD Unavailable [phone] Reason for Visit * Reason Comments Med Refill Encounter Details Date Type Department Care Team ([facility] Contact Info) Description 04/28/2024 Refill [facility] CHC MED & PEDS [address] [place], [place] [phone] Name, MD Jh 230 [place] [address] Social History Tobacco Use Types Packs/Day Years [...] EDT Office Visit [facility] MEDICINE [address] [place] [address] Name, MD Jh [address] [place] [address] 06/04/2024 1:00 PM EDT Clinical Support [address] [address] Cee Toussaint RN 06/25/2024 1:00 PM EDT Office Visit [facility] OPTOMETRY [address] [place] [address] Milvia Lincoln, OD 230 [place] [address] 10/29/2024 1:00 PM EDT Medication Management [facility] MEDICINE [address] [place] [address] Juliet Wren PharmD [address] [place] [address] documented as of this encounter Goals Goal [...] Diagnoses Not on filedocumented in this encounter Additional Health Concerns Assessment Noted Time PHQ-9 Depression Total Score: 0 06/14/19 24 2:15 PM EDT documented as of this encounter Care Teams Pack Mule Worker Relationship Specialty Start Date End Date Name, MD Jh [address] [place] [address] PCP - General Family Medicine 05/29/16 Juliet Wren, PharmD 230 [place] [address] Pharmacist Internal Medicine 07/17/22 documented as of this encounter
--- OUTSIDE RECORDS SUMMARY | 2024-05-12 14:36 | XMS_ITS | Encounter Summary ---
Author Organization [employer] Address 75 [facility] 7t [place] [address] Care Team Providers Care Principal Clerk Name Role Phone Jh Bullard MD Primary Care Provider [phone] Juliet Wren PharmD Unavailable [phone] Reason for Visit * Reason Comments Med Refill Encounter Details Date Type Department Care Team (Late Contact Info) Description 08/07/[address] [facility] MEDICINE [address] [place] [address] [phone] Name, MD Jh 230 [place] [address] Chronic pain syndrome Social History Tobacco Use Types Packs/Day Years Used Date Smoking Tobacco: Never Smokeless Tobacco: Never Depression Answer Date Recorded Patient Health Questionnaire-9 Score 0 03/08/2022 Depression Answer Date Recorded Patient Health Questionnaire-2 Score 0 03/08/2022 Sex and Gender Information Value Date Recorded Sex Assigned at Male 12/25/2021 10:25 AM EDT Legal Sex Male 10:25 AM EDT Gender Identity Male 12/25/2021 10:25 AM EDT Sexual Orientation Straight 12/25/2021 10 :25 AM EDT COVID-19 Exposure Response Date Recorded In the last 10 days, have yo u been in contact with someone who was confirmed or suspected to have Coronavirus/COVID-19? Unable to assess 08/02/2022 12:44 PM EDT documented as of this encounter Plan of Treatment Upcoming Encounters Date Type Department Care Team (Late Contact Info) Description 05/18/2024 1:45 PM EDT Office Visit [facility] MEDICINE [address] [place] [address] Name, MD Jh 230 [place] [address] 06/04/2024 1:00 PM EDT Clinical Support [facility] MEDICINE [address] [place] [address] Cee Toussaint, EMILIO 06/25/2024 1:00 PM EDT Office Visit [facility] OPTOMETRY [address] [place] [address] Salazar, Milvia, OD 230 [place] [address] 10/29/2024 1:00 PM EDT Medication Management [facility] [address] [place] [address] Juliet Wren, PharmD 230 [place] [address] documented as of this encounter Goals Goal Patient Goal Type Associated Problems Recent Progress Patient-Stated? Author Hemoglobin A1c < 7.5 Result Component 7.2(04/28/2024 1:48 PM EST) No Juliet Wren PharmD documented as of this encounter Visit Diagnoses Diagnosis Chronic pain syndrome documented in this encounter Additional Health Concerns Assessment Noted Time PHQ-9 Depression Total Score: 0 03/08/19 23 8:49 AM EST documented as of this encounter Care Teams Principal Clerk Relationship Specialty Start Date End Date NameJh MD Darrian [place], [place] PCP - General Family Medicine 05/29/16 Juliet Wren, PharmD [address] [place] [address] Pharmacist Internal Medicine 07/17/22 documented as of this encounter
--- OUTSIDE RECORDS SUMMARY | 2024-05-12 14:36 | XMS_ITS | Clinical Summary ---
Author Organization [employer] [facility] ity Address [address] [place] [address] Care Team Providers Care Legal Records Clerk Name Role Phone Name, Jh RACHEL Primary Care Provider [phone] Social History Tobacco Use Types Packs/Day Years Used Date Smoking Tobacco: Never Smokeless Tobacco: Never Alcohol Use Standard Drinks/Week Comments No 0 (1 standard drink = 0.6 oz pur e alcohol) Sex and Gender Information Value Date Recorded Sex Assigned at Not on file Legal Sex Male 5:05 AM EST Gender Identity Not on file Sexual Orientation Not on file Obstetrics History Plan of Treatment Health Maintenance Due Date Last Done Comments DTaP,Tdap,and Td Vaccines (1 - Tdap) 1973 Zoster Vaccines (1 of 2) 2004 Pneumococcal Vaccine: 50+ Ye ars (2 of 2 - PPSV23) 11/18/2020 11/19/2019 Abdominal Aortic Aneurysm (A AA) Screen 01/28/2022 Cholesterol Screening (Lipid Panel) 01/28/2022 Colorectal Cancer Screening: Colonoscopy 01/28/2022 Depression Screening 01/28/2022 Falls Risk Assessment 01/28/2022 Hepatitis C Screening 01/28/2022 Social Influencers of Health Screening 01/28/2022 COVID-19 Vaccine (1 - 2023-2 5 season) 2023 Influenza Vaccine (#1) 2023 RSV Immunization Patients 60 + Years Old (1 - 1-dose 75+ series) 2029 HIB Vaccines Aged Out No longer eligi ble based on patient's age to complete this topic HPV Vaccines Aged Out No longer eligi ble based on patient's age to complete this topic Hepatitis A Vaccines Aged Out No long er eligible based on patient's age to complete this topic Hepatitis B Vaccines Aged Out No long er eligible based on patient's age to complete this topic IPV Vaccines Aged Out No longer eligi ble based on patient's age to complete this topic MMR Vaccines Aged Out No longer eligi ble based on patient's age to complete this topic Meningococcal ACWY Vaccine Aged Out N o longer eligible based on patient's age to complete this topic Meningococcal B Vacine Aged Out No lo nger eligible based on patient's age to complete this topic RSV Immunization Patients Un oni 20 months Aged Out No longer eligible b ased on patient's age to complete this topic Varicella Vaccines Aged Out No longer eligible based on patient's age to complete this topic Care Teams Legal Records Clerk Relationship Specialty Start Date End Date Name, MD Jh [address] [employer], [place] PCP - General Internal Medicine 11/16/19
--- OUTSIDE RECORDS SUMMARY | 2024-05-12 14:36 | XMS_ITS | Encounter Summary ---
Author Organization [employer] Address 75 [facility] 7t [place] [address] Care Team Providers Care Pastry Cook Helper Name Role Phone Name, Jh RACHEL Primary Care Provider [phone] Juliet Wren PharmD Unavailable [phone] Encounter Details Date Type Department Care Team ([facility] st Contact Info) Description 05/02/2023 Telephone [facility] PEDIATRICS [address] [place], [place] [phone] Name, MD Jh 230 [place], [place] [phone] Social History Tobacco Use Types Packs/Day Years Used Date Smoking Tobacco: Never Smokeless Tobacco: Never Alcohol Use Standard Drinks/Week Comments Never 0 (1 standard drink = 0.6 oz pur e alcohol) Depression Answer Date Recorded Patient Health Questionnaire-9 Score 0 03/08/2022 Housing Stability Answer Date Recorded What is your housing situation today? I have kate arce 12/09/[address] you li ve. Do you have problems with any of the following? None of the above 12/09/2022 Food Insecurity Answer Date Recorded Within the past 12 months, y ou worried that your food would run out before you got money to buy more: Never True 12/09/2022 Within the past 12 months,th e food you bought just didn't last and you didn't have enough money to get more: Never True Transportation Answer Date Recorded In the past 12 months, has l ack of transportation kept you from medical appts, meetings, work or from getting things needed for daily living? No 12/09/2022 Utilities Answer Date Recorded In the past 12 months, has t he electric, gas, oil or water company threatened to shut off services in your home? No 12/09/2022 Depression Answer Date Recorded Patient Health Questionnaire-2 [...] Description 05/18/2024 1:45 PM EDT Office Visit [address] [address] Name, MD Jh [address] [place] [address] 06/04/2024 1:00 PM EDT Clinical Support [address] [address] Cee Toussaint RN 06/25/2024 1:00 PM EDT Office Visit [facility] OPTOMETRY [address] [place] [address] Milvia Lincoln, OD 230 [place] [address] 10/29/2024 1:00 PM EDT Medication Management [address] [address] Juliet Wren, PharmD [address] [place] [address] documented as of this encounter Goals Goal Patient Goal Type Associated Problems Recent Progress Patient-Stated? Author Hemoglobin A1c < 7.5 Result Component 7.2( 1:48 PM EST) No Emiliaia Juliet, PharmD Record your blood sugar as [...] documented as of this encounter Care Teams Pastry Cook Helper Relationship Specialty Start Date End Date Name, MD Jh 230 [place] [address] PCP - General Family Medicine 05/29/16 Juliet Wren, Ezekiel 230 [place] [address] Pharmacist Internal Medicine 07/17/22 documented as of this encounter
--- OUTSIDE RECORDS SUMMARY | 2024-05-12 14:36 | XMS_ITS | Encounter Summary ---
Author Organization [employer] Address 75 [facility] 7t [place] [address] Care Team Providers Care Electro Mechanic Name Role Phone Jh Bullard MD Primary Care Provider [phone] Juliet Wren PharmD Unavailable [phone] Reason for Visit * Reason Comments Med Refill Encounter Details Date Type Department Care Team ([facility] st Contact Info) Description 02/26/2023 Refill [facility] MEDICINE 230 [place], [place] [phone] Name, MD Jh [address] [place], [place] [phone] Chronic pain syndrome Social History Tobacco Use [...] Description 05/18/2024 1:45 PM EDT Office Visit [facility] MEDICINE [address] [place] [address] Name, MD Jh [address] [place] [address] 06/04/2024 1:00 PM EDT Clinical Support [facility] MEDICINE [address] [place] [address] Cee Toussaint RN 06/25/2024 1:00 PM EDT Office Visit [facility] OPTOMETRY [address] [place] [address] Salazar, Milvia, OD 230 [place] [address] 10/29/2024 1:00 PM EDT Medication Management [address] [address] Puia, Juliet, PharmD [address] [place] [address] documented as of this encounter Goals Goal [...] documented as of this encounter Care Teams Electro Mechanic Relationship Specialty Start Date End Date Name, MD Jh [address] [place] [address] PCP - General Family Medicine 05/29/16 Juliet Wren PharmD [address] [place] [address] Pharmacist Internal Medicine 07/17/22 documented as of this encounter
--- OUTSIDE RECORDS SUMMARY | 2024-05-12 14:37 | XMS_ITS | Encounter Summary ---
Author Organization [employer] Address 75 [facility] 7t [place] [address] Care Team Providers Care Pyrometer Mechanic Name Role Phone Name, Jh RACHEL Primary Care Provider [phone] Juliet Wren PharmD Unavailable [phone] Encounter Details Date Type Department Care Team ([facility] st Contact Info) Description 05/16/2023 Telephone [facility] MEDICINE [address] [place], [place] [phone] Name, MD Jh 230 [place], [place] [phone] Social History Tobacco Use Types Packs/Day Years [...] Description 05/18/2024 1:45 PM EDT Office Visit [address] [address] Name, MD Jh [address] [place] [address] 06/04/2024 1:00 PM EDT Clinical Support [address] [address] Cee Toussaint RN 06/25/2024 1:00 PM EDT Office Visit [facility] OPTOMETRY [address] [place] [address] Milvia Lincoln, OD [address] [place] [address] 10/29/2024 1:00 PM EDT Medication Management [address] [address] Juliet Wren, PharmD [address] [place] [address] documented as of this encounter Goals Goal [...] documented as of this encounter Care Teams Pyrometer Mechanic Relationship Specialty Start Date End Date Name, MD Jh 230 [place] [address] PCP - General Family Medicine 05/29/16 Juliet Wren, Ezekiel [address] [place] [address] Pharmacist Internal Medicine 07/17/22 documented as of this encounter
--- OUTSIDE RECORDS SUMMARY | 2024-05-12 14:37 | XMS_ITS | Encounter Summary ---
Author Organization [employer] Address 75 [facility] 7t [place] [address] Care Team Providers Care Forming Operator Name Role Phone NameJh MD Primary Care Provider [phone] Juliet Wren PharmD Unavailable [phone] Encounter Details Date Type Department Care Team ([facility] Contact Info) Description 07/13/2022 Abstract [facility] MEDICINE [address] [place] [address] [phone] Name, MD Jh [address] [place] [address] Social History Tobacco Use Types Packs/Day Years [...] was confirmed or suspected to have Coronavirus/COVID-19? No / Unsure 06/22/2022 8:33 AM EDT documented as of this encounter Plan of Treatment Upcoming Encounters Date Type Department Care Team ([facility] Contact Info) Description 05/18/2024 1:45 PM EDT Office Visit [facility] MEDICINE [address] [place] [address] [phone] Name, MD Jh [address] [facility] [place] [address] 06/04/2024 1:00 PM EDT Clinical Support [facility] MEDICINE [address] [facility] [place] [address] Cee Toussaint, RN 06/25/2024 1:00 PM EDT Office Visit [facility] OPTOMETRY [address] [facility] [place] [address] Milvia Lincoln, OD 230 [facility] [place] [address] 10/29/2024 1:00 PM EDT Medication Management [facility] MEDICINE [address] [facility] [place] [address] Juliet Wren PharmD [address] [facility] [place] [address] documented as of this encounter Procedures Procedure Name Priority Date/Time Associated Diagnosis Comments COLONOSCOPY Routine 12/12/2016 2:15 PM EDT documented in this encounter Results * Colonoscopy (12/12/2016 2:15 PM EDT) Colonoscopy Normal Normal Narrative Lynette Grubbs - 12/12/2016 2:15 PM EDT Recommended 5 year follow up us Historical Provider HEALTH MAINTENANCE Final Result documented in this encounter Visit Diagnoses Not on filedocumented in this encounter Additional Health Concerns Assessment Noted Time PHQ-9 Depression Total Score: 0 03/08/19 23 8:49 AM EST documented as of this encounter Care Teams Forming Operator Relationship Specialty Start Date End Date Name, MD Jh Dar[place] PCP - General Family Medicine 05/29/16 [place] [address] Pharmacist Internal Medicine 07/17/22 documented as of this encounter
--- OUTSIDE RECORDS SUMMARY | 2024-05-12 14:37 | XMS_ITS ---
Author Name Ar SHAW Florian Omerniru Franze Address [address] [place] [address] Phone [phone] [facility] Care Team Providers Care Industrial Nurse Name Role Phone Lizeth Joyner Unavailable [phone] Unavailable Unavailable Unavailable [facility] Unavailable [phone] Reason for Referral Not Available Allergies, adverse reactions, alerts No known allergies History of medication use Medication Class Instructions Start Date End Date oxyCODONE-Acetaminophen 5/325 mg Tab TAKE 1 TABLET BY MOUTH EVERY 8 TO 12 HOURS NEEDED 2021-06-19 No Data Available Pentips 32 gauge x 5/32 needle USE FOUR TIMES DAILY 2021-06-06 2023-10-02 Sertraline 50 mg Tab TAKE 1 TABLET BY MO UTH EVERY MORNING 2021-06-07 No Data Available busPIRone 5 mg Tab TAKE 1 TABLET BY JESS TH TWICE DAILY IN THE MORNING AND IN THE EVENING 2021-06-07 No Data Available Carvedilol 6.25 mg Tab TAKE 1 TABLET BY MOUTH TWICE DAILY WITH FOOD 2021-03-20 No Data Available Docusate Sodium 100 mg Cap TAKE 1 CAPSUL E BY MOUTH TWICE DAILY 2021-01-02 No Data Available magnesium oxide 400 mg (241.3 mg magnesium) tablet TAKE 1 TABLET BY MOUTH EVERY DAY 2020-10-04 No Data Available metFORMIN 500 mg Tab TAKE 1 TABLET BY MO UTH TWICE DAILY IN THE MORNING AND IN THE EVENING WITH MEALS 2021-05-15 2023-06-12 Omeprazole 40 mg Cap delayed rel TAKE 1 CAPSULE BY MOUTH EVERY DAY BEFORE A MEAL 2021-03-20 No Data Available OneTouch Delica Plus [id number] Miscellaneous TEST BLOOD SUGAR THREE TIMES DAILY 2020-08-16 No Data Available OneTouch Verio Strip TEST BLOOD SUGAR TH REE TIMES DAILY 2020-08-16 No Data Available Amitriptyline 75 mg Tab TAKE 1 TABLET BY MOUTH EVERY DAY AT BEDTIME 2021-06-07 No Data Available Lantus SoloStar 100 UNIT/ML Solution Pen-injector Subcutaneous INJECT 28 UNITS SUBCUTANEOUSLY ONCE DAILY 2021-03-20 No Data Available Tamsulosin 0.4 mg Cap TAKE 1 CAPSULE BY MOUTH TWICE DAILY 2021-05-12 No Data Available Insulin Lispro (1 Unit Dial) 100 UNIT/ML Solution Pen-injector 10 UNITS PRIOR TO MEALS 3 TIMES PER DAY 2021-07-19 No Data Available Atorvastatin Calcium 20 mg Tab TAKE 1 TABLET BY MOUTH ONCE DAILY 2021-05-12 2022-11-07 Lisinopril 20 mg Tab TAKE 1 TABLET BY MO UTH EVERY DAY 2021-08-16 No Data Available Chlorhexidine Gluconate 0.12 % Solution SWISH THEN SPIT15 ML BY MOUTH TWICE A DAY 2021-08-21 No Data Available Ibuprofen 600 mg Tab TOME MICHELLE TABLETA TR ES VECES AL D A CUANDO SEA NECESARIO PARA EL DOLOR 2021-08-21 No Data Available netomat Flex System w/Device Kit TEST BLOOD SUGAR THREE TIMES DAILY 2021-09-15 No Data Available Viagra 50 mg Tab TAKE 1 TABLET 1 HOUR BEFORE SEXUAL RELATIONS ONCE DAILY NEEDED. 2021-11-24 No Data Available oxyCODONE 5 mg Tab 1 tab 2-3 times a da y PRN pain 2021-12-07 No Data Available Narcan 4 mg/0.1ML Liquid Nasal use 1 spray in one nostril in the event of opioid overdose. Call 911 after use 2021-12-07 No Data Available Chlorhexidine Gluconate 0.12 % Solution Mouth/Throat 15 ML swish and spit BID 2021-12-07 2023-10-01 Finasteride 5 mg Tab TAKE 1 TABLET BY MO UTH EVERY MORNING. DO NOT BREAK, CRUSH, DISSOLVE OR CHEW. 2022-03-08 No Data Available Methocarbamol 750 mg Tab TOME MICHELLE TABLET A POR V A ORAL DOS VECES AL D A CUANDO SEA NECESARIO FOR MUSCLE SPASM FOR 30 DAYS 2022-06-08 No Data Available FreeStyle Laurent 2 Sensor Miscellaneous USE DIRECTED AND CHANGE EVERY 14 DAYS 2022-06-22 No Data Available Jardiance 25 mg Tab TAKE 1 TABLET BY JESS TH EVERY MORNING 2022-06-22 No Data Available Rosuvastatin Calcium 40 mg Tab TAKE 1 TABLET BY MOUTH EVERY OTHER DAY 2022-10-09 No Data Available Senna-Plus 8.6/50 mg Tab TOME MICHELLE TABLET A DOS VECES AL D A CUANDO SEA NECESARIO FOR CONSTIPATION 2023-01-25 No Data Available Sulfamethoxazole-Trimethopri m 800/160 mg Tab TOME MICHELLE TABLETA DOS VECES AL D A 2023-01-25 No Data Available GaviLyte-G 236 GM Solution PLEASE SEE AT TACHED FOR DETAILED DIRECTIONS 2023-03-14 2023-10-02 Linzess 290 MCG Cap TOME 1 C PSULA POR V A ORAL CADA MA TAD FOR 30 DAYS 2023-04-02 No Data Available Famotidine 40 mg Tab TOME MICHELLE TABLETA PO R V A ORAL AL ACOSTARSE 2023-05-01 No Data Available Bisacodyl EC 5 mg Tab delayed rel TAKE 2 TABLETS BY MOUTH AT BEDTIME FOR 30 DAYS 2023-05-23 No Data Available TechLITE Pen Needle 32 gauge x 5/32 USE FOUR DAILY 2022-06-13 2023-10-02 metFORMIN 1000 mg Tab Take 2 tablets ora lly twice daily 2023-03-12 No Data Available Daily Value Multivitamin Tab take 1 tablet by mouth da jerson 2023-10-01 No Data Available TechLITE Pen Needle 32 gauge x 5/32 USE FOUR DAILY 2023-06-26 No Data Available Tresiba FlexTouch 100 UNIT/ML Solution Pen-injector INJECT 34 UNITS SUBCUTANEOUSLY EVERY MORNING 2023-12-24 No Data Available TRUEplus 5-Bevel Pen [place] 32G X 4 MM Miscellaneous USE FOUR DAILY 2023-11-11 No Data Availab le Melatonin 5 mg Cap 1-2 gummies QHS 2024-04-17 No Ian a Available Problem List Problem Status Onset Date Resolved Date History of alcohol abuse Active 2022-11-07 N/A Other problems related to [facility] facilities and other health care Active 2023-06-12 N/A Enlarged prostate Inactive 2023-10-08 N/A BPH (benign prostatic hyperplasia) Active 2021-02 0-16 N/A Major depressive disorder in partial remissionGAD Acti ve 2022-11-15 N/A Chronic midline low back pippa n without sciaticahistory of Subluxation of L4-L5 lumbar vertebraOpioid Use Active 2022-11-14 N/A Shoulder pain Active 2021-12-07 N/A Supraventricular tachycardia Active 2021-12-07 N/A Type 2 diabetes mellitus wit h mild nonproliferative diabetic retinopathy without macular edema, bilateralType 2 diabetes mellitus, with long-term current use of insulin, hyperlipidemia Active 2021-12-07 N /A Hypertensive heart disease with heart failure Active 2021-12-07 N/A Encounters Encounters Type Facility Date of Service Diagnosis/Co mplaint Medication List Documented (1159F) [facility] Medication List Documented (1159F) [facility] Medication List Documented (1159F) [facility] Medication List Documented (1159F[place] [facility] Medication List Documented (1159F) [facility] Type 2 diabetes mellitus wit h mild nonproliferative diabetic retinopathy without macular edema, bilateralGeneralized anxiety disorderHeart failure, unspecifiedPain in unspecified shoulderEnlarged prostate without lower urinary tract symptomsOther specified health statusObesity, unspecifiedBody mass index (bmi) 31.0-31.9, adultHypertensive heart disease with heart failure Medication List Documented (1159F) [facility] Medication List Documented (1159F) [facility] Estab. patient 30-39min; chronic exacerbation, 2 stable chronic or 1 acute illness add add modifier 95 for video, (do not use for phone, instead use [id number]) [facility]2022 Type 2 diabetes mellitus wit h mild nonproliferative diabetic retinopathy without macular edema, bilateralLong term (current) use of insulinGeneralized anxiety disorderHypertensive heart disease with heart failureHeart failure, unspecifiedSupraventricular tachycardiaMajor depressive disorder, recurrent, unspecifiedLong term (current) use of opiate analgesic Estab. patient 30-39min; chronic exacerbation, 2 stable chronic or 1 acute illness add add modifier 95 for video, (do not use for phone, instead use [id number]) [facility] ([place]) [place] Estab. patient 30-39min; chronic exacerbation, 2 stable chronic or 1 acute illness add add modifier 95 for video, (do not use for phone, instead use [id number]) [facility] Estab. patient 30-39min; chronic exacerbation, 2 stable chronic or 1 acute illness add add modifier 95 for video, (do not use for phone, instead use [id number]) [facility] Estab. patient 30-39min; chronic exacerbation, 2 stable chronic or 1 acute illness add add modifier 95 for video, (do not use for phone, instead use [id number]) [facility] Estab. patient 30-39min; chronic exacerbation, 2 stable chronic or 1 acute illness add add modifier 95 for video, (do not use for phone, instead use [id number]) [facility] Estab. patient 30-39min; chronic exacerbation, 2 stable chronic or 1 acute illness add add modifier 95 for video, (do not use for phone, instead use [id number]) [facility] [place] Estab. patient 20-29min; 1 stable chronic or 2 minor; add add modifier 95 for video, modifier 93 for phone [facility]/2022 Type 2 diabetes mellitus wit h mild nonproliferative diabetic retinopathy without macular edema, bilateralPersonal history of other specified conditionsOpioid use, unspecified, uncomplicatedOpioid dependence, uncomplicatedLong term (current) use of opiate analgesicPain in unspecified shoulderAlcohol abuse, in remissionUnspecified urinary incontinenceLow back pain, unspecifiedOther chronic painSubluxation of L4/L5 lumbar vertebra, sequelaEssential (primary) hypertensionMajor depressive disorder, recurrent, unspecified Estab. patient 20-29min; 1 stable chronic or 2 minor; add add modifier 95 for video, modifier 93 for phone [facility] [place]/20[place] Estab. patient 20-29min; 1 stable chronic or 2 minor; add add modifier 95 for video, modifier 93 for phone [facility] [place] Estab. patient 30-39min; chronic exacerbation, 2 stable chronic or 1 acute illness add add modifier 95 for video, (do not use for phone, instead use [id number]) [facility] [place] 06[place]/2023 Type 2 diabetes mellitus wit h mild nonproliferative diabetic retinopathy without macular edema, bilateralLong term (current) use of insulinGeneralized anxiety disorderHypertensive heart disease with heart failureSupraventricular tachycardia, unspecifiedOpioid use, unspecified, uncomplicatedPain in unspecified shoulderOther problems related to medical facilities and other health careEnlarged prostate without lower urinary tract symptomsBody mass index (bmi) 29.0-29.9, adultHeart failure, unspecifiedMajor depressive disorder, recurrent, unspecifiedAlcohol abuse, in remissionLow back pain, unspecifiedOther chronic painSubluxation of L4/L5 lumbar vertebra, sequela Estab. patient 30-39min; chronic exacerbation, 2 stable chronic or 1 acute illness add add modifier 95 for video, (do not use for phone, instead use [id number]) [facility] [place] Estab. patient 30-39min; chronic exacerbation, 2 stable chronic or 1 acute illness add add modifier 95 for video, (do not use for phone, instead use [id number]) [facility] [place] Estab. patient 30-39min; chronic exacerbation, 2 stable chronic or 1 acute illness add add modifier 95 for video, (do not use for phone, instead use [id number]) [facility] [place] Estab. patient 30-39min; chronic exacerbation, 2 stable chronic or 1 acute illness add add modifier 95 for video, (do not use for phone, instead use [id number]) [facility] ([place] 06[place]/20[place] Estab. patient 30-39min; chronic exacerbation, 2 stable chronic or 1 acute illness add add modifier 95 for video, (do not use for phone, instead use 16498-76) [facility] [place] 06[place]20[place] Estab. patient 30-39min; chronic exacerbation, 2 stable chronic or 1 acute illness add add modifier 95 for video, (do not use for phone, instead use [id number]) [facility] [place] 06[place] Estab. patient 30-39min; chronic exacerbation, 2 stable chronic or 1 acute illness add add modifier 95 for video, (do not use for phone, instead use [id number]) [facility] [place] Estab. patient 30-39min; chronic exacerbation, 2 stable chronic or 1 acute illness add add modifier 95 for video, (do not use for phone, instead use [id number]) [facility] [place] 06[place] Estab. patient 30-39min; chronic exacerbation, 2 stable chronic or 1 acute illness add add modifier 95 for video, (do not use for phone, instead use 12090-52) [facility] [place] 06[place] Estab. patient 30-39min; chronic exacerbation, 2 stable chronic or 1 acute illness add add modifier 95 for video, (do not use for phone, instead use [id number]) [facility] ([place]) 06/[place]/2023 RN, CN or CP time with patient by phone; use with 1111F, BP, A1c or other CPTII codes [facility] ([place] 10[place]/2023 Encounter for other specifie d aftercare RN, CN or CP time with patient by phone; use with 1111F, BP, A1c or other CPTII codes [facility] [place] 10/[place]/2023 No Data Available [facility] ([place]/2023 Enlarged prostate without lo wer urinary tract symptomsOther problems related to medical facilities and other health care No Data Available [facility] [place]/2023 No Data Available [facility] [place] Estab. patient 20-29min; 1 stable chronic or 2 minor; add add modifier 95 for video, modifier 93 for phone [facility] [place] 04/17/2024 Type 2 diabetes mellitus wit h mild nonproliferative diabetic retinopathy without macular edema, bilateralType 2 diabetes mellitus without complicationsLong term (current) use of insulinType 2 diabetes mellitus with other specified complicationHyperlipidemia, unspecifiedOther problems related to medical facilities and other health careHypertensive heart disease with heart failureSupraventricular tachycardia, unspecifiedPain in unspecified shoulderEnlarged prostate without lower urinary tract symptomsHeart failure, unspecified Estab. patient 20-29min; 1 stable chronic or 2 minor; add add modifier 95 for video, modifier 93 for phone [facility] Estab. patient 20-29min; 1 stable chronic or 2 minor; add add modifier 95 for video, modifier 93 for phone [facility]17/20[place] Estab. patient 20-29min; 1 stable chronic or 2 minor; add add modifier 95 for video, modifier 93 for phone [facility] 04[place]17/20[place] Estab. patient 20-29min; 1 stable chronic or 2 minor; add add modifier 95 for video, modifier 93 for phone [facility] 04[place]17/2024 Estab. patient 20-29min; 1 stable chronic or 2 minor; add add modifier 95 for video, modifier 93 for phone [facility] 04/17/2024 Estab. patient 20-29min; 1 stable chronic or 2 minor; add add modifier 95 for video, modifier 93 for phone [facility] 04/17/2024 Estab. patient 20-29min; 1 stable chronic or 2 minor; add add modifier 95 for video, modifier 93 for phone [facility] 04/17/2024 Estab. patient 20-29min; 1 stable chronic or 2 minor; add add modifier 95 for video, modifier 93 for phone [facility] 04/17/2024 Estab. patient 20-29min; 1 stable chronic or 2 minor; add add modifier 95 for video, modifier 93 for phone [facility] [place] 04/17/2024 Estab. patient 20-29min; 1 stable chronic or 2 minor; add add modifier 95 for video, modifier 93 for phone [facility] [place] 04/17/2024 Vital Signs Date of Collection Vitals 2021-12-07 13:29:02 Height - 176.53 cmWe ight - 99.34 kgBody Mass Index (BMI) - 31.88 kg/m2BP Diastolic - 85.0 mm[Hg]BP Systolic - 133.0 mm[Hg] 2022-11-07 11:48:15 Height - 176.53 cmWe ight - 91.17 kgBody Mass Index (BMI) - 29.26 kg/m2BP Diastolic - 80.0 mm[Hg]BP Systolic - 136.0 mm[Hg] 2023-06-12 11:39:46 Height - 175.26 cmWe ight - 90.72 kgBody Mass Index (BMI) - 29.53 kg/m2BP Diastolic - 80.0 mm[Hg]BP Systolic - 130.0 mm[Hg] 2024-04-17 08:12:19 Height - 175.26 cmWe ight - 99.79 kgBody Mass Index (BMI) - 32.49 kg/m2BP Diastolic - 80.0 mm[Hg]BP Systolic - 120.0 mm[Hg] Social History Social History Social History Observation Description Effec tive Time Current Smoking Status Former smoker 2024-04-25 8 Sex Male Gender identity Man History of Procedures Procedures Service Procedure code Service date Servicing provider Phone# Medication List Documented (1159F) 1159F 2021-12-07 No Data Available No Data Codi ilable Medication Review by prescribing provider or pharmacist documented (1160F) 1160F 2021-12-07 No Data Available No Data Codi ilable Functional Status Assessed (1170F) 1170F 2021-12-07 No Data Available No Data Avail able BMI obtained (3008F) 3008F 2021-12-07 No Data Availab le No Data Available No Data Available [id number] 2021-12-07 No Data Available No Data Available SBP < 130 (3074F) 3074F 2021-12-07 No Data Available No Data Available DBP 80-89 (3079F) 3079F 2021-12-07 No Data Available No Data Available Estab. patient 30-39min; chronic exacerbation, 2 stable chronic or 1 acute illness add add modifier 95 for video, (do not use for phone, instead use [id number]) 51416 2022-11-07 No Data Available No Data Availa ble Medication List Documented (1159F) 1159F 2022-11-07 No Data Available No Data Codi ilable Medication Review by prescribing provider or pharmacist documented (1160F) 1160F 2022-11-07 No Data Available No Data Codi ilable Functional Status Assessed (1170F) 1170F 2022-11-07 No Data Available No Data Avail able BMI obtained (3008F) 3008F 2022-11-07 No Data Availab le No Data Available Advance Care Directive Advance care planning discussion documented in the medical record (1158F) 1158F 2022-11-07 No Data Available No Data Availa ble Pain Assessment - Pain Documented on a Pain Scale (1125F) 1125F 2022-11-07 No Data Available No Data Codi ilable Estab. patient 20-29min; 1 stable chronic or 2 minor; add add modifier 95 for video, modifier 93 for phone [id number] 2022-11-14 No Data Available No Data Availa ble Medication List Documented (1159F) 1159F 2022-11-14 No Data Available No Data Codi ilable Pain Assessment - Pain Documented on a Pain Scale (1125F) 1125F 2022-11-14 No Data Available No Data Codi ilable Estab. patient 30-39min; chronic exacerbation, 2 stable chronic or 1 acute illness add add modifier 95 for video, (do not use for phone, instead use [id number]) 15092 2023-06-12 No Data Available No Data Availa ble Medication List Documented (1159F) 1159F 2023-06-12 No Data Available No Data Codi ilable Medication Review by prescribing provider or pharmacist documented (1160F) 1160F 2023-06-12 No Data Available No Data Codi ilable Pain Assessment - Pain Documented on a Pain Scale (1125F) 1125F 2023-06-12 No Data Available No Data Codi ilable BMI obtained (3008F) 3008F 2023-06-12 No Data Availab le No Data Available Advance Care Directive Advance care planning discussion documented in the medical record (1158F) 1158F 2023-06-12 No Data Available No Data Availa ble Advance care planning discussed and documented ? advance care plan or surrogate decision-maker was documented in the medical record. (1123F) 1123F 2023-06-12 No Data Available No Data Availa ble SBP 130-139 (3075F) 3075F 2023-06-12 No Data Availabl e No Data Available DBP 80-89 (3079F) 3079F 2023-06-12 No Data Available No Data Available Pain Assessment - Pain Documented on a Pain Scale (1125F) 1125F 2023-06-12 No Data Available No Data Codi ilable Functional Status Assessed (1170F) 1170F 2023-06-12 No Data Available No Data Avail able RN, CN or CP time with patient by phone; use with 1111F, BP, A1c or other CPTII codes 72824 2023-10-01 No Data Available No Data Avai lable Medications prescribed in hospital were reviewed and reconciled against what they were taking prior to admission during today's visit. (1111F) 1111F 2023-10-01 No Data Available No Data Availa ble No Data Available [id number] 2023-10-08 No Data Available No Data Available Advance care planning discussed and documented ? advance care plan or surrogate decision-maker was documented in the medical record. (1123F) 1123F 2023-10-08 No Data Available No Data Availa ble Advance Care Directive Advance care planning discussion documented in the medical record (1158F) 1158F 2023-10-08 No Data Available No Data Availa ble Estab. patient 20-29min; 1 stable chronic or 2 minor; add add modifier 95 for video, modifier 93 for phone [id number] 2024-04-17 No Data Available No Data Availa ble Medication List Documented (1159F) 1159F 2024-04-17 No Data Available No Data Codi ilable Medication Review by prescribing provider or pharmacist documented (1160F) 1160F 2024-04-17 No Data Available No Data Codi ilable Functional Status Assessed (1170F) 1170F 2024-04-17 No Data Available No Data Avail able Advance Care Directive Advance care planning discussion documented in the medical record (1158F) 1158F 2024-04-17 No Data Available No Data Availa ble Advance care planning discussed and documented ? advance care plan or surrogate decision-maker was documented in the medical record. (1123F) 1123F 2024-04-17 No Data Available No Data Availa ble Pain Assessment - NO pain present (1126F) 1126F 2024-04-17 No Data Available No Data A vailable SBP < 130 (3074F) 3074F 2024-04-17 No Data Available No Data Available DBP 80-89 (3079F) 3079F 2024-04-17 No Data Available No Data Available Pain Assessment - Pain Documented on a Pain Scale (1125F) 1125F 2024-04-17 No Data Available No Data Codi ilable BMI obtained (3008F) 3008F 2024-04-17 No Data Availab le No Data Available Functional Status Functional Category Effective Dates ADLsDressing - Needs assista nceBathing - Needs assistanceToileting - Needs assistanceTransfers - Needs assistanceEating - IndependentiADLsShopping - Needs assistanceMedications - Needs assistanceHousekeeping - Needs assistanceCooking - Needs assistance 2022-11-07 Fell in August 2022 2022-11-07 Reports using a cane to ambulate. -17 Fall in the last 6 months: yes, denies jenna fitch. 2024-04-17 Mental Status Status Date AOx3 2023-06-12 Assessments Date of Service Assessments 2021-12-07 13:29:02 Type 2 diabetes wan itus with mild nonproliferative diabetic retinopathy without macular edema, bilateralChronic, continuous use of opioids (prescription), Opiate dependence, continuousGAD (generalized anxiety disorder)CHF (congestive heart failure)Supraventricular tachycardiaChronic use of opiate drug for therapeutic purposeShoulder painBPH (benign prostatic hyperplasia)Difficulty demonstrating health literacyClass 1 obesity with body mass index (BMI) of 31.0 to 31.9 in adultCHF (congestive heart failure), Hypertension 2022-11-07 11:48:15 Type 2 diabetes wan itus with mild nonproliferative diabetic retinopathy without macular edema, bilateralGAD (generalized anxiety disorder)CHF (congestive heart failure), HypertensionSupraventricular tachycardiaMajor depressive disorder, recurrent, unspecifiedChronic use of opiate drug for therapeutic purpose 2022-11-14 10:32:31 Type 2 diabetes wan itus with mild nonproliferative diabetic retinopathy without macular edema, bilateralChronic, continuous use of opioids (prescription), Opiate dependence, continuousChronic use of opiate drug for therapeutic purposeShoulder painHistory of alcohol abuseUrinary incontinenceChronic midline low back pain without sciaticaSubluxation of L4-L5 lumbar vertebra, sequelaHypertensionMajor depressive disorder, recurrent, unspecified 2023-06-12 11:39:46 Other problems relat ed to medical facilities and other health careType 2 diabetes mellitus with mild nonproliferative diabetic retinopathy without macular edema, bilateralType 2 diabetes mellitus, with long-term current use of insulinGAD (generalized anxiety disorder)Hypertensive heart disease with heart failureSupraventricular tachycardiaOpioid useShoulder painBPH (benign prostatic hyperplasia)BMI 29.0-29.9,adultHistory of alcohol abuseChronic midline low back pain without sciaticaSubluxation of L4-L5 lumbar vertebra, sequelaMajor depressive disorder, recurrent, unspecified 2023-10-08 09:27:46 Patient Education to avoid future hospitalization: Call [facility] if symptoms of illness develop.Other problems related to medical facilities and other health careEnlarged prostate 2024-04-17 08:12:19 Other problems relat ed to medical facilities and other health careType 2 diabetes mellitus with mild nonproliferative diabetic retinopathy without macular edema, bilateralType 2 diabetes mellitus, with long-term current use of insulin, hyperlipidemiaHypertensive heart disease with heart failureSupraventricular tachycardiaShoulder painBPH (benign prostatic hyperplasia)History of alcohol abuseChronic midline low back pain without sciaticahistory of Subluxation of L4-L5 lumbar vertebraOpioid UseMajor depressive disorder in partial remissionGAD Plan of Care Date of Service Plans 2021-12-07 13:29:02 Medication Review by prescribing provider or pharmacist documented (1160F)Medication List Documented (1159F)Functional Status Assessed (1170F)BMI obtained (3008F)SBP < 130 (3074F)DBP 80-89 (3079F)Televideo new patient,40-59min; chronic exacerbation, 2 stable chronic or 1 acute illness add modifier 95Continue to see PCP. [facility] for any acute or disease education needs that may arise.On Lantus, Lispro, MetforminCautioned re risk of sedation, safety.Sending NarcanOn Amitriptylene, Buspirone, SertralineOn carvediloloxycodoneoxycodoneTamsulosinWill FU when pt can have a friend, BIOLOGY LECTURER or family member with himLifestyle adviceOn carvedilol, Lisinopril 2022-11-07 11:48:15 Medication Review by prescribing provider or pharmacist documented (1160F)Medication List Documented (1159F)Functional Status Assessed (1170F)Advance Care Directive Advance care planning discussion documented in the medical record (1158F)BMI obtained (3008F)SBP 130-139 (3075F)DBP 80-89 (3079F)Televideo 30-39min; chronic exacerbation, 2 stable chronic or 1 acute illness add modifier 95Advance care planning discussed and documented ? advance care plan or surrogate decision-maker was documented in the medical record. (1123F)Advance care planning discussed and documented in the medical record ? beneficiary/patient did not wish to or was unable to provide an advance care plan or name a surrogate decision-maker. (1124F)Pain Assessment - Pain Documented (1125F)Continue to see PCP. Follow-up with [facility] as needed for any acute or disease education needs that may arise.On Lantus, Lispro, MetforminUPDATE 11/24/2022Today fasting sugar 146this week: 120-140On Amitriptylene, Buspirone, SertralineOn carvedilol, LisinoprilEd re fluid intakeContinue taking medications.Continue f/u care and monitoring with PCP every 6 months.On carvedilolFU w card Q 6 monthscontinues to take amitriptyline 75 mg daily, sertraline 50mg dailycontinue to monitor PHQ9 score routinelyoxycodoneEd re risks of sedationAEsSending narcan 2022-11-14 10:32:31 Televideo 20-29min; 1 stable chronic or 2 minor; add modifier 95Continue to see PCP. Follow-up with [facility] as needed for any acute or disease education needs that may arise 17/09.On Lantus, Lispro, MetforminDiscussed diet, exercise, and lifestyle interventions. Continue taking medications.Continue f/u care and monitoring with PCP every 3-6 months. UPDATE 11/14/2022To fasting sugar 146this week: 120-140Encouragement, reinforced educationCautioned re risk of sedation, safety.Sending NarcanoxycodoneEd re risks of sedationAEsSending narcanhad surgery R shoulder circa 2013, now w R side pain.oxycodone, gets injections w ortho q2-3 monthsEd exercises for both shouldersStopped 2016Declines productsOxycodone, steroid injections w orthoDoing well.Ed re risks of opioids.carvedilollisinoprilContinue taking medications as prescribed.Montior BP routinely, low salt diet, exercise, and contact us if developing emergent HTN (eg. palpitations, blurry vision).Continue f/u care and monitoring with PCP every 3-6 months.continues to take amitriptyline 75 mg daily, sertraline 50mg dailycontinue to monitor PHQ9 score routinely 2023-06-12 11:39:46 Medication Review by prescribing provider or pharmacist documented (1160F)Medication List Documented (1159F)Functional Status Assessed (1170F)Advance Care Directive Advance care planning discussion documented in the medical record (1158F)BMI obtained (3008F)SBP < 130 (3074F)DBP <80 (3078F)Televideo 30-39min; chronic exacerbation, 2 stable chronic or 1 acute illness add modifier 95Advance care planning discussed and documented ? advance care plan or surrogate decision-maker was documented in the medical record. (1123F)Pain Assessment - Pain Documented (1125F)Continue to see PCP. Follow-up with [facility] as needed for any acute or disease education needs that may arise.CONTINGENCY PLANMDD/Anxiety Member to call for the following symptoms: Thoughts of self-harm/ Thoughts of harming others/ Worsening paranoia or delusions/ Frequent panic attacksPlanned intervention: Transfer member to [address] [place] [address]/ Hydroxyzine (Vistaril) 25mg PO q6h PRN anxiety/ Remind member of breathing exercises/ Limit extra stimulationStable Lantus, Lispro, MetforminDiscussed diet, exercise, and lifestyle interventions. Continue taking medications.Continue f/u care and monitoring with PCP every 3-6 months.StableAmitriptyline, Buspirone, SertralineDenies SI/HIContinue with psychiatrist Continue f/u care with PCP, coping mechanisms, and monitor for adverse effects.Stablecarvedilol, LisinoprilMonitor for BLE edema or acute change in weight (+5 lbs) and continue taking medications.Continue f/u care and monitoring with PCP and cardiology every 6 months.StableCarvedilolFU w cardiology and PCP every 6 monthsStableOpioid: Oxycodone Use: periodic (PRN) use onlyDiagnosis: Opioid Use F11.90Consider Naloxone in the home; educate on respiratory depression/sedation/fall riskhad surgery R shoulder circa 2013, now w R side pain.oxycodone, gets injections w ortho q2-3 monthsEd exercises for both shouldersStableTamsulosinMonitor for changes in urine output and continue with PCP and urology.StableBMI: 29.53Lifestyle adviceDiscussed diet, exercise, and lifestyle interventions to promote weight loss and achieve normal BMI. Continue f/u care and monitoring with PCP every 6 months.StableStopped 2016Continue with Etoh remission, coping mechanisms, and continue with PCP.Oxycodone, steroid injections w orthoDoing well.Ed re risks of opioids.StableAmitriptyline, Sertraline Continue with psychiatrist Denies SI/HIcontinue to monitor PHQ9 score routinely 2023-10-01 09:37:56 Oct 08, 2023, 12:30 PM 2023-10-08 09:27:46 Phone (patient, pare nt, or guardian); 5-10 minutes of medical discussion (no modifier 95)Advance care planning discussed and documented ? advance care plan or surrogate decision-maker was documented in the medical record. (1123F)PCP visit is planned for:CONTINGENCY PLANMDD/Anxiety Member to call for the following symptoms: Thoughts of self-harm/ Thoughts of harming others/ Worsening paranoia or delusions/ Frequent panic attacksPlanned intervention: Transfer member to [address] [place] [address]/ Hydroxyzine (Vistaril) 25mg PO q6h PRN anxiety/ Remind member of breathing exercises/ Limit extra stimulation Post surgery for prostate reduction 09/19Member to call for difficulty urinating, increase hematuria/blood clots, feverPlanned intervention: Instruct member to go to ER09/19 planned procedure for prostate reduction. The patient had follow up appt with urologist last saturday; No changes to current plan of care. The patient reports hematuria is less frequently; Denies any concerns at this time. Contingency plan reviewed and medication changes. 2024-04-17 08:12:19 Functional Status As sessed (1170F)Advance Care Directive Advance care planning discussion documented in the medical record (1158F)Advance care planning discussed and documented ? advance care plan or surrogate decision-maker was documented in the medical record. (1123F)SBP < 130 (3074F)DBP 80-89 (3079F)Estab. patient 20-29min; 1 stable chronic or 2 minor; add add modifier 95 for video, modifier 93 for phoneMedication List Documented (1159F)Medication Review by prescribing provider or pharmacist documented (1160F)Pain Assessment - Pain Documented on a Pain Scale (1125F)BMI obtained (3008F)Continue to see PCP. Follow-up with [facility] as needed for any acute or disease education needs that may arise.CONTINGENCY PLANMDD/Anxiety Member to call for the following symptoms: Thoughts of self-harm/ Thoughts of harming others/ Worsening paranoia or delusions/ Frequent panic attacksPlanned intervention: Transfer member to [address] [place] [address]/ Hydroxyzine (Vistaril) 25mg PO q6h PRN anxiety/ Remind member of breathing exercises/ Limit extra stimulation Post surgery for prostate reduction 09/19Member to call for difficulty urinating, increase hematuria/blood clots, feverPlanned intervention: Instruct member to go to ERStable Lantus, Lispro, Metformin, Jardiance, Tresiba, Rosuvastatin Uses CGM - reports 129 mg/dL this morning, average < 200 mg/dL Most recent a1c: 7.1% per pt report in 01/2024.Discussed diet, exercise, and lifestyle interventions. Continue taking medications.Continue f/u care and monitoring with PCP every 3-6 months.Stablecarvedilol, LisinoprilMonitor for BLE edema or acute change in weight (+5 lbs) and continue taking medications.Continue f/u care and monitoring with PCP and cardiology every 6 months.StableCarvedilolFU w cardiology and PCP every 6 monthsStableOxycodone PRN had surgery R shoulder circa 2013, now w R side pain.oxycodone, gets injections w ortho q2-3 monthsEd exercises for both shouldersStableTamsulosin, finasteride Monitor for changes in urine output and continue with PCP and urology. Patient had prostate corrective surgery in September 2023. He reports still experiencing urinary incontinence and continue with seeing urology for f/u and monitoring.StableStopped 2016Continue with Etoh remission, coping mechanisms, and continue with PCP.StableOxycodone, steroid injections w orthoDoing well.Ed re risks of opioids.Opioid: Oxycodone Use: periodic (PRN) use onlyDiagnosis: Opioid Use F11.90Consider Naloxone in the home; educate on respiratory depression/sedation/fall riskStableBuspar, Sertraline Continue with psychiatrist every 1-3 months Denies SI/HICoping mechanisms, monitor for worsening depression and continue f/u with psych. Goals Date Goal 2021-12-07 Remember to 2021-12-07 Call me if 2021-12-07 Keep it up 2023-06-12 Remember to adhere t o dietary interventions and exercise as tolerable. 2023-06-12 Contact us if devcody ping HHS, DKA, worsening anxiety, BLE swelling, sedation, acute change in weight (+5lbs), acute change in urine output or worsening depression or SI/HI. 2023-06-12 Continue taking medi cations as prescribed and f/u care and monitoring with PCP every 3-6 months. 2024-04-17 Remember to adhere t o dietary interventions and exercise as tolerable. 2024-04-17 Contact us if develo ping acute urinary changes, cardiac s/sx (eg. chest pain, palpitations), falls, HHS, DKA, worsening pain, depression, or health-related concerns. 2024-04-17 Continue taking medi cations as prescribed and f/u care and monitoring with PCP every 3-6 months. Health Concerns Date Concern 2024-04-17 Visit completed in ann audio/video.Patient/Guardian agreed to visit via telehealth. Today, patient has chief complaint of: follow up care and comprehensive review.Reviewed Allergies, Medications, Active Medical conditions, past medical/surgical history, Social history. 2024-04-17 ACP: yes. Full Code. HCP is partner Tracie Orta. 2024-04-17 Most recent hospital stay(s) or ER visit(s) and precipitating factors: denies in the last month. 2024-04-17 Informed verbal cons ent was obtained from this patient to communicate and provide care using virtual and other telecommunications tools. This patient has been explained the risks, if any, related to the encounter. I explained that care provided through video or audio communication cannot replace the need for physical examination or an in-person visit for some disorders or urgent problems.
== END 2024-05-12 13:16 | disposition home or self-care (01) ==
LOC: HO.PMCPRC 12:19
PROVIDERS: PCP Internal Medicine Geriatric Medicine; Visit Provider Anesthesiology
DX: M53.3 Sacrococcygeal disorders, not elsewhere classified (principal)
CPT/HCPCS: 27096

== ENCOUNTER 2024-05-21 10:04 | Outpatient (REF) | payer OTHER, SELFPAY ==
[2024-05-21 11:10] LABS: MANUAL DIFF FLAG NO
[2024-05-21 11:19] LABS: Basophils Percent Auto 0.8 % (0-2); Eosinophils Absolute Auto 0.1 X10*3/uL (0.0-0.4); Eosinophils Percent Auto 1.3 % (0-4); Hemoglobin 14.2 g/dl (14.0-18.0); Imm Gran Abs Auto 0.05 X10*3/uL (0.00-0.03); Imm Gran Pct Auto 1.3 % (0.0-0.4); Lymphocytes Absolute Auto 1.4 X10*3/uL (1.2-4.9); Lymphocytes Percent Auto 34.4 % (20-40); Mean Corpuscular Hemoglobin 27.2 pg (27.0-33.0); Mean Corpuscular Volume 82.4 fL (80.0-98.0); Mean Platelet Volume 10.3 fL (9.4-12.4); Monocytes Absolute Auto 0.4 X10*3/uL (0.1-1.2); Monocytes Percent Auto 9.7 % (2-11); Neutrophils Absolute Auto 2.1 x10*3/uL (2.0-8.3); Neutrophils Percent Auto 52.5 % (45-73); Platelet Count 203 X10*3/uL (160-400); Red Blood Count 5.22 X10*6/uL (4.60-5.80); Red Cell Distribution Width 14.2 % (11.0-16.0); White Blood Count 3.9 X10*3/uL (4.8-10.8)
[2024-05-21 11:46] LABS: Creatinine Urine 63.26 mg/dL; Microalbumin Urine < 5.0 mg/L
[2024-05-21 12:01] LABS: ~HepC Num1 0.15 S/CO (0.00-0.79); ~Hepatitis C Antibody Nonreactive (Nonreactive)
[2024-05-21 12:12] LABS: Alanine Aminotransferase 14 U/L (0-40); Albumin Level 4.2 g/dL (3.5-5.0); Alkaline Phosphatase 62 U/L (39-117); Anion Gap 11 (12-20); Aspartate Amino Transferase 17 U/L (5-37); Bilirubin Total 0.4 mg/dL (0.0-1.0); Blood Urea Nitrogen 12 mg/dL (9-16); Calcium 9.6 mg/dL (8.4-10.2); Carbon Dioxide 25 mmol/L (22-29); Chloride 108 mmol/L (96-108); Cholesterol 177 mg/dL (<200); Estimated Glomerular Filt Rate > 60; Glucose Random 111 mg/dL (60-115); HDL Cholesterol 55 mg/dL (>40); LDL Cholesterol Calculated 109 mg/dL (<100); Potassium 4.3 mmol/L (3.3-5.1); Sodium 140 mmol/L (135-145); Total Protein 6.7 g/dL (6.5-8.0); Triglycerides 69 mg/dL (<150)
== END 2024-05-21 10:05 | disposition home or self-care (01) ==
LOC: HO.HHCL 10:04
PROVIDERS: Visit Provider Internal Medicine Geriatric Medicine
DX: E11.9 Type 2 diabetes mellitus without complications (principal); Z79.4 Long term (current) use of insulin; I10 Essential (primary) hypertension; E78.5 Hyperlipidemia, unspecified; M54.50 Low back pain, unspecified; G89.29 Other chronic pain; Z11.59 Encounter for screening for other viral diseases
CPT/HCPCS: 36415; 80053; 80061; 82570; 85025; 86803

== ENCOUNTER 2024-05-29 11:16 | Outpatient (AMB) | payer OTHER, SELFPAY ==
[2024-05-29 11:36] VITALS: BP 136/77; O2SAT 98; BMI 30.7
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
--- OUTSIDE RECORDS SUMMARY | 2024-05-29 13:12 | XMS_ITS | Encounter Summary ---
Author Organization [employer] Address [address] [place] [address] Care Team Providers Care Desk Interviewer Name Role Phone Jh Bullard MD Primary Care Provider [phone] Juliet Wren PharmD Unavailable [phone] Reason for Visit * Reason Onset Date Comments triage 02/08/2022 Encounter Details Date Type Department Care Team (Late st Contact Info) Description 02/08/2022 Telephone [facility] [address], [place] [id number] Name, MD Jh [address] [place] [address] triage Social History Tobacco Use Types Packs/Day [...] caller The caller accepted this outcome speaks Somali documented in this encounter Plan of Treatment Upcoming Encounters Date Type Department Care Team (Late st Contact Info) Description 06/25/2024 1:00 PM EDT Office Visit [facility] [address] [place] [address] SalazarMilvia ortiz, OD [address] [place] [address] 08/06/2024 1:00 PM EDT Clinical Support [facility] [address] [place] [address] Cee Toussaint, EMILIO 10/29/2024 1:00 PM EDT Medication Management [facility] [address] [place] [address] Juliet Wren PharmD [address] [place] [address] documented as of this encounter Visit Diagnoses Not on filedocumented in this encounter Care Teams Desk Interviewer Relationship Specialty Start Date End Date Name, MD Jh [address] [place] [id number] PCP - General Family Medicine 05/29/16 Juliet Wren PharmD [address] [place] [id number] Pharmacist Internal Medicine 07/17/22 documented as of this encounter
--- OUTSIDE RECORDS SUMMARY | 2024-05-29 13:12 | XMS_ITS | Clinical Summary ---
Author Organization [facility] Address [address] [place] [address] Care Team Providers Care Agility Instructor Name Role Phone Name, Jh RACHEL Primary Care Provider [phone] Social History Tobacco Use Types Packs/Day Years [...] Influencers of Health Screening 01/28/2022 COVID-19 Vaccine ( - 2023-2 5 season) 2023 Influenza Vaccine (#1) 2023 RSV Immunization Adult Patie nts (1 - 1-dose 75+ series) 2029 HIB [...] age to complete this topic Care Teams Agility Instructor Relationship Specialty Start Date End Date Name, MD Jh [address] [place], [place] PCP - General Internal Medicine 11/16/19
--- OUTSIDE RECORDS SUMMARY | 2024-05-29 13:12 | XMS_ITS | Clinical Summary ---
Author Organization [employer] Address [address] [facility] [address] [place] [address] Care Team Providers Care Attorney Law Clerk Name Role Phone Name, Jh RACHEL Primary Care Provider [phone] Juliet Wren PharmD Unavailable [phone] Allergies No known active allergies Medications [...] MEAL 60 capsule 5 11/25/19 24 Active insulin degludec (Tresiba FlexTouch) 100 UNIT/ML injectionIndica tions:Type 2 diabetes mellitus without complication, with long-term current use of insulin ([facility]) Inject 34 Units under the skin in the morning. 15 mL 5 12/24/19 24 Active insulin lispro (HumaLOG KWIKPEN) 100 UNIT/ML injectionIndica tions:Type 2 diabetes mellitus without complication, with long-term current use of insulin ([facility]) Inject 8 units subQ three times daily with meals. Do not use if not eating / skipping a meal. 15 mL 5 12/24/19 24 Active metFORMIN (Glucophage) 1000 MG tabletIndicatio ns:Type 2 diabetes mellitus without complication, with long-term current use of insulin (CMS/HCC) Take 1 tablet (1,000 mg) by mouth with breakfast and with evening meal. 180 tablet 3 01/28/20 24 025 Active lisinopril 20 MG tabletIndicatio ns:Type 2 diabetes mellitus without complication, with long-term current use of insulin (CMS/HCC),Essen tial hypertension Take 1 tablet (20 mg) by mouth Once per day. 90 tablet 3 01/28/20 24 Active carvedilol (Coreg) 6.25 MG tabletIndicatio ns:Essential hypertension TAKE ONE TABLET TWICE DAILY WITH FOOD 180 tablet 1 03/18/19 25 Active naloxone (Narcan) 4 mg/0.1 mL nasal spray FOR SUSPECTED OPIOID OVERDOSE. SPRAY 0.1mL IN ONE NOSTRIL. REPEAT IN ALTERNATE NOSTRIL EVERY 2-3 MINUTES IF NEEDED. SEEK MEDICAL ATTENTION IMMEDIATELY EVEN IF PT RESPONDS. 2 each 2 04/09/19 25 Active TechLite Plus Pen [place] 32G X 4 MM misc USE FOUR DAILY 100 each 04/29/19 25 Active Continuous Glucose Scissors Sharpener (FreeStyle Laurent 3 [place]) deviceIndicatio ns:Type 2 diabetes mellitus without complication, with long-term current use of insulin ([facility]) 1 each Once per day. Use as directed for CGM 1 each 04/29/19 25 Active Continuous Glucose Sensor (FreeStyle Laurent 3 Plus Sensor) miscIndications :Type 2 diabetes mellitus without complication, with long-term current use of insulin ([facility]/HCC) Apply 1 every 15 days as directed for CGM 2 each 04/29/19 25 Active glucose blood (FreeStyle Precision Chano Test) test stripIndication s:Type 2 diabetes mellitus without complication, with long-term current use of insulin ([facility]) Use to test blood sugar up to 3 times daily, as directed 100 each 11 04/29/19 25 Active rosuvastatin (Crestor) 40 MG tabletIndicatio ns:Type 2 diabetes mellitus without complication, with long-term current use of insulin ([facility]) Take 1 tablet (40 mg) by mouth Once daily. 90 tablet 3 04/29/19 25 Active OneTouch Verio test stripIndication s:Type 2 diabetes mellitus without complication, with long-term current use of insulin ([facility]) TEST BLOOD SUGAR THREE TIMES DAILY 100 strip 11 04/30/19 25 Active Lancets (OneTouch Delica Plus [id number]) miscIndications :Type 2 diabetes mellitus without complication, with long-term current use of insulin ([facility]) TEST BLOOD SUGAR THREE TIMES DAILY 100 each 11 04/30/19 25 Active Viagra 100 MG tablet TAKE 1 TABLET 1 HOUR BEFORE SEXUAL RELATIONS ONCE DAILY NEEDED. 10 tablet 3 05/14/19 25 Active omeprazole (PriLOSEC) [address] capsuleIndicati ons:Essential hypertension TAKE 1 CAPSULE BY MOUTH EVERY DAY BEFORE A MEAL 30 capsule 5 05/20/19 25 Active oxyCODONE-aceta minophen (Percocet) 5-325 MG tabletIndicatio ns:Chronic pain syndrome TAKE ONE TABLET EVERY 8 HOURS NEEDED FOR PAIN 84 tablet 05/22/19 25 Active omeprazole (PriLOSEC) [address] capsuleIndicati ons:Essential hypertension TAKE 1 CAPSULE BY MOUTH EVERY DAY BEFORE A MEAL 30 capsule 5 11/25/19 24 025 Discontinued Viagra 100 MG tablet TAKE 1 TABLET 1 HOUR BEFORE SEXUAL RELATIONS ONCE DAILY NEEDED. 10 tablet 3 03/02/19 25 025 Discontinued oxyCODONE-aceta minophen (Percocet) 5-325 MG tabletIndicatio ns:Chronic pain syndrome TAKE ONE TABLET EVERY 8 HOURS NEEDED FOR PAIN 84 tablet 04/24/19 25 025 Discontinued Active Problems Problem Noted Date Diagnosed Date Acute necrotizing pancreatitis 12/12/2023 QT prolongation 12/12/2023 ISAC (iron deficiency anemia) 12/12/2023 Gastroesophageal reflux disease 12/12/2023 Fatty liver, alcoholic 12/12/2023 Hyperlipidemia 12/12/2023 Class 1 obesity 12/12/2023 Alcohol dependence in remission 12/12/2023 Tubular adenoma 10/17/2022 Overview (10/17/2022): Of the sigmoid colon 2016 Colonoscopy done at [facility] Type 2 diabetes mellitus 03/02/2022 Irregular heart beat 12/16/2017 Benign prostatic hyperplasia 09/23/2017 Nocturia 07/15/2017 Hypertension 05/14/2017 Tubular adenoma of colon 12/19/2016 Overview (12/12/2023): repeat screening colonoscopy in 2021 Splenic vein thrombosis 10/24/2016 Chronic low back pain 06/01/2016 History of alcohol abuse 06/01/2016 Shoulder pain 06/01/2016 Pseudocyst of pancreas 06/01/2016 Encounters Date Type Department Care Team Description 05/21/2024 Telephone [facility] [address] [place] [phone] Jh Bullard MD 05/21/2024 Telephone [facility] [address] [place] [address] [phone] Jh Bullard MD Med Refill 05/19/2024 Refill [facility] [address] [place] [address] Jh Bullard MD Chronic pain syndrome 05/19/2024 Telephone [facility] [address] [place], [place] [phone] Jh Bullard MD 05/18/2024 1:45 PM EDT Office Visit [facility] [address] [place] [phone] Jh Bullard MD Type 2 diabetes mellitus without complication, with long-term current use of insulin ([facility]) (Primary Dx); Hypertension, unspecified type; Hyperlipidemia, unspecified hyperlipidemia type; Need for hepatitis C screening test 05/18/2024 Travel 05/18/2024 Refill [facility] [address] [place] [address] Jh Bullard MD Essential hypertension 05/14/2024 Telephone [facility] [address] [place] [address] [phone] Gaby Jean MA chart prep 05/13/2024 Refill [facility] [address] [place], [place] [phone] Ariadna West NP 04/28/2024 Refill [facility] [address] [place] [address] NameJh MD Type 2 diabetes mellitus without complication, with long-term current use of insulin ([facility]) 04/28/2024 Refill [facility] [address] [place] [address] Jh Bullard MD 04/20/2024 Refill [facility] [address] [place] [address] Jh Bullard MD Chronic pain syndrome 04/08/2024 Refill [facility] [address] [place] [address] Jh Bullard MD 03/25/2024 Refill [facility] [address] [place] [address] Jh Bullard MD Chronic pain syndrome 03/18/2024 Refill [facility] [address] [place] [address] Jh Bullard MD Essential hypertension 03/05/2024 1:00 PM EST Clinical Support [facility] [address] [place] [phone] Cee Toussaint, stamping machine operator midline low back pain, unspecified whether sciatica present (Primary Dx) 03/05/2024 Telephone [facility] [address] [place] [address] [phone] Gaby Jean MA feb recalls 03/05/2024 Travel 03/05/2024 Telephone [facility] [address] [place] [address] [phone] Cee Toussaint, RN Recommend SENIOR TAX MANAGER Tier 3 02/29/2024 Refill [facility] [address] [place] [address] [phone] Jh Bullard MD from Last 3 Months Immunizations Name Administration Dates Next Due Pfizer Covid-19 Vaccine 12+ 02/28/2023,,04/08/2020 Pfizer Covid-19 Vaccine 12+ julio-sucrose (Cook Cap) 07/31/2021 Pneumococcal Conjugate PCV 13 11/19/2019 Pneumococcal Polysaccharide PPSV23 03/05/2017,02 /07/2016 RSV Bivalent 03/05/2023 TD (adult), 2 Lf [...] Answer Date Recorded Patient Health Questionnaire-9 Score 4 05/18/2024 Patient Health Questionnaire-9 Score 4 05/18/2024 Last PHQ-9: Questionnaire Data Not on file 0 05/18/2024 Housing Stability Answer Date Recorded What is your housing situation today? I have kate arce 06/14/[address] you li ve. Do you have problems with any of the following? None of the above 06/14/2023 Food Insecurity Answer Date Recorded Within the past 12 months, y ou worried that your food would run out before you got money to buy more: Sometimes True 2024 Within the past 12 months,th e food you bought just didn't last and you didn't have enough money to get more: Never True 05/18/2024 Transportation Answer Date Recorded In the past 12 months, has l ack of transportation kept you from medical appts, meetings, work or from getting things needed for daily living? No 06/14/2023 Utilities Answer Date Recorded In the past 12 months, has t he electric, gas, oil or water company threatened to shut off services in your home? Yes 05/18/2024 Depression Answer Date Recorded Patient Health Questionnaire-2 Score 1 05/18/2024 Internet Access Answer Date Recorded Internet Access Q1 No 05/18/2024 Internet Access Q2 I cannot afford it 05/18/2024 Sex and Gender Information Value Date Recorded Sex Assigned at Male 12/25/2021 10:25 AM EDT Legal Sex Male 10:25 AM EDT Gender Identity Male 12/25/2021 10:25 AM EDT Sexual Orientation Straight 12/25/2021 10 :25 AM EDT Last Filed Vital Signs Vital Sign Reading Time Taken Comments Blood Pressure 135/85 05/18/2024 1:36 PM EDT Pulse 54 05/18/2024 1:36 PM EDT Temperature 35.7 ??C (96.3 ??F) 05/18/2024 1:36 PM ED T Respiratory Rate 14 05/18/2024 1:36 PM EDT Oxygen Saturation 98% 05/18/2024 1:36 PM EDT Inhaled Oxygen Concentration - - Weight 95.5 kg (210 lb 9.6 oz) 05/18/2024 1:36 P M EDT Height 175.3 cm (5' 9 ) 05/18/2024 1:36 PM EDT Body Mass Index 31.1 05/18/2024 1:36 PM EDT Plan of Treatment Upcoming Encounters Date Type Department Care Team (Late st Contact Info) Description 06/25/2024 1:00 PM EDT Office Visit [facility] [address] [place] [address] Salazar, Milvia, OD [address] [place] [address] 08/06/2024 1:00 PM EDT Clinical Support [facility] [address] [place] [address] Cee Toussaint, RN 10/29/2024 1:00 PM EDT Medication Management [facility] [address] [place] [address] Juliet Wren, PharmD [address] [place] [address] Health Maintenance Due Date Last Done Comments CT Colonography 1954 FIT DNA/Cologuard 1954 FIT 1954 FOBT 1954 Sigmoidoscopy 1954 Diabetes: Foot Exam 1964 Hepatitis A Vaccines (1 of 2 - Risk 2-dose series) 1973 Zoster Vaccines (1 of 2) 2004 Hepatitis B Vaccines (1 of 3 - Risk 3-dose series) 2014 COVID-19 Vaccine ( season) 2023 02/28/2023, 01/05/2022, 07/31/2021, Additional history exists Influenza Vaccine (#1) 2023 Colonoscopy 04/02/2024 04/02/2023, 02/26, 12/12/2016, Additional history exists Colorectal Cancer Screening 04/02/2024 Diabetes: Hemoglobin A1C 07/29/2024 025, 01/28/2024, 10/29/2023, Additional history exists Alcohol/Substance Use Screening 08/27/2024 08/28/2023 Pneumococcal Vaccine: 50+ Years (3 of 3 - PCV20 or PCV21) 11/18/2024 11/19/2019, 03/05/2017, 04/02/2016 Eye Exam 11/23/2024 11/23/2022, 10/27, 11/23/2022, Additional history exists Depression Screening 05/18/2025 05/18/2024, 05/19/19 25 SDOH Screening 05/18/2025 05/18/2024 Tobacco Screening 05/18/2025 05/18/2024 Diabetes: Urine Protein Screening 05/21/2025 05/21/2024, 07/11/2023, 07/17/2022, Additional history exists Lipid Panel 05/21/2025 05/21/2024, 12/26, 10/08/2022, Additional history exists DTaP/Tdap/Td Vaccines (3 - Td or Tdap) 03/05/2027 03/05/2017, 06/03/2012 RSV Patients and Patients Aged 60 years or older Completed 03/05/2023 Hepatitis C Screening Completed 05/21/2024 HIB Vaccines Aged Out No longer eligi [...] once a week Blood Pressure No Juliet WrenEzekiel Blood Pressure < 140/90 Blood Pressure 135/85(2024 1:36 PM EDT) No Juliet Wren PharmD Hemoglobin A1c < 7.5 Result Component 7.2( 1:48 PM EST) No Juliet Wren PharmD Record your blood sugar as directed Result Component No Juliet Wren PharmD Note: Use CGM, ensuring sensor is scanned at least once every 8 hours to capture 24H data. Check BG manually, as directed. Procedures Procedure Name Priority Date/Time Associated Diagnosis Comments HEPATITIS C AB W/REFL TO HCV RNA, QN, PCR Routine 05/21/2024 10:08 AM EDT Need for hepatitis C screening test ALBUMIN, RANDOM URINE W/CREATININE Routine 05/21/2024 10:08 AM EDT Type 2 diabetes mellitus without complication, with long-term current use of insulin ([facility]) Hypertension, unspecified type Hyperlipidemia, unspecified hyperlipidemia type LIPID PANEL, STANDARD Routine 05/21/2024 10:08 AM EDT Type 2 diabetes mellitus without complication, with long-term current use of insulin ([facility]/HCC) Hypertension, unspecified type Hyperlipidemia, unspecified hyperlipidemia type COMPREHENSIVE METABOLIC PANEL Routine 05/21/2024 10:08 AM EDT Type 2 diabetes mellitus without complication, with long-term current use of insulin ([facility]) Hypertension, unspecified type Hyperlipidemia, unspecified hyperlipidemia type CBC WITH AUTO DIFFERENTIAL Routine 05/21/2024 10:08 AM EDT Type 2 diabetes mellitus without complication, with long-term current use of insulin ([facility]) Hypertension, unspecified type Hyperlipidemia, unspecified hyperlipidemia type POCT GLUCOSE Routine 05/18/2024 1:45 PM EDT Type 2 diabetes mellitus without complication, with long-term current use of insulin ([facility]) POCT GLYCATED HEMOGLOBIN, TOTAL Routine 04/28/2024 1:48 PM EST Type 2 diabetes mellitus without complication, with long-term current use of insulin ([facility]) POCT MARCELLE-14 URINE DRUG SCREEN Routine 03/05/2024 1:17 PM EST Chronic midline low back pain, unspecified whether sciatica present HM COLONOSCOPY Routine 04/02/2023 from Last 3 Months or Most Recently Relevant to Health Maintenance Results * Albumin, Random Urine W/Creatinine (05/21/2024 10:08 AM EDT) Creatinine, Urine 63.26 mg/dL [facility] Microalbumin Urine <5.0 mg/L [facility] Microalbum Creatinine Ratio Ur TNP <30 ug/mg cr [facility] Comment:Unable to calculate albumin/creatinine ratio due to lowmicroalbumin or creatinine result. Urine (Urine, Random) 05/21/2024 10:08 AM EDT 05/21/2024 11:03 AM EDT us Jh Name LAB URINE ORDERABLES Final Resul t [facility] [address] [place] [phone] * (ABNORMAL) CBC auto differential (05/21/2024 10:08 AM EDT) White Blood Count 3.9(L) 4.8 - 10.8 X10*3/uL [facility] Red Blood Count 5.22 4.60 - 5.80 X10*6/uL [facility] Hemoglobin 14.2 14.0 - 18.0 g/dl [facility] Hematocrit 43.0 42.0 - 52.0 % [facility] Mean Corpuscular Volume 82.4 80.0 - 98.0 fL [facility] Mean Corpuscular Hemoglobin 27.2 27.0 - 33.0 pg [facility] Mean Corpuscular HGB Conc 33.0 31.0 - 36.0 g/dl [facility] Red Cell Distribution Width 14.2 11.0 - 16.0 % [facility] Platelet Count 203 160 - 400 X10*3/uL [facility] Mean Platelet Volume 10.3 9.4 - 12.4 fL [facility] Neutrophils Percent Auto 52.5 45 - 73 % [facility] Imm Gran Pct Auto 1.3(H) 0.0 - 0.4 % [facility] Lymphocytes Percent Auto 34.4 20 - 40 % [facility] Monocytes Percent Auto 9.7 2 - 11 % [facility] Eosinophils Percent Auto 1.3 0 - 4 % [facility] Basophils Percent Auto 0.8 0 - 2 % [facility] NRBC Pct Auto 0.0 0.0 - 0.2 /100WBC [facility] Neutrophils Absolute Auto 2.1 2.0 - 8.3 x10*3/uL [facility] Imm Gran Abs Auto 0.05(H) 0.00 - 0.03 X10*3/uL [facility] Lymphocytes Absolute Auto 1.4 1.2 - 4.9 X10*3/uL [facility] Monocytes Absolute Auto 0.4 0.1 - 1.2 X10*3/uL [facility] Eosinophils Absolute Auto 0.1 0.0 - 0.4 X10*3/uL [facility] Basophils Absolute Auto 0.0 0.0 - 0.2 X10*3/uL [facility] NRBC Abs Auto 0.000 0.0 - 0.012 X10*3/uL [facility] Blood Venous blood specimen / Unknown 05/21/2024 10:08 AM EDT 05/21/2024 11:06 AM EDT us Jh Bullard MD LAB BLOOD ORDERABLES Final Resul t [facility] [address] [place] [phone] [phone] * Hepatitis C Antibody with Reflex to HCV, RNA, Quantitative, Real-Time PCR (05/21/2024 10:08 AM EDT) Hepatitis C Antibody Nonreactive Nonreactive [facility] Comment:Antibodies to HCV no t detected; does not exclude early acuteHCV infection. Blood Venous blood specimen / Unknown 05/21/2024 10:08 AM EDT 05/21/2024 11:01 AM EDT us Jh Bullard MD LAB BLOOD ORDERABLES Final Resul t Performing Organization Address [facility] de Phone Number [facility] [address] [place] [phone] * (ABNORMAL) Lipid Panel, Standard (05/21/2024 10:08 AM EDT) Triglycerides 69 <150 mg/dL [facility] Comment:Desirable Triglyceri de: less than 150 mg/dLBorderline High Triglyceride 150-199 mg/dLHigh Triglyceride: 200-499 mg/dLVery High Triglyceride: greater than or equal to 5OO mg/dL Cholesterol 177 <200 mg/dL [facility] Comment:Desirable Cholestero l: less than 200 mg/dLBorderline High Cholesterol: 200-239 mg/dLHigh Cholesterol: greater than 239 mg/dL LDL Cholesterol Calculated 109(H) <100 mg/dL [facility] Comment:Desirable LDL: less than 100 mg/dLNear Optimal/Above Optimal LDL: 110- 129 mg/dLBorderline High LDL: 130-159 mg/dLHigh LDL: 160-189 mg/dLVery High LDL: greater than or equal to 190 mg/dL HDL Cholesterol 55 >40 mg/dL [facility] Comment:Desirable HDL: great er than 40 mg/dL Note: This HDL assay may give artificially low results in patients with liver disease. Blood Venous blood specimen / Unknown 05/21/2024 10:08 AM EDT 05/21/2024 11:01 AM EDT us Jh Bullard MD LAB BLOOD ORDERABLES Final Resul t Performing Organization Address City/[facility] Co de Phone Number [facility] [address] [place] [phone] [phone] * (ABNORMAL) Comprehensive Metabolic Panel (05/21/2024 10:08 AM EDT) Sodium 140 135 - 145 mmol/L [facility] Potassium 4.3 3.3 - 5.1 mmol/L [facility] Comment:Slight Hemolysis.Int erpret result with caution. Chloride 108 96 - 108 mmol/L [facility] Carbon Dioxide 25 22 - 29 mmol/L [facility] Anion Gap 11(L) 12 - 20 [facility] Urea Nitrogen (BUN) 12 9 - 16 mg/dL [facility] Creatinine, Serum 0.66 0.5 - 1.4 mg/dL [facility] Estimated Glomerular Filt Rate >60 [facility] Comment:Chronic Kidney Disea se: Estimated GFR < 60 mL/min/[id number] Kidney Disease: Estimated GFR < 15 mL/min/1.73m2 Glucose 111 60 - 115 mg/dL [facility] Calcium 9.6 8.4 - 10.2 mg/dL [facility] Bilirubin, Total 0.4 0.0 - 1.0 mg/dL [facility] Aspartate Amino Transferase 17 5 - 37 U/L [facility] Comment:Slight Hemolysis.Int erpret result with caution. Alanine Aminotransferase 14 0 - 40 U/L [facility] Total Protein 6.7 6.5 - 8.0 g/dL [facility] Albumin Level 4.2 3.5 - 5.0 g/dL [facility] Alkaline Phosphatase 62 39 - 117 U/L [facility] Blood Venous blood specimen / Unknown 05/21/2024 10:08 AM EDT 05/21/2024 11:01 AM EDT us Jh Bullard MD LAB BLOOD ORDERABLES Final Resul t [facility] [address] [place] [phone] [phone] * POCT Glucose (05/18/2024 1:45 PM EDT) Glucose Blood, POC 182 60 - 200 mg/dL QC Media Lot # [id number] Lot# Expiration Date [id number] Blood Capillary blood specimen / Unknown 05/18/2024 1:45 PM EDT us Jh Bullard MD POINT OF CARE TEST ENTER/EDIT OR DERABLES Final Result * (ABNORMAL) POCT HGB A1C (04/28/2024 1:48 PM EST) Hemoglobin A1C 7.2(A) 4.0 - 6.0 % QC Media Lot # [id number] Blood 04/28/2024 1:48 PM EST Result [facility] us Jh Bullard MD POINT OF CARE TEST ENTER/EDIT OR DERABLES Final Result * POCT MARCELLE-14 Urine Drug Screen (03/05/2024 1:17 PM EST) TCA, Urine Positive Oxycodone Screen, Urine Positive Urine Urine specimen obtained by clean catch procedure / Unknown 03/05/2024 1:17 PM EST Cee Isidro RN - 03/05/2024 1:17 PM EST UTOX cup Lot#[id number] Exp. 11/19/25 Internal Pass Control Result [facility] us Jh Bullard MD POINT OF CARE TEST ENTER/EDIT OR DERABLES Final Result * (ABNORMAL) Hm Colonoscopy (04/02/2023) Colonoscopy Abnormal( A) Normal Comment:Tubular adenoma cecelia bob. Result Elvi Bullard MD HEALTH MAINTENANCE Final Result from Last 3 Months or Most Recently Relevant to Health Maintenance Insurance [facility] * Guarantor: Landen Byers Account Type Relation to Patient Date of Phone Billing Address Personal/Family Self [address] Care Teams Attorney Law Clerk Relationship Specialty Start Date End Date Name, MD Jh [address] [place] [address] PCP - General Family Medicine 05/29/16 Juliet Wren PharmD [address] [place] [address] Pharmacist Internal Medicine 07/17/22
--- OUTSIDE RECORDS SUMMARY | 2024-05-29 13:12 | XMS_ITS | Encounter Summary ---
Author Organization [employer] Address [address] [facility] [address] [place] [address] Care Team Providers Care Broadcast Operations Director Name Role Phone Name, Jh RACHEL Primary Care Provider [phone] Juliet Wren PharmD Unavailable [phone] Encounter Details Date Type Department Care Team ([facility] st Contact Info) Description 05/16/2023 Telephone [facility] [address] [place], [place] [phone] Name, MD Jh [address] [place], [place] [phone] Social History Tobacco Use Types Packs/Day Years [...] Description 06/25/2024 1:00 PM EDT Office Visit [facility] [address] [place] [address] Salazar, Milvia, OD [address] [place] [address] 08/06/2024 1:00 PM EDT Clinical Support [facility] [address] [place] [address] Cee Toussaint, EMILIO 10/29/2024 1:00 PM EDT Medication Management [facility] [address] [place] [address] PuiaJuliet, PharmD [address] [place] [address] documented as of this encounter Goals Goal [...] documented as of this encounter Care Teams Broadcast Operations Director Relationship Specialty Start Date End Date Name, MD Jh [address] [place] [address] PCP - General Family Medicine 05/29/16 Juliet Wren, Ezekiel [address] [place] [address] Pharmacist Internal Medicine 07/17/22 documented as of this encounter
--- OUTSIDE RECORDS SUMMARY | 2024-05-29 13:12 | XMS_ITS | Encounter Summary ---
Author Organization [employer] Address [address] [facility] 7t [place] [address] Care Team Providers Care Coding File Clerk Name Role Phone Jh Bullard MD Primary Care Provider [phone] Juliet Wren PharmD Unavailable [phone] Reason for Visit * Reason Comments Med Refill Encounter Details Date Type Department Care Team ([facility] st Contact Info) Description 02/26/2023 Refill [facility] MEDICINE [address] [place], [place] [phone] Name, MD Jh [address] [place], [place] [phone] Chronic pain syndrome Social History Tobacco Use [...] Description 06/25/2024 1:00 PM EDT Office Visit [facility] OPTOMETRY [address] [place] [address] Salazar, Milvia, OD 230 [place] [address] 08/06/2024 1:00 PM EDT Clinical Support [facility] MEDICINE [address] [place] [address] Cee Toussaint, RN 10/29/2024 1:00 PM EDT Medication Management [facility] MEDICINE [address] [place] [address] Juliet Wren, PharmD [address] [place] [address] documented as of this encounter Goals Goal Patient Goal Type Associated Problems Recent Progress Patient-Stated? Author Hemoglobin A1c < 7.5 Result Component 7.2( 1:48 PM EST) No PuiaSeveroJuliet, PharmD Record your blood sugar as directed Result Component No Puvelia Juliet, PharmD Note: Use CGM, ensuring sensor is scanned at least once every 8 hours to capture 24H data. Check BG manually, as directed. documented as of this encounter Visit Diagnoses Diagnosis Chronic pain syndrome documented in this encounter Additional Health Concerns Assessment Noted Time PHQ-9 Depression Total Score: 0 03/08/19 23 8:49 AM EST documented as of this encounter Care Teams Coding File Clerk Relationship Specialty Start Date End Date Name, MD Jh [address] [place] [address] PCP - General Family Medicine 05/29/16 Juliet Wren PharmD 230 [place] [address] Pharmacist Internal Medicine 07/17/22 documented as of this encounter
--- OUTSIDE RECORDS SUMMARY | 2024-05-29 13:12 | XMS_ITS | Encounter Summary ---
Author Organization [employer] Address 75 [facility] 7t [place] [address] Care Team Providers Care Boardmarker Name Role Phone Name, Jh RACHEL Primary Care Provider [phone] Juliet Wren PharmD Unavailable [phone] Encounter Details Date Type Department Care Team ([facility] Contact Info) Description 07/13/2022 Abstract [facility] MEDICINE [address] [place], [place] [phone] Name, MD Jh [address] [place] [address] Social History Tobacco Use Types Packs/Day Years [...] Upcoming Encounters Date Type Department Care Team ([facility] Contact Info) Description 06/25/2024 1:00 PM EDT Office Visit [facility] OPTOMETRY [address] [place], [place] [phone] Milvia [place], OD [address] [facility] [place] [address] 08/06/2024 1:00 PM EDT Clinical Support [facility] [address] Cee Toussaint RN 10/29/2024 1:00 PM EDT Medication Management [facility] [address] [place] [address] Juliet Wren, PharmD 230 [facility] [place] [address] documented as of this encounter Procedures Procedure [...] documented as of this encounter Care Teams Boardmarker Relationship Specialty Start Date End Date Name, MD Jh [facility] [place] [address] PCP - General Family Medicine 05/29/16 Juliet Wren, PharmDanilo [facility] [place] [place] [phone] Pharmacist Internal Medicine 07/17/22 documented as of this encounter
--- OUTSIDE RECORDS SUMMARY | 2024-05-29 13:12 | XMS_ITS | Encounter Summary ---
Author Organization [employer] Address [address] [facility] 7t [place] [address] Care Team Providers Care Thickener Operator Name Role Phone Name, Jh RACHEL Primary Care Provider [phone] Juliet Wren PharmD Unavailable [phone] Encounter Details Date Type Department Care Team ([facility] st Contact Info) Description 05/02/[address] [facility] [address] [place], [place] [phone] Name, MD Jh 230 [place], [place] [phone] Social History Tobacco Use Types Packs/Day Years [...] Description 06/25/2024 1:00 PM EDT Office Visit [facility] OPTOMETRY [address] [place] [address] Salazar, Milvia, OD 230 [place] [address] 08/06/2024 1:00 PM EDT Clinical Support [facility] MEDICINE [address] [place] [address] Cee Toussaint, EMILIO 10/29/2024 1:00 PM EDT Medication Management [facility] MED[facility] [address] [place] [address] PuiaJuliet, PharmD [address] [place] [address] documented as of this encounter Goals Goal [...] documented as of this encounter Care Teams Thickener Operator Relationship Specialty Start Date End Date Name, MD Jh [address] [facility] [place] [address] PCP - General Family Medicine 05/29/16 Juliet Wren, Ezekiel [address] [facility] [place] [address] Pharmacist Internal Medicine 07/17/22 documented as of this encounter
--- OUTSIDE RECORDS SUMMARY | 2024-05-29 13:12 | XMS_ITS ---
Author Name Willy INSPECTOR AND MENDER,FINANCIAL AID COORDINATOR,FN P,FLAT OPTICAL ELEMENT MAKER, Isabel Address [address] [place] [address] Phone [phone] Organization [facility] Care Team Providers Care Nitrating Acid Mixer Name Role Phone AguileraMagdalenoIsabel Unavailable [phone] Unavailable Unavailable Unavailable [facility] Unavailable [phone] Reason for Referral Not Available Allergies, adverse [...] 2021-03-20 No Data Available OneTouch Delica Plus Itnuap71B Miscellaneous TEST BLOOD SUGAR THREE TIMES DAILY [...] PARA EL DOLOR 2021-08-21 No Data Available [employer] Flex System w/Device Kit TEST BLOOD SUGAR [...] 2023-12-24 No Data Available TRUEplus 5-Bevel [place] 32G X 4 MM Miscellaneous USE FOUR DAILY 2023-11-11 No Data Availab le Melatonin 5 mg Cap 1-2 gummies QHS 2024-04-17 No Ian a Available Problem List Problem Status Onset Date Resolved Date History of alcohol abuse Active 2022-11-07 N/A Other problems related to de dical facilities and other health care Active 2023-06-12 [...] Service Diagnosis/Co mplaint Medication List Documented (1159F) [facility] Medication List Documented (1159F) [facility] Medication List Documented (1159F) [facility] Medication List Documented (1159F) [facility]20[place] Medication List Documented (1159F) [facility]2021 Type 2 diabetes mellitus wit h mild nonproliferative diabetic retinopathy without macular edema, bilateralGeneralized anxiety disorderHeart failure, unspecifiedPain in unspecified shoulderEnlarged prostate without lower urinary tract symptomsOther specified health statusObesity, unspecifiedBody mass index (bmi) 31.0-31.9, adultHypertensive heart disease with heart failure Medication List Documented (1159F) [facility]2021 Medication List Documented (1159F) [facility] Estab. patient 30-39min; chronic exacerbation, 2 stable chronic or 1 acute illness add add modifier 95 for video, (do not use for phone, instead use 17818-28) [facility]2022 Type 2 diabetes mellitus [...] (do not use for phone, instead use 75332-57) [facility] Estab. patient 30-39min; chronic exacerbation, 2 stable chronic or 1 acute illness add add modifier 95 for video, (do not use for phone, instead use 12106-62) [facility]2022 Estab. patient 30-39min; chronic exacerbation, 2 stable chronic or 1 acute illness add add modifier 95 for video, (do not use for phone, instead use 75455-91) [facility]/2022 Estab. patient 30-39min; chronic exacerbation, 2 stable chronic or 1 acute illness add add modifier 95 for video, (do not use for phone, instead use 63842-33) [facility]/2022 Estab. patient 30-39min; chronic exacerbation, 2 stable chronic or 1 acute illness add add modifier 95 for video, (do not use for phone, instead use 33990-21) [facility]/2022 Estab. patient 30-39min; chronic exacerbation, 2 stable chronic or 1 acute illness add add modifier 95 for video, (do not use for phone, instead use 79569-20) [facility]/2022 Estab. patient 20-29min; 1 stable chronic or 2 minor; add add modifier 95 for video, modifier 93 for phone [facility]/14/2022 Type 2 diabetes mellitus wit h [...] 95 for video, modifier 93 for phone [facility]/14/2022 Estab. patient 20-29min; 1 stable chronic or 2 minor; add add modifier 95 for video, modifier 93 for phone [facility] 11/14/2022 Estab. patient 30-39min; chronic exacerbation, 2 stable chronic or 1 acute illness add add modifier 95 for video, (do not use for phone, instead use 90962-52) [facility] 06/12/2023 Type 2 diabetes mellitus wit h [...] (do not use for phone, instead use 59437-63) [facility]12/2023 Estab. patient 30-39min; chronic exacerbation, 2 stable chronic or 1 acute illness add add modifier 95 for video, (do not use for phone, instead use 21362-38) [facility] 06/12/2023 Estab. patient 30-39min; chronic exacerbation, 2 stable chronic or 1 acute illness add add modifier 95 for video, (do not use for phone, instead use 03631-65) [facility] 06/12/2023 Estab. patient 30-39min; chronic exacerbation, 2 stable chronic or 1 acute illness add add modifier 95 for video, (do not use for phone, instead use 59906-55) [facility] 06/12/2023 Estab. patient 30-39min; chronic exacerbation, 2 stable chronic or 1 acute illness add add modifier 95 for video, (do not use for phone, instead use 11961-30) [facility] [place] 06/12/2023 Estab. patient 30-39min; chronic exacerbation, 2 stable chronic or 1 acute illness add add modifier 95 for video, (do not use for phone, instead use 78842-22) [facility] 06/12/2023 Estab. patient 30-39min; chronic exacerbation, 2 stable chronic or 1 acute illness add add modifier 95 for video, (do not use for phone, instead use 77618-71) [facility] 06/12/2023 Estab. patient 30-39min; chronic exacerbation, 2 stable chronic or 1 acute illness add add modifier 95 for video, (do not use for phone, instead use 35089-81) [facility] 06/12/2023 Estab. patient 30-39min; chronic exacerbation, 2 stable chronic or 1 acute illness add add modifier 95 for video, (do not use for phone, instead use 07428-65) [facility] 06/12/2023 Estab. patient 30-39min; chronic exacerbation, 2 stable chronic or 1 acute illness add add modifier 95 for video, (do not use for phone, instead use 34653-30) [facility] 06/12/2023 RN, CN or CP time with patient by phone; use with 1111F, BP, A1c or other CPTII codes [facility] 10/01/2023 Encounter for other specifie d aftercare RN, CN or CP time with patient by phone; use with 1111F, BP, A1c or other CPTII codes [facility] 10/01/2023 No Data Available [facility] 10/08/2023 Enlarged prostate without lo wer urinary tract symptomsOther problems related to medical facilities and other health care No Data Available [facility] 10/08/2023 No Data Available [facility] 10/08/2023 Estab. patient 20-29min; 1 stable chronic or 2 minor; add add modifier 95 for video, modifier 93 for phone [facility] 04/17/2024 Type 2 diabetes mellitus wit h mild nonproliferative diabetic retinopathy without macular edema, bilateralLong term (current) use of insulinType 2 diabetes mellitus with other specified complicationHyperlipidemia, unspecifiedHypertensive heart disease with heart failureHeart failure, unspecifiedSupraventricular tachycardia, unspecifiedPain in unspecified shoulderEnlarged prostate without lower urinary tract symptomsAlcohol abuse, in remissionPersonal history of diseases of the ms sys and conn tissOpioid use, unspecified, uncomplicatedLow back pain, unspecifiedOther chronic painGeneralized anxiety disorderMajor depressive disorder, single episode, in partial remissionOther problems related to medical facilities and other health care Estab. patient 20-29min; 1 stable chronic or 2 minor; add add modifier 95 for video, modifier 93 for phone [facility] 04/17/2024 Estab. patient 20-29min; 1 stable chronic or 2 minor; add add modifier 95 for video, modifier 93 for phone [facility] [place] 04/17/2024 Estab. patient 20-29min; 1 stable chronic or 2 minor; add add modifier 95 for video, modifier 93 for phone [facility] [place] 04/17/2024 Estab. patient 20-29min; 1 stable chronic or 2 minor; add add modifier 95 for video, modifier 93 for phone [facility] [place] 04/17/2024 Estab. patient 20-29min; 1 stable chronic or 2 minor; add add modifier 95 for video, modifier 93 for phone [facility] [place] 04/17/2024 Estab. patient 20-29min; 1 stable chronic or 2 minor; add add modifier 95 for video, modifier 93 for phone [facility] [place] 04/17/2024 Estab. patient 20-29min; 1 stable chronic or 2 minor; add add modifier 95 for video, modifier 93 for phone [facility] [place] 04/17/2024 Vital Signs Date of Collection Vitals [...] tive Time Current Smoking Status Former smoker 4 Sex Male Gender identity Man History of [...] le No Data Available No Data Available 01625 2021-12-07 No Data Available No Data Available SBP < 130 (3074F) 3074F 2021-12-07 No Data Available No Data Available DBP 80-89 (3079F) 3079F 2021-12-07 No Data Available No Data Available Estab. patient 30-39min; chronic exacerbation, 2 stable chronic or 1 acute illness add add modifier 95 for video, (do not use for phone, instead use 96866-87) 99119 2022-11-07 No Data Available No Data Availa [...] 95 for video, modifier 93 for phone 24190 2022-11-14 No Data Available No Data Availa [...] (do not use for phone, instead use 96736-59) 01435 2023-06-12 No Data Available No Data Availa [...] 1111F, BP, A1c or other CPTII codes 40091 2023-10-01 No Data Available No Data Avai lable Medications prescribed in hospital were reviewed and reconciled against what they were taking prior to admission during today's visit. (1111F) 1111F 2023-10-01 No Data Available No Data Availa ble No Data Available 30040 2023-10-08 No Data Available No Data Available [...] 95 for video, modifier 93 for phone 81834 2024-04-17 No Data Available No Data Availa ble Medication Review by prescribing provider or pharmacist documented (1160F) 1160F 2024-04-17 No Data Available No Data Codi ilable Advance Care Directive Advance care planning discussion documented in the medical record (1158F) 1158F 2024-04-17 No Data Available No Data Availa ble Advance care planning discussed and documented ? advance care plan or surrogate decision-maker was documented in the medical record. (1123F) 1123F 2024-04-17 No Data Available No Data Availa ble SBP < 130 (3074F) 3074F 2024-04-17 No Data Available No Data Available DBP 80-89 (3079F) 3079F 2024-04-17 No Data Available No Data Available Medication List Documented (1159F) 1159F 2024-04-17 No Data Available No Data Codi ilable Functional Status Assessed (1170F) 1170F 2024-04-17 No Data Available No Data Avail able Functional Status Functional Category Effective Dates ADLsDressing - Needs assista nceBathing - Needs assistanceToileting - Needs assistanceTransfers - Needs assistanceEating - IndependentiADLsShopping - Needs assistanceMedications - Needs assistanceHousekeeping - Needs assistanceCooking - Needs assistance 2022-11-07 Fell in August 2022 2022-11-07 Reports using a cane to ambulate. 4-17 Fall in the last 6 months: yes, naz fitch. 2024-04-17 Mental Status Status Date AOx3 [...] Patient Education to avoid future hospitalization: [facility] if symptoms of [facility] develop.Other problems related [...] modifier 95Continue to see PCP. [facility] or disease education needs that may arise.On Lantus, Lispro, MetforminCautioned re risk of sedation, safety.Sending NarcanOn Amitriptylene, Buspirone, SertralineOn carvediloloxycodoneoxycodoneTamsulosinWill FU when pt can have a friend, AUTOMOTIVE ALIGNMENT SPECIALIST or family member with himLifestyle adviceOn carvedilol, [...] monitoring with PCP every 3-6 months. UPDATE 11/14/2022 fasting sugar 146this week: 120-140Encouragement, reinforced educationCautioned [...] Frequent panic attacksPlanned intervention: Transfer member to [address] [place] [address]/ Hydroxyzine (Vistaril) 25mg PO q6h PRN anxiety/ [...] Frequent panic attacksPlanned intervention: Transfer member to [address] [place] [address]/ Hydroxyzine (Vistaril) 25mg PO q6h PRN anxiety/ [...] Frequent panic attacksPlanned intervention: Transfer member to [address] [place] [address]/ Hydroxyzine (Vistaril) 25mg PO q6h PRN anxiety/ [...] exercise as tolerable. 2023-06-12 Contact us if develo ping HHS, DKA, worsening anxiety, BLE swelling, [...] Concerns Date Concern 2024-04-17 Visit completed in g audio/video.Patient/Guardian agreed to visit via telehealth. Today, [...]
--- OUTSIDE RECORDS SUMMARY | 2024-05-29 13:12 | XMS_ITS | Encounter Summary ---
Author Organization [employer] Address [address] [facility] 7t [place] [address] Care Team Providers Care Dry Mixer Name Role Phone Jh Bullard MD Primary Care Provider [phone] Juliet Wren PharmD Unavailable [phone] Reason for Visit * Reason Comments Med Refill Encounter Details Date Type Department Care Team (Late Contact Info) Description 08/07/2022 Refill [facility] MEDICINE [address] [place], [place] [phone] Name, MD Jh [address] [place] [address] Chronic pain syndrome Social History Tobacco Use [...] Department Care Team (Late Contact Info) Description 06/25/2024 1:00 PM EDT Office Visit [facility] OPTOMETRY [address] [place] [address] Milvia Lincoln, OD 230 [place] [address] 08/06/2024 1:00 PM EDT Clinical Support [address] [phone] Cee Toussaint, RN 10/29/2024 1:00 PM EDT Medication Management [address] [address] Juliet Wren PharmD [address] documented as of this encounter Goals Goal [...] documented as of this encounter Care Teams Dry Mixer Relationship Specialty Start Date End Date Name, MD Jh [address] [place] [address] [phone] PCP - General Family Medicine 05/29/16 Juliet Wren PharmD [address] [place] [address] [phone] Pharmacist Internal Medicine 07/17/22 documented as of this encounter
== END 2024-05-29 11:52 | disposition home or self-care (01) ==
LOC: HO.PMC 11:17
PROVIDERS: PCP Internal Medicine Geriatric Medicine; Visit Provider Nurse Practitioner Family
DX: M53.3 Sacrococcygeal disorders, not elsewhere classified (principal); M51.369 Other intervertebral disc degeneration, lumbar region without mention of lumbar back pain or lower extremity pain; M47.817 Spondylosis without myelopathy or radiculopathy, lumbosacral region; Z79.891 Long term (current) use of opiate analgesic; G89.29 Other chronic pain; M47.812 Spondylosis without myelopathy or radiculopathy, cervical region
CPT/HCPCS: 99214; G2211

== ENCOUNTER → 2024-05-29 11:16 | Outpatient (BNVA) | payer OTHER, SELFPAY | PROVIDERS: PCP Internal Medicine Geriatric Medicine; Visit Provider Nurse Practitioner Family | DX: M53.3 Sacrococcygeal disorders, not elsewhere classified (principal); M51.369 Other intervertebral disc degeneration, lumbar region without mention of lumbar back pain or lower extremity pain; M47.817 Spondylosis without myelopathy or radiculopathy, lumbosacral region; M47.812 Spondylosis without myelopathy or radiculopathy, cervical region; M47.22 Other spondylosis with radiculopathy, cervical region; M62.838 Other muscle spasm; G89.29 Other chronic pain; F11.90 Opioid use, unspecified, uncomplicated | CPT/HCPCS: 99212 ==

== ENCOUNTER 2024-06-08 14:48 | Outpatient (REF) | payer OTHER, SELFPAY ==
--- NOTE | ~2024-06-08 | XR_ITS ---
EXAMINATION: XR CHEST 2 VIEWS HISTORY: right sided chest pain/rib pain COMPARISON: Comparison is made with the prior examination dated 01/07/2016. FINDINGS: PA and lateral views of the chest are submitted. The lungs are expanded and clear. There is no pleural effusion, pneumothorax, or pulmonary vascular congestion. The heart is normal in size. The bones are intact. XR/XR chest 2V IMPRESSION: No acute cardiopulmonary abnormality. Electronically signed by: Darryl Martines MD 06/08/2024 03:24 PM EDT
--- OUTSIDE RECORDS SUMMARY | 2024-06-08 17:21 | XMS_ITS | Clinical Summary ---
Author Organization [employer] [facility] ity Address [address] [place] [address] Care Team Providers Care International Guest Coordinator Name Role Phone Name, Jh RACHEL Primary Care Provider [phone] Social History Tobacco Use Types Packs/Day Years [...] - 2023-2 5 season) 2023 Influenza Vaccine (Season Ended) 2024 RSV Immunization Adult Patie nts (1 - [...] age to complete this topic Meningococcal B Vaccine Aged Out No l onger eligible based on patient's age to complete this topic RSV Immunization Patients Un oni 20 months Aged Out No longer eligible b ased on patient's age to complete this topic Varicella Vaccines Aged Out No longer eligible based on patient's age to complete this topic Care Teams International Guest Coordinator Relationship Specialty Start Date End Date Name, MD Jh [address] [place], [place] PCP - General Internal Medicine 11/16/19
--- OUTSIDE RECORDS SUMMARY | 2024-06-08 17:21 | XMS_ITS | Encounter Summary ---
Author Organization [employer] Address 75 [facility] 7t [place] [address] Care Team Providers Care Director Of Outside Sales Name Role Phone Jh Bullard MD Primary Care Provider [phone] Juliet Wren PharmD Unavailable [phone] Reason for Visit * Reason Comments Med Refill Encounter Details Date Type Department Care Team (Late Contact Info) Description 08/07/2022 Refill [facility] MEDICINE [address] [place], [place] [phone] Name, MD Jh [address] [place] [address] Chronic pain syndrome Social History Tobacco Use [...] Description 06/25/2024 1:00 PM EDT Office Visit [facility] OPTOMETRY [address] [place] [address] Milvia Lincoln, OD [address] [place] [address] 08/06/2024 1:00 PM EDT Clinical Support [address] [phone] Cee Toussaint, RN 10/29/2024 1:00 PM EDT Medication Management [address] [address] Juliet Wren PharmD [address] [place], [place] documented as of this encounter Goals [...] documented as of this encounter Care Teams Director Of Outside Sales Relationship Specialty Start Date End Date Name, MD Jh [address] [place] [address] [phone] PCP - General Family Medicine 05/29/16 Juliet Wren PharmD [address] [place] [phone] Pharmacist Internal Medicine 07/17/22 documented as of this encounter
--- OUTSIDE RECORDS SUMMARY | 2024-06-08 17:21 | XMS_ITS | Encounter Summary ---
Author Organization [employer] Address [address] [facility] 7t [place] [address] Care Team Providers Care Laborer Beam House Name Role Phone Name, Jh RACHEL Primary Care Provider [phone] Juliet Wren PharmD Unavailable [phone] Encounter Details Date Type Department Care Team ([facility] st Contact Info) Description 05/02/2023 Telephone [facility] PED[facility] [address] [place], [place] [phone] Name, MD Jh [address] [place], [place] [phone] Social History Tobacco Use Types Packs/Day Years [...] Description 06/25/2024 1:00 PM EDT Office Visit [facility] OPTOMETRY [address] [place] [address] Salazar, Milvia, OD [address] [place] [address] 08/06/2024 1:00 PM EDT Clinical Support [facility] MEDICINE [address] [place] [address] Cee Toussaint, EMILIO 10/29/2024 1:00 PM EDT Medication Management [facility] MEDICINE [address] [place] [address] PuiaJuliet, PharmD [address] [place] [address] documented as of this encounter Goals Goal [...] documented as of this encounter Care Teams Laborer Beam House Relationship Specialty Start Date End Date Name, MD Jh [address] [facility] [place] [address] PCP - General Family Medicine 05/29/16 Juliet Wren, Ezekiel [address] [facility] [place] [address] Pharmacist Internal Medicine 07/17/22 documented as of this encounter
--- OUTSIDE RECORDS SUMMARY | 2024-06-08 17:21 | XMS_ITS | Encounter Summary ---
Author Organization [employer] Address [address] [place] [address] Care Team Providers Care Instrument And Control Technician Name Role Phone Name, Jh RACHEL Primary Care Provider [phone] Juliet Wren PharmD Unavailable [phone] Encounter Details Date Type Department Care Team (Latest Contact Info) Description 06/08/2024 Travel Social History Tobacco Use Types Packs/Day Years Used Date Smoking Tobacco: Never Passive Smoke Exposure: Never Smokeless Tobacco: Never Alcohol Use Standard [...] Description 06/25/2024 1:00 PM EDT Office Visit [facility] [address] [place] [address] Salazar, Milvia, OD [address] [place] [address] 08/06/2024 1:00 PM EDT Clinical Support [facility] [address] [place] [address] Cee Toussaint RN 10/29/2024 1:00 PM EDT Medication Management [facility] [address] [place] [address] Puia, Juliet, PharmD [address] [place] [address] documented as of this encounter Goals Goal Patient Goal Type Associated Problems Recent Progress Patient-Stated? Author Record your blood pressure once a week Blood Pressure No Puia, Juliet, PharmD Blood Pressure < 140/90 Blood Pressure 140/82(2024 2:10 PM EDT) No Puia, Juliet, PharmD Hemoglobin A1c < [...] Assessment Noted Time PHQ-9 Depression Total Score: 4 05/19/19 25 2:01 PM EDT documented as of this encounter Care Teams Instrument And Control Technician Relationship Specialty Start Date End Date Name, MD Jh [address] [place] [address] PCP - General Family Medicine 05/29/16 Juliet Wren, Ezekiel [address] [place] [address] Pharmacist Internal Medicine 07/17/22 documented as of this encounter
--- OUTSIDE RECORDS SUMMARY | 2024-06-08 17:21 | XMS_ITS ---
Author Name Willy STONE POLISHER HAND,METAL RECLAMATION KETTLE TENDER,FN P,WALL MAN, Isabel Address [address] [place] [address] Phone [phone] Organization [facility] [employer] [facility] Care Team Providers Care Media Senior Recruiter Name Role Phone AugileraMagdalenoIsabel Unavailable [phone] Unavailable Unavailable Unavailable [facility] Unavailable [phone] Reason for Referral Not Available Allergies, adverse [...] 2021-03-20 No Data Available OneTouch Delica Plus [id number] Miscellaneous TEST BLOOD SUGAR THREE TIMES DAILY [...] PARA EL DOLOR 2021-08-21 No Data Available Upworthy Flex System w/Device Kit TEST BLOOD SUGAR [...] 2023-12-24 No Data Available TRUEplus 5-Bevel [place] 32G X 4 MM Miscellaneous USE FOUR DAILY 2023-11-11 No Data Availab le Melatonin 5 mg Cap 1-2 gummies QHS 2024-04-17 No Ian a Available Problem List Problem Status Onset Date Resolved Date History of alcohol abuse Active 2022-11-07 N/A Other problems related to in dical facilities and other health care Active [...] Service Diagnosis/Co mplaint Medication List Documented (1159F[place] [facility] Medication List Documented (1159F[place] [facility] [place] Medication List Documented (1159F[place] [facility] [place] Medication List Documented (1159F[place] [facility] [place] Medication List Documented (1159F[place] [facility] [place] Type 2 diabetes mellitus wit h mild nonproliferative diabetic retinopathy without macular edema, bilateralGeneralized anxiety disorderHeart failure, unspecifiedPain in unspecified shoulderEnlarged prostate without lower urinary tract symptomsOther specified health statusObesity, unspecifiedBody mass index (bmi) 31.0-31.9, adultHypertensive heart disease with heart failure Medication List Documented (1159F[place] [facility] [place] Medication List Documented (1159F[place] [facility] [place] Estab. patient 30-39min; chronic exacerbation, 2 stable chronic or 1 acute illness add add modifier 95 for video, (do not use for phone, instead use 70748-60) [facility] [place]2022 Type 2 diabetes mellitus [...] (do not use for phone, instead use 58089-07) [facility] [place] Estab. patient 30-39min; chronic exacerbation, 2 stable chronic or 1 acute illness add add modifier 95 for video, (do not use for phone, instead use 35069-82) [facility] [place] Estab. patient 30-39min; chronic exacerbation, 2 stable chronic or 1 acute illness add add modifier 95 for video, (do not use for phone, instead use 71855-87) [facility] [place] Estab. patient 30-39min; chronic exacerbation, 2 stable chronic or 1 acute illness add add modifier 95 for video, (do not use for phone, instead use 23773-50) [facility] [place]22 Estab. patient 30-39min; chronic exacerbation, 2 stable chronic or 1 acute illness add add modifier 95 for video, (do not use for phone, instead use 19463-92) [facility] [place]22 Estab. patient 30-39min; chronic exacerbation, 2 stable chronic or 1 acute illness add add modifier 95 for video, (do not use for phone, instead use 34163-81) [facility] [place]22 Estab. patient 20-29min; 1 stable chronic or 2 minor; add add modifier 95 for video, modifier 93 for phone [facility] [place] 11/14/2022 Type 2 diabetes mellitus wit h [...] 95 for video, modifier 93 for phone [facility] [place] 11/14/2022 Estab. patient 20-29min; 1 stable chronic or 2 minor; add add modifier 95 for video, modifier 93 for phone [facility] [place] 11/14/2022 Estab. patient 30-39min; chronic exacerbation, 2 stable chronic or 1 acute illness add add modifier 95 for video, (do not use for phone, instead use 50665-60) [facility] [place] 06[place]12/2023 Type 2 diabetes mellitus wit h [...] (do not use for phone, instead use 66674-33) [facility] [place] 06[place]12[place]23 Estab. patient 30-39min; chronic exacerbation, 2 stable chronic or 1 acute illness add add modifier 95 for video, (do not use for phone, instead use 28283-39) [facility] [place] 06/12/2023 Estab. patient 30-39min; chronic exacerbation, 2 stable chronic or 1 acute illness add add modifier 95 for video, (do not use for phone, instead use 05409-79) [facility] [place] 06/12/2023 Estab. patient 30-39min; chronic exacerbation, 2 stable chronic or 1 acute illness add add modifier 95 for video, (do not use for phone, instead use 01370-60) [facility] [place] 06/12/2023 Estab. patient 30-39min; chronic exacerbation, 2 stable chronic or 1 acute illness add add modifier 95 for video, (do not use for phone, instead use 68882-23) [facility] [place] 06/12/2023 Estab. patient 30-39min; chronic exacerbation, 2 stable chronic or 1 acute illness add add modifier 95 for video, (do not use for phone, instead use 68768-24) [facility] [place] 06/12/2023 Estab. patient 30-39min; chronic exacerbation, 2 stable chronic or 1 acute illness add add modifier 95 for video, (do not use for phone, instead use 05019-47) [facility] [place] 06/12/2023 Estab. patient 30-39min; chronic exacerbation, 2 stable chronic or 1 acute illness add add modifier 95 for video, (do not use for phone, instead use 51228-90) [facility] [place] 06/12/2023 Estab. patient 30-39min; chronic exacerbation, 2 stable chronic or 1 acute illness add add modifier 95 for video, (do not use for phone, instead use 18115-77) [facility] [place] 06/12/2023 Estab. patient 30-39min; chronic exacerbation, 2 stable chronic or 1 acute illness add add modifier 95 for video, (do not use for phone, instead use 06999-89) [facility] [place] 06/12/2023 RN, CN or CP time with patient by phone; use with 1111F, BP, A1c or other CPTII codes [facility] [place] 10/01/2023 Encounter for other specifie d aftercare RN, CN or CP time with patient by phone; use with 1111F, BP, A1c or other CPTII codes [facility] [place] 10/01/2023 No Data Available [facility] [place] 10/08/2023 Enlarged prostate without lo wer urinary tract symptomsOther problems related to medical facilities and other health care No Data Available [facility] [place] 10/08/2023 No Data Available [facility] [place] 10/08/2023 Estab. patient 20-29min; 1 stable chronic or 2 minor; add add modifier 95 for video, modifier 93 for phone [facility] [place] 04/17/2024 Type 2 diabetes mellitus wit h [...] modifier 93 for phone [facility] [place] 04/17/2024 Estab. patient 20-29min; 1 stable chronic or 2 minor; add add modifier 95 for video, modifier 93 for phone [facility] [place] 04/17/2024 Estab. patient 20-29min; 1 stable chronic or 2 minor; add add modifier 95 for video, modifier 93 for phone [facility] [place] 04/17/2024 Estab. patient 20-29min; 1 stable chronic or 2 minor; add add modifier 95 for video, modifier 93 for phone [facility] [place] 04/17/2024 Estab. patient 20-29min; 1 stable chronic or 2 minor; add add modifier 95 for video, modifier 93 for phone [facility] [place] 04/17/2024 Estab. patient 20-29min; 1 stable chronic or 2 minor; add add modifier 95 for video, modifier 93 for phone [facility] [place] 04/17/2024 Estab. patient 20-29min; 1 stable chronic or 2 minor; add add modifier 95 for video, modifier 93 for phone [facility] [place] 04/17/2024 Vital Signs Date of Collection Vitals [...] tive Time Current Smoking Status Former smoker 2024-05-26 4 Sex Male Gender identity Man History [...] le No Data Available No Data Available [id number] 2021-12-07 No Data Available No Data Available SBP < 130 (3074F) 3074F 2021-12-07 No Data Available No Data Available DBP 80-89 (3079F) 3079F 2021-12-07 No Data Available No Data Available Estab. patient 30-39min; chronic exacerbation, 2 stable chronic or 1 acute illness add add modifier 95 for video, (do not use for phone, instead use 49570-11) [id number] 2022-11-07 No Data Available No Data Availa [...] 95 for video, modifier 93 for phone [id number] 2022-11-14 No Data Available No Data Availa [...] (do not use for phone, instead use 09056-27) 05876 2023-06-12 No Data Available No Data Availa [...] 1111F, BP, A1c or other CPTII codes 27765 2023-10-01 No Data Available No Data Avai lable Medications prescribed in hospital were reviewed and reconciled against what they were taking prior to admission during today's visit. (1111F) 1111F 2023-10-01 No Data Available No Data Availa ble No Data Available [id number] 2023-10-08 No Data Available No Data Available [...] 95 for video, modifier 93 for phone 18805 2024-04-17 No Data Available No Data Availa [...] Patient Education to avoid future hospitalization: [facility] if symptoms of [facility] develop.Other problems related [...] modifier 95Continue to see PCP. [facility] or disease education needs that may arise.On Lantus, Lispro, MetforminCautioned re risk of sedation, safety.Sending NarcanOn Amitriptylene, Buspirone, SertralineOn carvediloloxycodoneoxycodoneTamsulosinWill FU when pt can have a friend, ANIMAL CONTROL OFFICER or family member with himLifestyle adviceOn carvedilol, [...] Frequent panic attacksPlanned intervention: Transfer member to [address] [place] [address]/ Hydroxyzine (Vistaril) 25mg PO q6h PRN anxiety/ [...] Frequent panic attacksPlanned intervention: Transfer member to [address] [place] [address]/ Hydroxyzine (Vistaril) 25mg PO q6h PRN anxiety/ [...] Frequent panic attacksPlanned intervention: Transfer member to [address] [place] [address]/ Hydroxyzine (Vistaril) 25mg PO q6h PRN anxiety/ [...]
--- OUTSIDE RECORDS SUMMARY | 2024-06-08 17:21 | XMS_ITS | Encounter Summary ---
Author Organization [employer] Address [address] [facility] [address] [place] [address] Care Team Providers Care Plant Maintenance Manager Name Role Phone Jh Bullard MD Primary Care Provider Juliet Wren PharmD Unavailable [phone] Reason for Visit * Reason Comments Med Refill Encounter Details Date Type Department Care Team ([facility] st Contact Info) Description 02/26/2023 Refill [facility] [address] [place], [place] [phone] Name, MD Jh [address] [place], [place] [phone] Chronic pain syndrome Social History Tobacco Use [...] 1:00 PM EDT Office Visit [facility] [address] [place] [address] Salazar, Milvia, OD [address] [place] [address] 08/06/2024 1:00 PM EDT Clinical Support [facility] [address] [place] [address] Cee Toussaint, RN 10/29/2024 1:00 PM EDT Medication Management [facility] [address] [place] [address] Juliet Wren, PharmD [address] [place] [address] documented as of this encounter Goals Goal [...] documented as of this encounter Care Teams Plant Maintenance Manager Relationship Specialty Start Date End Date Name, MD Jh [address] [place] [address] PCP - General Family Medicine 05/29/16 Juliet Wren PharmD [address] [place] [address] Pharmacist Internal Medicine 07/17/22 documented as of this encounter
--- OUTSIDE RECORDS SUMMARY | 2024-06-08 17:21 | XMS_ITS | Encounter Summary ---
Author Organization [employer] Address [address] [facility] [address] [place] [address] Care Team Providers Care Truck Greaser Name Role Phone Name, Jh RACHEL Primary Care Provider [phone] Juliet Wren PharmD Unavailable [phone] Encounter Details Date Type Department Care Team ([facility] Contact Info) Description 07/13/2022 Abstract [facility] [address] [place], [place] [phone] Name, MD Jh [address] [place] [address] Social History Tobacco Use Types Packs/Day Years [...] Upcoming Encounters Date Type Department Care Team ([facility] Contact Info) Description 06/25/2024 1:00 PM EDT Office Visit [facility] OPT[facility] [address] [place], [place] [phone] Milvia Lincoln, OD [address] [facility] [place] [place] [address] 08/06/2024 1:00 PM EDT Clinical Support [facility] [address] Cee Toussaint RN 10/29/2024 1:00 PM EDT Medication Management [facility] [address] [place] [address] Juliet Wren, PharmD [address] [facility] [place] [address] documented as of this encounter Procedures Procedure [...] documented as of this encounter Care Teams Truck Greaser Relationship Specialty Start Date End Date Name, MD Jh [facility] [place] [address] PCP - General Family Medicine 05/29/16 Juliet Wren, PharmDanilo [facility] [place] [phone] Pharmacist Internal Medicine 07/17/22 documented as of this encounter
--- OUTSIDE RECORDS SUMMARY | 2024-06-08 17:21 | XMS_ITS | Encounter Summary ---
Author Organization [employer] Address [address] [facility] 7[address] [place] [address] Care Team Providers Care Digital Performance Analyst Name Role Phone Name, Jh RACHEL Primary Care Provider [phone] Juliet Wren PharmD Unavailable [phone] Encounter Details Date Type Department Care Team ([facility] st Contact Info) Description 05/16/2023 Telephone [facility] [address] [place], [place] [phone] Name, MD Jh [address] [place], [place] [phone] Social History Tobacco Use Types Packs/Day Years [...] Office Visit [facility] OPTOMETRY [address] [place] [address] Salazar, Milvia, OD [address] [place] [address] 08/06/2024 1:00 PM EDT Clinical Support [facility] [address] [place] [address] Cee Toussaint, EMILIO 10/29/2024 1:00 PM EDT Medication Management [facility] [address] [place] [address] PuiaJuliet, PharmD [address] [place] [address] documented as of this encounter Goals Goal [...] documented as of this encounter Care Teams Digital Performance Analyst Relationship Specialty Start Date End Date Name, MD Jh [address] [facility] [place] [address] PCP - General Family Medicine 05/29/16 Juliet Wren, Ezekiel [address] [facility] [place] [address] Pharmacist Internal Medicine 07/17/22 documented as of this encounter
--- OUTSIDE RECORDS SUMMARY | 2024-06-08 17:21 | XMS_ITS | Encounter Summary ---
Author Organization [employer] Address [address] [facility] [address] [place] [address] Care Team Providers Care Finisher Polisher Name Role Phone Name, Jh RACHEL Primary Care Provider [phone] Juliet Wren PharmD Unavailable [phone] Reason for Referral * Imaging (Routine) - Authorized Specialty Diagnoses / Procedures Referred By Contac t Referred To Contact Radiology Diagnoses Right upper quadrant abdominal pain Procedures US RENAL BI Piper Johnson MD [address] [place] [address] Phone: tel: fax: [address] Phone: tel: fax: Referral ID Status Reason Start Date Expiration Date V isits Requested Visits Authorized [id number] Authorized 06/08/2024 06/08/2025 1 1 Encounter Details Date Type Department Care Team (Late st Contact Info) Description 06/08/2024 1:40 PM EDT Office Visit [facility] [address] [place] [id number] Piper Johnson MD [address] [place] [id number] Right upper quadrant abdominal pain (Primary Dx); Hematuria, unspecified type Social History Tobacco Use Types Packs/Day Years Used Date Smoking Tobacco: Never Passive Smoke Exposure: Never Smokeless Tobacco: Never Tobacco Cessation:Counseling Given: [...] AM EDT documented as of this encounter Last Filed Vital Signs Vital Sign Reading Time Taken Comments Blood Pressure 140/82 06/08/2024 2:10 PM EDT Pulse 82 06/08/2024 1:50 PM EDT Temperature 36.8 ??C (98.3 ??F) 06/08/2024 1:50 PM ED T Respiratory Rate 14 06/08/2024 1:50 PM EDT Oxygen Saturation - - Inhaled Oxygen Concentration - - Weight 94.7 kg (208 lb 12.8 oz) 06/08/2024 1:50 PM EDT Height 175.3 cm (5' 9 ) 06/08/2024 1:50 PM EDT Body Mass Index 30.83 06/08/2024 1:50 PM EDT documented in this encounter Progress Notes * Piper Johnson MD - 06/08/2024 1:40 PM EDT SUBJECTIVE: Landen Hilton is a 69 y.o. year old male who presents for Walk In Center/rib pain . Denies recent illness, injury, or hospitalization. Acute Concerns: Co right sided chest pain x 1w. Pain increases with cough but not with deep inspiration. He doesn'thave fever, chills, SOB or persistent cough. Social History Social History Narrative Not on file Patient Active Problem List Diagnosis Benign prostatic hyperplasia Chronic low back pain Hypertension History of alcohol abuse Type 2 diabetes mellitus (CMS/HCC) Splenic vein thrombosis Shoulder pain Pseudocyst of pancreas Irregular heart beat Nocturia Tubular adenoma Acute necrotizing pancreatitis Tubular adenoma of colon QT prolongation ISAC (iron deficiency anemia) Gastroesophageal reflux disease Fatty liver, alcoholic Hyperlipidemia Class 1 obesity Alcohol dependence in remission (CMS/HCC) Right upper quadrant abdominal pain Hematuria No family history on file. Review of Systems Constitutional: Negative for fever. HENT: Negative for congestion, ear pain, rhinorrhea and sore throat. Eyes: Negative for pain and discharge. Respiratory: Positive for cough. Negative for shortness of breath. Cardiovascular: Positive for chest pain. Gastrointestinal: Negative for abdominal pain, constipation, diarrhea and nausea. Endocrine: Negative for polydipsia. Genitourinary: Negative for dysuria and frequency. Musculoskeletal: Positive for myalgias. Negative for arthralgias, back pain and neck pain. Neurological: Negative for dizziness, numbness and headaches. Psychiatric/Behavioral: Negative for agitation. OBJECTIVE: Vitals: 06/08/24 1350 06/08/24 1410 BP: (!) 160/86 (!) 140/82 BP Location: Left arm Left arm Patient Position: Sitting Sitting BP Cuff Size: Adult long Adult Pulse: 82 Resp: 14 Temp: 98.3 ??F (36.8 ??C) TempSrc: Oral Weight: 208 lb 12.8 oz (94.7 kg) Height: 5' 9 (1.753 m) Physical Exam Constitutional: Appearance: Normal appearance. HENT: Right Ear: Tympanic membrane and ear canal normal. Left Ear: Tympanic membrane and ear canal normal. Mouth/Throat: Mouth: Mucous membranes are moist. Pharynx: No oropharyngeal exudate or posterior oropharyngeal erythema. Eyes: Pupils: Pupils are equal, round, and reactive to light. Cardiovascular: Rate and Rhythm: Normal rate and regular rhythm. Heart sounds: No murmur heard. Pulmonary: Breath sounds: Normal breath sounds. No wheezing. Chest: Chest wall: Tenderness (7th, 8th ribs right side) present. Abdominal: General: Bowel sounds are normal. Palpations: Abdomen is soft. Tenderness: There is abdominal tenderness in the right upper quadrant. There is right CVA tenderness. Musculoskeletal: General: Normal range of motion. Cervical back: Normal range of motion. No tenderness. Thoracic back: Tenderness (right side) present. Skin: General: Skin is warm. Neurological: General: No focal deficit present. Mental Status: He is alert and oriented to person, place, and time. Psychiatric: Mood and Affect: Mood normal. Office Visit on 06/08/2024 Component Date Value Ref Range Status Color, UA 06/08/2024 Yellow Final Clarity, UA 06/08/2024 Clear Final Glucose, UA 06/08/2024 Negative Final Bilirubin, UA 06/08/2024 Negative Final Ketones, UA 06/08/2024 Negative Final Spec Grav, UA 06/08/2024 1.005 Final Blood, UA 06/08/2024 Positive (A) Negative, None Detected Final trace-intact pH, UA 06/08/2024 6.5 Final Protein, UA 06/08/2024 Negative Final Urobilinogen, UA 06/08/2024 0.2 Final Leukocytes, UA 06/08/2024 Negative Negative, Rare, Trace Final Nitrite, UA 06/08/2024 Negative Negative, None Detected Final Appearance, UA 06/08/2024 clear Final QC Media Lot # 06/08/2024 [id number] Final Lot# Expiration Date 06/08/2024 2,[id number] Final Problem List Items Addressed This Visit Right upper quadrant abdominal pain - Primary RO rib fracture vs kidney stone Use diclofenac gel prn Increase water intake, take tylenol prn pain Order renal US to ro kidney stone Relevant Orders XR Chest 2 Views US RENAL BI Hematuria Order renal ultrasound, rule out kidney stones Follow Up: Current Outpatient Medications on File Prior to Visit Medication Sig Dispense Refill amitriptyline (Elavil) 75 MG tablet Take 1 tablet by mouth at bedtime. busPIRone (Buspar) 5 MG tablet Take 1 tablet by mouth 2 times daily. carvedilol (Coreg) 6.25 MG tablet TAKE ONE TABLET TWICE DAILY WITH FOOD 180 tablet 1 Continuous Glucose Sanitary Engineer (FreeStyle Laurent 3 [place]) device 1 each Once per day. Use as directed for CGM 1 each 0 Continuous Glucose Sensor (FreeStyle Laurent 3 Plus Sensor) misc Apply 1 every 15 days as directed for CGM 2 each 11 docusate sodium (Colace) 100 MG capsule TAKE ONE CAPSULE TWICE DAILY 60 capsule 7 glucose blood (FreeStyle Precision Chano Test) test strip Use to test blood sugar up to 3 times daily, as directed 100 each 11 insulin degludec (Tresiba FlexTouch) 100 UNIT/ML injection Inject 34 Units under the skin in the morning. 15 mL 5 insulin lispro (HumaLOG KWIKPEN) 100 UNIT/ML injection Inject 8 units subQ three times daily with meals. Do not use if not eating / skipping a meal. 15 mL 5 Lancets (GradwellTouch Delica Plus Ghhjin70S) [facility] TEST BLOOD SUGAR THREE TIMES DAILY 100 each 11 lisinopril 20 MG tablet Take 1 tablet (20 mg) by mouth Once per day. 90 tablet 3 magnesium oxide (Mag-Ox) 400 (240 Mg) MG tablet Take 1 tablet by mouth 1 (one) time each day. metFORMIN (Glucophage) 1000 MG tablet Take 1 tablet (1,000 mg) by mouth with breakfast and with evening meal. 180 tablet 3 Multiple Vitamins-Minerals (Centrum Silver 50+Men) tablet Take 1 tablet by mouth Once daily. (OTC) naloxone (Narcan) 4 mg/0.1 mL nasal spray FOR SUSPECTED OPIOID OVERDOSE. SPRAY 0.1mL IN ONE NOSTRIL. REPEAT IN ALTERNATE NOSTRIL EVERY 2-3 MINUTES IF NEEDED. SEEK MEDICAL ATTENTION IMMEDIATELY EVEN IF PT RESPONDS. 2 each 2 omeprazole (PriLOSEC) [address] capsule TAKE 1 CAPSULE BY MOUTH EVERY DAY BEFORE A MEAL 30 capsule 5 OneTouch Verio test strip TEST BLOOD SUGAR THREE TIMES DAILY 100 strip 11 oxyCODONE-acetaminophen (Percocet) 5-325 MG tablet TAKE ONE TABLET EVERY 8 HOURS NEEDED FOR PAIN84 tablet 0 rosuvastatin (Crestor) 40 MG tablet Take 1 tablet (40 mg) by mouth Once daily. 90 tablet 3 sertraline (Zoloft) 50 MG tablet Take 1 tablet by mouth in the morning. tamsulosin (Flomax) 0.4 MG 24 hr capsule TAKE TWO CAPSULES DAILY 30 MINUTES AFTER THE SAME MEAL 60 capsule 5 TechLite Plus Pen Haslet 32G X 4 MM mis USE FOUR DAILY 100 each 4 Viagra 100 MG tablet TAKE 1 TABLET 1 HOUR BEFORE SEXUAL RELATIONS ONCE DAILY NEEDED. 10 tablet 3 No current facility-administered medications on file prior to visit. documented in this encounter Miscellaneous Notes * Assessment & Plan Note - Piper Johnson MD - 06/08/2024 2:29 PM EDT Associated Problem(s): Hematuria Order renal ultrasound, rule out kidney stones * Assessment & Plan Note - Piper Johnson MD - 06/08/2024 2:17 PM EDT Associated Problem(s): Right upper quadrant abdominal pain RO rib fracture vs kidney stone Use diclofenac gel prn Increase water intake, take tylenol prn pain Order renal US to ro kidney stone documented in this encounter Plan of Treatment Upcoming Encounters Date Type Department Care Team (Late st Contact Info) Description 06/25/2024 1:00 PM EDT Office Visit [facility] [address] [place] [address] Milvia Lincoln, OD [address] [place] [address] 08/06/2024 1:00 PM EDT Clinical Support [facility] [address] [place] [address] Cee Toussaint RN 10/29/2024 1:00 PM EDT Medication Management [facility] [address] [place] [address] Juliet Wren PharmD [address] [place] [address] Scheduled Orders Name Type Priority Associated Diagnoses Orde r Schedule US RENAL BI Imaging Routine Right upper quadrant abdominal pain Expected: 06/08/2024, Expires: 06/08/2025 documented as of this encounter Goals Goal [...] as directed. documented as of this encounter Procedures Procedure Name Priority Date/Time Associated Diagnosis Comments XR CHEST 2 VIEWS Routine 06/08/2024 2:49 PM EDT Right upper quadrant abdominal pain POCT URINALYSIS DIPSTICK Routine 06/08/2024 2:30 PM EDT Hematuria, unspecified type documented in this encounter Results * XR Chest 2 Views (06/08/2024 2:49 PM EDT) Anatomical Region Laterality Modality Chest Radiographic Lily ging 06/08/2024 2:49 PM EDT Narrative 06/08/2024 3:26 PM EDT ?[facility] ?[address] ?[place] [address] ?XRay Report ? Signed ? Patient: Daniela Hilton,Landen ?MR#: [id number] ?? [id number] ? : 1955 ?Acct:[id number] ? Age/Sex: 69 / M ?ADM Date: 04/14/25 ? Loc: HO.HHCX ? Attending Dr: Piper Johnson MD ? Ordering Physician: Piper Johnson MD ?? Date of Service: 06/08/24 ?? Procedure(s): XR chest 2V ?? Accession Number(s): [id number] ? cc: Piper Johnson MD ? EXAMINATION: ??XR CHEST 2 VIEWS ? HISTORY: right sided chest pain/rib pain ? COMPARISON: Comparison is made with the prior examination dated ?? 01/07/2016. ? FINDINGS: ??PA and lateral views of the chest are submitted. The lungs ?? are expanded and clear. ??There is no pleural effusion, pneumothorax, or ?? pulmonary vascular congestion. ??The heart is normal in size. ??The bones ?? are intact. ? XR/XR chest 2V ?? IMPRESSION: ?? No acute cardiopulmonary abnormality. ? Electronically signed by: ??Darryl Martines MD ??06/08/2024 03:24 PM EDT ? Dictated By: ?Darryl Martines MD ? Signed By: ?<Electronically signed by Darryl Martines MD in OV> ?06/08/24 1524 ? DD/ 1449 ? TD/TT: 06/08/24 1511 ? Blood Typer: ? Procedure Note William, Image - 06/08/[address] [address] XRay Report Signed Patient: Daniela HiltonFarideh#: [id number] : 5Acct:[id number] Age/Sex: 69 / MADM Date: 06/08/24 Loc: HO.HHCX Attending Dr: Piper Johnson MD Ordering Physician: Piper Johnson MD Date of Service: 06/08/24 Procedure(s): XR chest 2V Accession Number(s): [id number] cc: Piper Johnson MD EXAMINATION: XR CHEST 2 VIEWS HISTORY: right sided chest pain/rib pain COMPARISON: Comparison is made with the prior examination dated 01/07/2016. FINDINGS: PA and lateral views of the chest are submitted. The lungs are expanded and clear. There is no pleural effusion, pneumothorax, or pulmonary vascular congestion. The heart is normal in size. The bones are intact. XR/XR chest 2V IMPRESSION: No acute cardiopulmonary abnormality. Electronically signed by: Darryl Martines MD 06/08/2024 03:24 PM EDT RP Dictated By: Darryl Martines MD Signed By: <Electronically signed by Darryl Martines MD in OV> 06/08/24 1524 DD/ 1449 TD/TT: 06/08/24 1511 Blood Typer: Piper Johnson MD IMG XR PROCEDURES Edited Result - Final * (ABNORMAL) POCT Urinalysis (06/08/2024 2:30 PM EDT) Color, UA Yellow Clarity, UA Clear Glucose, UA Negative Bilirubin, UA Negative Ketones, UA Negative Spec Grav, UA 1.005 Blood, UA Positive(A) Negative, None Detected Comment:trace-intact pH, UA 6.5 Protein, UA Negative Urobilinogen, UA 0.2 Leukocytes, UA Negative Negative, Rare, Trace Nitrite, UA Negative Negative, None Detected Appearance, UA clear QC Media Lot # [id number] Lot# Expiration Date 2,[id number] Urine 06/08/2024 2:30 PM EDT Piper Johnson MD POINT OF CARE TEST ENTER /EDIT ORDERABLES Final Result documented in this encounter Visit Diagnoses Diagnosis Right upper quadrant abdominal pain- Primary Hematuria, unspecified type documented in this encounter Additional Health Concerns Assessment Noted Time PHQ-9 Depression Total Score: 4 05/19/19 25 2:01 PM EDT documented as of this encounter Care Teams Finisher Polisher Relationship Specialty Start Date End Date Name, MD Jh [address] [place] [address] PCP - General Family Medicine 05/29/16 Puia, Ezekiel Chung [address] [place] [id number] Pharmacist Internal Medicine 07/17/22 documented as of this encounter
--- OUTSIDE RECORDS SUMMARY | 2024-06-08 17:21 | XMS_ITS | Clinical Summary ---
Author Organization [employer] Address [address] [facility] [address] [place] [address] Care Team Providers Care Water Manager Name Role Phone Name, Jh RACHEL Primary Care Provider [phone] Juliet Wren PharmD Unavailable [phone] Allergies No known active allergies Medications [...] complication, with long-term current use of insulin ([facility]) Inject 34 Units under the skin in the morning. 15 mL 5 12/24/19 24 Active insulin lispro (HumaLOG KWIKPEN) 100 UNIT/ML injectionIndica tions:Type 2 diabetes mellitus without complication, with long-term current use of insulin ([facility]) Inject 8 units subQ [...] 2 04/09/19 25 Active TechLite Plus Pen [place] 32G X 4 MM misc USE FOUR DAILY 100 each 04/29/19 25 Active Continuous Glucose Student Success Advisor (FreeStyle Laurent 3 [place]) deviceIndicatio ns:Type 2 diabetes mellitus without complication, with long-term current use of insulin ([facility]) 1 each Once per day. Use as directed for CGM 1 each 04/29/19 25 Active Continuous Glucose Sensor (FreeStyle Laurent 3 Plus Sensor) miscIndications :Type 2 diabetes mellitus without complication, with long-term current use of insulin ([facility]) Apply 1 every 15 days as directed for CGM 2 each 04/29/19 25 Active glucose blood (FreeStyle Precision [place] Test) test stripIndication s:Type 2 diabetes mellitus without complication, with long-term current use of insulin ([facility]) Use to test blood sugar up to 3 times daily, as directed 100 each 11 04/29/19 25 Active rosuvastatin (Crestor) 40 MG tabletIndicatio ns:Type 2 diabetes mellitus without complication, with long-term current use of insulin ([facility]) Take 1 tablet (40 mg) by mouth Once daily. 90 tablet 3 04/29/19 25 Active OneTouch Verio test stripIndication s:Type 2 diabetes mellitus without complication, with long-term current use of insulin ([facility]) TEST BLOOD SUGAR THREE TIMES DAILY 100 strip 11 04/30/19 25 Active Lancets (OneTouch Delica Plus [id number]) miscIndications :Type 2 diabetes mellitus without complication, with long-term current use of insulin ([facility]) TEST BLOOD SUGAR THREE [...] FOR PAIN 84 tablet 05/22/19 25 Active Diclofenac Sodium 1 % gel Apply 1 inch topically if needed in the morning and at bedtime (pain). 60 g 06/09/19 25 025 Active omeprazole (PriLOSEC) [address] capsuleIndicati [...] Active Problems Problem Noted Date Diagnosed Date Right upper quadrant abdominal pain 06/08/2024 Assessment & Plan (06/08/2024 2:17 PM EDT): RO rib fracture vs kidney stone Use diclofenac gel prn Increase water intake, take tylenol prn pain Order renal US to ro kidney stone Hematuria 06/08/2024 Assessment & Plan (06/08/2024 2:29 PM EDT): Order renal ultrasound, rule out kidney stones Acute necrotizing pancreatitis 12/12/2023 QT prolongation 12/12/2023 ISAC (iron deficiency anemia) 12/12/2023 Gastroesophageal reflux disease 12/12/2023 Fatty liver, alcoholic 12/12/2023 Hyperlipidemia 12/12/2023 Class 1 obesity 12/12/2023 Alcohol dependence in remission 12/12/2023 Tubular adenoma 10/17/2022 Overview (10/17/2022): Of the sigmoid colon 2016 [place] [facility] Type 2 diabetes mellitus 03/02/2022 Irregular heart beat 12/16/2017 Benign prostatic hyperplasia 09/23/2017 Nocturia 07/15/2017 Hypertension 05/14/2017 Tubular adenoma of colon 12/19/2016 Overview (12/12/2023): repeat screening colonoscopy in 2021 Splenic vein thrombosis 10/24/2016 Chronic low back pain 06/01/2016 History of alcohol abuse 06/01/2016 Shoulder pain 06/01/2016 Pseudocyst of pancreas 06/01/2016 Encounters Date Type Department Care Team Description 06/08/2024 1:40 PM EDT Office Visit [facility] [address] [place] [phone] Piper Johnson MD Right upper quadrant abdominal pain (Primary Dx); Hematuria, unspecified type 06/08/2024 Travel 05/21/2024 Telephone [facility] [address] [place] [address] Jh Bullard MD 05/21/2024 Telephone [facility] [address] [place] [address] [phone] Jh Bullard MD Med Refill 05/19/2024 Refill [facility] [address] [place], [place] [phone] Jh Bullard MD Chronic pain syndrome 05/19/2024 Telephone [facility] [address] [place], [place] [phone] Jh Bullard MD 05/18/2024 1:45 PM EDT Office Visit [facility] [address] [place] [phone] Jh Bullard MD Type 2 diabetes mellitus without complication, with long-term current use of insulin ([facility]) (Primary Dx); Hypertension, unspecified type; Hyperlipidemia, unspecified hyperlipidemia type; Need for hepatitis C screening test 05/18/2024 Travel 05/18/2024 Refill [facility] [address] [place] [address] Jh Bullard MD Essential hypertension 05/14/2024 Telephone [facility] [address] [place] [phone] Gaby Jean MA chart prep 05/13/2024 Refill [facility] [address] [place] [address] Ariadna West NP 04/28/2024 Refill [facility] [address] [place] [address] Jh Bullard MD Type 2 diabetes mellitus without complication, with long-term current use of insulin ([facility]/HCC) 04/28/2024 Refill [facility] [address] [place] [address] Jh Bullard MD 04/20/2024 Refill [facility] [address] [place] [address] Jh Bullard MD Chronic pain syndrome 04/08/2024 Refill [facility] [address] [place] [address] Jh Bullard MD 03/25/2024 Refill [facility] [address] [place] [address] Jh Bullard MD Chronic pain syndrome 03/18/2024 Refill [facility] [address] [place] [address] Jh Bullard MD Essential hypertension from Last 3 Months Immunizations Name Administration [...] 14 06/08/2024 1:50 PM EDT Oxygen Saturation 98% 05/18/2024 1:36 PM EDT Inhaled Oxygen Concentration - - Weight 94.7 kg (208 lb 12.8 oz) 06/08/2024 1:50 PM EDT Height 175.3 cm (5' 9 ) 06/08/2024 1:50 PM EDT Body Mass Index 30.83 06/08/2024 1:50 PM EDT Plan of Treatment Upcoming Encounters Date Type Department Care Team (Late st Contact Info) Description 06/25/2024 1:00 PM EDT Office Visit [facility] [address] [place] [address] Salazar, Milvia, OD [address] [place] [address] 08/06/2024 1:00 PM EDT Clinical Support [facility] [address] [place] [address] Cee Toussaint, RN 10/29/2024 1:00 PM EDT Medication Management [facility] [address] [place] [address] Juliet Wren, PharmD [address] [place] [address] Health Maintenance Due Date Last Done Comments [...] 05/18/2024, 05/19/19 25 SDOH Screening 05/18/2025 05/18/2024 Diabetes: Urine Protein Screening 05/21/2025 05/21/2024, 07/11/2023, 07/17/2022, Additional history exists Lipid Panel 05/21/2025 05/21/2024, 12/26, 10/08/2022, Additional history exists Tobacco Screening 06/08/2025 06/08/2024 DTaP/Tdap/Td Vaccines (3 - Td or Tdap) [...] Blood Pressure 140/82(2024 2:10 PM EDT) No Juliet Wren PharmD Hemoglobin [...] 06/08/2024 2:30 PM EDT Hematuria, unspecified type HEPATITIS C AB W/REFL TO HCV RNA, QN, PCR Routine 05/21/2024 10:08 AM EDT Need for hepatitis C screening test ALBUMIN, RANDOM URINE W/CREATININE Routine 05/21/2024 10:08 AM EDT Type 2 diabetes mellitus without complication, with long-term current use of insulin ([facility]) Hypertension, unspecified type Hyperlipidemia, unspecified hyperlipidemia type LIPID PANEL, STANDARD Routine 05/21/2024 10:08 AM EDT Type 2 diabetes mellitus without complication, with long-term current use of insulin ([facility]) Hypertension, unspecified type Hyperlipidemia, unspecified hyperlipidemia type COMPREHENSIVE METABOLIC PANEL Routine 05/21/2024 10:08 AM EDT Type 2 diabetes mellitus without complication, with long-term current use of insulin ([facility]) Hypertension, unspecified type Hyperlipidemia, unspecified hyperlipidemia type CBC WITH AUTO DIFFERENTIAL Routine 05/21/2024 10:08 AM EDT Type 2 diabetes mellitus without complication, with long-term current use of insulin ([facility]) Hypertension, unspecified type Hyperlipidemia, unspecified hyperlipidemia type POCT GLUCOSE Routine 05/18/2024 1:45 PM EDT Type 2 diabetes mellitus without complication, with long-term current use of insulin ([facility]) POCT GLYCATED HEMOGLOBIN, TOTAL Routine 04/28/2024 1:48 PM EST Type 2 diabetes mellitus without complication, with long-term current use of insulin ([facility]) HM COLONOSCOPY Routine 04/02/2023 from Last 3 Months or Most Recently Relevant to Health Maintenance Results * XR Chest 2 Views (06/08/2024 2:49 PM EDT) Anatomical Region Laterality Modality Chest Radiographic Lily ging 06/08/2024 2:49 PM EDT Narrative 06/08/2024 3:26 PM EDT ?[facility] ?[address] ?[place] [address] ?XRay Report ? Signed ? Patient: Landen Byers ?MR#: [id number] ?? [id number] ? : 1955 ?Acct:[id number] ? Age/Sex: 69 / M ?ADM Date: 06/08/24 ? Loc: HO.HHCX ? Attending Dr: Piper Johnson MD ? Ordering Physician: Piper Johnson MD ?? Date of Service: 06/08/24 ?? Procedure(s): XR chest 2V ?? Accession Number(s): [id number] ? cc: Piper Johnson MD ? EXAMINATION: [...] DD/ 1449 ? TD/TT: 06/08/24 1511 ? Cotton Program Technician: ? Procedure Note Donloanter, Image - 06/08/[address] [address] XRay Report Signed Patient: Farideh Byers#: [id number] : 5Acct:[id number] Age/Sex: 69 / MADM Date: 06/08/24 Loc: HO.HHCX Attending Dr: Piper Johnson MD Ordering Physician: Piper Johnson MD Date of Service: 06/08/24 Procedure(s): XR chest 2V Accession Number(s): [id number] cc: Piper Johnson MD EXAMINATION: XR CHEST [...] Darryl Martines MD 06/08/2024 03:24 PM EDT Dictated By: Darryl Martines MD Signed By: <Electronically signed by Darryl Martines MD in OV> 06/08/24 1524 DD/ 1449 TD/TT: 06/08/24 1511 Cotton Program Technician: Piper Johnson MD IMG XR PROCEDURES Edited [...] Date 2,128,126 Urine 06/08/2024 2:30 PM EDT us Piper Johnson MD POINT OF CARE TEST ENTER /EDIT ORDERABLES Final Result * Albumin, Random Urine W/Creatinine (05/21/2024 10:08 AM EDT) Creatinine, Urine 63.26 mg/dL [facility] Microalbumin Urine <5.0 mg/L [facility] Microalbum Creatinine Ratio Ur TNP <30 ug/mg cr [facility] Comment:Unable to calculate albumin/creatinine ratio due to lowmicroalbumin or creatinine result. Urine (Urine, Random) 05/21/2024 10:08 AM EDT 05/21/2024 11:03 AM EDT us Jh Bullard MD LAB URINE ORDERABLES Final Resul t [facility] [address] [place] [phone] * (ABNORMAL) CBC auto differential (05/21/2024 10:08 AM EDT) White Blood Count 3.9(L) 4.8 - 10.8 X10*3/uL [facility] Red Blood Count 5.22 4.60 - 5.80 X10*6/uL [facility] Hemoglobin 14.2 14.0 - 18.0 g/dl [facility] Hematocrit 43.0 42.0 - 52.0 % [facility] Mean Corpuscular Volume 82.4 80.0 - 98.0 fL [facility] Mean Corpuscular Hemoglobin 27.2 27.0 - 33.0 pg [facility] Mean Corpuscular HGB Conc 33.0 31.0 - 36.0 g/dl [facility] Red Cell Distribution Width 14.2 11.0 - 16.0 % [facility] Platelet Count 203 160 - 400 X10*3/uL [facility] Mean Platelet Volume 10.3 9.4 - 12.4 fL [facility] Neutrophils Percent Auto 52.5 45 - 73 % [facility] Imm Gran Pct Auto 1.3(H) 0.0 - 0.4 % [facility] Lymphocytes Percent Auto 34.4 20 - 40 % [facility] Monocytes Percent Auto 9.7 2 - 11 % [facility] Eosinophils Percent Auto 1.3 0 - 4 % [facility] Basophils Percent Auto 0.8 0 - 2 % [facility] NRBC Pct Auto 0.0 0.0 - 0.2 /100WBC [facility] Neutrophils Absolute Auto 2.1 2.0 - 8.3 x10*3/uL [facility] Imm Gran Abs Auto 0.05(H) 0.00 - 0.03 X10*3/uL [facility] Lymphocytes Absolute Auto 1.4 1.2 - 4.9 X10*3/uL [facility] Monocytes Absolute Auto 0.4 0.1 - 1.2 X10*3/uL [facility] Eosinophils Absolute Auto 0.1 0.0 - 0.4 X10*3/uL [facility] Basophils Absolute Auto 0.0 0.0 - 0.2 X10*3/uL [facility] NRBC Abs Auto 0.000 0.0 - 0.012 X10*3/uL [facility] Blood Venous blood specimen / Unknown 05/21/2024 10:08 AM EDT 05/21/2024 11:06 AM EDT us Jh Name MD LAB BLOOD ORDERABLES Final Resul t Performing Organization Address City/[facility]/ZIP Co de Phone Number [facility] [address] [place] [address] [phone] * Hepatitis C Antibody with Reflex to HCV, RNA, Quantitative, Real-Time PCR (05/21/2024 10:08 AM EDT) Hepatitis C Antibody Nonreactive Nonreactive [facility] Comment:Antibodies to HCV no t detected; does not exclude early acuteHCV infection. Blood Venous blood specimen / Unknown 05/21/2024 10:08 AM EDT 05/21/2024 11:01 AM EDT us Jh Bullard MD LAB BLOOD ORDERABLES Final Resul t Performing Organization Address [facility] Co de Phone Number [facility] [address] [place] [phone] [phone] * (ABNORMAL) Lipid Panel, Standard (05/21/2024 10:08 AM EDT) Triglycerides 69 <150 mg/dL [facility] Comment:Desirable Triglyceri de: less than 150 mg/dLBorderline High Triglyceride 150-199 mg/dLHigh Triglyceride: 200-499 mg/dLVery High Triglyceride: greater than or equal to 5OO mg/dL Cholesterol 177 <200 mg/dL [facility] Comment:Desirable Cholestero l: less than 200 mg/dLBorderline High Cholesterol: 200-239 mg/dLHigh Cholesterol: greater than 239 mg/dL LDL Cholesterol Calculated 109(H) <100 mg/dL [facility] Comment:Desirable LDL: less than 100 mg/dLNear Optimal/Above Optimal LDL: 110- 129 mg/dLBorderline High LDL: 130-159 mg/dLHigh LDL: 160-189 mg/dLVery High LDL: greater than or equal to 190 mg/dL HDL Cholesterol 55 >40 mg/dL [facility] Comment:Desirable HDL: great er than 40 mg/dL Note: This HDL assay may give artificially low results in patients with liver disease. Blood Venous blood specimen / Unknown 05/21/2024 10:08 AM EDT 05/21/2024 11:01 AM EDT us Jh Bullard MD LAB BLOOD ORDERABLES Final Resul t [facility] [address] [place] [phone] * (ABNORMAL) Comprehensive Metabolic Panel (05/21/2024 10:08 AM EDT) Sodium 140 135 - 145 mmol/L [facility] Potassium 4.3 3.3 - 5.1 mmol/L [facility] Comment:Slight Hemolysis.Int erpret result with caution. Chloride 108 96 - 108 mmol/L [facility] Carbon Dioxide 25 22 - 29 mmol/L [facility] Anion Gap 11(L) 12 - 20 [facility] Urea Nitrogen (BUN) 12 9 - 16 mg/dL [facility] Creatinine, Serum 0.66 0.5 - 1.4 mg/dL [facility] Estimated Glomerular Filt Rate >60 [facility] Comment:Chronic Kidney Disea se: Estimated GFR < 60 mL/min/1.30b5Ohgnst Kidney Disease: Estimated GFR < 15 mL/min/1.73m2 Glucose 111 60 - 115 mg/dL [facility] Calcium 9.6 8.4 - 10.2 mg/dL [facility] Bilirubin, Total 0.4 0.0 - 1.0 mg/dL [facility] Aspartate Amino Transferase 17 5 - 37 U/L [facility] Comment:Slight Hemolysis.Int erpret result with caution. Alanine Aminotransferase 14 0 - 40 U/L [facility] Total Protein 6.7 6.5 - 8.0 g/dL [facility] Albumin Level 4.2 3.5 - 5.0 g/dL [facility] Alkaline Phosphatase 62 39 - 117 U/L [facility] Blood Venous blood specimen / Unknown 05/21/2024 10:08 AM EDT 05/21/2024 11:01 AM EDT Jh Bullard MD LAB BLOOD ORDERABLES Final Resul t [facility] [address] [place] [phone] [phone] * POCT Glucose (05/18/2024 1:45 PM EDT) Glucose Blood, POC 182 60 - 200 mg/dL [employer] Media Lot # [id number] Lot# Expiration Date 82,625 Blood Capillary blood specimen / Unknown 05/18/2024 1:45 PM EDT Result [facility] Jh Bullard MD POINT OF CARE TEST ENTER/EDIT OR DERABLES Final Result * (ABNORMAL) POCT HGB A1C (04/28/2024 1:48 PM EST) Hemoglobin A1C 7.2(A) 4.0 - 6.0 % QC Media Lot # [id number] Blood 04/28/2024 1:48 PM EST Result [facility] Jh Bullard MD POINT OF CARE TEST ENTER/EDIT OR DERABLES Final Result * (ABNORMAL) Hm Colonoscopy (04/02/2023) Colonoscopy Abnormal( A) Normal Comment:Tubular adenoma cecelia bob. Jh Bullard MD HEALTH MAINTENANCE Final Result from Last 3 Months or Most Recently Relevant to Health Maintenance Insurance [id number] DUAL COMPLETE [facility] STANDARD Care Teams Water Manager Relationship Specialty Start Date End Date Name, MD Jh [address] [place] [address] PCP - General Family Medicine 05/29/16 Juliet Wren PharmD [address] [place] [address] Pharmacist Internal Medicine 07/17/22
--- OUTSIDE RECORDS SUMMARY | 2024-06-08 17:21 | XMS_ITS | Encounter Summary ---
Author Organization [employer] Address [address] [facility] [address] [place] [address] Care Team Providers Care Headhunter Name Role Phone Jh Bullard MD Primary Care Provider [phone] Juliet Wren PharmD Unavailable [phone] Reason for Visit * Reason Onset Date Comments triage 02/08/2022 Encounter Details Date Type Department Care Team (Late st Contact Info) Description 02/08/2022 Telephone [facility] [address] [place], [place] [phone] Name, MD Jh [address] [place] [address] triage Social History Tobacco Use Types Packs/Day [...] caller The caller accepted this outcome speaks Salvadorean documented in this encounter Plan of Treatment Upcoming Encounters Date Type Department Care Team (Late st Contact Info) Description 06/25/2024 1:00 PM EDT Office Visit [facility] [address] [place] [address] SalazarMilvia ortiz, OD [address] [place] [address] 08/06/2024 1:00 PM EDT Clinical Support [facility] [address] [place] [address] Cee Toussaint, EMLIIO 10/29/2024 1:00 PM EDT Medication Management [facility] [address] [place] [address] Juliet Wren PharmD [address] [place] [address] documented as of this encounter Visit Diagnoses Not on filedocumented in this encounter Care Teams Headhunter Relationship Specialty Start Date End Date Name, MD Jh [address] [place] [phone] PCP - General Family Medicine 05/29/16 Juliet Wren PharmD [address] [place] [phone] Pharmacist Internal Medicine 07/17/22 documented as of this encounter
== END 2024-06-08 14:49 | disposition home or self-care (01) ==
LOC: HO.HHCX 14:48
PROVIDERS: Visit Provider Internal Medicine
DX: R10.11 Right upper quadrant pain (principal)
CPT/HCPCS: 71046

== ENCOUNTER → 2024-06-08 14:49 | Outpatient (BNV) | payer OTHER, SELFPAY | PROVIDERS: Visit Provider Radiology Diagnostic Radiology | DX: R07.81 Pleurodynia (principal) | CPT/HCPCS: 71046 ==

== ENCOUNTER 2024-06-11 08:58 | Outpatient (AMB) | payer OTHER, SELFPAY ==
[2024-06-11 09:19] VITALS: BP 134/72; PULSE 81; BMI 31.0
--- NOTE | 2024-06-11 09:19 | MHC.OFFVIS ---
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: Street Cleaner Name: voice wells [phone] Allergies No Known Allergies [No Known Allergies*] Allergy (Verified 06/11/24 09:21) Medication List - Last Reconciled 06/11/24 by ELIZABETH Farfan amitriptyline 75 mg PO BEDTIME bisacodyl (Dulcolax (bisacodyl)) 10 mg (2 x 5 mg) PO BEDTIME 30 days buspirone 5 mg PO DAILY carvedilol 6.25 mg PO BID docusate sodium 100 mg PO BID famotidine 40 mg PO BEDTIME insulin glargine (Lantus Solostar U-100 Insulin) 28 units subcut QAM insulin lispro 10 units subcut TID lancets (OneTouch Delica Plus Lancet) As directed linaclotide (Linzess) 290 mcg PO QAM 30 days lisinopril 20 mg PO DAILY magnesium oxide 400 mg PO DAILY metformin 1,000 mg PO BID methocarbamol 750 mg PO BID PRN 30 days naloxone 4 mg/actuation 1 spray intranasal DAILY omeprazole 40 mg PO DAILY oxycodone-acetaminophen 5-325 mg (Percocet) 1 tab PO TID PRN pen needle, diabetic (Pentips Pen Needle) As directed rosuvastatin 40 mg PO DAILY sertraline 50 mg PO QAM sildenafil (Viagra) 50 mg PO DAILY PRN tamsulosin 0.8 mg PO DAILY HPI HPI numbness left hand and lips: Details: Landen is a 69-year-old male with past medical history of diabetes, hypertension, hyperlipidemia, SVT, abnormal EKG who presents for follow-up. Today he reports he has been getting some intermittent numbness along the left side of his mouth at last a few minutes and resolves. On 1 occasion he had numbness in his left hand as well. He denies any speech, swallowing or limb mobility issues. No visual changes. He has notice some increased heart palpitations. No chest discomfort, shortness of breath. No presyncope, syncope, falls. He is taking his medications as directed. is present. 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 [facility] Medical History Cervical spondylosis Pre-op examination Cervical radiculitis Muscle spasm Left shoulder pain Low back pain Lumbar degenerative disc disease Diabetes type 2, controlled Palpitations SVT (supraventricular tachycardia) HLD (hyperlipidemia) HTN (hypertension) Surgical History Hx of colonoscopy S/P shoulder surgery Family History Father CVD (cardiovascular disease) Mother Cancer Social History Alcohol intake: former Year quit: 2016 Patient Tobacco Use Status: Former Tobacco user Years Smoked: 25 +/- Current occupational status: retired Current occupation: rt handed Review of Systems Const All systems reviewed & are unremarkable except as noted in HPI and below ENT Details: left lip intermittent numbness Denies dizziness Card Details: heart palpitations Denies chest pain, Denies chest pain at rest, Denies chest pain with activity, Reports rapid heart rate, Denies pedal edema, Denies edema, Denies leg edema, Denies lightheadedness, Denies palpitations, Denies dyspnea, Denies dyspnea on exertion and Denies orthopnea Resp Denies cough, Denies dyspnea and Denies dyspnea on exertion GI Denies hematochezia and Denies change in stool character Musc Denies abnormal gait, Reports limited range of motion, Reports muscle cramps, Denies muscle weakness, Reports numbness, Denies radiating pain into limb, Denies stiffness and Denies tingling Neuro Details: Left hand numbness on one occassion Denies abnormal gait, Denies dizziness, Reports numbness and Denies tingling Endo Denies palpitations Physical Exam Vital Signs: Last Vital Signs Pulse 81 06/11/24 09:19 BP 134/72 06/11/24 09:19 BMI result Body Mass Index 31.0 Const General: cooperative, healthy appearing, comfortable and no acute distress Orientation/consciousness: patient oriented x3 Neck Neck: Yes normal visual inspection Resp Effort & Inspection: normal respiratory effort Auscultation: clear to auscultation bilaterally, no rales, no rhonchi and no wheezes Cardio Rate: regular rate Rhythm: regular rhythm Heart sounds: S1 normal heart sound present, S2 normal heart sound present, no gallops, no murmurs and no rubs Neuro General: patient oriented x3 Extrem General: Yes normal to inspection, No no pedal edema and No calf tenderness Psych Appearance: grossly normal Mental Status: mental status grossly normal Speech and movement: Normal speech and movement present Office Procedures EKG Details: Today, read by me, Sinus rhytyhm With PACs, left axis deviation, can not exclude prior anterior infarct, rate 81, QTC 4 4 millisecond [id number], Complete Assessment & Plan Assessment & Plan (1) Numbness around mouth: Code(s): R20.0 - Anesthesia of skin Category: Medical Plan: Reports intermittent numbness around the mouth and 1 occasion had additional numbness in his left hand. He is also reporting some increased heart palpitations. Currently he is asymptomatic. No carotid bruit noted on exam. EKG done today showing sinus rhythm with PACs, rate 81. Will check a Holter monitor to assess for atrial fibrillation, frequency of PACs. Will update echocardiogram. Will check a carotid ultrasound to ensure there is no carotid stenosis. Unclear if his symptom is TIA or not. Will forward this note to his PCP for further review and evaluation. Instructed to seek emergency medical care if his symptoms persist or worsen. Cardiology follow-up 2 months, sooner if needed. (2) Abnormal EKG: Code(s): R94.31 - Abnormal electrocardiogram [ECG] [EKG] Category: Medical Plan: EKG done last visit was showing normal sinus rhythm with sinus arrhythmia, left axis deviation and can not exclude anterior infarct. In appearance this EKG was similar to his last EKG however no recent cardiac testing wa noted in our system. He has multiple cardiac risk factors including obesity, hypertension, hyperlipidemia and uncontrolled diabetes. He then underwent echocardiogram on 12/06/2022 showing EF 55-60%, no valve abnormalities, no regional wall motion abnormalities, normal RV. An exercise nuclear stress test was done on 12/11/2022 showing exercise 5 minutes, no anginal symptoms, no EKG changes and normal myocardial perfusion imaging however EF noted at 47%. The EF on his echocardiogram was normal. Continue Cardiac risk factor modification. No medication changes made. Signs and symptoms of angina reviewed. (3) SVT (supraventricular tachycardia): Code(s): I47.1 - Supraventricular tachycardia Category: Medical Plan: History of SVT. He has been on carvedilol for heart rate control. He does report brief intermittent heart palpitations as above. Reviewed reduction in caffeinated beverages, staying well hydrated getting good rest. Activity as tolerated. (4) Palpitations: Code(s): R00.2 - Palpitations Category: Medical Plan: As above (5) HTN (hypertension): Code(s): I10 - Essential (primary) hypertension Category: Medical Qualifiers: Hypertension type: primary hypertension Qualified Code(s): I10 - Essential (primary) hypertension Plan: Well controlled at this time (6) HLD (hyperlipidemia): Code(s): E78.5 - Hyperlipidemia, unspecified Category: Medical Qualifiers: Hyperlipidemia type: unspecified Qualified Code(s): E78.5 - Hyperlipidemia, unspecified Plan: [place] LDL goal less than 70 in patient with diabetes. Followed by his PCP. Continue rosuvastatin (7) PAC (premature atrial contraction): Code(s): I49.1 - Atrial premature depolarization Category: Medical Plan: EKG done today shows sinus rhythm with for PACs on this 10 seconds tracing. Checking Holter as above. Plan Time spent on chart review, documentation, interview and assessment Orders: Orders ECG 7 day holter monitor Today I47.1 - Supraventricular tachycardia, I49.1 - Atrial premature depolarization CA echo transthoracic complete Today I47.1 - Supraventricular tachycardia, R00.2 - Palpitations US carotid duplex BI Today G45.9 - Transient cerebral ischemic attack, unspecified, R20.0 - Anesthesia of skin Comprehensive Met. Panel Today R00.2 - Palpitations TSH reflex Free T4 Today R00.2 - Palpitations Complete Blood Count Auto Diff Today R00.2 - Palpitations Coding Level of Care Code Est Pt Level 4 (11976) Complex EM visit Add On G2211 Diagnoses Numbness around mouth R20.0 Abnormal EKG R94.31 SVT (supraventricular tachycardia) I47.1 Palpitations R00.2 Primary hypertension I10 Hypertension type: primary hypertension Hyperlipidemia, unspecified hyperlipidemia type E78.5 Hyperlipidemia type: unspecified PAC (premature atrial contraction) I49.1 CPT Codes EKG - CPT: 32877-[id number], Complete ([id number]) Time Spent (min) 32
--- OUTSIDE RECORDS SUMMARY | 2024-06-11 09:50 | XMS_ITS | Clinical Summary ---
Author Organization [employer] [facility] ity Address [address] [place] [address] Care Team Providers Care Water Filterer Helper Name Role Phone Name, Jh RACHEL Primary Care Provider [phone] Social History Tobacco Use Types Packs/Day Years [...] age to complete this topic Care Teams Water Filterer Helper Relationship Specialty Start Date End Date Name, MD Jh [address], [place] PCP - General Internal Medicine 11/16/19
--- OUTSIDE RECORDS SUMMARY | 2024-06-11 09:50 | XMS_ITS ---
Author Name Willy SUPERVISOR DOG LICENSE OFFICER,COUNTING MACHINE OPERATOR,FN P,SHIPPING/RECEIVING MANAGER, Isabel Address [address] [place] [id number] Phone [phone] Organization [facility] [employer] [facility] Care Team Providers Care Audiology Assistant Name Role Phone AguileraMagdalenoIsabel Unavailable [phone] Unavailable Unavailable Unavailable [facility] Unavailable Reason for Referral Not Available Allergies, adverse [...] 2021-03-20 No Data Available OneTouch Delica Plus [id number] Miscellaneous TEST BLOOD SUGAR THREE TIMES DAILY [...] PARA EL DOLOR 2021-08-21 No Data Available Inotec AMD Flex System w/Device Kit TEST BLOOD SUGAR [...] 2023-12-24 No Data Available TRUEplus 5-[place] 32G X 4 MM Miscellaneous USE FOUR DAILY 2023-11-11 No Data Availab le Melatonin 5 mg Cap 1-2 gummies QHS 2024-04-17 No Ian a Available Problem List Problem Status Onset Date Resolved Date History of alcohol abuse Active 2022-11-07 N/A Other problems related to ia dical facilities and other health care Active [...] Service Diagnosis/Co mplaint Medication List Documented (1159F) [facility]2021 Medication List Documented (1159F) [facility]2021 Medication List Documented (1159F) [facility]2021 Medication List Documented (1159F) [facility]2021 Medication List Documented (1159F) [facility]/2021 Type 2 diabetes mellitus wit h mild nonproliferative diabetic retinopathy without macular edema, bilateralGeneralized anxiety disorderHeart failure, unspecifiedPain in unspecified shoulderEnlarged prostate without lower urinary tract symptomsOther specified health statusObesity, unspecifiedBody mass index (bmi) 31.0-31.9, adultHypertensive heart disease with heart failure Medication List Documented (1159F) [facility]/2021 Medication List Documented (1159F) [facility]/20[place] Estab. patient 30-39min; chronic exacerbation, 2 stable chronic or 1 acute illness add add modifier 95 for video, (do not use for phone, instead use 67794-50) [facility]/07/2022 Type 2 diabetes mellitus wit [...] (do not use for phone, instead use 06572-73) [facility]/20[place] Estab. patient 30-39min; chronic exacerbation, 2 stable chronic or 1 acute illness add add modifier 95 for video, (do not use for phone, instead use 82647-55) [facility]/20[place] Estab. patient 30-39min; chronic exacerbation, 2 stable chronic or 1 acute illness add add modifier 95 for video, (do not use for phone, instead use 55893-49) [facility]/20[place] Estab. patient 30-39min; chronic exacerbation, 2 stable chronic or 1 acute illness add add modifier 95 for video, (do not use for phone, instead use 41225-89) [facility]/07/2022 Estab. patient 30-39min; chronic exacerbation, 2 stable chronic or 1 acute illness add add modifier 95 for video, (do not use for phone, instead use 27590-20) [facility]/20[place] Estab. patient 30-39min; chronic exacerbation, 2 stable chronic or 1 acute illness add add modifier 95 for video, (do not use for phone, instead use 97165-05) [facility]/20[place] Estab. patient 20-29min; 1 stable chronic or 2 minor; add add modifier 95 for video, modifier [address] [facility]/14/2022 Type 2 diabetes mellitus wit h [...] 95 for video, modifier [address] [facility]/14/2022 Estab. patient 20-29min; 1 stable chronic or 2 minor; add add modifier 95 for video, modifier [address] [facility] 11/14/2022 Estab. patient 30-39min; chronic exacerbation, 2 stable chronic or 1 acute illness add add modifier 95 for video, (do not use for phone, instead use 01639-19) [facility] 06/12/2023 Type 2 diabetes mellitus wit h [...] (do not use for phone, instead use 13480-41) [facility] 06/12/2023 Estab. patient 30-39min; chronic exacerbation, 2 stable chronic or 1 acute illness add add modifier 95 for video, (do not use for phone, instead use 47672-66) [facility] [place] 06/12/2023 Estab. patient 30-39min; chronic exacerbation, 2 stable chronic or 1 acute illness add add modifier 95 for video, (do not use for phone, instead use 51543-49) [facility] [place] 06/12/2023 Estab. patient 30-39min; chronic exacerbation, 2 stable chronic or 1 acute illness add add modifier 95 for video, (do not use for phone, instead use 00669-20) [facility] [place] 06/12/2023 Estab. patient 30-39min; chronic exacerbation, 2 stable chronic or 1 acute illness add add modifier 95 for video, (do not use for phone, instead use 36107-26) [facility] ([place] 06[place]12/2023 Estab. patient 30-39min; chronic exacerbation, 2 stable chronic or 1 acute illness add add modifier 95 for video, (do not use for phone, instead use 31944-84) [facility] [place] 06/12/2023 Estab. patient 30-39min; chronic exacerbation, 2 stable chronic or 1 acute illness add add modifier 95 for video, (do not use for phone, instead use 89853-94) [facility] [place] 06/12/2023 Estab. patient 30-39min; chronic exacerbation, 2 stable chronic or 1 acute illness add add modifier 95 for video, (do not use for phone, instead use 71433-90) [facility] 06/12/2023 Estab. patient 30-39min; chronic exacerbation, 2 stable chronic or 1 acute illness add add modifier 95 for video, (do not use for phone, instead use 22539-77) [facility] 06/12/2023 Estab. patient 30-39min; chronic exacerbation, 2 stable chronic or 1 acute illness add add modifier 95 for video, (do not use for phone, instead use 98095-04) [facility] [place] 06/12/2023 RN, CN or CP time with patient by phone; use with 1111F, BP, A1c or other CPTII codes [facility] 10/01/2023 Encounter for other specifie d aftercare RN, CN or CP time with patient by phone; use with 1111F, BP, A1c or other CPTII codes [facility] [place] 10/01/[address] [facility] [place] 10/08/2023 Enlarged prostate without lo wer urinary tract symptomsOther problems related to medical facilities and other health care No Data Available [facility] [place] 10/08/[address] [facility] [place]/08/2023 Estab. patient 20-29min; 1 stable chronic or 2 minor; add add modifier 95 for video, modifier [address] [facility] [place] 04/17/2024 Type 2 diabetes mellitus wit h [...] modifier 93 for phone [facility]/17/20[place] Estab. patient 20-29min; 1 stable chronic or 2 minor; add add modifier 95 for video, modifier 93 for phone [facility] [place] 04/17/2024 Estab. patient 20-29min; 1 stable chronic or 2 minor; add add modifier 95 for video, modifier 93 for phone [facility] [place] 04/17/2024 Estab. patient 20-29min; 1 stable chronic or 2 minor; add add modifier 95 for video, modifier 93 for phone [facility] [place] 04/17/2024 Estab. patient 20-29min; 1 stable chronic or 2 minor; add add modifier 95 for video, modifier 93 for phone [facility] [place] 04/17/2024 Estab. patient 20-29min; 1 stable chronic or 2 minor; add add modifier 95 for video, modifier 93 for phone [facility] [place] 04/17/2024 Estab. patient 20-29min; 1 stable chronic or 2 minor; add add modifier 95 for video, modifier 93 for phone [facility] [place] 04/17/2024 Vital Signs Date of Collection Vitals [...] Time Current Smoking Status Former smoker 2024-05-26 7 Sex Male Gender identity Man History of [...] le No Data Available No Data Available [id number] 2021-12-07 No Data Available No Data Available SBP < 130 (3074F) 3074F 2021-12-07 No Data Available No Data Available DBP 80-89 (3079F) 3079F 2021-12-07 No Data Available No Data Available Estab. patient 30-39min; chronic exacerbation, 2 stable chronic or 1 acute illness add add modifier 95 for video, (do not use for phone, instead use 85396-78) 85144 2022-11-07 No Data Available No Data Availa [...] 95 for video, modifier 93 for phone [id number] 2022-11-14 No Data Available No Data Availa [...] (do not use for phone, instead use 06562-27) [id number] 2023-06-12 No Data Available No Data Availa [...] 1111F, BP, A1c or other CPTII codes 39746 2023-10-01 No Data Available No Data Avai lable Medications prescribed in hospital were reviewed and reconciled against what they were taking prior to admission during today's visit. (1111F) 1111F 2023-10-01 No Data Available No Data Availa ble No Data Available [id number] 2023-10-08 No Data Available No Data Available [...] 95 for video, modifier 93 for phone [id number] 2024-04-17 No Data Available No Data Availa [...] Education to avoid future hospitalization: Call [facility] if symptoms of illness develop.Other problems related [...] modifier 95Continue to see PCP. [facility] or disease education needs that may arise.On Lantus, Lispro, MetforminCautioned re risk of sedation, safety.Sending NarcanOn Amitriptylene, Buspirone, SertralineOn carvediloloxycodoneoxycodoneTamsulosinWill FU when pt can have a friend, DEPARTMENTAL SECRETARY or family member with himLifestyle adviceOn carvedilol, [...] Frequent panic attacksPlanned intervention: Transfer member to [address] [place] [address]/ Hydroxyzine (Vistaril) 25mg PO q6h PRN anxiety/ [...] Frequent panic attacksPlanned intervention: Transfer member to [address] [place] [address]/ Hydroxyzine (Vistaril) 25mg PO q6h PRN anxiety/ [...] Frequent panic attacksPlanned intervention: Transfer member to [address] [place] [address]/ Hydroxyzine (Vistaril) 25mg PO q6h PRN anxiety/ [...]
--- OUTSIDE RECORDS SUMMARY | 2024-06-11 09:50 | XMS_ITS | Clinical Summary ---
Author Organization [employer] Address [address] [facility] 7t [place] [address] Care Team Providers Care Room Service Food Server Name Role Phone Name, Jh RACHEL Primary Care Provider [phone] Juliet Wren PharmD Unavailable [phone] Allergies No known active allergies Medications [...] complication, with long-term current use of insulin ([facility]) Inject 34 Units under the skin in the morning. 15 mL 5 12/24/19 24 Active insulin lispro (HumaLOG KWIKPEN) 100 UNIT/ML injectionIndica tions:Type 2 diabetes mellitus without complication, with long-term current use of insulin ([facility]) Inject 8 units subQ three times daily [...] 2 04/09/19 25 Active TechLite Plus Pen [place] 32G X 4 MM misc USE FOUR DAILY 100 each 04/29/19 25 Active Continuous Glucose Bolt Header (FreeStyle Laurent 3 [place]) deviceIndicatio ns:Type 2 diabetes mellitus without complication, with long-term current use of insulin ([facility]) 1 each Once per day. Use as directed for CGM 1 each 04/29/19 25 Active Continuous Glucose Sensor (FreeStyle Laurent 3 Plus Sensor) miscIndications :Type 2 diabetes mellitus without complication, with long-term current use of insulin ([facility]) Apply 1 every 15 days as directed for CGM 2 each 04/29/19 25 Active glucose blood (FreeStyle Precision Chano Test) test stripIndication s:Type 2 diabetes mellitus without complication, with long-term current use of insulin ([facility]) Use to test blood sugar up to 3 times daily, as directed 100 each 11 04/29/19 25 Active rosuvastatin (Crestor) 40 MG tabletIndicatio ns:Type 2 diabetes mellitus without complication, with long-term current use of insulin ([facility]) Take 1 tablet (40 mg) by mouth Once daily. 90 tablet 3 04/29/19 25 Active OneTouch Verio test stripIndication s:Type 2 diabetes mellitus without complication, with long-term current use of insulin ([facility]) TEST BLOOD SUGAR THREE TIMES DAILY 100 strip 11 04/30/19 25 Active Lancets (OneTouch Delica Plus [id number]) miscIndications :Type 2 diabetes mellitus without complication, with long-term current use of insulin ([facility]) TEST BLOOD SUGAR THREE TIMES DAILY 100 [...] the sigmoid colon 2016 Colonoscopy done at [facility] Type 2 diabetes mellitus 03/02/2022 Irregular heart beat 12/16/2017 Benign prostatic hyperplasia 09/23/2017 Nocturia 07/15/2017 Hypertension 05/14/2017 Tubular adenoma of colon 12/19/2016 Overview (12/12/2023): repeat screening colonoscopy in 2021 Splenic vein thrombosis 10/24/2016 Chronic low back pain 06/01/2016 History of alcohol abuse 06/01/2016 Shoulder pain 06/01/2016 Pseudocyst of pancreas 06/01/2016 Encounters Date Type Department Care Team Description 06/08/2024 1:40 PM EDT Office Visit [facility] [address] [place] [phone] Piper Johnson MD Right upper quadrant abdominal pain (Primary Dx); Hematuria, unspecified type 06/08/2024 Travel 05/21/2024 Telephone [facility] [address] [place] [address] Jh Bullard MD 05/21/2024 Telephone [facility] [address] [place] [address] [phone] Jh Bullard MD Med Refill 05/19/2024 Refill [facility] [address] [place], [place] [phone] Jh Bullard MD Chronic pain syndrome 05/19/2024 Telephone [facility] [address] [place], [place] [phone] Jh Bullard MD 05/18/2024 1:45 PM EDT Office Visit [facility] [address] [place] [phone] Jh Bullard MD Type 2 diabetes mellitus without complication, with long-term current use of insulin ([facility]) (Primary Dx); Hypertension, unspecified type; Hyperlipidemia, unspecified hyperlipidemia type; Need for hepatitis C screening test 05/18/2024 Travel 05/18/2024 Refill [facility] [address] [place] [address] Jh Bullard MD Essential hypertension 05/14/2024 Telephone [facility] [address] [place] [address] Gaby Jean MA chart prep 05/13/2024 Refill [facility] [address] [place] [address] Ariadna [place] NP 04/28/2024 Refill [facility] [address] [place] [address] Jh Bullard MD Type 2 diabetes mellitus without complication, with long-term current use of insulin (CMS/HCC) 04/28/2024 Refill [facility] [address] [place] [address] Jh Bullard MD 04/20/2024 Refill [facility] [address] [place] [address] Jh Bullard MD Chronic pain syndrome 04/08/2024 Refill [facility] [address] [place] [address] Jh Bullard MD 03/25/2024 Refill [facility] [address] [place] [address] Jh Bullard MD Chronic pain syndrome 03/18/2024 Refill [facility] [address] [place] [address] Jh Bullard MD Essential hypertension from Last [...] 1:00 PM EDT Office Visit [facility] [address] [place] [address] Salazar, Milvia, OD [address] [place] [address] 08/06/2024 1:00 PM EDT Clinical Support [facility] [address] [place] [address] Cee Toussaint, RN 10/29/2024 1:00 PM EDT Medication Management [facility] [address] [place] [address] Juliet Wren, PharmD [address] [place] [address] Health Maintenance Due Date Last Done Comments [...] complication, with long-term current use of insulin ([facility]) Hypertension, unspecified type Hyperlipidemia, unspecified hyperlipidemia type LIPID PANEL, STANDARD Routine 05/21/2024 10:08 AM EDT Type 2 diabetes mellitus without complication, with long-term current use of insulin ([facility]) Hypertension, unspecified type Hyperlipidemia, unspecified hyperlipidemia type COMPREHENSIVE METABOLIC PANEL Routine 05/21/2024 10:08 AM EDT Type 2 diabetes mellitus without complication, with long-term current use of insulin ([facility]) Hypertension, unspecified type Hyperlipidemia, unspecified hyperlipidemia type CBC WITH AUTO DIFFERENTIAL Routine 05/21/2024 10:08 AM EDT Type 2 diabetes mellitus without complication, with long-term current use of insulin ([facility]) Hypertension, unspecified type Hyperlipidemia, unspecified hyperlipidemia type POCT GLUCOSE Routine 05/18/2024 1:45 PM EDT Type 2 diabetes mellitus without complication, with long-term current use of insulin ([facility]) POCT GLYCATED HEMOGLOBIN, TOTAL Routine 04/28/2024 1:48 PM EST Type 2 diabetes mellitus without complication, with long-term current use of insulin ([facility]) HM COLONOSCOPY Routine 04/02/2023 from Last 3 Months or Most Recently Relevant to Health Maintenance Results * XR Chest 2 Views (06/08/2024 2:49 PM EDT) Anatomical Region Laterality Modality Chest Radiographic Lily ging 06/08/2024 2:49 PM EDT Narrative 06/08/2024 3:26 PM EDT ?[facility] ?[address] ?[place] [address] ?XRay Report ? Signed ? Patient: Landen Byers ?MR#: [id number] ?? [id number] ? : 1955 ?Acct:[id number] ? Age/Sex: 69 / M ?ADM Date: 06/08/24 ? Loc: HO.HHCX ? Attending Dr: Piper Johnson MD ? Ordering Physician: Piper Johnson MD ?? Date of Service: 06/08/24 ?? Procedure(s): XR chest 2V ?? Accession Number(s): [id number] ? cc: Piper Johnson MD ? EXAMINATION: [...] DD/ 1449 ? TD/TT: 06/08/24 1511 ? Rotor Assembler: ? Procedure Note Donloanter, Image - 06/08/[address] [address] XRay Report Signed Patient: Farideh Byers#: [id number] : 5Acct:[id number] Age/Sex: 69 / MADM Date: 06/08/24 Loc: HO.HHCX Attending Dr: Piper Johnson MD Ordering Physician: Piper Johnson MD Date of Service: 06/08/24 Procedure(s): XR chest 2V Accession Number(s): [id number] cc: Piper Johnson MD EXAMINATION: XR CHEST [...] 06/08/24 1524 DD/ 1449 TD/TT: 06/08/24 1511 Rotor Assembler: Piper Johnson MD IMG XR PROCEDURES Edited [...] 10:08 AM EDT) Creatinine, Urine 63.26 mg/dL [facility] Microalbumin Urine <5.0 mg/L [facility] Microalbum Creatinine Ratio Ur TNP <30 ug/mg cr [facility] Comment:Unable to calculate albumin/creatinine ratio due to lowmicroalbumin or creatinine result. Urine (Urine, Random) 05/21/2024 10:08 AM EDT 05/21/2024 11:03 AM EDT us Jh Bullard MD LAB URINE ORDERABLES Final Resul t [facility] [address] [place] [phone] * (ABNORMAL) CBC auto differential (05/21/2024 10:08 AM EDT) White Blood Count 3.9(L) 4.8 - 10.8 X10*3/uL [facility] Red Blood Count 5.22 4.60 - 5.80 X10*6/uL [facility] Hemoglobin 14.2 14.0 - 18.0 g/dl [facility] Hematocrit 43.0 42.0 - 52.0 % [facility] Mean Corpuscular Volume 82.4 80.0 - 98.0 fL [facility] Mean Corpuscular Hemoglobin 27.2 27.0 - 33.0 pg [facility] Mean Corpuscular HGB Conc 33.0 31.0 - 36.0 g/dl [facility] Red Cell Distribution Width 14.2 11.0 - 16.0 % [facility] Platelet Count 203 160 - 400 X10*3/uL [facility] Mean Platelet Volume 10.3 9.4 - 12.4 fL [facility] Neutrophils Percent Auto 52.5 45 - 73 % [facility] Imm Gran Pct Auto 1.3(H) 0.0 - 0.4 % [facility] Lymphocytes Percent Auto 34.4 20 - 40 % [facility] Monocytes Percent Auto 9.7 2 - 11 % [facility] Eosinophils Percent Auto 1.3 0 - 4 % [facility] Basophils Percent Auto 0.8 0 - 2 % [facility] NRBC Pct Auto 0.0 0.0 - 0.2 /100WBC [facility] Neutrophils Absolute Auto 2.1 2.0 - 8.3 x10*3/uL [facility] Imm Gran Abs Auto 0.05(H) 0.00 - 0.03 X10*3/uL [facility] Lymphocytes Absolute Auto 1.4 1.2 - 4.9 X10*3/uL [facility] Monocytes Absolute Auto 0.4 0.1 - 1.2 X10*3/uL [facility] Eosinophils Absolute Auto 0.1 0.0 - 0.4 X10*3/uL [facility] Basophils Absolute Auto 0.0 0.0 - 0.2 X10*3/uL [facility] NRBC Abs Auto 0.000 0.0 - 0.012 X10*3/uL [facility] Blood Venous blood specimen / Unknown 05/21/2024 10:08 AM EDT 05/21/2024 11:06 AM EDT us Jh Name MD LAB BLOOD ORDERABLES Final Resul t Performing Organization Address City/[facility]/ZIP Co de Phone Number [facility] [address] [place] [address] [phone] * Hepatitis C Antibody with Reflex to HCV, RNA, Quantitative, Real-Time PCR (05/21/2024 10:08 AM EDT) Hepatitis C Antibody Nonreactive Nonreactive [facility] Comment:Antibodies to HCV no t detected; does not exclude early acuteHCV infection. Blood Venous blood specimen / Unknown 05/21/2024 10:08 AM EDT 05/21/2024 11:01 AM EDT us Jh Bullard MD LAB BLOOD ORDERABLES Final Resul t Performing Organization Address [facility] Co de Phone Number [facility] [address] [place] [address] [phone] * (ABNORMAL) Lipid Panel, Standard (05/21/2024 10:08 AM EDT) Triglycerides 69 <150 mg/dL [facility] Comment:Desirable Triglyceri de: less than 150 mg/dLBorderline High Triglyceride 150-199 mg/dLHigh Triglyceride: 200-499 mg/dLVery High Triglyceride: greater than or equal to 5OO mg/dL Cholesterol 177 <200 mg/dL [facility] Comment:Desirable Cholestero l: less than 200 mg/dLBorderline High Cholesterol: 200-239 mg/dLHigh Cholesterol: greater than 239 mg/dL LDL Cholesterol Calculated 109(H) <100 mg/dL [facility] Comment:Desirable LDL: less than 100 mg/dLNear Optimal/Above Optimal LDL: 110- 129 mg/dLBorderline High LDL: 130-159 mg/dLHigh LDL: 160-189 mg/dLVery High LDL: greater than or equal to 190 mg/dL HDL Cholesterol 55 >40 mg/dL [facility] Comment:Desirable HDL: great er than 40 mg/dL Note: This HDL assay may give artificially low results in patients with liver disease. Blood Venous blood specimen / Unknown 05/21/2024 10:08 AM EDT 05/21/2024 11:01 AM EDT us Jh Bullard MD LAB BLOOD ORDERABLES Final Resul t [facility] [address] [place] [phone] [phone] * (ABNORMAL) Comprehensive Metabolic Panel (05/21/2024 10:08 AM EDT) Sodium 140 135 - 145 mmol/L [facility] Potassium 4.3 3.3 - 5.1 mmol/L [facility] Comment:Slight Hemolysis.Int erpret result with caution. Chloride 108 96 - 108 mmol/L [facility] Carbon Dioxide 25 22 - 29 mmol/L [facility] Anion Gap 11(L) 12 - 20 [facility] Urea Nitrogen (BUN) 12 9 - 16 mg/dL [facility] Creatinine, Serum 0.66 0.5 - 1.4 mg/dL [facility] Estimated Glomerular Filt Rate >60 [facility] Comment:Chronic Kidney Disea se: Estimated GFR < 60 mL/min/[id number] Kidney Disease: Estimated GFR < 15 mL/min/1.73m2 Glucose 111 60 - 115 mg/dL [facility] Calcium 9.6 8.4 - 10.2 mg/dL [facility] Bilirubin, Total 0.4 0.0 - 1.0 mg/dL [facility] Aspartate Amino Transferase 17 5 - 37 U/L [facility] Comment:Slight Hemolysis.Int erpret result with caution. Alanine Aminotransferase 14 0 - 40 U/L [facility] Total Protein 6.7 6.5 - 8.0 g/dL [facility] Albumin Level 4.2 3.5 - 5.0 g/dL [facility] Alkaline Phosphatase 62 39 - 117 U/L [facility] Blood Venous blood specimen / Unknown 05/21/2024 10:08 AM EDT 05/21/2024 11:01 AM EDT Jh Bullard MD LAB BLOOD ORDERABLES Final Resul t [facility] [address] [place] [phone] * POCT Glucose (05/18/2024 1:45 PM EDT) Glucose Blood, POC 182 60 - 200 mg/dL QC Media Lot # [id number] Lot# Expiration Date [id number] Blood Capillary blood specimen / Unknown 05/18/2024 1:45 PM EDT Result [facility] Jh Bullard MD POINT OF CARE TEST ENTER/EDIT OR DERABLES Final Result * (ABNORMAL) POCT HGB A1C (04/28/2024 1:48 PM EST) Hemoglobin A1C 7.2(A) 4.0 - 6.0 % QC Media Lot # [id number] Blood 04/28/2024 1:48 PM EST Result [facility] Jh Bullard MD POINT OF CARE TEST ENTER/EDIT OR DERABLES Final Result * (ABNORMAL) Hm Colonoscopy (04/02/2023) Colonoscopy Abnormal( A) Normal Comment:Tubular adenoma cecelia bob. Jh Bulalrd MD HEALTH MAINTENANCE Final Result from Last 3 Months or Most Recently Relevant to Health Maintenance Insurance [id number] [employer] [facility] [employer] Care Teams Room Service Food Server Relationship Specialty Start Date End Date Name, MD Jh [address] [place] [address] PCP - General Family Medicine 05/29/16 Juliet Wren PharmD [address] [place] [address] Pharmacist Internal Medicine 07/17/22
--- OUTSIDE RECORDS SUMMARY | 2024-06-11 09:50 | XMS_ITS | Encounter Summary ---
Author Organization [employer] Address [address] [facility] 7t [place] [address] Care Team Providers Care Dumping Machine Operator Name Role Phone Name, Jh RACHEL Primary Care Provider [phone] Juliet Wren PharmD Unavailable [phone] Encounter Details Date Type Department Care Team ([facility] st Contact Info) Description 05/02/2023 Telephone [facility] [address] [place], [place] [phone] Name, MD Jh [address] [place], [place] [phone] Social History Tobacco Use Types Packs/Day Years [...] Description 06/25/2024 1:00 PM EDT Office Visit [facility] [address] [place] [address] Salazar, Milvia, OD [address] [place] [address] 08/06/2024 1:00 PM EDT Clinical Support [facility] [address] [place] [address] Cee Toussaint, EMILIO 10/29/2024 1:00 PM EDT Medication Management [facility] [address] [place] [address] PuiaJuliet, PharmD [address] [place] [address] documented as of this encounter Goals Goal [...] documented as of this encounter Care Teams Dumping Machine Operator Relationship Specialty Start Date End Date Name, MD Jh [address] [facility] [place] [address] PCP - General Family Medicine 05/29/16 Juliet Wren, Ezekiel [address] [facility] [place] [address] Pharmacist Internal Medicine 07/17/22 documented as of this encounter
--- OUTSIDE RECORDS SUMMARY | 2024-06-11 09:50 | XMS_ITS | Encounter Summary ---
Author Organization [email or web address] Address [address] [facility] 7t [place] [address] Care Team Providers Care Conveyor Installer Name Role Phone Jh Bullard MD Primary Care Provider Juliet Wren PharmD Unavailable [phone] Reason for Visit * Reason Comments Med Refill Encounter Details Date Type Department Care Team ([facility] st Contact Info) Description 02/26/2023 Refill [facility] [address] [place], [place] [phone] Name, MD Jh [address] [place], [place] [phone] Chronic pain syndrome Social History Tobacco Use [...] Description 06/25/2024 1:00 PM EDT Office Visit [facility] [address] [place] [address] Salazar, Milvia, OD [address] [place] [address] 08/06/2024 1:00 PM EDT Clinical Support [facility] [address] [place] [address] Cee Toussaint, RN 10/29/2024 1:00 PM EDT Medication Management [facility] [address] [place] [address] Juliet Wren, PharmD [address] [place] [address] documented as of this encounter Goals Goal [...] documented as of this encounter Care Teams Conveyor Installer Relationship Specialty Start Date End Date Name, MD Jh [address] [place] [address] PCP - General Family Medicine 05/29/16 Juliet Wren PharmD [address] [place] [address] Pharmacist Internal Medicine 07/17/22 documented as of this encounter
--- OUTSIDE RECORDS SUMMARY | 2024-06-11 09:50 | XMS_ITS | Encounter Summary ---
Author Organization [employer] Address [address] [facility] 7t [place] [address] Care Team Providers Care Lead Solutions Architect Name Role Phone Jh Bullard MD Primary Care Provider [phone] Juliet Wren PharmD Unavailable [phone] Reason for Visit * Reason Onset Date Comments triage 02/08/2022 Encounter Details Date Type Department Care Team (Late st Contact Info) Description 02/08/2022 Telephone [facility] [address] [place], [place] [phone] Name, MD Jh [address] [place] [address] triage Social History Tobacco Use Types Packs/Day [...] caller The caller accepted this outcome speaks Dominican documented in this encounter Plan of Treatment Upcoming Encounters Date Type Department Care Team (Late st Contact Info) Description 06/25/2024 1:00 PM EDT Office Visit [facility] [address] [place] [address] SalazarMilvia ortiz, OD [address] [place] [address] 08/06/2024 1:00 PM EDT Clinical Support [facility] [address] [place] [address] Cee Toussaint, EMILIO 10/29/2024 1:00 PM EDT Medication Management [facility] [address] [place] [address] Juleit Wren PharmD [address] [place] [address] documented as of this encounter Visit Diagnoses Not on filedocumented in this encounter Care Teams Lead Solutions Architect Relationship Specialty Start Date End Date Name, MD Jh [address] [place] [phone] PCP - General Family Medicine 05/29/16 Juliet Wren PharmD [address] [place] [phone] Pharmacist Internal Medicine 07/17/22 documented as of this encounter
--- OUTSIDE RECORDS SUMMARY | 2024-06-11 09:50 | XMS_ITS | Encounter Summary ---
Author Organization [employer] Address [address] [facility] 7t [place] [address] Care Team Providers Care Regulator Inspector Name Role Phone Jh Bullard MD Primary Care Provider [phone] Juliet Wren PharmD Unavailable [phone] Reason for Visit * Reason Comments Med Refill Encounter Details Date Type Department Care Team (Late Contact Info) Description 08/07/2022 Refill [facility] [address] [place] [address] Name, MD Jh [address] [place] [address] Chronic pain syndrome Social History Tobacco Use [...] Description 06/25/2024 1:00 PM EDT Office Visit [facility] [address] [place] [address] Milvia Lincoln, OD [address] [place] [address] 08/06/2024 1:00 PM EDT Clinical Support [address] [phone] Cee Toussaint, RN 10/29/2024 1:00 PM EDT Medication Management [address] [address] Juliet Wren PharmD [address] [place], [place] documented as of this encounter Goals [...] documented as of this encounter Care Teams Regulator Inspector Relationship Specialty Start Date End Date Name, MD Jh [address] [place] [address] [phone] PCP - General Family Medicine 05/29/16 Juliet Wren PharmD [address] [place] [address] [phone] Pharmacist Internal Medicine 07/17/22 documented as of this encounter
--- OUTSIDE RECORDS SUMMARY | 2024-06-11 09:50 | XMS_ITS | Encounter Summary ---
Author Organization [employer] Address [address] [facility] [address] 7[address] [place] [address] Care Team Providers Care Supervisor Fertilizer Name Role Phone Name, Jh RACHEL Primary Care Provider [phone] Juliet Wren PharmD Unavailable [phone] Encounter Details Date Type Department Care [...] Description 06/25/2024 1:00 PM EDT Office Visit [facility] [address] [place] [address] Salazar, Milvia, OD 230 [place] [address] 08/06/2024 1:00 PM EDT Clinical Support [facility] [address] [place] [address] Cee Toussaint RN 10/29/2024 1:00 PM EDT Medication Management [facility] [address] [place] [address] Puia, Juliet, PharmD [address] [place] [address] documented as of this encounter Goals Goal [...] documented as of this encounter Care Teams Supervisor Fertilizer Relationship Specialty Start Date End Date Name, MD Jh [address] [place] [address] PCP - General Family Medicine 05/29/16 Juliet Wren, Ezekiel [address] [place] [address] Pharmacist Internal Medicine 07/17/22 documented as of this encounter
--- OUTSIDE RECORDS SUMMARY | 2024-06-11 09:50 | XMS_ITS | Encounter Summary ---
Author Organization [employer] Address [address] [facility] 7t [place] [address] Care Team Providers Care Nurse Staff Industrial Name Role Phone Name, Jh RACHEL Primary Care Provider [phone] Juliet Wren PharmD Unavailable [phone] Reason for Referral * Imaging (Routine) - Authorized Specialty Diagnoses / Procedures Referred By Contac t Referred To Contact Radiology Diagnoses Right upper quadrant abdominal pain Procedures US RENAL BI Piper Johnson MD [address] [place] [address] Phone: tel: fax: [address] Phone: tel: fax: Referral ID Status Reason Start Date Expiration Date V isits Requested Visits Authorized [id number] Authorized 06/08/2024 06/08/2025 1 1 Encounter Details Date Type Department Care Team (Late st Contact Info) Description 06/08/2024 1:40 PM EDT Office Visit [facility] [address] [place] [address] Piper Johnson MD [address] [place] [address] Right upper quadrant abdominal pain (Primary Dx); [...] WITH FOOD 180 tablet 1 Continuous Glucose Powder Expert (FreeStyle Laurent 3 Ramona) device 1 each Once per day. Use [...] skipping a meal. 15 mL 5 Lancets (Clinical DataTouch Delica Plus Vwopez26Q) [facility] TEST BLOOD SUGAR THREE TIMES DAILY 100 [...] MEAL 60 capsule 5 TechLite Plus Pen Gail 32G X 4 MM mis USE FOUR [...] Description 06/25/2024 1:00 PM EDT Office Visit [facility] [address] [place] [address] Milvia Lincoln, OD [address] [place] [address] 08/06/2024 1:00 PM EDT Clinical Support [facility] [address] [place] [address] Cee Toussaint RN 10/29/2024 1:00 PM EDT Medication Management [facility] [address] [place] [address] Juliet Wren PharmD [address] [place] [address] Scheduled Orders Name Type Priority Associated Diagnoses [...] PM EDT Narrative 06/08/2024 3:26 PM EDT ?[facility] ?[address] ?[place] [address] ?XRay Report ? Signed ? Patient: Daniela Hilton,Landen ?MR#: [id number] ?? [id number] ? : 1955 ?Acct:[id number] ? Age/Sex: 69 / M ?ADM Date: 04/14/25 ? Loc: HO.HHCX ? Attending Dr: Piper Johnson MD ? Ordering Physician: Piper Johnson MD ?? Date of Service: 06/08/24 ?? Procedure(s): XR chest 2V ?? Accession Number(s): [id number] ? cc: Piper Johnson MD ? EXAMINATION: [...] DD/ 1449 ? TD/TT: 06/08/24 1511 ? Calciner Operator: ? Procedure Note William, Image - 06/08/[address] [address] XRay Report Signed Patient: Daniela HiltonFarideh#: [id number] : 5Acct:[id number] Age/Sex: 69 / MADM Date: 06/08/24 Loc: HO.HHCX Attending Dr: Piper Johnson MD Ordering Physician: Piper Johnson MD Date of Service: 06/08/24 Procedure(s): XR chest 2V Accession Number(s): [id number] cc: Piper Johnson MD EXAMINATION: XR CHEST [...] 06/08/24 1524 DD/ 1449 TD/TT: 06/08/24 1511 Calciner Operator: Piper Johnson MD IMG XR PROCEDURES Edited [...] documented as of this encounter Care Teams Nurse Staff Industrial Relationship Specialty Start Date End Date Name, MD Jh [address] [place] [address] PCP - General Family Medicine 05/29/16 Puia, Ezekiel Chung [address] [place] [address] Pharmacist Internal Medicine 07/17/22 documented as of this encounter
--- OUTSIDE RECORDS SUMMARY | 2024-06-11 09:51 | XMS_ITS | Encounter Summary ---
Author Organization [employer] Address [address] [facility] 7t [place] [address] Care Team Providers Care Human Resources Admin Name Role Phone Name, Jh RACHEL Primary Care Provider [phone] Juliet Wren PharmD Unavailable [phone] Encounter Details Date Type Department Care Team ([facility] Contact Info) Description 07/13/2022 Abstract [facility] [address] [place], [place] [phone] Name, MD Jh [address] [place] [address] Social History Tobacco Use Types Packs/Day Years [...] Upcoming Encounters Date Type Department Care Team ([facility] Contact Info) Description 06/25/2024 1:00 PM EDT Office Visit [facility] [address] [place], [place] [phone] Milvia Lincoln, OD [address] [facility] [place] [address] 08/06/2024 1:00 PM EDT Clinical Support [facility] Darrian [facility] [place] [address] Cee Toussaint RN 10/29/2024 1:00 PM EDT Medication Management [facility] [address] [place] [address] Juliet Wren, PharmD 230 [facility] [place] [address] documented as of this encounter Procedures Procedure [...] documented as of this encounter Care Teams Human Resources Admin Relationship Specialty Start Date End Date Name, MD Jh Darrian [facility] [place] [address] PCP - General Family Medicine 05/29/16 Juliet Wren, PharmDanilo Darrian [facility] [place] [place] [phone] Pharmacist Internal Medicine 07/17/22 documented as of this encounter
--- OUTSIDE RECORDS SUMMARY | 2024-06-11 09:51 | XMS_ITS | Encounter Summary ---
Author Organization [employer] Address 75 [facility] 7t [place] [address] Care Team Providers Care Fuel System Maintenance Supervisor Name Role Phone Name, Jh RACHEL Primary Care Provider [phone] Juliet Wren PharmD Unavailable [phone] Encounter Details Date Type Department Care Team ([facility] st Contact Info) Description 05/16/2023 Telephone [facility] [address] [place], [place] [phone] Name, MD Jh [address] [place], [place] [phone] Social History Tobacco Use Types Packs/Day Years [...] Description 06/25/2024 1:00 PM EDT Office Visit [facility] [address] [place] [address] Salazar, Milvia, OD [address] [place] [address] 08/06/2024 1:00 PM EDT Clinical Support [facility] [address] [place] [address] Cee Toussaint, EMILIO 10/29/2024 1:00 PM EDT Medication Management [facility] [address] [place] [address] PuiaJuliet, PharmD [address] [place] [address] documented as of this encounter Goals Goal [...] documented as of this encounter Care Teams Fuel System Maintenance Supervisor Relationship Specialty Start Date End Date Name, MD Jh [address] [facility] [place] [address] PCP - General Family Medicine 05/29/16 Juliet Wren, Ezekiel [address] [facility] [place] [address] Pharmacist Internal Medicine 07/17/22 documented as of this encounter
== END 2024-06-11 09:57 | disposition home or self-care (01) ==
LOC: HO.HCS 08:59
PROVIDERS: PCP Internal Medicine Geriatric Medicine; Visit Provider Nurse Practitioner Family
DX: R20.0 Anesthesia of skin (principal); R94.31 Abnormal electrocardiogram [ECG] [EKG]; I47.10 Supraventricular tachycardia, unspecified; R00.2 Palpitations; I10 Essential (primary) hypertension; E78.5 Hyperlipidemia, unspecified; I49.1 Atrial premature depolarization
CPT/HCPCS: 93010; 99214; G2211

== ENCOUNTER → 2024-06-11 08:58 | Outpatient (BNVA) | payer OTHER, SELFPAY | PROVIDERS: PCP Internal Medicine Geriatric Medicine; Visit Provider Nurse Practitioner Family | DX: I10 Essential (primary) hypertension (principal); E78.5 Hyperlipidemia, unspecified; R20.0 Anesthesia of skin; R94.31 Abnormal electrocardiogram [ECG] [EKG]; I47.10 Supraventricular tachycardia, unspecified; R00.2 Palpitations; I49.1 Atrial premature depolarization; Z86.73 Personal history of transient ischemic attack (TIA), and cerebral infarction without residual deficits | CPT/HCPCS: 93005; 99212 ==

== ENCOUNTER 2024-07-06 15:09 | Outpatient (REF) | payer OTHER, SELFPAY ==
--- NOTE | ~2024-07-06 | US_ITS ---
EXAMINATION: Ultrasound renal, bilaterally. CLINICAL INFORMATION: Hematuria. COMPARISON: Correlated to CT dated October 10, 2017. TECHNIQUE: Real-time ultrasound of the kidneys using grayscale and color Doppler technique. FINDINGS: Right kidney: 11 x 7 x 6 cm. Volume: 210 cc. Normal echotexture. Normal renal cortical thickness. No hydronephrosis. No solid or cystic lesion. Left kidney: 12 x 6.5 cm. Volume: 187 cc. Normal echotexture. Normal renal cortical thickness. No hydronephrosis. No gross solid or cystic lesion. US/US renal BI IMPRESSION: No hydronephrosis. Prior CT demonstrated vascular desiccation's in the renal hilum bilaterally. Electronically signed by: Wiley Forbes MD 07/06/2024 03:51 PM EDT
--- OUTSIDE RECORDS SUMMARY | 2024-07-06 15:13 | XMS_ITS | Clinical Summary ---
Author Organization [employer] [facility] ity Address [address] [place] [address] Care Team Providers Care Data Analyst Name Role Phone Name, Jh RACHEL Primary Care Provider [phone] Social History Tobacco Use Types Packs/Day Years [...] age to complete this topic Care Teams Data Analyst Relationship Specialty Start Date End Date Name, MD Jh [address] [place], [place] PCP - General Internal Medicine 11/16/19
--- OUTSIDE RECORDS SUMMARY | 2024-07-06 15:13 | XMS_ITS | Encounter Summary ---
Author Organization [employer] Address [address] [facility] [address] [place] [address] Care Team Providers Care Sales Enablement Specialist Name Role Phone Name, Jh RACHEL Primary Care Provider [phone] Juliet Wren PharmD Unavailable [phone] Encounter Details Date Type Department Care Team ([facility] st Contact Info) Description 05/02/2023 Telephone [facility] [address] [place], [place] [phone] Name, MD Jh [address] [place] [address] Social History Tobacco Use Types Packs/Day Years [...] Care Team (Late st Contact Info) Description 08/06/2024 1:00 PM EDT Clinical Support [address] [address] Cee Toussaint RN 09/29/2024 3:15 PM EDT Office Visit [address] [address] NameJh MD [address] [place] [address] 10/29/2024 1:00 PM EDT Medication Management [address] [address] PuuJliet gunn, PharmD [address] [place] [address] documented as of this encounter Goals Goal [...] documented as of this encounter Care Teams Sales Enablement Specialist Relationship Specialty Start Date End Date Jh Bullard MD [address] [place] [address] PCP - General Family Medicine 05/29/16 Juliet Wren PharmD [address] [place] [address] Pharmacist Internal Medicine 07/17/22 documented as of this encounter
--- OUTSIDE RECORDS SUMMARY | 2024-07-06 15:13 | XMS_ITS | Clinical Summary ---
Author Organization [employer] Address [address] [facility] 7t [place] [address] Care Team Providers Care Esthetician Facialist Name Role Phone Name, Jh RACHEL Primary Care Provider Juliet Wren PharmD Unavailable [phone] Allergies No known active allergies Medications [...] tablet by mouth Once daily. (OTC) Active insulin degludec (Tresiba FlexTouch) 100 UNIT/ML injectionIndica tions:Type 2 diabetes mellitus without complication, with long-term current use of insulin (CMS/HCC) Inject 34 Units under the skin in the morning. 15 mL 5 12/24/19 24 Active insulin lispro (HumaLOG KWIKPEN) 100 UNIT/ML injectionIndica tions:Type 2 diabetes mellitus without complication, with long-term current use of insulin (CMS/HCC) Inject 8 units subQ three times daily [...] IMMEDIATELY EVEN IF PT RESPONDS. 2 each 04/09/19 25 Active TechLite Plus Pen [place]ilo[place] 32G X 4 MM misc USE FOUR DAILY 100 each 04/29/19 25 Active Continuous Glucose Addresser (FreeStyle Laurent 3 [place]) deviceIndicatio ns:Type 2 diabetes mellitus without complication, with long-term current use of insulin ([facility]) 1 each Once per day. [...] complication, with long-term current use of insulin ([facility]/HCC) Use to test blood sugar up to [...] complication, with long-term current use of insulin ([facility]) TEST BLOOD SUGAR THREE TIMES DAILY 100 strip 11 04/30/19 25 Active Lancets (OneTouch Delica Plus [id number]) miscIndications :Type 2 diabetes mellitus without complication, with long-term current use of insulin ([facility]) TEST BLOOD SUGAR THREE TIMES DAILY 100 each 11 04/30/19 25 Active Viagra 100 MG tablet TAKE 1 TABLET 1 HOUR BEFORE SEXUAL RELATIONS ONCE DAILY NEEDED. 10 tablet 3 05/14/19 25 Active omeprazole (PriLOSEC) [address] capsuleIndicati ons:Essential hypertension TAKE 1 CAPSULE BY MOUTH EVERY DAY BEFORE A MEAL 30 capsule 5 05/20/19 25 Active Diclofenac Sodium 1 % gel Apply 1 inch topically if needed in the morning and at bedtime (pain). 60 g 06/09/19 25 025 Active tamsulosin (Flomax) 0.4 MG 24 hr capsule TAKE TWO CAPSULES DAILY 30 MINUTES AFTER THE SAME MEAL 60 capsule 5 06/17/19 25 Active docusate sodium (Colace) 100 MG capsule TAKE ONE CAPSULE TWICE DAILY 60 capsule 7 06/17/19 25 Active oxyCODONE-aceta minophen (Percocet) 5-325 MG tabletIndicatio ns:Chronic pain syndrome TAKE ONE TABLET EVERY 8 HOURS NEEDED FOR PAIN 84 tablet 06/18/19 25 Active docusate sodium (Colace) 100 MG capsule TAKE ONE CAPSULE TWICE DAILY 60 capsule 7 09/24/19 24 025 Discontinued tamsulosin (Flomax) 0.4 MG 24 hr capsule TAKE TWO CAPSULES DAILY 30 MINUTES AFTER THE SAME MEAL 60 capsule 5 11/25/19 24 025 Discontinued oxyCODONE-aceta minophen (Percocet) 5-325 MG tabletIndicatio ns:Chronic pain syndrome TAKE ONE TABLET EVERY 8 HOURS NEEDED FOR PAIN 84 tablet 05/22/19 25 025 Discontinued Active Problems Problem Noted [...] the sigmoid colon 2016 [place] [facility] [place] 2 diabetes mellitus 03/02/2022 Irregular heart beat 12/16/2017 Benign prostatic hyperplasia 09/23/2017 Nocturia 07/15/2017 Hypertension 05/14/2017 Tubular adenoma of colon 12/19/2016 Overview (12/12/2023): repeat screening colonoscopy in 2021 Splenic vein thrombosis 10/24/2016 Chronic low back pain 06/01/2016 History of alcohol abuse 06/01/2016 Shoulder pain 06/01/2016 Pseudocyst of pancreas 06/01/2016 Encounters Date Type Department Care Team Description 06/25/2024 1:00 PM EDT Office Visit [facility] [address] [place], [place] [phone] Salazar, Milvia, OD Diabetes type 2, no ocular involvement (CMS/HCC) (Primary Dx); RPE mottling of macula; Chorioretinal scar, left eye; 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; Combined forms of age-related cataract of both eyes; Nevus of iris of left eye; Presbyopia 06/25/2024 Travel 06/16/2024 Refill [facility] [address] [place], [place] [phone] Katie Zhong NP Chronic pain syndrome 06/13/2024 Refill [facility] [address], [place] [phone] Name, MD Jh 06/12/2024 Telephone [facility] [address] [place], [place] [phone] Gaby Jean MA august recalls 06/08/2024 1:40 PM EDT Office Visit [facility] [address] [place] [phone] Piper Johnson MD Right upper quadrant abdominal pain (Primary Dx); Hematuria, unspecified type 06/08/2024 Travel 05/21/2024 Telephone [facility] [address] [place] [phone] Jh Bullard MD 05/21/2024 Telephone [facility] [address] [place] [phone] Jh Bullard MD Med Refill 05/19/2024 Refill [facility] [address] [place] [address] Jh Bullard MD Chronic pain syndrome 05/19/2024 Telephone [facility] [address] [place] [address] Jh Bullard MD 05/18/2024 1:45 PM EDT Office Visit [facility] [address] [place] [address] Jh Bullard MD Type 2 diabetes mellitus without complication, with long-term current use of insulin (CMS/HCC) (Primary Dx); Hypertension, unspecified type; Hyperlipidemia, unspecified hyperlipidemia type; Need for hepatitis C screening test 05/18/2024 Travel 05/18/2024 Refill [facility] [address] [place] [address] Jh Bullard MD Essential hypertension 05/14/2024 Telephone [facility] [address] [place] [address] Gaby Jean MA chart prep 05/13/2024 Refill [facility] [address] [place] [phone] Ariadna West NP 04/28/2024 Refill [facility] [address] [place] [address] Jh Bullard MD Type 2 diabetes mellitus without complication, with long-term current use of insulin (CMS/HCC) 04/28/2024 Refill [facility] [address] [place] [address] Name, MD Jh 04/20/2024 Refill [facility] [address], [place] [phone] Name, MD Jh Chronic pain syndrome 04/08/2024 Refill [facility] [address] [place] [address] Name, MD Jh from Last 3 Months [...] Description 08/06/2024 1:00 PM EDT Clinical Support [address] [address] Cee Toussaint RN 09/29/2024 3:15 PM EDT Office Visit [address] [address] Name, MD Jh [address] [place] [address] 10/29/2024 1:00 PM EDT Medication Management [address] [address] Juliet Wren, PharmD [address] [place] [address] Health Maintenance Due Date Last Done Comments [...] PCV20 or PCV21) 11/18/2024 11/19/2019, 03/05/2017, 04/02/2016 Depression Screening 05/18/2025 05/18/2024, 05/19/19 25 SDOH Screening 05/18/2025 05/18/2024 Diabetes: Urine Protein Screening 05/21/2025 05/21/2024, 07/11/2023, 07/17/2022, Additional history exists Lipid Panel 05/21/2025 05/21/2024, 12/26, 10/08/2022, Additional history exists Tobacco Screening 06/08/2025 06/08/2024 Eye Exam 06/25/2026 06/25/2024, 05/0 02/2024, 06/25/2024, Additional history exists DTaP/Tdap/Td Vaccines (3 - [...] pressure once a week Blood Pressure No PuSevero gunnyssa, PharmD Blood Pressure < 140/90 Blood Pressure 140/82(2024 2:10 PM EDT) No Severo Wrenyssa, PharmD Hemoglobin A1c < 7.5 Result Component 7.2( 1:48 PM EST) No Holger Juliet, PharmD Record your blood sugar as directed Result Component No Holger Juliet, PharmD Note: Use CGM, ensuring sensor [...] complication, with long-term current use of insulin ([facility]) Hypertension, unspecified type Hyperlipidemia, unspecified hyperlipidemia type LIPID PANEL, STANDARD Routine 05/21/2024 10:08 AM EDT Type 2 diabetes mellitus without complication, with long-term current use of insulin ([facility]) Hypertension, unspecified type Hyperlipidemia, unspecified hyperlipidemia type COMPREHENSIVE METABOLIC PANEL Routine 05/21/2024 10:08 AM EDT Type 2 diabetes mellitus without complication, with long-term current use of insulin ([facility]) Hypertension, unspecified type Hyperlipidemia, unspecified hyperlipidemia type CBC WITH AUTO DIFFERENTIAL Routine 05/21/2024 10:08 AM EDT Type 2 diabetes mellitus without complication, with long-term current use of insulin ([facility]) Hypertension, unspecified type Hyperlipidemia, unspecified hyperlipidemia type POCT GLUCOSE Routine 05/18/2024 1:45 PM EDT Type 2 diabetes mellitus without complication, with long-term current use of insulin ([facility]) POCT GLYCATED HEMOGLOBIN, TOTAL Routine 04/28/2024 1:48 PM EST Type 2 diabetes mellitus without complication, with long-term current use of insulin ([facility]) HM COLONOSCOPY Routine 04/02/2023 from Last 3 Months or Most Recently Relevant to Health Maintenance Results * XR Chest 2 Views (06/08/2024 2:49 PM EDT) Anatomical Region Laterality Modality Chest Radiographic Lily ging 06/08/2024 2:49 PM EDT Narrative 06/08/2024 3:26 PM EDT ?[facility] ?[address] ?[place] [address] ?XRay Report ? Signed ? Patient: Daniela Hilton,Landen ?MR#: [id number] ?? [id number] ? : 1955 ?Acct:[id number] ? Age/Sex: 69 / M ?ADM Date: 04/14/25 ? Loc: HO.HHCX ? Attending Dr: Piper Johnson MD ? Ordering Physician: Piper Johnson MD ?? Date of Service: 06/08/24 ?? Procedure(s): XR chest 2V ?? Accession Number(s): [id number] ? cc: Piper Johnson MD ? EXAMINATION: [...] DD/ 1449 ? TD/TT: 06/08/24 1511 ? Councilperson: ? Procedure Note Donloanter, Image - 06/08/2024 [place] [address] XRay Report Signed Patient: Farideh Byers#: [id number] : 5Acct:[id number] Age/Sex: 69 / MADM Date: 06/08/24 Loc: HO.HHCX Attending Dr: Piper Johnson MD Ordering Physician: Piper Johnson MD Date of Service: 06/08/24 Procedure(s): XR chest 2V Accession Number(s): [id number] cc: Piper Johnson MD EXAMINATION: XR CHEST [...] 06/08/24 1524 DD/ 1449 TD/TT: 06/08/24 1511 Councilperson: Piper Johnson MD IMG XR PROCEDURES Edited [...] Date 2,128,126 Urine 06/08/2024 2:30 PM EDT Result [facility] Piper Johnson MD POINT OF CARE TEST ENTER /EDIT ORDERABLES Final Result * Albumin, Random Urine W/Creatinine (05/21/2024 10:08 AM EDT) Creatinine, Urine 63.26 mg/dL [facility] Microalbumin Urine <5.0 mg/L [facility] Microalbum Creatinine Ratio Ur TNP <30 ug/mg cr [facility] Comment:Unable to calculate albumin/creatinine ratio due to lowmicroalbumin or creatinine result. Urine (Urine, Random) 05/21/2024 10:08 AM EDT 05/21/2024 11:03 AM EDT Jh Bullard MD LAB URINE ORDERABLES Final Resul t [facility] [address] [place] [phone] [phone] * (ABNORMAL) CBC auto differential (05/21/2024 10:08 AM EDT) White Blood Count 3.9(L) 4.8 - 10.8 X10*3/uL [facility] Red Blood Count 5.22 4.60 - 5.80 X10*6/uL [facility] Hemoglobin 14.2 14.0 - 18.0 g/dl [facility] Hematocrit 43.0 42.0 - 52.0 % [facility] Mean Corpuscular Volume 82.4 80.0 - 98.0 fL [facility] Mean Corpuscular Hemoglobin 27.2 27.0 - 33.0 pg [facility] Mean Corpuscular HGB Conc 33.0 31.0 - 36.0 g/dl [facility] Red Cell Distribution Width 14.2 11.0 - 16.0 % [facility] Platelet Count 203 160 - 400 X10*3/uL [facility] Mean Platelet Volume 10.3 9.4 - 12.4 fL [facility] Neutrophils Percent Auto 52.5 45 - 73 % [facility] Imm Gran Pct Auto 1.3(H) 0.0 - 0.4 % [facility] Lymphocytes Percent Auto 34.4 20 - 40 % [facility] Monocytes Percent Auto 9.7 2 - 11 % [facility] Eosinophils Percent Auto 1.3 0 - 4 % [facility] Basophils Percent Auto 0.8 0 - 2 % [facility] NRBC Pct Auto 0.0 0.0 - 0.2 /100WBC [facility] Neutrophils Absolute Auto 2.1 2.0 - 8.3 x10*3/uL [facility] Imm Gran Abs Auto 0.05(H) 0.00 - 0.03 X10*3/uL [facility] Lymphocytes Absolute Auto 1.4 1.2 - 4.9 X10*3/uL [facility] Monocytes Absolute Auto 0.4 0.1 - 1.2 X10*3/uL [facility] Eosinophils Absolute Auto 0.1 0.0 - 0.4 X10*3/uL [facility] Basophils Absolute Auto 0.0 0.0 - 0.2 X10*3/uL [facility] NRBC Abs Auto 0.000 0.0 - 0.012 X10*3/uL [facility] Blood Venous blood specimen / Unknown 05/21/2024 10:08 AM EDT 05/21/2024 11:06 AM EDT us Jh Bullard MD LAB BLOOD ORDERABLES Final Resul t Performing Organization Address [facility] Co de Phone Number [facility] [address] [place] [phone] * Hepatitis C Antibody with Reflex to HCV, RNA, Quantitative, Real-Time PCR (05/21/2024 10:08 AM EDT) Hepatitis C Antibody Nonreactive Nonreactive [facility] Comment:Antibodies to HCV no t detected; does not exclude early acuteHCV infection. Blood Venous blood specimen / Unknown 05/21/2024 10:08 AM EDT 05/21/2024 11:01 AM EDT us Jh Bullard MD LAB BLOOD ORDERABLES Final Resul t Performing Organization Address [facility] Co de Phone Number [facility] [address] [place] [phone] * (ABNORMAL) Lipid Panel, Standard (05/21/2024 10:08 AM EDT) Triglycerides 69 <150 mg/dL [facility] Comment:Desirable Triglyceri de: less than 150 mg/dLBorderline High Triglyceride 150-199 mg/dLHigh Triglyceride: 200-499 mg/dLVery High Triglyceride: greater than or equal to 5OO mg/dL Cholesterol 177 <200 mg/dL [facility] Comment:Desirable Cholestero l: less than 200 mg/dLBorderline High Cholesterol: 200-239 mg/dLHigh Cholesterol: greater than 239 mg/dL LDL Cholesterol Calculated 109(H) <100 mg/dL [facility] Comment:Desirable LDL: less than 100 mg/dLNear Optimal/Above Optimal LDL: 110- 129 mg/dLBorderline High LDL: 130-159 mg/dLHigh LDL: 160-189 mg/dLVery High LDL: greater than or equal to 190 mg/dL HDL Cholesterol 55 >40 mg/dL [facility] Comment:Desirable HDL: great er than 40 mg/dL Note: This HDL assay may give artificially low results in patients with liver disease. Blood Venous blood specimen / Unknown 05/21/2024 10:08 AM EDT 05/21/2024 11:01 AM EDT us Jh Name LAB BLOOD ORDERABLES Final Resul t [facility] [address] [place] [phone] * (ABNORMAL) Comprehensive Metabolic Panel (05/21/2024 10:08 AM EDT) Sodium 140 135 - 145 mmol/L [facility] Potassium 4.3 3.3 - 5.1 mmol/L [facility] Comment:Slight Hemolysis.Int erpret result with caution. Chloride 108 96 - 108 mmol/L [facility] Carbon Dioxide 25 22 - 29 mmol/L [facility] Anion Gap 11(L) 12 - 20 [facility] Urea Nitrogen (BUN) 12 9 - 16 mg/dL [facility] Creatinine, Serum 0.66 0.5 - 1.4 mg/dL [facility] Estimated Glomerular Filt Rate >60 [facility] Comment:Chronic Kidney Disea se: Estimated GFR < 60 mL/min/[id number] Kidney Disease: Estimated GFR < 15 mL/min/1.73m2 Glucose 111 60 - 115 mg/dL [facility] Calcium 9.6 8.4 - 10.2 mg/dL [facility] Bilirubin, Total 0.4 0.0 - 1.0 mg/dL [facility] Aspartate Amino Transferase 17 5 - 37 U/L [facility] Comment:Slight Hemolysis.Int erpret result with caution. Alanine Aminotransferase 14 0 - 40 U/L [facility] Total Protein 6.7 6.5 - 8.0 g/dL [facility] Albumin Level 4.2 3.5 - 5.0 g/dL [facility] Alkaline Phosphatase 62 39 - 117 U/L [facility] Blood Venous blood specimen / Unknown 05/21/2024 10:08 AM EDT 05/21/2024 11:01 AM EDT Result Elvi Bullard MD LAB BLOOD ORDERABLES Final Resul t [facility] [address] [place] [phone] * POCT Glucose (05/18/2024 1:45 PM EDT) Glucose Blood, POC 182 60 - 200 mg/dL QC Media Lot # [id number] Lot# Expiration Date Blood Capillary blood specimen / Unknown 05/18/2024 1:45 PM EDT Result Elvi Bullard MD POINT OF CARE TEST ENTER/EDIT OR DERABLES Final Result * (ABNORMAL) POCT HGB A1C (04/28/2024 1:48 PM EST) Hemoglobin A1C 7.2(A) 4.0 - 6.0 % QC Media Lot # [id number] Blood 04/28/2024 1:48 PM EST Result Elvi Bullard MD POINT OF CARE TEST ENTER/EDIT OR DERABLES Final Result * (ABNORMAL) Colonoscopy (04/02/2023) Colonoscopy Abnormal( A) Normal Comment:Tubular adenoma cecelia bob. Result Elvi Bullard MD HEALTH MAINTENANCE Final Result from Last 3 Months or Most Recently Relevant to Health Maintenance Insurance [facility] DUAL COMPLETE [facility] STANDARD Care Teams Esthetician Facialist Relationship Specialty Start Date End Date Name, MD Jh [address] [place] [address] PCP - General Family Medicine 05/29/16 Juliet Wren, Ezekiel [address] [place] [address] Pharmacist Internal Medicine 07/17/22
--- OUTSIDE RECORDS SUMMARY | 2024-07-06 15:13 | XMS_ITS | Encounter Summary ---
Author Organization [employer] Address [address] [facility] [address] [place] [address] Care Team Providers Care Scada Technician Name Role Phone Name, Jh RACHEL Primary Care Provider [phone] Juliet Wren PharmD Unavailable [phone] Encounter Details Date Type Department Care Team ([facility] st Contact Info) Description 05/16/[address] [facility] [address] [place], [place] [phone] Name, MD Jh [address] [place] [address] Social History Tobacco Use Types Packs/Day Years [...] Description 08/06/2024 1:00 PM EDT Clinical Support [address] [address] Cee Toussaint RN 09/29/2024 3:15 PM EDT Office Visit [address] [address] NameJh MD [address] [place] [address] 10/29/2024 1:00 PM EDT Medication Management [address] [address] PuJuliet gunn, PharmD [address] [place] [address] documented as of this encounter Goals Goal [...] documented as of this encounter Care Teams Scada Technician Relationship Specialty Start Date End Date Jh Bullard MD [address] [place] [address] PCP - General Family Medicine 05/29/16 Juliet Wren PharmD [address] [place] [address] Pharmacist Internal Medicine 07/17/22 documented as of this encounter
--- OUTSIDE RECORDS SUMMARY | 2024-07-06 15:13 | XMS_ITS | Encounter Summary ---
Author Organization [employer] Address 75 [facility] [address]t [place] [address] Care Team Providers Care Hand Screen Printer Name Role Phone NameJh MD Primary Care Provider [phone] Juliet Wren PharmD Unavailable [phone] Reason for Visit * Reason Comments Med Refill Encounter Details Date Type Department Care Team ([facility] st Contact Info) Description 02/26/2023 Refill [facility] [address] [place], [place] [phone] Name, MD Jh [address] [place], [place] [phone] Chronic pain syndrome Social History Tobacco Use [...] Description 08/06/2024 1:00 PM EDT Clinical Support [address] [address] Cee Toussaint RN 09/29/2024 3:15 PM EDT Office Visit [address] [address] Name, MD Jh [address] [place] [address] 10/29/2024 1:00 PM EDT Medication Management [address] [address] PuiaJuliet, PharmD [address] [place] [phone] documented as of this encounter Goals Goal [...] documented as of this encounter Care Teams Hand Screen Printer Relationship Specialty Start Date End Date Name, MD Jh [address] [place] [address] PCP - General Family Medicine 05/29/16 Juliet Wren, FabyD [address] [place] [address] Pharmacist Internal Medicine 07/17/22 documented as of this encounter
--- OUTSIDE RECORDS SUMMARY | 2024-07-06 15:13 | XMS_ITS ---
Author Name Willy SCHEDULE MAKER,CATALOGUE AND SPECIAL PRODUCTS MANAGER,FN P,MEDICAL PLANNER, Isabel Address [address] [place] [address] Phone [phone] Organization [facility] Care Team Providers Care Parachute Rigger Name Role Phone AguileraMagdalenoIsabel Unavailable [phone] Unavailable Unavailable Unavailable [facility] Unavailable Reason for Referral Not [...] 2021-03-20 No Data Available OneTouch Delica Plus [id number] Miscellaneous TEST BLOOD SUGAR THREE TIMES DAILY [...] PARA EL DOLOR 2021-08-21 No Data Available InfoNow Flex System w/Device Kit TEST BLOOD SUGAR [...] 2023-12-24 No Data Available TRUEplus 5-[place] 32G X 4 MM Miscellaneous USE FOUR DAILY 2023-11-11 No Data Availab le Melatonin 5 mg Cap 1-2 gummies QHS 2024-04-17 No Ian a Available Problem List Problem Status Onset Date Resolved Date History of alcohol abuse Active 2022-11-07 N/A Other problems related to mo dical facilities and other health care Active [...] Diagnosis/Co mplaint Medication List Documented (1159F) [facility] Medication List Documented (1159F) [facility] Medication List Documented (1159F) [facility] Medication List Documented (1159F) [facility] Medication List Documented (1159F) [facility]2021 Type 2 diabetes mellitus wit h mild nonproliferative diabetic retinopathy without macular edema, bilateralGeneralized anxiety disorderHeart failure, unspecifiedPain in unspecified shoulderEnlarged prostate without lower urinary tract symptomsOther specified health statusObesity, unspecifiedBody mass index (bmi) 31.0-31.9, adultHypertensive heart disease with heart failure Medication List Documented (1159F) [facility] Medication List Documented (1159F) [facility] Estab. patient 30-39min; chronic exacerbation, 2 stable chronic or 1 acute illness add add modifier 95 for video, (do not use for phone, instead use 99621-43) [facility]2022 Type 2 diabetes mellitus wit [...] (do not use for phone, instead use 22364-18) [facility] Estab. patient 30-39min; chronic exacerbation, 2 stable chronic or 1 acute illness add add modifier 95 for video, (do not use for phone, instead use 20132-30) [facility] Estab. patient 30-39min; chronic exacerbation, 2 stable chronic or 1 acute illness add add modifier 95 for video, (do not use for phone, instead use 06716-40) [facility] Estab. patient 30-39min; chronic exacerbation, 2 stable chronic or 1 acute illness add add modifier 95 for video, (do not use for phone, instead use 66410-28) [facility] Estab. patient 30-39min; chronic exacerbation, 2 stable chronic or 1 acute illness add add modifier 95 for video, (do not use for phone, instead use 53674-42) [facility] Estab. patient 30-39min; chronic exacerbation, 2 stable chronic or 1 acute illness add add modifier 95 for video, (do not use for phone, instead use 25501-41) [facility] Estab. patient 20-29min; 1 stable chronic or 2 minor; add add modifier 95 for video, modifier 93 for phone [facility] 11/14/2022 Type 2 diabetes mellitus wit h [...] for video, modifier 93 for phone [facility]/14/[place] Estab. patient 20-29min; 1 stable chronic or 2 minor; add add modifier 95 for video, modifier 93 for phone [facility] 11/14/2022 Estab. patient 30-39min; chronic exacerbation, 2 stable chronic or 1 acute illness add add modifier 95 for video, (do not use for phone, instead use 47717-68) [facility] 06[place]12/2023 Type 2 diabetes mellitus wit h [...] (do not use for phone, instead use 38262-99) [facility] 06[place]23 Estab. patient 30-39min; chronic exacerbation, 2 stable chronic or 1 acute illness add add modifier 95 for video, (do not use for phone, instead use 46041-86) [facility] 06/12/[place]23 Estab. patient 30-39min; chronic exacerbation, 2 stable chronic or 1 acute illness add add modifier 95 for video, (do not use for phone, instead use 96647-79) [facility] 06[place]12/[place]23 Estab. patient 30-39min; chronic exacerbation, 2 stable chronic or 1 acute illness add add modifier 95 for video, (do not use for phone, instead use 80624-76) [facility] 06[place]12/[place]23 Estab. patient 30-39min; chronic exacerbation, 2 stable chronic or 1 acute illness add add modifier 95 for video, (do not use for phone, instead use 81683-76) [facility] [place] Estab. patient 30-39min; chronic exacerbation, 2 stable chronic or 1 acute illness add add modifier 95 for video, (do not use for phone, instead use 66234-59) [facility] 06/12/2023 Estab. patient 30-39min; chronic exacerbation, 2 stable chronic or 1 acute illness add add modifier 95 for video, (do not use for phone, instead use 10882-31) [facility] 06/12/2023 Estab. patient 30-39min; chronic exacerbation, 2 stable chronic or 1 acute illness add add modifier 95 for video, (do not use for phone, instead use 19993-24) [facility] 06/12/2023 Estab. patient 30-39min; chronic exacerbation, 2 stable chronic or 1 acute illness add add modifier 95 for video, (do not use for phone, instead use 06580-49) [facility] 06/12/2023 Estab. patient 30-39min; chronic exacerbation, 2 stable chronic or 1 acute illness add add modifier 95 for video, (do not use for phone, instead use 32054-22) [facility] 06[place]2023 RN, CN or CP time with patient by phone; use with 1111F, BP, A1c or other CPTII codes [facility] 10/01/2023 Encounter for other specifie d aftercare RN, CN or CP time with patient by phone; use with 1111F, BP, A1c or other CPTII codes [facility] 10/01/2023 No Data Available [facility] 10/08/2023 Enlarged prostate without lo wer urinary tract symptomsOther problems related to medical facilities and other health care No Data Available [facility] 10/08/2023 No Data Available [facility] 10/08/2023 Estab. patient 20-29min; 1 stable chronic or 2 minor; add add modifier 95 for video, modifier 93 for phone [facility] 04/17/2024 Type 2 diabetes mellitus wit h [...] modifier 93 for phone [facility]/17/[place] Estab. patient 20-29min; 1 stable chronic or 2 minor; add add modifier 95 for video, modifier 93 for phone [facility] 04/17/2024 Estab. patient 20-29min; 1 stable chronic or 2 minor; add add modifier 95 for video, modifier 93 for phone [facility] 04/17/2024 Estab. patient 20-29min; 1 stable chronic or 2 minor; add add modifier 95 for video, modifier 93 for phone [facility] 04/17/2024 Estab. patient 20-29min; 1 stable chronic or 2 minor; add add modifier 95 for video, modifier 93 for phone [facility] [place] 04/17/2024 Estab. patient 20-29min; 1 stable chronic or 2 minor; add add modifier 95 for video, modifier 93 for phone [facility] [place] 04/17/2024 Estab. patient 20-29min; 1 stable chronic or 2 minor; add add modifier 95 for video, modifier 93 for phone [facility] [place] 04/17/2024 Vital Signs Date of Collection Vitals [...] tive Time Current Smoking Status Former smoker 2024-06-25 2 Sex Male Gender identity Man History of [...] le No Data Available No Data Available 70163 2021-12-07 No Data Available No Data Available SBP < 130 (3074F) 3074F 2021-12-07 No Data Available No Data Available DBP 80-89 (3079F) 3079F 2021-12-07 No Data Available No Data Available Estab. patient 30-39min; chronic exacerbation, 2 stable chronic or 1 acute illness add add modifier 95 for video, (do not use for phone, instead use 47352-90) 25859 2022-11-07 No Data Available No Data Availa [...] 95 for video, modifier 93 for phone 24915 2022-11-14 No Data Available No Data Availa [...] (do not use for phone, instead use 06980-52) 42348 2023-06-12 No Data Available No Data Availa [...] 1111F, BP, A1c or other CPTII codes 02002 2023-10-01 No Data Available No Data Avai lable Medications prescribed in hospital were reviewed and reconciled against what they were taking prior to admission during today's visit. (1111F) 1111F 2023-10-01 No Data Available No Data Availa ble No Data Available 58972 2023-10-08 No Data Available No Data Available [...] 95 for video, modifier 93 for phone 57093 2024-04-17 No Data Available No Data Availa [...] Patient Education to avoid future hospitalization: [facility] of [facility].Other problems [...] modifier 95Continue to see PCP. [facility] any acute or disease education needs that may arise.On Lantus, Lispro, MetforminCautioned re risk of sedation, safety.Sending NarcanOn Amitriptylene, Buspirone, SertralineOn carvediloloxycodoneoxycodoneTamsulosinWill FU when pt can have a friend, TAVERN OPERATOR or family member with himLifestyle adviceOn carvedilol, [...] Frequent panic attacksPlanned intervention: Transfer member to [address] [place] [address]/ Hydroxyzine (Vistaril) 25mg PO q6h PRN anxiety/ [...] Frequent panic attacksPlanned intervention: Transfer member to [address] [place] [address]/ Hydroxyzine (Vistaril) 25mg PO q6h PRN anxiety/ [...] Frequent panic attacksPlanned intervention: Transfer member to [address] [place] [address]/ Hydroxyzine (Vistaril) 25mg PO q6h PRN anxiety/ [...]
--- OUTSIDE RECORDS SUMMARY | 2024-07-06 15:13 | XMS_ITS | Encounter Summary ---
Author Organization [employer] Address [address] [facility] 7t [place] [address] Care Team Providers Care Plant Maintenance Technician Name Role Phone Jh Bullard MD Primary Care Provider Juliet Wren PharmD Unavailable [phone] Reason for Visit * Reason Onset Date Comments triage 02/08/2022 Encounter Details Date Type Department Care Team (Late st Contact Info) Description 02/08/2022 Telephone [facility] [address] [place], [place] [phone] Name, MD Jh [address] [place] [address] triage Social History Tobacco Use Types Packs/Day [...] caller The caller accepted this outcome speaks Lithuanian documented in this encounter Plan of Treatment Upcoming Encounters Date Type Department Care Team (Late st Contact Info) Description 08/06/2024 1:00 PM EDT Clinical Support [address] [address] Cee Toussaint RN 09/29/2024 3:15 PM EDT Office Visit [address] [address] Name, MD Jh [address] [place] [address] 10/29/2024 1:00 PM EDT Medication Management [address] [address] Juliet Wren PharmD [address] [place] [phone] documented as of this encounter Visit Diagnoses Not on filedocumented in this encounter Care Teams Plant Maintenance Technician Relationship Specialty Start Date End Date Name, MD Jh [address] [place] [address] PCP - General Family Medicine 05/29/16 Juliet Wren, PharmD [address] [place] [address] Pharmacist Internal Medicine 07/17/22 documented as of this encounter
--- OUTSIDE RECORDS SUMMARY | 2024-07-06 15:13 | XMS_ITS | Encounter Summary ---
Author Organization [employer] Address [address] [facility] 7t [place] [address] Care Team Providers Care Importer Exporter Name Role Phone NameJh MD Primary Care Provider [phone] Juliet Wren PharmD Unavailable [phone] Reason for Visit * Reason Comments Med Refill Encounter Details Date Type Department Care Team (Late st Contact Info) Description 08/07/2022 Refill [facility] [address] [place] [address] [phone] Name, MD Jh [address] [place] [address] Chronic pain syndrome Social History Tobacco Use [...] Description 08/06/2024 1:00 PM EDT Clinical Support [address] [address] Cee Toussaint RN 09/29/2024 3:15 PM EDT Office Visit [address] [address] Name, MD Jh [address] [place] [address] 10/29/2024 1:00 PM EDT Medication Management [address] [address] Juliet Wren PharmD [address] [place] [address] documented as of this encounter Goals Goal [...] documented as of this encounter Care Teams Importer Exporter Relationship Specialty Start Date End Date Name, MD Jh [address] [place] [address] PCP - General Family Medicine 05/29/16 Juliet Wren, PharmD [address] [place] [address] Pharmacist Internal Medicine 07/17/22 documented as of this encounter
--- OUTSIDE RECORDS SUMMARY | 2024-07-06 15:13 | XMS_ITS | Encounter Summary ---
Author Organization [employer] Address [address] [facility] 7t [place] [address] Care Team Providers Care Windows Application Administrator Name Role Phone Name, Jh RACHEL Primary Care Provider [phone] Juliet Wren PharmD Unavailable [phone] Encounter Details Date Type Department Care Team (Late st Contact Info) Description 07/13/2022 Abstract [facility] [address] [place] [address] [phone] Name, MD Jh [address] [place] [address] Social History Tobacco Use Types Packs/Day Years [...] Description 08/06/2024 1:00 PM EDT Clinical Support [facility] [address] [place] [address] Cee Toussaint RN 09/29/2024 3:15 PM EDT Office Visit [facility] [address] [place] [phone] Name, [place] [address] 10/29/2024 1:00 PM EDT Medication Management [facility] [place] [phone] [place] [address] documented as of this encounter Procedures Procedure [...] documented as of this encounter Care Teams Windows Application Administrator Relationship Specialty Start Date End Date Name, [place] [address] PCP - General Family Medicine 05/29/16 Juliet Wren PharmD [place] [place] [phone] Pharmacist Internal Medicine 07/17/22 documented as of this encounter
== END 2024-07-06 15:10 | disposition home or self-care (01) ==
LOC: HO.US 15:09
PROVIDERS: PCP Internal Medicine Geriatric Medicine; Visit Provider Internal Medicine
DX: R10.11 Right upper quadrant pain (principal)
CPT/HCPCS: 76775

== ENCOUNTER → 2024-07-06 15:14 | Outpatient (BNV) | payer OTHER, SELFPAY | PROVIDERS: PCP Internal Medicine Geriatric Medicine; Visit Provider Radiology Diagnostic Radiology | DX: R31.9 Hematuria, unspecified (principal) | CPT/HCPCS: 76775 ==

== ENCOUNTER → 2024-07-15 10:37 | Outpatient (REF) | payer OTHER, SELFPAY ==
--- NOTE | 2024-07-15 10:41 | CA_ITS ---
Transthoracic Echocardiogram Patient (Last, First, Middle): Landen Byers, Gender: Male Date of : 1955 Age: 69 Procedure Date: 07/15/2024 Procedure Type: Transthoracic Echocardiogram Location: OP Height: 175.26 cm Weight: 95.26 kg BSA: 2.11 m2 Heart Rate: 90 bpm BP: 126 / 75 mmHg Electronics Teacher: SB/RC Referring MD: Macey Noe NURSE WOUND CARE-C Horizontal Resaw Operator: Aakash Shen MD Symptoms: R00.2 - Palpitations Study Quality: Adequate w contrast ECG Rhythm: Frequent atrial premature beats Conclusions: - 1. Normal LV ejection fraction 55-60% 2. Normal cardiac valvular Dopplers 3. No gross pericardial effusion Findings Procedure Information Contrast agent, definity, is being given per protocol without apparent complications. Left Ventricle Normal left ventricular size, thickness, and systolic function. The visually estimated ejection fraction is between 55-60%. Spectral Doppler is indicative of a normal filling pattern. Right Ventricle Normal right ventricular cavity size and systolic function. Atria Both atria are normal in size. There is no evidence of interatrial shunt. Aortic Valve Normal aortic valve structure and function. There is no aortic valve stenosis. There is no aortic valve regurgitation. Mitral Valve Normal mitral valve structure and function. There is trace mitral valve regurgitation. There is no mitral valve stenosis. Pulmonic Valve The pulmonic valve is likely normal. There is trace pulmonic valve regurgitation. Tricuspid Valve Likely normal tricuspid valve structure and function. Tricuspid regurgitation envelope is inadequate for calculation of right ventricular systolic pressure. There is no evidence of pulmonary hypertension. Great Vessels All visible segments of the aorta are normal in size. The pulmonary artery was not well visualized. Venous The inferior vena cava is normal in size and collapses greater than 50% with inspiration. Pericardium/Pleural There is no evidence of pericardial effusion. Prior Study Comparison No significant change compared to prior study dated: 12/06/2022. Measurements 2D Linear Measurements IVSd: 1.08 0.6-0.9/0.6-1.0 cm LVIDd: 4.56 3.9-5.3/4.2-5.9 cm LVIDd Index: 2.16 2.4-3.2/2.2-3.1 cm/m2 LVIDs: 3.28 2.0-3.6 cm LVPWd: 1.15 0.7-1.1 cm LA Diam: 3.00 2.7-3.8/3.0-4.0 cm LAIDs Index: 1.42 1.5-2.3 cm/m2 LV Mass: 226.96 67-162/88-224 g LV Mass Index: 107.56 43-95/49-115 g/m2 LVOT Diam: 2.30 3.0+(-)1.3 cm 2D Systolic Function EF 4C: 64.80 >55% EF 2C: 50.80 >55% EF BiP: 58.20 >55% Mitral Valve MV Pk E: 0.66 MV PK A: 0.84 MV Decel Time: 210.00 E/A: 0.80 E'Lateral: 8.70 E'Medial: 4.79 E/E' Med: 13.90 E/E' Lat: 7.60 PHT: 62.00 MVA PHT: 3.55 Decel [place]: 3.16 Aortic Valve AoV Pk Miko: 1.12 AoV Pk Grad: 5.00 JOHN: 3.62 LVOT LVOT Pk Miko: 1.09 LVOT Mn Miko: 0.79 LVOT VTI: 0.23 LVOT Pk Grad: 5.00 LVOT Mn Grad: 3.00 LVOT Diam: 2.30 LVOT Area: 4.15 Diastolic Function MV Pk E: 0.66 MV Pk A: 0.84 E/A: 0.80 E'Medial: 4.79 E/E' Med: 13.90 E' Laterial: 8.70 E/E' Lat: 7.60 Right Ventricle TAPSE (mm): 20.70 TVS' Miko: 12.70 Tricuspid Valve RA Press: 8.00 Great Vessels Aorta Sinus of Valsalva: 3.60 2.0-3.5 cm Ao Asc: 3.40 2.1-3.4 cm Pulmonary Valve PV Pk Miko: 0.66 Peak PV Grad: 2.00 Updated in Other Vendor System with Status of Final Aakash Shen MD electronically signed on 07/15/2024 1:41:30 PM with status of Final
--- OUTSIDE RECORDS SUMMARY | 2024-07-15 12:05 | XMS_ITS | Encounter Summary ---
Author Organization [employer] Address [address] [facility] 7t [place] [address] Care Team Providers Care Shot Lighter Name Role Phone Jh Bullard MD Primary Care Provider [phone] Juliet Wren PharmD Unavailable [phone] Reason for Visit * Reason Comments Med Refill Encounter Details Date Type Department Care Team (Late st Contact Info) Description 08/07/2022 Refill [facility] [address] [place] [address] [phone] Name, MD Jh [address] [place] [address] Chronic pain syndrome Social History Tobacco Use [...] Description 08/06/2024 1:00 PM EDT Clinical Support [address] [address] Cee Toussaint RN 09/29/2024 3:15 PM EDT Office Visit [address] [address] Name, MD Jh [address] [place] [address] 10/29/2024 1:00 PM EDT Medication Management [address] [address] Juliet Wren PharmD [address] [place] [address] documented as of this encounter Goals Goal [...] documented as of this encounter Care Teams Shot Lighter Relationship Specialty Start Date End Date Name, MD Jh [address] [place] [address] PCP - General Family Medicine 05/29/16 Juliet Wren, PharmD [address] [place] [address] Pharmacist Internal Medicine 07/17/22 documented as of this encounter
--- OUTSIDE RECORDS SUMMARY | 2024-07-15 12:05 | XMS_ITS | Encounter Summary ---
Author Organization [employer] Address [address] [facility] 7t [place] [address] Care Team Providers Care Lease Administration Analyst Name Role Phone NameJh MD Primary Care Provider [phone] Juliet Wren PharmD Unavailable [phone] Reason for Visit * Reason Onset Date Comments Med Refill 07/14/2024 Encounter Details Date Type Department Care Team (Late st Contact Info) Description 07/14/2024 Refill [facility] [address] [place], [place] [phone] Name, MD Jh [address] [place], [place] [phone] Chronic pain syndrome Social History Tobacco Use [...] encounter Miscellaneous Notes * Telephone Encounter - Cinthya Ayon RN - 07/14/2024 12:04 PM EDT [employer] checked by contract technical writer on 07/14/24. Pt picked up a 28 day supply of oxyCODONE- acetaminophen (Percocet) 5-325 MG tablet on 06/17/24. Pt due for refill tomorrow 07/15/24. Medication pended to PCP with a starting date of 07/15/24 for review. Message forwarded to PCP to review and advise. * Telephone Encounter - Helen Krause - 07/14/2024 10:50 AM EDT TC from pt requesting medication refill. Medications needing refill : oxyCODONE-acetaminophen (Percocet) 5-325 MG tablet To be sent to: [facility] - CHERYL Pruett - [address] [place] [address] St documented in this encounter Plan of Treatment Upcoming Encounters Date Type Department Care Team (Late st Contact Info) Description 08/06/2024 1:00 PM EDT Clinical Support [address] [phone] Cee Toussaint RN 09/29/2024 3:15 PM EDT Office Visit [address] [address] Name, MD Jh [place] 10/29/2024 1:00 PM EDT Medication Management [address] [phone] Puia, Juliet, PharmD [place], [place] documented as of this encounter Goals [...] documented as of this encounter Care Teams Lease Administration Analyst Relationship Specialty Start Date End Date Name, MD Jh [place], [place] [phone] PCP - General Family Medicine 05/29/16 Puia, Juliet, PharmD [place], [place] Pharmacist Internal Medicine 07/17/22 documented as of this encounter
--- OUTSIDE RECORDS SUMMARY | 2024-07-15 12:05 | XMS_ITS | Clinical Summary ---
Author Organization [employer] [facility] ity Address [address] [place] [address] Care Team Providers Care Weight Control Engineer Name Role Phone Name, Jh RACHEL Primary Care Provider [phone] Social History Tobacco Use Types Packs/Day Years [...] age to complete this topic Care Teams Weight Control Engineer Relationship Specialty Start Date End Date Name, MD Jh [address] [place], [place] PCP - General Internal Medicine 11/16/19
--- OUTSIDE RECORDS SUMMARY | 2024-07-15 12:05 | XMS_ITS | Encounter Summary ---
Author Organization [employer] Address [address] [facility] 7[address] [place] [address] Care Team Providers Care Deicer Finisher Name Role Phone Name, Jh RACHEL Primary Care Provider [phone] Juliet Wren PharmD Unavailable [phone] Encounter Details Date Type Department Care Team ([facility] st Contact Info) Description 07/13/2024 Telephone [facility] [address] [place], [place] [phone] Name, MD Jh [address] [place] [address] Social History Tobacco Use Types Packs/Day Years [...] Telephone Encounter - Cinthya Ayon RN - 07/13/2024 12:29 PM EDT Pt presented to blue team requesting results of US Renal BI. Pt reported to blue team FD that they were still experiencing symptoms. Translation provided by [facility] translator interpreter (ID#[id number]). Pt reports they have 8/10 pain in right and left side when coughing. Pt denies experiencing pain except when coughing. Pt denies other symptoms. Pt requesting results of US Renal BI. RN spoke with ordering provider who states US did not show kidney stones and results do not explain why pt is experiencing pain. recommended pt follow up with PCP or go to [facility] for evaluation. Pt reports now that they know results are not concerning, they are calmer. Pt advised to call office with any questions or concerns. Pt advised to come to [facility] if pain persists or new symptoms arise. Pt verbalized understanding and denies questions at this time. Pt has follow up with PCP on 09/29/24 at 3:15 PM. documented in this encounter Plan of Treatment Upcoming Encounters Date Type Department Care Team ([facility] st Contact Info) Description 08/06/2024 1:00 PM EDT Clinical Support [facility] [address] [place], [place] [phone] Cee Toussaint RN 09/29/2024 3:15 PM EDT Office Visit [facility] [address] [place] [address] Name, MD Jh [place], [place] 10/29/2024 1:00 PM EDT Medication Management [facility] [address] [place] [address] Puia, Juliet, PharmD Dar[place], [place] documented as of this encounter Goals [...] documented as of this encounter Care Teams Deicer Finisher Relationship Specialty Start Date End Date Name, MD Jh Darrian [place], [place] [phone] PCP - General Family Medicine 05/29/16 Puia, Juliet, PharmD [address] [place] [address] [phone] Pharmacist Internal Medicine 07/17/22 documented as of this encounter
--- OUTSIDE RECORDS SUMMARY | 2024-07-15 12:06 | XMS_ITS | Encounter Summary ---
Author Organization [employer] Address [address] [facility] 7t [place] [address] Care Team Providers Care Diver Helper Name Role Phone Jh Bullard MD Primary Care Provider [phone] Juliet Wren PharmD Unavailable [phone] Reason for Visit * Reason Onset Date Comments triage 02/08/2022 Encounter Details Date Type Department Care Team (Late st Contact Info) Description 02/08/2022 Telephone [facility] [address] [place], [place] [phone] Name, MD Jh [address] [place] [address] triage Social History Tobacco Use Types Packs/Day [...] caller The caller accepted this outcome speaks [place] documented in this encounter Plan of Treatment Upcoming Encounters Date Type Department Care Team (Late st Contact Info) Description 08/06/2024 1:00 PM EDT Clinical Support [address] [address] Cee Toussaint RN 09/29/2024 3:15 PM EDT Office Visit [address] [address] Name, MD Jh [address] [place] [address] 10/29/2024 1:00 PM EDT Medication Management [address] [address] Juliet Wren PharmD [address] [place] [address] documented as of this encounter Visit Diagnoses Not on filedocumented in this encounter Care Teams Diver Helper Relationship Specialty Start Date End Date Name, MD Jh [address] [place] [address] PCP - General Family Medicine 05/29/16 Juliet Wren, PharmD [address] [place] [address] Pharmacist Internal Medicine 07/17/22 documented as of this encounter
--- OUTSIDE RECORDS SUMMARY | 2024-07-15 12:06 | XMS_ITS ---
Author Name Willy ALUMINUM POURER,HERBICIDE SERVICE SALES REPRESENTATIVE,FN P,APPLIQUE CUTTER, Isabel Address [address] [place] [address] Phone [phone] Organization [facility] Care Team Providers Care Cashier And Waiter/Waitress Name Role Phone AguileraMagdalenoIsabel Unavailable [phone] Unavailable Unavailable Unavailable [facility] Unavailable [phone] Reason for Referral Not Available Allergies, adverse [...] 2021-03-20 No Data Available OneTouch Delica Plus Howtxk00B Miscellaneous TEST BLOOD SUGAR THREE TIMES DAILY [...] PARA EL DOLOR 2021-08-21 No Data Available Huy [place] Flex System w/Device Kit TEST BLOOD SUGAR [...] 2023-12-24 No Data Available TRUEplus 5-Bevel Pen Grawn 32G X 4 MM Miscellaneous USE FOUR DAILY 2023-11-11 No Data Availab le Melatonin 5 mg Cap 1-2 gummies QHS 2024-04-17 No Ian a Available Problem List Problem Status Onset Date Resolved Date History of alcohol abuse Active 2022-11-07 N/A Other problems related to ga dical facilities and other health care Active [...] (do not use for phone, instead use 69472-76) [facility] [place]20[place] Type 2 diabetes [...] (do not use for phone, instead use 83870-36) [facility] [place] Estab. patient 30-39min; chronic exacerbation, 2 stable chronic or 1 acute illness add add modifier 95 for video, (do not use for phone, instead use 03663-10) [facility] [place]20[place] Estab. patient 30-39min; chronic exacerbation, 2 stable chronic or 1 acute illness add add modifier 95 for video, (do not use for phone, instead use 06820-73) [facility] [place]20[place] Estab. patient 30-39min; chronic exacerbation, 2 stable chronic or 1 acute illness add add modifier 95 for video, (do not use for phone, instead use 58411-10) [facility]20[place] Estab. patient 30-39min; chronic exacerbation, 2 stable chronic or 1 acute illness add add modifier 95 for video, (do not use for phone, instead use 41681-16) [facility]20[place] Estab. patient 30-39min; chronic exacerbation, 2 stable chronic or 1 acute illness add add modifier 95 for video, (do not use for phone, instead use 21036-55) [facility] [place] 11/[place]2022 Estab. patient 20-29min; 1 stable chronic or 2 minor; add add modifier 95 for video, modifier 93 for phone [facility] [place] 11/14/2022 Type 2 diabetes mellitus wit h [...] video, modifier 93 for phone [facility] [place] 11/14/2022 Estab. patient 20-29min; 1 stable chronic or 2 minor; add add modifier 95 for video, modifier 93 for phone [facility] [place] 11/14/2022 Estab. patient 30-39min; chronic exacerbation, 2 stable chronic or 1 acute illness add add modifier 95 for video, (do not use for phone, instead use 98676-19) [facility] [place] 06/12/2023 Type 2 diabetes mellitus wit h [...] (do not use for phone, instead use 20451-31) [facility] [place] 06[place]12/2023 Estab. patient 30-39min; chronic exacerbation, 2 stable chronic or 1 acute illness add add modifier 95 for video, (do not use for phone, instead use 83926-32) [facility] [place] 06/12/2023 Estab. patient 30-39min; chronic exacerbation, 2 stable chronic or 1 acute illness add add modifier 95 for video, (do not use for phone, instead use 54285-12) [facility] [place] 06[place]12/2023 Estab. patient 30-39min; chronic exacerbation, 2 stable chronic or 1 acute illness add add modifier 95 for video, (do not use for phone, instead use 98204-48) [facility] [place] 06/12/2023 Estab. patient 30-39min; chronic exacerbation, 2 stable chronic or 1 acute illness add add modifier 95 for video, (do not use for phone, instead use 03308-52) [facility] [place] 06[place]12/2023 Estab. patient 30-39min; chronic exacerbation, 2 stable chronic or 1 acute illness add add modifier 95 for video, (do not use for phone, instead use 62247-94) [facility] [place] 06/12/2023 Estab. patient 30-39min; chronic exacerbation, 2 stable chronic or 1 acute illness add add modifier 95 for video, (do not use for phone, instead use 13168-47) [facility] [place] 06/12/2023 Estab. patient 30-39min; chronic exacerbation, 2 stable chronic or 1 acute illness add add modifier 95 for video, (do not use for phone, instead use 13140-53) [facility] [place] 06/12/2023 Estab. patient 30-39min; chronic exacerbation, 2 stable chronic or 1 acute illness add add modifier 95 for video, (do not use for phone, instead use 51968-80) [facility] [place] 06/12/2023 Estab. patient 30-39min; chronic exacerbation, 2 stable chronic or 1 acute illness add add modifier 95 for video, (do not use for phone, instead use 48192-34) [facility] [place] 06/12[place]2023 RN, CN or CP time with patient by phone; use with 1111F, BP, A1c or other CPTII codes [facility] [place] 10/01/2023 Encounter for other specifie d aftercare RN, CN or CP time with patient by phone; use with 1111F, BP, A1c or other CPTII codes [facility] [place] 10/01/2023 No Data Available [facility] [place] 10/08/2023 Enlarged prostate without lo wer urinary tract symptomsOther problems related to medical facilities and other health care No Data Available [facility] [place] 10/08/2023 No Data Available [facility] [place] 10/08/2023 Estab. patient 20-29min; 1 stable chronic or 2 minor; add add modifier 95 for video, modifier 93 for phone [facility] [place] 04/17/2024 Type 2 diabetes mellitus wit h [...] modifier 93 for phone [facility] 04/17/2024 Estab. patient 20-29min; 1 stable chronic or 2 minor; add add modifier 95 for video, modifier 93 for phone [facility] 04/17/2024 Estab. patient 20-29min; 1 stable chronic or 2 minor; add add modifier 95 for video, modifier 93 for phone [facility] 04/17/2024 Estab. patient 20-29min; 1 stable chronic or 2 minor; add add modifier 95 for video, modifier 93 for phone [facility] [place] 04/17/2024 Estab. patient 20-29min; 1 stable chronic or 2 minor; add add modifier 95 for video, modifier 93 for phone [facility] 04/17/2024 Estab. patient 20-29min; 1 stable chronic or 2 minor; add add modifier 95 for video, modifier 93 for phone [facility] 04/17/2024 Estab. patient 20-29min; 1 stable chronic or 2 minor; add add modifier 95 for video, modifier 93 for phone [facility] 04/17/2024 Vital Signs Date of Collection Vitals [...] tive Time Current Smoking Status Former smoker 2024-06-26 1 Sex Male Gender identity Man History of [...] le No Data Available No Data Available [id number] 2021-12-07 No Data Available No Data Available SBP < 130 (3074F) 3074F 2021-12-07 No Data Available No Data Available DBP 80-89 (3079F) 3079F 2021-12-07 No Data Available No Data Available Estab. patient 30-39min; chronic exacerbation, 2 stable chronic or 1 acute illness add add modifier 95 for video, (do not use for phone, instead use 30904-63) 50671 2022-11-07 No Data Available No Data Availa [...] 95 for video, modifier 93 for phone 30065 2022-11-14 No Data Available No Data Availa [...] (do not use for phone, instead use 10403-44) 36375 2023-06-12 No Data Available No Data Availa [...] 1111F, BP, A1c or other CPTII codes 65159 2023-10-01 No Data Available No Data Avai lable Medications prescribed in hospital were reviewed and reconciled against what they were taking prior to admission during today's visit. (1111F) 1111F 2023-10-01 No Data Available No Data Availa ble No Data Available 81616 2023-10-08 No Data Available No Data Available [...] 95 for video, modifier 93 for phone 22568 2024-04-17 No Data Available No Data Availa [...] Patient Education to avoid future hospitalization: [facility] if symptoms of illness develop.Other problems [...] modifier 95Continue to see PCP. [facility] or disease education needs that may arise.On Lantus, Lispro, MetforminCautioned re risk of sedation, safety.Sending NarcanOn Amitriptylene, Buspirone, SertralineOn carvediloloxycodoneoxycodoneTamsulosinWill FU when pt can have a friend, PASTRY SOUS CHEF or family member with himLifestyle adviceOn carvedilol, [...] Frequent panic attacksPlanned intervention: Transfer member to [address] [place] [address]/ Hydroxyzine (Vistaril) 25mg PO q6h PRN anxiety/ [...] Frequent panic attacksPlanned intervention: Transfer member to [address] [place] [address]/ Hydroxyzine (Vistaril) 25mg PO q6h PRN anxiety/ [...] Frequent panic attacksPlanned intervention: Transfer member to [address] [place] [address]/ Hydroxyzine (Vistaril) 25mg PO q6h PRN anxiety/ [...]
--- OUTSIDE RECORDS SUMMARY | 2024-07-15 12:06 | XMS_ITS | Encounter Summary ---
Author Organization [employer] Address 75 [facility] 7t [place] [address] Care Team Providers Care Modern Dancer Name Role Phone Name, Jh RACHEL Primary Care Provider [phone] Juliet Wren PharmD Unavailable [phone] Encounter Details Date Type Department Care Team (Late st Contact Info) Description 07/13/2022 Abstract [facility] [address] [place] [address] [phone] Name, MD Jh [address] [place] [phone] Social History Tobacco Use Types Packs/Day Years [...] Description 08/06/2024 1:00 PM EDT Clinical Support [facility] [address] [place] [address] Cee Toussaint RN 09/29/2024 3:15 PM EDT Office Visit [facility] [place] [phone] Name, [place] [address] 10/29/2024 1:00 PM EDT Medication Management [facility] [place] [phone] [place] [address] documented as of this encounter Procedures Procedure [...] documented as of this encounter Care Teams Modern Dancer Relationship Specialty Start Date End Date Name, [place] [address] PCP - General Family Medicine 05/29/16 Juliet Wren PharmD [place] [phone] Pharmacist Internal Medicine 07/17/22 documented as of this encounter
--- OUTSIDE RECORDS SUMMARY | 2024-07-15 12:06 | XMS_ITS | Encounter Summary ---
Author Organization [employer] Address 75 [facility] [address]t [place] [address] Care Team Providers Care Tufting Creeler Name Role Phone Jh Bullard MD Primary Care Provider [phone] Juliet Wren PharmD Unavailable [phone] Reason for Visit * Reason Comments Med Refill Encounter Details Date Type Department Care Team ([facility] st Contact Info) Description 02/26/2023 Refill [facility] [address] [place], [place] [phone] Name, MD Jh [address] [place], [place] [phone] Chronic pain syndrome Social History Tobacco Use [...] Description 08/06/2024 1:00 PM EDT Clinical Support [address] [address] Cee Toussaint RN 09/29/2024 3:15 PM EDT Office Visit [address] [address] Name, MD Jh [address] [place] [address] 10/29/2024 1:00 PM EDT Medication Management [address] [address] PuiaJuliet, PharmD [address] [place] [address] documented as of this encounter Goals Goal [...] documented as of this encounter Care Teams Tufting Creeler Relationship Specialty Start Date End Date Name, MD Jh [address] [place] [address] PCP - General Family Medicine 05/29/16 Juliet Wren, FabyD [address] [place] [address] Pharmacist Internal Medicine 07/17/22 documented as of this encounter
--- OUTSIDE RECORDS SUMMARY | 2024-07-15 12:06 | XMS_ITS | Encounter Summary ---
Author Organization [employer] Address [address] [place] [address] Care Team Providers Care Facilities Custodian Name Role Phone Name, Jh RACHEL Primary Care Provider [phone] Juliet Wren PharmD Unavailable [phone] Encounter Details Date Type Department Care Team ([facility] st Contact Info) Description 05/16/2023 Telephone [facility] [address] [place], [place] [phone] Name, MD Jh [address] [place] [address] Social History Tobacco Use Types Packs/Day Years [...] Description 08/06/2024 1:00 PM EDT Clinical Support [address] [address] Cee Toussaint RN 09/29/2024 3:15 PM EDT Office Visit [address] [address] NameJh MD [address] [place] [address] 10/29/2024 1:00 PM EDT Medication Management [address] [address] PuJuliet gunn, PharmD [address] [place] [address] documented as of this encounter Goals Goal [...] documented as of this encounter Care Teams Facilities Custodian Relationship Specialty Start Date End Date Jh Bullard MD [address] [place] [address] PCP - General Family Medicine 05/29/16 Juliet Wren PharmD [address] [place] [address] Pharmacist Internal Medicine 07/17/22 documented as of this encounter
--- OUTSIDE RECORDS SUMMARY | 2024-07-15 12:06 | XMS_ITS | Clinical Summary ---
Author Organization [employer] Address [address] [facility] [address] [place] [address] Care Team Providers Care Bioinformatician Name Role Phone Name, Jh RACHEL Primary Care Provider [phone] Juliet Wren PharmD Unavailable [phone] Allergies No known active allergies Medications [...] each 04/09/19 25 Active TechLite Plus Pen [place] 32G X 4 MM misc USE FOUR DAILY 100 each 04/29/19 25 Active Continuous Glucose Accounts Payable Specialist (FreeStyle Laurent 3 [place]) deviceIndicatio ns:Type 2 diabetes mellitus without complication, with long-term current use of insulin ([facility]) 1 each Once per day. [...] complication, with long-term current use of insulin ([facility]/HCC) Use to test blood sugar up to [...] complication, with long-term current use of insulin ([facility]) TEST BLOOD SUGAR THREE TIMES DAILY 100 strip 11 04/30/19 25 Active Lancets (OneTouch Delica Plus [id number]) miscIndications :Type 2 diabetes mellitus without complication, with long-term current use of insulin ([facility]) TEST BLOOD SUGAR THREE TIMES DAILY 100 each 11 04/30/19 25 Active Viagra 100 MG tablet TAKE 1 TABLET 1 HOUR BEFORE SEXUAL RELATIONS ONCE DAILY NEEDED. 10 tablet 3 05/14/19 25 Active omeprazole (PriLOSEC) [address] capsuleIndicati ons:Essential hypertension TAKE 1 CAPSULE BY MOUTH EVERY DAY BEFORE A MEAL 30 capsule 5 05/20/19 25 Active tamsulosin (Flomax) 0.4 MG 24 hr capsule TAKE TWO CAPSULES DAILY 30 MINUTES AFTER THE SAME MEAL 60 capsule 5 06/17/19 25 Active docusate sodium (Colace) 100 MG capsule TAKE ONE CAPSULE TWICE DAILY 60 capsule 7 06/17/19 25 Active oxyCODONE-aceta minophen (Percocet) 5-325 MG tabletIndicatio ns:Chronic pain syndrome Take 1 tablet by mouth every 8 (eight) hours if needed for severe pain. Do not start before July 15, 2024. 84 tablet 07/16/19 25 Active chlorhexidine (Peridex) 0.12 % solution TAKE 15 ML BY MOUTH TWICE A DAY, SPIT DO NOT SWALLOW 06/13/19 25 Active methocarbamol (Robaxin) 750 MG tablet 07/05/19 25 Active docusate sodium (Colace) 100 MG capsule TAKE ONE CAPSULE TWICE DAILY 60 capsule 7 09/24/19 24 2024 Discontinued tamsulosin (Flomax) 0.4 MG 24 hr capsule TAKE TWO CAPSULES DAILY 30 MINUTES AFTER THE SAME MEAL 60 capsule 5 11/25/19 24 2024 Discontinued oxyCODONE-aceta minophen (Percocet) 5-325 MG tabletIndicatio ns:Chronic pain syndrome TAKE ONE TABLET EVERY 8 HOURS NEEDED FOR PAIN 84 tablet 05/22/19 25 2024 Discontinued Diclofenac Sodium 1 % gel Apply 1 inch topically if needed in the morning and at bedtime (pain). 60 g 06/09/19 25 2024 oxyCODONE-aceta minophen (Percocet) 5-325 MG tabletIndicatio ns:Chronic pain syndrome TAKE ONE TABLET EVERY 8 HOURS NEEDED FOR PAIN 84 tablet 06/18/19 25 2024 Discontinued(R eorder (will not trigger notification to Pharmacy)) Active Problems Problem Noted Date Diagnosed Date [...] the sigmoid colon 2016 [place] [facility] [place] 2 diabetes mellitus 03/02/2022 Irregular heart beat 12/16/2017 Benign prostatic hyperplasia 09/23/2017 Nocturia 07/15/2017 Hypertension 05/14/2017 Tubular adenoma of colon 12/19/2016 Overview (12/12/2023): repeat screening colonoscopy in 2021 Splenic vein thrombosis 10/24/2016 Chronic low back pain 06/01/2016 History of alcohol abuse 06/01/2016 Shoulder pain 06/01/2016 Pseudocyst of pancreas 06/01/2016 Encounters Date Type Department Care Team Description 07/14/2024 Refill [facility] MEDICINE [address] [place] [address] Name, MD Jh Chronic pain syndrome 07/13/2024 Telephone [facility] MED[facility]INE [address] [place], [place] [phone] Name, MD Jh 06/25/2024 1:00 PM EDT Office Visit [facility] OPTOMETRY [address] [place] [address] Salazar, Milvia, OD Diabetes type 2, no ocular involvement (CMS/HCC) (Primary Dx); RPE mottling of macula; Chorioretinal scar, left eye; 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; Combined forms of age-related cataract of both eyes; Nevus of iris of left eye; Presbyopia 06/25/2024 Travel 06/16/2024 Refill [facility] MED [facility] PEDS [address] [place] [address] Katie Zhong NP Chronic pain syndrome 06/13/2024 Refill [facility] PED[facility] [address] [place] [address] Jh Bullard MD 06/12/2024 Telephone [facility] MED[facility]INE [address] [place] [phone] Gaby Jean MA august recalls 06/08/2024 1:40 PM EDT Office Visit [facility] [address] [place] [phone] Piper Johnson MD Right upper quadrant abdominal pain (Primary Dx); Hematuria, unspecified type 06/08/2024 Travel 05/21/2024 Telephone [facility] MED[facility]INE [address] [place] [phone] Jh Bullard MD 05/21/2024 Telephone [facility] [address] [place] [address] Jh Bullard MD Med Refill 05/19/2024 Refill [facility] PED[facility] [address] [place] [address] Jh Bullard MD Chronic pain syndrome 05/19/2024 Telephone [facility] [address] [place] [address] Jh Bullard MD 05/18/2024 1:45 PM EDT Office Visit [facility] [address] [place] [phone] Jh Bullard MD Type 2 diabetes mellitus without complication, with long-term current use of insulin (CMS/HCC) (Primary Dx); Hypertension, unspecified type; Hyperlipidemia, unspecified hyperlipidemia type; Need for hepatitis C screening test 05/18/2024 Travel 05/18/2024 Refill [facility] PEDS [address] [place] [address] Jh Bullard MD Essential hypertension 05/14/2024 Telephone [facility] MED[facility]INE [address] [place], [place] [phone] Gaby Jean MA chart prep 05/13/2024 Refill [facility] MED[facility] [address] [place], [place] [phone] Ariadna West NP 04/28/2024 Refill [facility] [address] [place], [place] [phone] Jh Bullard MD Type 2 diabetes mellitus without complication, with long-term current use of insulin ([facility]) 04/28/2024 Refill [facility] [address] [place], [place] [phone] Jh Bullard MD 04/20/2024 Refill [facility] [address] [place], [place] [phone] Jh Bullard MD Chronic pain syndrome from Last 3 Months Immunizations Immunization Administration Dates Next Due Pfizer Covid-19 Vaccine [...] Description 08/06/2024 1:00 PM EDT Clinical Support [address] [address] Cee Toussaint, RN 09/29/2024 3:15 PM EDT Office Visit [address] [address] Name, MD Jh [address] [place] [address] 10/29/2024 1:00 PM EDT Medication Management [address] [address] Juliet Wren, PharmD [address] [place] [address] Health Maintenance Due Date Last Done Comments [...] 03/05/2017, 04/02/2016 Depression Screening 05/18/2025 05/18/2024, 05/19/19 SDOH Screening 05/18/2025 05/18/2024 Diabetes: Urine Protein [...] Procedure Name Priority Date/Time Associated Diagnosis Comments US RENAL BI Routine 07/06/2024 3:35 PM EDT Right upper quadrant abdominal pain XR CHEST 2 VIEWS Routine 06/08/2024 2:49 [...] with long-term current use of insulin (CMS/HCC) Hypertension, unspecified type Hyperlipidemia, unspecified hyperlipidemia type LIPID PANEL, STANDARD Routine 05/21/2024 10:08 AM EDT Type 2 diabetes mellitus without complication, with long-term current use of insulin (CMS/HCC) Hypertension, unspecified type Hyperlipidemia, unspecified hyperlipidemia type COMPREHENSIVE METABOLIC PANEL Routine 05/21/2024 10:08 AM EDT Type 2 diabetes mellitus without complication, with long-term current use of insulin (CMS/HCC) Hypertension, unspecified type Hyperlipidemia, unspecified hyperlipidemia type CBC WITH AUTO DIFFERENTIAL Routine 05/21/2024 10:08 AM EDT Type 2 diabetes mellitus without complication, with long-term current use of insulin (CMS/HCC) Hypertension, unspecified type Hyperlipidemia, unspecified hyperlipidemia type POCT GLUCOSE Routine 05/18/2024 1:45 PM EDT Type 2 diabetes mellitus without complication, with long-term current use of insulin (CMS/HCC) POCT GLYCATED HEMOGLOBIN, TOTAL Routine 04/28/2024 1:48 PM EST Type 2 diabetes mellitus without complication, with long-term current use of insulin (CMS/HCC) HM COLONOSCOPY Routine 04/02/2023 from Last 3 Months or Most Recently Relevant to Health Maintenance Results * US RENAL BI (07/06/2024 3:35 PM EDT) Anatomical Region Laterality Modality Abdomen Ultrasound 07/06/2024 3:35 PM EDT Narrative 07/06/2024 3:54 PM EDT ? [facility] ?[address] ?[place] [address] ? Ultrasound Report ? Signed ? Patient: Landen Byers ?MR#: [id number] ?? [id number] ? : 1955 ?Acct:[id number] ? Age/Sex: 69 / M ?ADM Date: 07/06/24 ? Loc: HO.US ? Attending Dr: Piper Johnson MD ? Ordering Physician: Piper Johnson MD ?? Date of Service: 07/06/24 ?? Procedure(s): US renal BI ?? Accession Number(s): [id number] ? cc: Piper Johnson MD; Name,Jh RACHEL ? EXAMINATION: ?? Ultrasound renal, bilaterally. ? CLINICAL INFORMATION: ?? Hematuria. ? COMPARISON: ?? Correlated to CT dated October 10, 2017. ? TECHNIQUE: ? Real-time ultrasound of the kidneys using grayscale and color Doppler ?? technique. ? FINDINGS: ? Right kidney: ? 11 x 7 x 6 cm. Volume: 210 cc. ?? Normal echotexture. ?? Normal renal cortical thickness. ?? No hydronephrosis. ?? No solid or cystic lesion. ? Left kidney: ? 12 x 6.5 cm. Volume: 187 cc. ?? Normal echotexture. ?? Normal renal cortical thickness. ?? No hydronephrosis. ?? No gross solid or cystic lesion. ? US/US renal BI ?? IMPRESSION: ? No hydronephrosis. Prior CT demonstrated vascular desiccation's in the ?? renal hilum bilaterally. ? Electronically signed by: ??Wiley Forbes MD ??07/06/2024 03:51 PM ?? EDT RP ? Dictated By: ?Wiley Sanders MD ? Signed By: ?<Electronically signed by Wiley De Paz MD in OV> ? 07/06/24 1551 ? DD/ 1535 ? TD/TT: 07/06/24 1539 ? Event Organizer: ? Procedure Note Donotuseinterpreter, Image - 07/06/2024 [place] [address] Ultrasound Report Signed Patient: Farideh Byers#: [id number] : 5Acct:[id number] Age/Sex: 69 / MADM Date: 07/06/24 Loc: HO.US Attending Dr: Piper Johnson MD Ordering Physician: Piper Johnson MD Date of Service: 07/06/24 Procedure(s): US renal BI Accession Number(s): [id number] cc: Piper Johnson MD; Name,Jh RACHEL EXAMINATION: Ultrasound renal, bilaterally. CLINICAL INFORMATION: Hematuria. COMPARISON: Correlated to CT dated October 10, 2017. TECHNIQUE: Real-time ultrasound of the kidneys using grayscale and color Doppler technique. FINDINGS: Right kidney: 11 x 7 x 6 cm. Volume: 210 cc. Normal echotexture. Normal renal cortical thickness. No hydronephrosis. No solid or cystic lesion. Left kidney: 12 x 6.5 cm. Volume: 187 cc. Normal echotexture. Normal renal cortical thickness. No hydronephrosis. No gross solid or cystic lesion. US/US renal BI IMPRESSION: No hydronephrosis. Prior CT demonstrated vascular desiccation's in the renal hilum bilaterally. Electronically signed by: Wiley Forbes MD 07/06/2024 03:51 PM EDT Dictated By: Wiley Sanders MD Signed By: <Electronically signed by Wiley De Paz MDin OV> 07/06/24 1551 DD/ 1535 TD/TT: 07/06/24 1539 Event Organizer: us Piper Johnson MD IMG US PROCEDURES Final Result * XR Chest 2 Views (06/08/2024 2:49 PM EDT) Anatomical Region Laterality Modality Chest Radiographic Lily ging 06/08/2024 2:49 PM EDT Narrative 06/08/2024 3:26 PM EDT ?[facility] ?[address] ?[place] [address] ?XRay Report ? Signed ? Patient: Daniela Hilton,Landen ?MR#: [id number] ?? [id number] ? : 1955 ?Acct:[id number] ? Age/Sex: 69 / M ?ADM Date: 06/08/24 ? Loc: HO.HHCX ? Attending Dr: Piper Johnson MD ? Ordering Physician: Piper Johnson MD ?? Date of Service: 06/08/24 ?? Procedure(s): XR chest 2V ?? Accession Number(s): [id number] ? cc: Piper Johnson MD ? EXAMINATION: [...] ??Darryl Martines MD ??06/08/2024 03:24 PM EDT ?? RP ? Dictated By: ?Darryl Martines MD ? Signed By: ?<Electronically signed by Darryl Martines MD in OV> ?06/08/24 1524 ? DD/ 1449 ? TD/TT: 06/08/24 1511 ? Event Organizer: ? Procedure Note Hasmukh Thomas - 06/08/2024 [facility] [address] [facility] [place] [address] XRay Report Signed Patient: Farideh Byers#: [id number] : 5Acct:[id number] Age/Sex: 69 / MADM Date: 06/08/24 Loc: [facility] Attending Dr: Piper Johnson MD Ordering Physician: Piper Johnson MD Date of Service: 06/08/24 Procedure(s): XR chest 2V Accession Number(s): [id number] cc: Piper Johnson MD EXAMINATION: XR CHEST [...] 06/08/24 1524 DD/ 1449 TD/TT: 06/08/24 1511 Event Organizer: Piper Johnson MD IMG XR PROCEDURES Edited [...] 10:08 AM EDT) Creatinine, Urine 63.26 mg/dL [facility] Microalbumin Urine <5.0 mg/L [facility] Microalbum Creatinine Ratio Ur TNP <30 ug/mg cr [facility] Comment:Unable to calculate albumin/creatinine ratio due to lowmicroalbumin or creatinine result. Urine (Urine, Random) 05/21/2024 10:08 AM EDT 05/21/2024 11:03 AM EDT us Jh Name LAB URINE ORDERABLES Final Resul t [facility] [address] [place] [phone] * (ABNORMAL) CBC auto differential (05/21/2024 10:08 AM EDT) Pathologist [facility] White Blood Count 3.9(L) 4.8 - 10.8 [...] 05/21/2024 11:06 AM EDT us Jh Name LAB BLOOD ORDERABLES Final Resul t [facility] [address] [place] [phone] * Hepatitis C Antibody with Reflex [...] ORDERABLES Final Resul t Performing Organization Address [facility] Co de Phone Number [facility] [address] [place] [phone] * (ABNORMAL) Lipid Panel, Standard (05/21/2024 10:08 AM EDT) Triglycerides 69 <150 mg/dL [facility] Comment:Desirable Triglyceri de: less than 150 [...] 190 mg/dL HDL Cholesterol 55 >40 mg/dL [facility] Comment:Desirable HDL: great er than 40 mg/dL Note: This HDL assay may give artificially low results in patients with liver disease. Blood Venous blood specimen / Unknown 05/21/2024 10:08 AM EDT 05/21/2024 11:01 AM EDT us Jh Bullard MD LAB BLOOD ORDERABLES Final Resul t Performing Organization Address [facility]/ZIP Co de Phone Number [facility] [address] [place] [address] [phone] * (ABNORMAL) Comprehensive Metabolic Panel (05/21/2024 [...] Kidney Disea se: Estimated GFR < 60 mL/min/1.56w5Ddmuoa Kidney Disease: Estimated GFR < 15 mL/min/1.73m2 [...] Resul t [facility] [address] [place] [address] [phone] * POCT Glucose (05/18/2024 1:45 PM [...] Most Recently Relevant to Health Maintenance Insurance [facility] DUAL COMPLETE [facility] STANDARD Care Teams Bioinformatician Relationship Specialty Start Date End Date Name, MD Jh [address] [place] [address] PCP - General Family Medicine 05/29/16 Juliet Wren PharmD [address] [place] [phone] Pharmacist Internal Medicine 07/17/22
--- OUTSIDE RECORDS SUMMARY | 2024-07-15 12:06 | XMS_ITS | Encounter Summary ---
Author Organization [employer] Address [address] [facility] [address] [place] [address] Care Team Providers Care Therapeutic Strategy Lead Name Role Phone Name, Jh RACHEL Primary Care Provider [phone] Juliet Wren PharmD Unavailable [phone] Encounter Details Date Type Department Care Team ([facility] st Contact Info) Description 05/02/2023 Telephone [facility] [address] [place], [place] [phone] Name, MD Jh [address] [place] [address] Social History Tobacco Use Types Packs/Day Years [...] Description 08/06/2024 1:00 PM EDT Clinical Support [address] [address] Cee Toussaint RN 09/29/2024 3:15 PM EDT Office Visit [address] [address] NameJh MD [address] [place] [address] 10/29/2024 1:00 PM EDT Medication Management [address] [address] PuJuliet gunn, PharmD [address] [place] [address] documented as of this encounter Goals Goal [...] documented as of this encounter Care Teams Therapeutic Strategy Lead Relationship Specialty Start Date End Date Jh Bullard MD [address] [place] [address] PCP - General Family Medicine 05/29/16 Juliet Wren PharmD [address] [place] [address] Pharmacist Internal Medicine 07/17/22 documented as of this encounter
== END ==
LOC: HO.CARD 10:37
PROVIDERS: PCP Internal Medicine Geriatric Medicine; Visit Provider Nurse Practitioner Family
DX: I49.1 Atrial premature depolarization (principal); G45.9 Transient cerebral ischemic attack, unspecified; I47.10 Supraventricular tachycardia, unspecified
CPT/HCPCS: 93242; 93306; Q9957

== ENCOUNTER → 2024-07-15 10:41 | Outpatient (BNV) | payer OTHER, SELFPAY | PROVIDERS: PCP Internal Medicine Geriatric Medicine; Visit Provider Internal Medicine Cardiovascular Disease | DX: R94.31 Abnormal electrocardiogram [ECG] [EKG] (principal) | CPT/HCPCS: 93306 ==

== ENCOUNTER 2024-08-13 13:34 | Outpatient (AMB) | payer OTHER, SELFPAY ==
--- NOTE | 2024-08-13 13:35 | A.OFFVIS_ITS ---
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 Present Accompanied by: Spouse Allergies No Known Allergies (No Known Allergies*) Allergy (Verified 06/11/24 09:21) Medication List - Last Reconciled 08/13/24 by Macey Noe NP-C amitriptyline 75 mg PO BEDTIME bisacodyl (Dulcolax (bisacodyl)) 10 mg (2 x 5 mg) PO BEDTIME 30 days buspirone 5 mg PO DAILY carvedilol 12.5 mg PO BID docusate sodium 100 mg PO BID famotidine 40 mg PO BEDTIME insulin glargine (Lantus Solostar U-100 Insulin) 28 units subcut QAM insulin lispro 10 units subcut TID lancets (OneTouch Delica Plus Lancet) As directed linaclotide (Linzess) 290 mcg PO QAM 30 days lisinopril 20 mg PO DAILY magnesium oxide 400 mg PO DAILY metformin 1,000 mg PO BID methocarbamol 750 mg PO BID PRN 30 days naloxone 4 mg/actuation 1 spray intranasal DAILY omeprazole 40 mg PO DAILY oxycodone-acetaminophen 5-325 mg (Percocet) 1 tab PO TID PRN pen needle, diabetic (Pentips Pen Needle) As directed rosuvastatin 40 mg PO DAILY sertraline 50 mg PO QAM sildenafil (Viagra) 50 mg PO DAILY PRN HPI HPI follow up/holter/US: Details: Landen is a 69-year-old male with past medical history of diabetes, hypertension, hyperlipidemia, SVT, abnormal EKG who reported episodes of mouth and left hand numbness on last visit. An echocardiogram, Holter monitor and carotid ultrasound were ordered. The carotid ultrasound was not done for unclear reason. He now presents for follow-up. Today he reports that since last visit he had 1 episode of numbness along the left side of his mouth and left hand tingling that occurred on 08/10/2024 and lasted 2 minutes.solves. He denies any speech, swallowing or limb mobility issues. No visual changes. He does get occasional heart palpitations. No chest discomfort, shortness of breath. No presyncope, syncope, falls. He is taking his medications as directed. is present. Certified system support developer used. [facility] Medical History Cervical spondylosis Pre-op examination Cervical radiculitis Muscle spasm Left shoulder pain Low back pain Lumbar degenerative disc disease Diabetes type 2, controlled Palpitations SVT (supraventricular tachycardia) HLD (hyperlipidemia) HTN (hypertension) Surgical History Hx of colonoscopy S/P shoulder surgery Family History Father CVD (cardiovascular disease) Mother Cancer Social History Alcohol intake: former Year quit: 2016 Patient Tobacco Use Status: Former Tobacco user Years Smoked: 25 +/- Current occupational status: retired Current occupation: rt handed Review of Systems Const All systems reviewed & are unremarkable except as noted in HPI and below Denies chills, Denies fatigue, Denies fever(s), Denies frequent falls, Denies weakness, Denies weight gain and Denies weight loss ENT Details: episode of numbness around mouth and left hand - 3 days ago, lasted 2 min Denies dizziness Card Denies chest pain, Denies leg edema, Denies lightheadedness, Denies palpitations, Denies dyspnea, Denies dyspnea on exertion, Denies orthopnea and Denies other (loss of consciousness) Resp Denies cough, Denies dyspnea and Denies dyspnea on exertion GI Denies hematochezia and Denies change in stool character Musc Denies abnormal gait, Denies muscle weakness, Denies radiating pain into limb and Denies tingling Neuro Denies abnormal gait, Denies dizziness, Denies frequent falls, Denies tingling and Denies weakness Endo Denies fatigue and Denies palpitations Physical Exam Vital Signs: Last Vital Signs Pulse 68 08/13/24 13:36 BP 126/74 08/13/24 13:36 BMI result Body Mass Index 30.6 Const General: cooperative, healthy appearing, comfortable and no acute distress Orientation/consciousness: patient oriented x3 Neck Neck: Yes normal visual inspection and Yes no JVD Carotids: normal carotid upstroke Resp Effort & Inspection: normal respiratory effort Auscultation: clear to auscultation bilaterally, no crackles, no rales, no rhonchi and no wheezes Cardio Rate: regular rate Heart sounds: S1 normal heart sound present, S2 normal heart sound present, no murmurs and no rubs Neuro General: patient oriented x3 Extrem General: Yes normal to inspection Psych Appearance: grossly normal Mental Status: mental status grossly normal Speech and movement: Normal speech and movement present Assessment & Plan Assessment & Plan (1) Numbness around mouth: Code(s): R20.0 - Anesthesia of skin Category: Medical Plan: Reports intermittent numbness around the mouth and 2 occasion had additional numbness in his left hand. Last episode occurred on 08/10/2024 and lasted 2 minutes. Currently he is asymptomatic. No carotid bruit noted on exam. Carotid ultrasound is still pending. Holter monitor done 07/15/2024 for 7 days shows sinus rhythm with average heart rate 86, frequent PACs with burden 40%, short runs, longest 19 beats rate 169. Echocardiogram done 07/15/2024 showed EF 55- 60%, no valve abnormalities, both atria normal size. His carvedilol was recently increased up to 12.5 mg b.i.d.. His heart tones do have regular irregularity today consistent with PACs. Will order a brain MRI to evaluate for TIA/CVA. Plan to call him with results.. Still unclear if his symptom is TIA or not. Will forward this note to his PCP for further review. Instructed to seek emergency medical care if his symptoms persist or worsen. Cardiology follow-up 3 months, sooner if needed. (2) Abnormal EKG: Code(s): R94.31 - Abnormal electrocardiogram [ECG] [EKG] Category: Medical Plan: EKG done on prior visit was showing normal sinus rhythm with sinus arrhythmia, left axis deviation and can not exclude anterior infarct. He has multiple cardiac risk factors including obesity, hypertension, hyperlipidemia and uncontrolled diabetes. Exercise nuclear stress test was done on 12/11/2022 showing exercise 5 minutes, no anginal symptoms, no EKG changes and normal myocardial perfusion imaging however EF noted at 47%. The EF on his echocardiogram at that time was normal. Recent echo as above showing normal EF and no reported regional wall motion abnormalities. Continue Cardiac risk factor modification. No medication changes made. Signs and symptoms of angina reviewed. (3) SVT (supraventricular tachycardia): Code(s): I47.1 - Supraventricular tachycardia Category: Medical Plan: History of SVT. He has been on carvedilol for heart rate control. Dose recently increased due to Holter findings of frequent PACs and short atrial runs. He does report brief intermittent heart palpitations as above. Reviewed reduction in caffeinated beverages, staying well hydrated getting good rest. Activity as tolerated. (4) Palpitations: Code(s): R00.2 - Palpitations Category: Medical Plan: As above (5) HTN (hypertension): Code(s): I10 - Essential (primary) hypertension Category: Medical Qualifiers: Hypertension type: primary hypertension Qualified Code(s): I10 - Essential (primary) hypertension Plan: Blood pressure goal less than 130/80. Well controlled at this time (6) HLD (hyperlipidemia): Code(s): E78.5 - Hyperlipidemia, unspecified Category: Medical Qualifiers: Hyperlipidemia type: unspecified Qualified Code(s): E78.5 - Hyperlipidemia, unspecified Plan: [place] LDL goal less than 70 in patient with diabetes. Labs done 05/21/2024 showed LDL 109. Continue rosuvastatin. Followed by his PCP. (7) PAC (premature atrial contraction): Code(s): I49.1 - Atrial premature depolarization Category: Medical Plan: EKG done last visit shows sinus rhythm with 4 PACs on this 10 seconds tracing. Holter confirms very frequent PACs. This may put him at increased risk for having atrial fibrillation. We will follow him closely for this. Plan I discussed with the patient the need for an MRI of the brain to rule out any stroke risk due to his symptoms of numbness. We reviewed the importance of monitoring symptoms and seeking immediate care if they persist or worsen. I explained the role of carvedilol in managing his cardiac condition and the need to adjust lifestyle factors such as caffeine intake and hydration. Orders: Orders MR head/brain wo/w con Today G45.9 - Transient cerebral ischemic attack, unspecified, R20.0 - Anesthesia of skin Patient Instructions: - Schedule and complete the MRI of the brain as ordered. - Monitor for any new or persistent numbness, tingling, or weakness and seek immediate care if these occur. - Continue taking carvedilol as prescribed and report any side effects. - Stay physically active and hydrated, and limit caffeine intake. Patient was informed and verbally consented to the use of an ambient scribe for clinic note documentation during this visit. Visit time spent on chart review, interview, assessment, orders, documentation. Coding Level of Care Code Est Pt Level 4 (63449) Complex EM visit Add On G2211 Diagnoses Numbness around mouth R20.0 Abnormal EKG R94.31 SVT (supraventricular tachycardia) I47.1 Palpitations R00.2 Primary hypertension I10 Hypertension type: primary hypertension Hyperlipidemia, unspecified hyperlipidemia type E78.5 Hyperlipidemia type: unspecified PAC (premature atrial contraction) I49.1 Time Spent (min) 28
[2024-08-13 13:36] VITALS: BP 126/74; PULSE 68; BMI 30.6
--- OUTSIDE RECORDS SUMMARY | 2024-08-13 14:45 | XMS_ITS | Encounter Summary ---
Author Organization [employer] Address [address] [place] [address] Care Team Providers Care Skip Tender Name Role Phone Jh Bullard MD Primary Care Provider [phone] Juliet Wren PharmD Unavailable [phone] Reason for Visit * Reason Comments Med Refill Encounter Details Date Type Department Care Team ([facility] st Contact Info) Description 08/07/2024 Refill [facility] [address], [place] [id number] Name, MD Jh [address], [place] [phone] Chronic pain syndrome Social History Tobacco Use [...] encounter Miscellaneous Notes * Telephone Encounter - Cee Toussaint RN - 08/07/2024 10:44 AM EDT Per Low, Percocet last picked up 07/15/24. Refill due 08/12/24. Will forward to PCP on 08/10/24. documented in this encounter Plan of Treatment Upcoming Encounters Date Type Department Care Team (Late st Contact Info) Description 09/29/2024 3:15 PM EDT Office Visit [address] [id number] Name, MD Jh [address] [place] [id number] 10/29/2024 1:00 PM EDT Medication Management [address] [id number] Juliet Wren, PharmD [address] [place] [id number] 01/25/2025 1:30 PM EST Clinical Support [address] [address] Cee Toussaint, RN documented as of this encounter Goals Goal Patient Goal Type Associated Problems Recent Progress Patient-Stated? Author Record your blood pressure once a week Blood Pressure No Juliet Wren, PharmD Blood Pressure < 140/90 Blood Pressure 140/82(2024 2:10 PM EDT) No Juliet Wren, PharmD Hemoglobin A1c < [...] documented as of this encounter Care Teams Skip Tender Relationship Specialty Start Date End Date Name, MD Jh [address] [place] [address] PCP - General Family Medicine 05/29/16 Juliet Wren PharmD [address] [place] [address] Pharmacist Internal Medicine 07/17/22 documented as of this encounter
== END 2024-08-13 14:23 | disposition home or self-care (01) ==
LOC: HO.HCS 13:34
PROVIDERS: PCP Internal Medicine Geriatric Medicine; Visit Provider Nurse Practitioner Family
DX: R20.0 Anesthesia of skin (principal); R94.31 Abnormal electrocardiogram [ECG] [EKG]; I47.10 Supraventricular tachycardia, unspecified; R00.2 Palpitations; I10 Essential (primary) hypertension; E78.5 Hyperlipidemia, unspecified; I49.1 Atrial premature depolarization
CPT/HCPCS: 99214; G2211

== ENCOUNTER → 2024-08-13 13:34 | Outpatient (BNVA) | payer OTHER, SELFPAY | PROVIDERS: PCP Internal Medicine Geriatric Medicine; Visit Provider Nurse Practitioner Family | DX: R20.0 Anesthesia of skin (principal); R94.31 Abnormal electrocardiogram [ECG] [EKG]; R00.2 Palpitations; I47.10 Supraventricular tachycardia, unspecified; I10 Essential (primary) hypertension; I49.1 Atrial premature depolarization; E78.5 Hyperlipidemia, unspecified | CPT/HCPCS: 99212 ==

== ENCOUNTER 2024-09-05 14:47 | Outpatient (REF) | payer OTHER, SELFPAY ==
--- NOTE | ~2024-09-05 | MR_ITS ---
CLINICAL HISTORY: G45.9 - Transient cerebral ischemic attack, unspecified MR Brain without gadolinium Comparison: None provided Findings: No restricted diffusion. No intra-axial mass or hemorrhage. No midline shift. No hydrocephalus. Vascular flow voids are intact. Moderate T2 signal prolongation in the periventricular white matter. Mild volume loss. Orbital contents are unremarkable. The sinuses and mastoid air cells are clear. No focal bone lesion. IMPRESSION: No acute ischemia. Moderate white matter disease. This document has been electronically signed by: Neo French MD on 09/08/2024 11:32:12
--- OUTSIDE RECORDS SUMMARY | 2024-09-05 14:52 | XMS_ITS | Clinical Summary ---
Author Organization [employer] [facility] Address [address] [place] [address] Care Team Providers Care Boil Off Worker Name Role Phone Name, Jh RACHEL Primary Care Provider [phone] Social History Tobacco Use Types Packs/Day Years [...] 2023-2 5 season) 2023 Influenza Vaccine (#1) 2024 RSV Immunization Adult Patie nts (1 [...] age to complete this topic Care Teams Boil Off Worker Relationship Specialty Start Date End Date Name, MD Jh [address] [place], [place] PCP - General Internal Medicine 11/16/19
--- OUTSIDE RECORDS SUMMARY | 2024-09-05 14:52 | XMS_ITS ---
Author Name Willy AREA FIELD WORKER,UTILIZATION REVIEW SPECIALIST,FN P,FIRE CAPTAIN MARINE, Isabel Address [address] [place] [address] Phone [phone] Organization [facility] Care Team Providers Care Senior Qa Automation Engineer Name Role Phone AguileraMagdalenoIsabel Unavailable [phone] Unavailable Unavailable Unavailable [facility] Unavailable Reason for Referral Not Available Allergies, [...] 2021-03-20 No Data Available OneTouch Delica Plus [id number] Miscellaneous TEST BLOOD SUGAR THREE TIMES DAILY [...] PARA EL DOLOR 2021-08-21 No Data Available [employer] Flex System w/Device Kit TEST BLOOD SUGAR [...] 2023-12-24 No Data Available TRUEplus 5-Bevel Pen [place] 32G X 4 MM Miscellaneous USE FOUR DAILY 2023-11-11 No Data Availab le Melatonin 5 mg Cap 1-2 gummies QHS 2024-04-17 No Ian a Available Problem List Problem Status Onset Date Resolved Date Synopsis History of alcohol abuse Active 2022-11-07 N/A StableStopped 2016Continue with Etoh remission, coping mechanisms, and continue with PCP. Other problems related to medical facilities and other health care Active 2023-06-12 N/A CONTINGENCY PLANMDD/Anxiety Member to call for the following symptoms: Thoughts of self-harm/ Thoughts of harming others/ Worsening paranoia or delusions/ Frequent panic attacksPlanned intervention: Transfer member to [address] [place] [address]/ Hydroxyzine (Vistaril) 25mg PO q6h PRN anxiety/ Remind member of breathing exercises/ Limit extra stimulation Post surgery for prostate reduction 09/19Member to call for difficulty urinating, increase hematuria/blood clots, feverPlanned intervention: Instruct member to go to ER Enlarged prostate Inactive 2023-10-08 N/A 09/19 pl anned procedure for prostate reduction. The patient had follow up appt with urologist last saturday; No changes to current plan of care. The patient reports hematuria is less frequently; Denies any concerns at this time. Contingency plan reviewed and medication changes. BPH (benign prostatic hyperplasia) Active 2021-12-10 N/A StableTamsulosin , finasteride Monitor for changes in urine output and continue with PCP and urology. Patient had prostate corrective surgery in September 2023. He reports still experiencing urinary incontinence and continue with seeing urology for f/u and monitoring. Major depressive disorder in partial remissionGAD Active 2022-11-15 N/A StableBu spar, Sertraline Continue with psychiatrist every 1-3 months Denies SI/HICoping mechanisms, monitor for worsening depression and continue f/u with psych. Chronic midline low back pain without sciaticahistory of Subluxation of L4-L5 lumbar vertebraOpioid Use Active 2022-11-14 N/A Stable Oxycodone, steroid injections w orthoDoing well.Ed re risks of opioids.Opioid: Oxycodone Use: periodic (PRN) use onlyDiagnosis: Opioid Use F11.90Consider Naloxone in the home; educate on respiratory depression/sedation/fall risk Shoulder pain Active 2021-12-07 N/A StableOxyco done PRN had surgery R shoulder circa 2013, now w R side pain.oxycodone, gets injections w ortho q2-3 monthsEd exercises for both shoulders Supraventricular tachycardia Active 2021-12-07 N/A StableCarvedilol FU w cardiology and PCP every 6 months Type 2 diabetes mellitus with mild nonproliferative diabetic retinopathy without macular edema, bilateralType 2 diabetes mellitus, with long-term current use of insulin, hyperlipidemia Active 2021-12-07 N/A Stable Lantus, L ispro, Metformin, Jardiance, Tresiba, Rosuvastatin Uses CGM - reports 129 mg/dL this morning, average < 200 mg/dL Most recent a1c: 7.1% per pt report in 01/2024.Discussed diet, exercise, and lifestyle interventions. Continue taking medications.Continue f/u care and monitoring with PCP every 3-6 months. Hypertensive heart disease with heart failure Active 2021-12-07 N/A Stablecarvedilol , LisinoprilMonitor for BLE edema or acute change in weight (+5 lbs) and continue taking medications.Continue f/u care and monitoring with PCP and cardiology every 6 months. Encounters Encounters Type Facility Date of Service Diagnosis/Co mplaint Medication List Documented (1159F) [facility] Medication List Documented (1159F) [facility] Medication List Documented (1159F) [facility] Medication List Documented (1159F) [facility] Medication List Documented (1159F) [facility] Type 2 diabetes mellitus wit h mild nonproliferative diabetic retinopathy without macular edema, bilateralGeneralized anxiety disorderHeart failure, unspecifiedPain in unspecified shoulderEnlarged prostate without lower urinary tract symptomsOther specified health statusObesity, unspecifiedBody mass index (bmi) 31.0-31.9, adultHypertensive heart disease with heart failure Medication List Documented (1159F) [facility] Medication List Documented (1159F) [facility] Estab. patient 30-39min; chronic exacerbation, 2 stable chronic or 1 acute illness add add modifier 95 for video, (do not use for phone, instead use 81442-77) [facility] Type 2 diabetes mellitus [...] (do not use for phone, instead use 40463-25) [facility] Estab. patient 30-39min; chronic exacerbation, 2 stable chronic or 1 acute illness add add modifier 95 for video, (do not use for phone, instead use 67830-67) [facility] Estab. patient 30-39min; chronic exacerbation, 2 stable chronic or 1 acute illness add add modifier 95 for video, (do not use for phone, instead use 81265-12) [facility] [place] Estab. patient 30-39min; chronic exacerbation, 2 stable chronic or 1 acute illness add add modifier 95 for video, (do not use for phone, instead use 67820-29) [facility] Estab. patient 30-39min; chronic exacerbation, 2 stable chronic or 1 acute illness add add modifier 95 for video, (do not use for phone, instead use 37325-97) [facility] Estab. patient 30-39min; chronic exacerbation, 2 stable chronic or 1 acute illness add add modifier 95 for video, (do not use for phone, instead use 41352-27) [facility] Estab. patient 20-29min; 1 stable chronic or 2 minor; add add modifier 95 for video, modifier 93 for phone [facility] [place]2022 Type 2 diabetes mellitus wit h [...] 95 for video, modifier 93 for phone [facility] [place] 11/[place]22 Estab. patient 20-29min; 1 stable chronic or 2 minor; add add modifier 95 for video, modifier 93 for phone [facility] [place] 11/[place] Estab. patient 30-39min; chronic exacerbation, 2 stable chronic or 1 acute illness add add modifier 95 for video, (do not use for phone, instead use 52245-25) [facility] [place] 06[place]12/2023 Type 2 diabetes mellitus wit h [...] (do not use for phone, instead use 63756-66) [facility] [place] Estab. patient 30-39min; chronic exacerbation, 2 stable chronic or 1 acute illness add add modifier 95 for video, (do not use for phone, instead use 86586-19) [facility] 06[place]23 Estab. patient 30-39min; chronic exacerbation, 2 stable chronic or 1 acute illness add add modifier 95 for video, (do not use for phone, instead use 72816-89) [facility] [place] 06[place] Estab. patient 30-39min; chronic exacerbation, 2 stable chronic or 1 acute illness add add modifier 95 for video, (do not use for phone, instead use 83073-32) [facility] [place] 06[place] Estab. patient 30-39min; chronic exacerbation, 2 stable chronic or 1 acute illness add add modifier 95 for video, (do not use for phone, instead use 04944-13) [facility] 06[place]23 Estab. patient 30-39min; chronic exacerbation, 2 stable chronic or 1 acute illness add add modifier 95 for video, (do not use for phone, instead use 83076-40) [facility] 06[place]12/[place]23 Estab. patient 30-39min; chronic exacerbation, 2 stable chronic or 1 acute illness add add modifier 95 for video, (do not use for phone, instead use 36732-40) [facility] 06[place]12/2023 Estab. patient 30-39min; chronic exacerbation, 2 stable chronic or 1 acute illness add add modifier 95 for video, (do not use for phone, instead use 74857-58) [facility] 06[place]12/[place]23 Estab. patient 30-39min; chronic exacerbation, 2 stable chronic or 1 acute illness add add modifier 95 for video, (do not use for phone, instead use 37296-96) [facility] 06/12/2023 Estab. patient 30-39min; chronic exacerbation, 2 stable chronic or 1 acute illness add add modifier 95 for video, (do not use for phone, instead use 90352-27) [facility] 06[place]2023 RN, CN or CP time with patient by phone; use with 1111F, BP, A1c or other CPTII codes [facility] 10/01/2023 Encounter for other specifie d aftercare RN, CN or CP time with patient by phone; use with 1111F, BP, A1c or other CPTII codes [facility] 10/01/2023 No Data Available [facility] [place] 10/08/2023 Enlarged prostate without lo wer urinary tract symptomsOther problems related to medical facilities and other health care No Data Available [facility]2023 No Data Available [facility] [place] 10/08/2023 Estab. patient 20-29min; 1 stable chronic or 2 minor; add add modifier 95 for video, modifier 93 for phone [facility] [place] 04/17/2024 Type 2 diabetes mellitus wit h [...] modifier 95 for video, modifier 93 for [employer] [facility] 04[place]17/[place] Estab. patient 20-29min; 1 stable chronic or 2 minor; add add modifier 95 for video, modifier 93 for [employer] [facility] 04/17/2024 Estab. patient 20-29min; 1 stable chronic or 2 minor; add add modifier 95 for video, modifier 93 for [facility] 04/17/2024 Estab. patient 20-29min; 1 stable chronic or 2 minor; add add modifier 95 for video, modifier 93 for [employer] [facility] 04/17/2024 Estab. patient 20-29min; 1 stable chronic or 2 minor; add add modifier 95 for video, modifier 93 [facility] 04/17/[facility]24 Estab. patient 20-29min; 1 stable chronic or 2 minor; add add modifier 95 for video, modifier 93 for [employer] [facility] 04/17/2024 Estab. patient 20-29min; 1 stable chronic or 2 minor; add add modifier 95 for video, modifier 93 for [employer] [facility] 04/17/2024 Vital Signs Date of Collection Vitals [...] tive Time Current Smoking Status Former smoker 2024-08-25 2 Sex Male Gender identity Man History [...] le No Data Available No Data Available [id number] 2021-12-07 No Data Available No Data Available SBP < 130 (3074F) 3074F 2021-12-07 No Data Available No Data Available DBP 80-89 (3079F) 3079F 2021-12-07 No Data Available No Data Available Estab. patient 30-39min; chronic exacerbation, 2 stable chronic or 1 acute illness add add modifier 95 for video, (do not use for phone, instead use 03791-85) 28527 2022-11-07 No Data Available No Data Availa [...] 95 for video, modifier 93 for phone 07045 2022-11-14 No Data Available No Data Availa [...] (do not use for phone, instead use 07651-86) 97404 2023-06-12 No Data Available No Data Availa [...] ble Advance care planning discussed and documented advance care plan or surrogate decision-maker was [...] 1111F, BP, A1c or other CPTII codes 29280 2023-10-01 No Data Available No Data Avai lable Medications prescribed in hospital were reviewed and reconciled against what they were taking prior to admission during today's visit. (1111F) 1111F 2023-10-01 No Data Available No Data Availa ble No Data Available [id number] 2023-10-08 No Data Available No Data Available Advance care planning discussed and documented advance care plan or surrogate decision-maker was documented in the medical record. (1123F) 1123F 2023-10-08 No Data Available No Data Availa ble Advance Care Directive Advance care planning discussion documented in the medical record (1158F) 1158F 2023-10-08 No Data Available No Data Availa ble Estab. patient 20-29min; 1 stable chronic or 2 minor; add add modifier 95 for video, modifier 93 for phone 27785 2024-04-17 No Data Available No Data Availa ble Medication Review by prescribing provider or pharmacist documented (1160F) 1160F 2024-04-17 No Data Available No Data Codi ilable Advance Care Directive Advance care planning discussion documented in the medical record (1158F) 1158F 2024-04-17 No Data Available No Data Availa ble Advance care planning discussed and documented advance care plan or surrogate decision-maker was [...] 2022-11-07 Reports using a cane to ambulate. - Fall in the last 6 months: yes, naz iftch. 2024-04-17 Mental Status Status Date AOx3 2023-06-12 [...] Patient Education to avoid future hospitalization: Call [facility] if symptoms of illness develop.Other problems [...] modifier 95Continue to see PCP. Follow-up with [facility] as needed for any acute or disease education needs that may arise.On Lantus, Lispro, MetforminCautioned re risk of sedation, safety.Sending NarcanOn Amitriptylene, Buspirone, SertralineOn carvediloloxycodoneoxycodoneTamsulosinWill FU when pt can have a friend, CHILD PROTECTION SPECIALIST or family member with himLifestyle adviceOn carvedilol, Lisinopril 2022-11-07 11:48:15 Medication Review by prescribing provider or pharmacist documented (1160F)Medication List Documented (1159F)Functional Status Assessed (1170F)Advance Care Directive Advance care planning discussion documented in the medical record (1158F)BMI obtained (3008F)SBP 130-139 (3075F)DBP 80-89 (3079F)Televideo 30-39min; chronic exacerbation, 2 stable chronic or 1 acute illness add modifier 95Advance care planning discussed and documented advance care plan or surrogate decision-maker was documented in the medical record. (1123F)Advance care planning discussed and documented in the medical record beneficiary/patient did not wish to or was unable to provide an advance care plan or name a surrogate decision-maker. (1124F)Pain Assessment - Pain Documented (1125F)Continue to see PCP. Follow-up with [facility] as needed for any acute or disease education needs that may arise.On Lantus, Lispro, MetforminUPDATE 11/24/2022To fasting sugar 146this week: 120-140On Amitriptylene, Buspirone, [...] modifier 95Continue to see PCP. Follow-up with [facility] as [...] modifier 95Advance care planning discussed and documented advance care plan or surrogate decision-maker was documented in the medical record. (1123F)Pain Assessment - Pain Documented (1125F)Continue to see PCP. Follow-up with [facility] as needed for any acute or disease education needs that may arise.CONTINGENCY PLANMDD/Anxiety Member to call for the following symptoms: Thoughts of self-harm/ Thoughts of harming others/ Worsening paranoia or delusions/ Frequent panic attacksPlanned intervention: Transfer member to [address] [place] [address]/ Hydroxyzine (Vistaril) 25mg PO q6h PRN anxiety/ [...] modifier 95)Advance care planning discussed and documented advance care plan or surrogate decision-maker was documented in the medical record. (1123F)PCP visit is planned for:CONTINGENCY PLANMDD/Anxiety Member to call for the following symptoms: Thoughts of self-harm/ Thoughts of harming others/ Worsening paranoia or delusions/ Frequent panic attacksPlanned intervention: Transfer member to [address] [place] [address]/ Hydroxyzine (Vistaril) 25mg PO q6h PRN anxiety/ [...] record (1158F)Advance care planning discussed and documented advance care plan or surrogate decision-maker was [...] Frequent panic attacksPlanned intervention: Transfer member to [address] [place] [address]/ Hydroxyzine (Vistaril) 25mg PO q6h PRN anxiety/ [...] Health Concerns Date Concern 2024-04-17 Visit completed chaz juarez audio/video.Patient/Guardian agreed to visit via telehealth. Today, [...]
== END 2024-09-05 14:48 | disposition home or self-care (01) ==
LOC: HO.MRI 14:47
PROVIDERS: PCP Internal Medicine; Visit Provider Nurse Practitioner Family
DX: G45.9 Transient cerebral ischemic attack, unspecified (principal)
CPT/HCPCS: 70551

== ENCOUNTER → 2024-09-05 15:10 | Outpatient (BNV) | payer OTHER, SELFPAY | PROVIDERS: PCP Internal Medicine; Visit Provider Radiology Vascular & Interventional Radiology | DX: R90.82 White matter disease, unspecified (principal) | CPT/HCPCS: 70551 ==

== ENCOUNTER 2024-11-17 15:05 | Outpatient (REF) | payer OTHER, SELFPAY ==
--- NOTE | ~2024-11-17 | US_ITS ---
EXAMINATION: US EXTRACRANIAL CAROTID DUPLEX, BILATERAL CLINICAL INFORMATION: Transient left-sided facial numbness. COMPARISON: None available. TECHNIQUE: Real-time ultrasound and Doppler techniques (integrating B-mode 2-D vascular images, Doppler spectral analysis and color-flow Doppler imaging) were utilized to interrogate the extracranial carotid arteries, the vertebral arteries and proximal subclavian arteries bilaterally. The degree of stenosis is determined by criteria similar to NASCET. FINDINGS: Right Side: 1. There is a small calcified atherosclerotic plaque seen in the bifurcation/proximal ICA region. 2. The common carotid artery PSV proximally is 88 cm/s and distally 66 cm/s. 3. The proximal internal carotid artery velocities are 86 cm/s systolic and 31 cm/s diastolic. 4. The proximal external carotid artery PSV is 124 cm/s. 5. The vertebral artery shows antegrade flow. 6. The subclavian artery waveforms are triphasic. ICA/CC ratio: 0.98. Left Side: 1. There is small calcified atherosclerotic plaque seen in the bifurcation/proximal ICA region. 2. The common carotid artery PSV proximally is 89 cm/s and distally 74 cm/s. 3. The proximal internal carotid artery velocities are 81 cm/s systolic and 33 cm/s diastolic. 4. The proximal external carotid artery PSV is 115 cm/s. 5. The vertebral artery shows antegrade flow. 6. The subclavian artery waveforms are triphasic. ICA/CC ratio: 0.91. US/US carotid duplex BI IMPRESSION: 1. RIGHT: 0-49% stenosis by ultrasound criteria. 2. LEFT: 0-49% stenosis by ultrasound criteria. Electronically signed by: Wiley Forbes MD 11/17/2024 04:02 PM EDT
--- OUTSIDE RECORDS SUMMARY | 2024-11-17 18:07 | XMS_ITS | Encounter Summary ---
Author Organization [employer] Address [address] [place] [address] Care Team Providers Care Link Trainer Operator Name Role Phone Name, Jh RACHEL Primary Care Provider [phone] Reason for Visit * Reason Onset Date Comments DECEMBER RECALLS 11/16/2024 Encounter Details Date Type Department Care Team ([facility] st Contact Info) Description 11/16/2024 Telephone [facility] [address] [place], [place] [phone] Gaby Jean MA DECEMBER RECALLS Social History Tobacco Use Types Packs/Day Years [...] encounter Miscellaneous Notes * Telephone Encounter - Gaby Jean MA - 11/16/2024 1:44 PM EDT Telephone call to patient to schedule the following recall: Visit type: Follow up Appointment notes: HTN and DM Patient agree to appointment on 02/01/25 at 2;30 PM with Name. documented in this encounter Plan of Treatment Upcoming Encounters Date Type Department Care Team (Late st Contact Info) Description 01/25/2025 1:30 PM EST Clinical Support [address] [address] Cee Toussaint RN 02/01/2025 2:30 PM EST Office Visit [address] [address] Name, MD Jh [address] [place] [address] documented as of this encounter Goals Goal Patient Goal Type Associated Problems Recent Progress Patient-Stated? Author Record your blood pressure once a week Blood Pressure No Puia, Juliet, PharmD Blood Pressure < 140/90 Blood Pressure 118/72(2024 3:04 PM EDT) No Puia, Juliet, PharmD Hemoglobin A1c < 7.5 Result Component 6.7( 3:28 PM EDT) No Puia, Juliet, PharmD Record your blood sugar as directed Result Component No Holger, Juliet, PharmD Note: Use CGM, ensuring sensor is scanned at least once every 8 hours to capture 24H data. Check BG manually, as directed. documented as of this encounter Visit Diagnoses Not on filedocumented in this encounter Additional Health Concerns Assessment Noted Time PHQ-9 Depression Total Score: 4 05/19/19 25 2:01 PM EDT documented as of this encounter Care Teams Link Trainer Operator Relationship Specialty Start Date End Date Name, MD Jh [address] [place] [address] PCP - General Family Medicine 05/29/16 documented as of this encounter
--- OUTSIDE RECORDS SUMMARY | 2024-11-17 18:07 | XMS_ITS | Encounter Summary ---
Author Organization [employer] Address [address] [facility] [address] [place] [address] Care Team Providers Care Machine Biller Name Role Phone Name, Jh RACHEL Primary Care Provider [phone] Juliet Wren PharmD Unavailable [phone] Reason for Visit * Reason Comments Med Refill Encounter Details Date Type Department Care Team ([facility] st Contact Info) Description 09/08/2024 Refill [facility] [address] [place], [place] [phone] Katie Zhong NP [address] [place], [place] [phone] Chronic pain syndrome Social History Tobacco Use [...] Description 01/25/2025 1:30 PM EST Clinical Support [address] [address] Cee Toussaint RN 02/01/2025 2:30 PM EST Office Visit [address] [address] Name, MD Jh [address] [place] [address] documented as of this encounter Goals Goal [...] documented as of this encounter Care Teams Machine Biller Relationship Specialty Start Date End Date Name, MD Jh [address] [place] [address] PCP - General Family Medicine 05/29/16 Juliet Wren PharmD [address] [place] [address] Pharmacist Internal Medicine 07/17/22 11/02/24 documented as of this encounter
--- OUTSIDE RECORDS SUMMARY | 2024-11-17 18:07 | XMS_ITS | Encounter Summary ---
Author Organization [employer] Address [address] [place] [address] Care Team Providers Care Bill Distributor Name Role Phone Name, Jh RACHEL Primary Care Provider [phone] Juliet Wren PharmD Unavailable [phone] Encounter Details Date Type Department Care Team ([facility] st Contact Info) Description 05/02/2023 Telephone [facility] [address] [place], [place] [phone] Name, MD Jh [address] [place] [address] Social History Tobacco Use Types Packs/Day Years [...] Description 01/25/2025 1:30 PM EST Clinical Support [address] [phone] Cee Toussaint RN 02/01/2025 2:30 PM EST Office Visit [address] [phone] Name, MD Jh [address] [place] [address] [phone] documented as of this encounter Goals Goal Patient Goal Type Associated Problems Recent Progress Patient-Stated? Author Hemoglobin A1c < 7.5 Result Component 6.7( 3:28 PM EDT) No Juliet Wren, PharmDanilo Record your blood sugar as directed Result [...] documented as of this encounter Care Teams Bill Distributor Relationship Specialty Start Date End Date Jh Bullard MD [address] [place] [phone] PCP - General Family Medicine 05/29/16 Juliet Wren PharmD [address] [place] [phone] Pharmacist Internal Medicine 07/17/22 11/02/24 documented as of this encounter
--- OUTSIDE RECORDS SUMMARY | 2024-11-17 18:07 | XMS_ITS | Encounter Summary ---
Author Organization [employer] Address [address] [facility] [address]t [place] [address] Care Team Providers Care Burn Crew Member Name Role Phone Name, Jh RACHEL Primary Care Provider [phone] Juliet Wren PharmD Unavailable [phone] Encounter Details Date Type Department Care Team (Late st Contact Info) Description 07/13/2022 Abstract [facility] [address] [place] [address] [phone] Name, MD Jh [address] [place] [address] Social History Tobacco Use Types Packs/Day Years [...] Description 01/25/2025 1:30 PM EST Clinical Support [facility] [address] [place] [address] [phone] Cee Toussaint RN 02/01/2025 2:30 PM EST Office Visit [facility] [address] [place] [address] Name, MD J[facility] [place] [address] documented as of this encounter Procedures Procedure Name Priority Date/Time Associated Diagnosis Comments COLONOSCOPY Routine 12/12/2016 2:15 PM EDT documented in this encounter Results * Hm Colonoscopy (12/12/2016 2:15 PM EDT) Colonoscopy Normal Normal Narrative Lynette Grubbs - 12/12/2016 2:15 PM EDT Recommended 5 year follow up us Historical Provider HEALTH MAINTENANCE Final Result documented in this encounter Visit Diagnoses Not on filedocumented in this encounter Additional Health Concerns Assessment Noted Time PHQ-9 Depression Total Score: 0 03/08/19 23 8:49 AM EST documented as of this encounter Care Teams Burn Crew Member Relationship Specialty Start Date End Date Name, MD Jh [facility] [place] [address] PCP - General Family Medicine 05/29/16 Juliet Wren, [place] [address] Pharmacist Internal Medicine 07/17/22 11/02/24 documented as of this encounter
--- OUTSIDE RECORDS SUMMARY | 2024-11-17 18:07 | XMS_ITS | Encounter Summary ---
Author Organization [employer] Address [address] [facility] [address] [place] [address] Care Team Providers Care Expressive Therapist Name Role Phone Jh Bullard MD Primary Care Provider [phone] Juliet Wren PharmD Unavailable [phone] Reason for Visit * Reason Comments Med Refill Encounter Details Date Type Department Care Team (Late st Contact Info) Description 08/07/2022 Refill [facility] [address] [place] [address] [phone] Name, MD Jh [address] [place] [address] Chronic pain syndrome Social History Tobacco Use [...] Description 01/25/2025 1:30 PM EST Clinical Support [facility] [address] [place] [id number] Cee Toussaint RN 02/01/2025 2:30 PM EST Office Visit [facility] [address] [place] [address] Name, MD Jh [address] [place] [id number] documented as of this encounter Goals Goal Patient Goal Type Associated Problems Recent Progress Patient-Stated? Author Hemoglobin A1c < 7.5 Result Component 6.7(09/29/2024 3:28 PM EDT) No Juliet Wren, PharmD documented as of this encounter Visit Diagnoses Diagnosis Chronic pain syndrome documented in this encounter Additional Health Concerns Assessment Noted Time PHQ-9 Depression Total Score: 0 03/08/19 8:49 AM EST documented as of this encounter Care Teams Expressive Therapist Relationship Specialty Start Date End Date Name, MD Jh [address] [place] [id number] PCP - General Family Medicine 05/29/16 Juliet Wren, PharmD [address] [place] [id number] Pharmacist Internal Medicine 07/17/22 11/02/24 documented as of this encounter
--- OUTSIDE RECORDS SUMMARY | 2024-11-17 18:07 | XMS_ITS | Encounter Summary ---
Author Organization [employer] Address [address] [facility] [address] [place] [address] Care Team Providers Care Eating Disorder Specialist Name Role Phone Jh Bullard MD Primary Care Provider [phone] Juliet rWen PharmD Unavailable [phone] Reason for Visit * Reason Comments Med Refill Encounter Details Date Type Department Care Team ([facility] st Contact Info) Description 02/26/2023 Refill [facility] [address] [place], [place] [phone] Name, MD Jh [address] [place], [place] [phone] Chronic pain syndrome Social History Tobacco Use [...] Description 01/25/2025 1:30 PM EST Clinical Support [address] [id number] Cee Toussaint RN 02/01/2025 2:30 PM EST Office Visit [address] [address] Name, MD Jh [address] [place] [id number] documented as of this encounter Goals Goal Patient Goal Type Associated Problems Recent Progress Patient-Stated? Author Hemoglobin A1c < 7.5 Result Component 6.7( 3:28 PM EDT) No Juliet Wren, PharmD Record your blood sugar as directed Result Component No Juliet Wren, PharmD Note: Use CGM, ensuring sensor is scanned at least once every 8 hours to capture 24H data. Check BG manually, as directed. documented as of this encounter Visit Diagnoses Diagnosis Chronic pain syndrome documented in this encounter Additional Health Concerns Assessment Noted Time PHQ-9 Depression Total Score: 0 03/08/19 23 8:49 AM EST documented as of this encounter Care Teams Eating Disorder Specialist Relationship Specialty Start Date End Date Jh Bullard MD [address] [place] [phone] PCP - General Family Medicine 05/29/16 Juliet Wren, PharmD [address] [place] [address] Pharmacist Internal Medicine 07/17/22 11/02/24 documented as of this encounter
--- OUTSIDE RECORDS SUMMARY | 2024-11-17 18:07 | XMS_ITS | Clinical Summary ---
Author Organization [facility] [facility] Address [address] [place] [address] Care Team Providers Care Sub Master Name Role Phone Name, Jh RACHEL Primary Care Provider Social History Tobacco Use Types Packs/Day Years [...] Panel) 01/28/2022 Colorectal Cancer Screening: Colonoscopy 01/28/2022 Falls Risk Assessment 01/28/2022 Hepatitis C Screening 01/28/2022 Social Influencers of Health Screening 01/28/2022 Depression Screening 02/26/2024 COVID-19 Vaccine (1 - 2023-2 5 season) 2024 Influenza Vaccine (#1) 2024 RSV Immunization Adult [...] age to complete this topic Care Teams Sub Master Relationship Specialty Start Date End Date Name, MD Jh [address] [place], [place] PCP - General Internal Medicine 11/16/19
--- OUTSIDE RECORDS SUMMARY | 2024-11-17 18:07 | XMS_ITS | Clinical Summary ---
Author Organization [employer] Address [address] [facility] [address] [place] [address] Care Team Providers Care Drafter Apprentice Name Role Phone Name, Jh RACHEL Primary Care Provider Allergies No known active allergies Medications amitriptyline (Elavil) 75 MG tablet Take 1 tablet by mouth at bedtime. Active busPIRone (Buspar) 5 MG tablet Take 1 tablet by mouth 2 times daily. 022 Active magnesium oxide (Mag-Ox) 400 (240 Mg) MG tablet Take 1 tablet by mouth 1 (one) time each day. Active sertraline (Zoloft) 50 MG tablet Take 1 tablet by mouth in the morning. Active Multiple Vitamins-Minera ls (Centrum Silver 50+Men) tablet Take 1 tablet by mouth Once daily. (OTC) Active naloxone (Narcan) 4 mg/0.1 mL nasal spray FOR SUSPECTED OPIOID OVERDOSE. SPRAY 0.1mL IN ONE NOSTRIL. REPEAT IN ALTERNATE NOSTRIL EVERY 2-3 MINUTES IF NEEDED. SEEK MEDICAL ATTENTION IMMEDIATELY EVEN IF PT RESPONDS. 2 each 2 025 Active Continuous Glucose Lead Applications Developer (FreeStyle Laurent 3 Ruth) deviceIndicatio ns:Type 2 diabetes mellitus without complication, with long-term current use of insulin (CMS/HCC) 1 each Once per day. Use as directed for CGM 1 each 025 Active Continuous Glucose Sensor (FreeStyle Laurent 3 Plus Sensor) miscIndications :Type 2 diabetes mellitus without complication, with long-term current use of insulin (CMS/HCC) Apply 1 every 15 days as directed for CGM 2 each Active glucose blood (FreeStyle Precision Chano Test) test stripIndication s:Type 2 diabetes mellitus without complication, with long-term current use of insulin ([facility]) Use to test blood sugar up to 3 times daily, as directed 100 each Active OneTouch Verio test stripIndication s:Type 2 diabetes mellitus without complication, with long-term current use of insulin ([facility]) TEST BLOOD SUGAR THREE TIMES DAILY 100 strip Active Lancets (OneTouch Delica Plus [id number]) miscIndications :Type 2 diabetes mellitus without complication, with long-term current use of insulin ([facility]) TEST BLOOD SUGAR THREE TIMES DAILY 100 each Active Viagra 100 MG tablet TAKE 1 TABLET 1 HOUR BEFORE SEXUAL RELATIONS ONCE DAILY NEEDED. 10 tablet 3 Active tamsulosin (Flomax) 0.4 MG 24 hr capsule TAKE TWO CAPSULES DAILY 30 MINUTES AFTER THE SAME MEAL 60 capsule 5 Active docusate sodium (Colace) 100 MG capsule TAKE ONE CAPSULE TWICE DAILY 60 capsule 7 Active methocarbamol (Robaxin) 750 MG tablet Active TechLite Pen [place] 32G X 4 MM misc USE FOUR DAILY 100 each 4 Active Aspirin Low Dose 81 MG chewable tablet CHEW ONE TABLET ONCE DAILY 90 tablet Active omeprazole (PriLOSEC) [address] capsuleIndicati ons:Essential hypertension TAKE 1 CAPSULE BY MOUTH EVERY DAY BEFORE A MEAL 30 capsule 5 Active oxyCODONE-aceta minophen (Percocet) 5-325 MG tabletIndicatio ns:Chronic pain syndrome Take 1 tablet by mouth every 8 (eight) hours if needed for severe pain for up to 28 days. Do not start before November 04, 2024. 84 tablet 025 2024 Active insulin degludec (Tresiba FlexTouch) 100 UNIT/ML injectionIndica tions:Type 2 diabetes mellitus without complication, with long-term current use of insulin ([facility]) INJECT 34 UNITS SUBCUTANEOUSLY EVERY MORNING 15 mL 11 09/09/2 025 Active insulin lispro (HumaLOG KWIKPEN) 100 UNIT/ML injectionIndica tions:Type 2 diabetes mellitus without complication, with long-term current use of insulin (CMS/[facility]) Inject 4 units subQ three times daily with meals. Do not use if not eating / skipping a meal. 15 mL 11 025 Active lisinopril 20 MG tabletIndicatio ns:Type 2 diabetes mellitus without complication, with long-term current use of insulin (CMS/[facility]),Essen tial hypertension Take 1 tablet (20 mg) by mouth Once per day. 90 tablet 3 025 Active metFORMIN (Glucophage) 1000 MG tabletIndicatio ns:Type 2 diabetes mellitus without complication, with long-term current use of insulin (CMS/[facility]) Take 1 tablet (1,000 mg) by mouth with breakfast and with evening meal. 180 tablet 3 025 2025 Active rosuvastatin (Crestor) 40 MG tabletIndicatio ns:Type 2 diabetes mellitus without complication, with long-term current use of insulin (CMS/[facility]) Take 1 tablet (40 mg) by mouth Once per day. 90 tablet 3 025 Active carvedilol (Coreg) 12.5 MG tabletIndicatio ns:Essential hypertension Take 1 tablet (12.5 mg) by mouth with breakfast and with evening meal. 60 tablet 025 Active insulin lispro (HumaLOG KWIKPEN) 100 UNIT/ML injectionIndica tions:Type 2 diabetes mellitus without complication, with long-term current use of insulin ([facility]) Inject 8 units subQ three times daily with meals. Do not use if not eating / skipping a meal. 15 mL 5 024 2024 Discontinued(R eorder (will not trigger notification to Pharmacy)) metFORMIN (Glucophage) 1000 MG tabletIndicatio ns:Type 2 diabetes mellitus without complication, with long-term current use of insulin ([facility]) Take 1 tablet (1,000 mg) by mouth with breakfast and with evening meal. 180 tablet 3 024 2024 Discontinued(R eorder (will not trigger notification to Pharmacy)) lisinopril 20 MG tabletIndicatio ns:Type 2 diabetes mellitus without complication, with long-term current use of insulin ([facility]),Essen tial hypertension Take 1 tablet (20 mg) by mouth Once per day. 90 tablet 3 024 2024 Discontinued(R eorder (will not trigger notification to Pharmacy)) rosuvastatin (Crestor) 40 MG tabletIndicatio ns:Type 2 diabetes mellitus without complication, with long-term current use of insulin ([facility]) Take 1 tablet (40 mg) by mouth Once daily. 90 tablet 3 025 2024 Discontinued(R eorder (will not trigger notification to Pharmacy)) omeprazole (PriLOSEC) [address] capsuleIndicati ons:Essential hypertension TAKE 1 CAPSULE BY MOUTH EVERY DAY BEFORE A MEAL 30 capsule 5 025 2024 Discontinued chlorhexidine (Peridex) 0.12 % solution TAKE 15 ML BY MOUTH TWICE A DAY, SPIT DO NOT SWALLOW 2024 Discontinued(M ed list cleanup (will not trigger notification to Pharmacy)) insulin degludec (Tresiba FlexTouch) 100 UNIT/ML injectionIndica tions:Type 2 diabetes mellitus without complication, with long-term current use of insulin ([facility]) INJECT 34 UNITS SUBCUTANEOUSLY EVERY MORNING 15 mL 025 2024 Discontinued(R eorder (will not trigger notification to Pharmacy)) carvedilol (Coreg) 12.5 MG tablet TOME MICHELLE TABLETA POR V A ORAL DOS VECES AL D A CON ALIMENTO 025 2024 Discontinued(R eorder (will not trigger notification to Pharmacy)) aspirin 81 MG chewable tablet Chew 1 tablet (81 mg) Once per day. 30 tablet 025 2024 Discontinued oxyCODONE-aceta minophen (Percocet) 5-325 MG tabletIndicatio ns:Chronic pain syndrome Take 1 tablet by mouth every 8 (eight) hours if needed for severe pain for up to 28 days. 84 tablet 025 2024 Discontinued(R eorder (will not trigger notification to Pharmacy)) insulin degludec (Tresiba FlexTouch) 100 UNIT/ML injectionIndica tions:Type 2 diabetes mellitus without complication, with long-term current use of insulin ([facility]) INJECT 34 UNITS SUBCUTANEOUSLY EVERY MORNING 15 mL 025 2024 Discontinued(R eorder (will not trigger notification to Pharmacy)) Active Problems Problem Noted Date Diagnosed Date History of supraventricular tachycardia 09/30/19 Overview (09/29/2024): Patient follows with [facility] cardi He is on carvedilol. Holter monitor done 07/15/2024 for 7 days shows sinus rhythm with average heart rate 86, frequent PACs with burden 40%, short runs, longest 19 beats rate 169. Echocardiogram done 07/15/2024 showed EF 55-60%, no valve abnormalities, Long-term current use of opiate analgesic 2024 Right upper quadrant abdominal pain 06/08/2024 Assessment [...] the sigmoid colon 2016 [place] [facility] Type 2 diabetes mellitus 03/02/2022 Benign prostatic hyperplasia 09/23/2017 Nocturia 07/15/2017 Hypertension 05/14/2017 Tubular adenoma of colon 12/19/2016 Overview (12/12/2023): repeat screening colonoscopy in 2021 Splenic vein thrombosis 10/24/2016 Chronic low back pain 06/01/2016 History of alcohol abuse 06/01/2016 Shoulder pain 06/01/2016 Pseudocyst of pancreas 06/01/2016 Resolved Problems Problem Noted Date Diagnosed Date Resolved Date Irregular heart beat 12/16/2017 025 Encounters Date Type Department Care Team Description 11/16/2024 Telephone [facility] [address] [place] [address] Gaby Jean [place] DECEMBER RECALLS 11/03/2024 Travel 10/30/2024 Refill [facility] [address] [place] [address] Jh Bullard MD Essential hypertension 10/30/2024 Refill [facility] [address] [place] [address] Jh Bullard MD Chronic pain syndrome 10/27/2024 Refill [facility] [address] [place], [place] [phone] Jh Bullard MD Type 2 diabetes mellitus without complication, with long-term current use of insulin (CMS/HCC) 10/24/2024 Refill [facility] [address] [place] [address] Jh Bullard MD 10/19/2024 Telephone [facility] [address] [place] [address] Joy Kennedy, PharmD 10/07/2024 Refill [facility] [address] [place] [phone] Amparo Sen MD Chronic pain syndrome 10/07/2024 Refill [facility] [address] [place] [address] Jh Bullard MD Chronic pain syndrome 09/29/2024 3:15 PM EDT Office Visit [facility] [address] [place] [address] Jh Bullard MD Type 2 diabetes mellitus without complication, with long-term current use of insulin (CMS/HCC) (Primary Dx); Left facial numbness; Numbness and tingling in left hand 09/29/2024 Travel 09/21/2024 Telephone [facility] [address] [place] [address] Gudelia Garcia, PharmD 09/20/2024 Refill [facility] [address] [place] [address] Juliet Wren, PharmD Type 2 diabetes mellitus without complication, with long-term current use of insulin ([facility]) 09/11/2024 Refill [facility] [address] [place] [address] Jh Bullard MD Essential hypertension 09/08/2024 Refill [facility] [address] [place] [address] Katie Zhong NP Chronic pain syndrome 09/08/2024 Refill [facility] [address] [place] [address] Name, MD Jh Chronic pain syndrome 09/05/2024 Orders Only [facility] External Provider, [facility] 09/03/2024 Refill [facility] [address] [place], [place] [phone] Name, MD Jh from Last 3 Months Immunizations Immunization Administration [...] Sign Reading Time Taken Comments Blood Pressure 118/72 11/03/2024 3:04 PM EDT Pulse 119 11/03/2024 3:04 PM EDT Temperature 36.8 C (98.3 F) 09/29/2024 3:20 PM EDT Respiratory Rate 26 09/29/2024 3:20 PM EDT Oxygen Saturation 99% 09/29/2024 3:20 PM EDT Inhaled Oxygen Concentration - - Weight 95.3 kg (210 lb 3.2 oz) 09/29/2024 3:20 P M EDT Height 175.3 cm (5' 9 ) 09/29/2024 3:20 PM EDT Body Mass Index 31.04 09/29/2024 3:20 PM EDT Plan of Treatment Upcoming Encounters Date Type Department Care Team (Late st Contact Info) Description 01/25/2025 1:30 PM EST Clinical Support [facility] [address] [place] [address] Cee Toussaint RN 02/01/2025 2:30 PM EST Office Visit [facility] [place] [address] Name, MD Jh [facility] [place] [address] Health Maintenance Due Date Last Done Comments CT Colonography 1955 FIT DNA/Cologuard 1955 FIT 1955 FOBT 1955 Sigmoidoscopy 1954 Diabetes: Foot Exam 1964 Alcohol/Substance Use Screening 1966 Hepatitis A Vaccines (1 of 2 - Risk 2-dose series) 1973 Zoster Vaccines (1 of 2) 2004 Hepatitis B Vaccines (1 of 3 - Risk 3-dose series) 2014 Colonoscopy 04/02/2024 04/02/2023, 02/26, 12/12/2016, Additional history exists Colorectal Cancer Screening 04/02/2024 COVID-19 Vaccine ( season) 2024 02/28/2023, 01/05/2022, 07/31/2021, Additional history exists Influenza Vaccine (#1) 2024 Pneumococcal Vaccine: 50+ Years (3 of 3 - PCV20 or PCV21) 11/18/2024 11/19/2019, 03/05/2017, 04/02/2016 Diabetes: Hemoglobin A1C 04/01/2025 025, 04/28/2024, 01/28/2024, Additional history exists Depression Screening 05/18/2025 05/18/2024, 05/19/19 25 SDOH Screening 05/18/2025 05/18/2024 Diabetes: Urine Protein Screening 05/21/2025 05/21/2024, 07/11/2023, 07/17/2022, Additional history exists Lipid Panel 05/21/2025 05/21/2024, 12/26, 10/08/2022, Additional history exists Eye Exam 06/25/2025 06/25/2024, 05/0 02/2024, 06/25/2024, Additional history exists Tobacco Screening 09/29/2025 09/29/2024 DTaP/Tdap/Td Vaccines (3 - Td or Tdap) [...] Procedure Name Priority Date/Time Associated Diagnosis Comments VASC US CAROTID ARTERY DUPLEX BILATERAL Routine 11/17/2024 3:23 PM EDT Left facial numbness POCT GLYCATED HEMOGLOBIN, TOTAL Routine 09/29/2024 3:28 PM EDT Type 2 diabetes mellitus without complication, with long-term current use of insulin ([facility]) POCT GLUCOSE Routine 09/29/2024 3:22 PM EDT Type 2 diabetes mellitus without complication, with long-term current use of insulin (CMS/HCC) MR BRAIN WO CONTRAST Routine 09/08/2024 11:32 AM EDT HEPATITIS C AB W/REFL TO HCV RNA, [...] Hypertension, unspecified type Hyperlipidemia, unspecified hyperlipidemia type HM COLONOSCOPY Routine 04/02/2023 from Last 3 Months or Most Recently Relevant to Health Maintenance Results * Vascular US carotid artery duplex bilateral (11/17/2024 3:23 PM EDT) 11/17/2024 3:23 PM EDT [facility] IMAGING - 11/17/2024 4:05 PM EDT [place] [address] Ultrasound Report Signed Patient: Landen Byers MR#: [id number] : 1955 Acct:[id number] Age/Sex: 69 / M ADM Date: 11/17/24 Loc: HO.US Attending Dr: Jh Bullard MD Ordering Physician: Jh Bullard MD Date of Service: 11/17/24 Procedure(s): US carotid duplex BI Accession Number(s): [id number] cc: Piper Johnson MD; Name,Jh RACHEL Reason for Exam: Transient left sided facial numbness for 2 minutes in [place]. Possible TIA EXAMINATION: US EXTRACRANIAL CAROTID DUPLEX, BILATERAL CLINICAL INFORMATION: Transient left-sided facial numbness. COMPARISON: None available. TECHNIQUE: Real-time ultrasound and Doppler techniques (integrating B-mode 2-D vascular images, Doppler spectral analysis and color-flow Doppler imaging) were utilized to interrogate the extracranial carotid arteries, the vertebral arteries and proximal subclavian arteries bilaterally. The degree of stenosis is determined by criteria similar to NASCET. FINDINGS: Right Side: 1. There is a small calcified atherosclerotic plaque seen in the bifurcation/proximal ICA region. 2. The common carotid artery PSV proximally is 88 cm/s and distally 66 cm/s. 3. The proximal internal carotid artery velocities are 86 cm/s systolic and 31 cm/s diastolic. 4. The proximal external carotid artery PSV is 124 cm/s. 5. The vertebral artery shows antegrade flow. 6. The subclavian artery waveforms are triphasic. ICA/CC ratio: 0.98. Left Side: 1. There is small calcified atherosclerotic plaque seen in the bifurcation/proximal ICA region. 2. The common carotid artery PSV proximally is 89 cm/s and distally 74 cm/s. 3. The proximal internal carotid artery velocities are 81 cm/s systolic and 33 cm/s diastolic. 4. The proximal external carotid artery PSV is 115 cm/s. 5. The vertebral artery shows antegrade flow. 6. The subclavian artery waveforms are triphasic. ICA/CC ratio: 0.91. US/US carotid duplex BI IMPRESSION: 1. RIGHT: 0-49% stenosis by ultrasound criteria. 2. LEFT: 0-49% stenosis by ultrasound criteria. Electronically signed by: Wiley Forbes MD 11/17/2024 04:02 PM EDT Dictated By: Wiley Sanders MD Signed By: <Electronically signed by Wiley De Paz MD in OV> 11/17/24 1602 DD/ 1523 TD/TT: 11/17/24 1543 Applications Processor: Procedure Note Donotuseinterpreter, Image - 11/17/[address] [address] Ultrasound Report Signed Patient: Farideh Byers#: [id number] : 5Acct:[id number] Age/Sex: 69 / MADM Date: 11/17/24 Loc: .US Attending Dr: Jh Bullard MD Ordering Physician: Jh Bullard MD Date of Service: 11/17/24 Procedure(s): US carotid duplex BI Accession Number(s): [id number] cc: Piper Johnson MD; Name,Jh RACHEL Reason for Exam: Transient left sided facial numbness for 2 minutes inJuane. Possible TIA EXAMINATION: US EXTRACRANIAL CAROTID DUPLEX, BILATERAL CLINICAL INFORMATION: Transient left-sided facial numbness. COMPARISON: None available. TECHNIQUE: Real-time ultrasound and Doppler techniques (integrating B-mode 2-D vascular images, Doppler spectral analysis and color-flow Doppler imaging) were utilized to interrogate the extracranial carotid arteries, the vertebral arteries and proximal subclavian arteries bilaterally. The degree of stenosis is determined by criteria similar to NASCET. FINDINGS: Right Side: 1. There is a small calcified atherosclerotic plaque seen in the bifurcation/proximal ICA region. 2. The common carotid artery PSV proximally is 88 cm/s and distally 66 cm/s. 3. The proximal internal carotid artery velocities are 86 cm/s systolic and 31 cm/s diastolic. 4. The proximal external carotid artery PSV is 124 cm/s. 5. The vertebral artery shows antegrade flow. 6. The subclavian artery waveforms are triphasic. ICA/CC ratio: 0.98. Left Side: 1. There is small calcified atherosclerotic plaque seen in the bifurcation/proximal ICA region. 2. The common carotid artery PSV proximally is 89 cm/s and distally 74 cm/s. 3. The proximal internal carotid artery velocities are 81 cm/s systolic and 33 cm/s diastolic. 4. The proximal external carotid artery PSV is 115 cm/s. 5. The vertebral artery shows antegrade flow. 6. The subclavian artery waveforms are triphasic. ICA/CC ratio: 0.91. US/US carotid duplex BI IMPRESSION: 1. RIGHT: 0-49% stenosis by ultrasound criteria. 2. LEFT: 0-49% stenosis by ultrasound criteria. Electronically signed by: Wiley Forbes MD 11/17/2024 04:02 PM EDT Dictated By: Wiley Sanders MD Signed By: <Electronically signed by Wiley De Paz MDin OV> 11/17/24 1602 DD/ 1523 TD/TT: 11/17/24 1543 Applications Processor: us Jh Bullard MD CV VASCULAR PROCEDURES Final Res ult [facility] [address] [place] [employer], [place] [phone] * (ABNORMAL) POCT HGB A1C (09/29/2024 3:28 PM EDT) Hemoglobin A1C 6.7(A) 4.0 - 5.7 % QC Media Lot # [id number] Lot# Expiration Date [address] Blood 09/29/2024 3:28 PM EDT us Jh Bullard MD POINT OF CARE TEST ENTER/EDIT OR DERABLES Final Result * POCT Glucose (09/29/2024 3:22 PM EDT) Glucose Blood, POC 144 60 - 200 mg/dL QC Media Lot # [id number] Lot# Expiration Date 103,025 Blood Capillary blood specimen / Unknown 09/29/2024 3:22 PM EDT us Jh Bullard MD POINT OF CARE TEST ENTER/EDIT OR DERABLES Final Result * MR Brain w/o Contrast (09/08/2024 11:32 AM EDT) Anatomical Region Laterality Modality Brain Magnetic Resonan ce 09/08/2024 11:3 2 AM EDT Narrative 09/08/2024 11:33 AM EDT [address] [address] Magnetic Resonance Report Signed Patient: Landen Byers MR#: [id number] : 1955 Acct:[id number] Age/Sex: 69 / M ADM Date: 09/05/24 Loc: HO.MRI Attending Dr: Macey RUTHC Ordering Physician: Macey Noe Date of Service: 09/05/24 Procedure(s): MR head/brain wo con Accession Number(s): [id number] cc: Piper Johnson MD; Macey Noe CLINICAL HISTORY: G45.9 - Transient cerebral ischemic attack, unspecified MR Brain without gadolinium Comparison: None provided Findings: No restricted diffusion. No intra-axial mass or hemorrhage. No midline shift. No hydrocephalus. Vascular flow voids are intact. Moderate T2 signal prolongation in the periventricular white matter. Mild volume loss. Orbital contents are unremarkable. The sinuses and mastoid air cells are clear. No focal bone lesion. IMPRESSION: No acute ischemia. Moderate white matter disease. This document has been electronically signed by: Neo French MD on 09/08/2024 11:32:12 Dictated By: Neo French MD Signed By: <Electronically signed by Neo French MD in OV> 09/08/24 1133 DD/ 1132 TD/TT: 09/08/24 1132 Applications Processor: Procedure Note Donotuseinterpreter, Image - 09/08/2024 [place] [address] Magnetic Resonance Report Signed Patient: Landen Byers#: [id number] : 5Acct:[id number] Age/Sex: 69 / MADM Date: 09/05/24 Loc: HO.MRI Attending Dr: Macey JOHNSON Ordering Physician: Macey Noe Date of Service: 09/05/24 Procedure(s): MR head/brain wo con Accession Number(s): [id number] cc: Piper Johnson MD; Macey Noe CLINICAL HISTORY: G45.9 - Transient cerebral ischemic attack, unspecified MR Brain without gadolinium Comparison: None provided Findings: No restricted diffusion. No intra-axial mass or hemorrhage. No midline shift. No hydrocephalus. Vascular flow voids are intact. Moderate T2 signal prolongation in the periventricular white matter. Mild volume loss. Orbital contents are unremarkable. The sinuses and mastoid air cells are clear. No focal bone lesion. IMPRESSION: No acute ischemia. Moderate white matter disease. This document has been electronically signed by: Neo French MD on 09/08/2024 11:32:12 Dictated By: Neo French MD Signed By: <Electronically signed by Neo French MD in OV> 09/08/24 1133 DD/ 1132 TD/TT: 09/08/24 1132 Applications Processor: [facility] External Provider IMG MRI PROCEDURES Final Result * Albumin, Random Urine W/Creatinine (05/21/2024 10:08 AM EDT) Creatinine, Urine 63.26 mg/dL [facility] Microalbumin Urine <5.0 mg/L [facility] Microalbum Creatinine Ratio Ur TNP <30 ug/mg cr [facility] Comment:Unable to calculate albumin/creatinine ratio due to lowmicroalbumin or creatinine result. Urine (Urine, Random) 05/21/2024 10:08 AM EDT 05/21/2024 11:03 AM EDT Jh Bullard MD LAB URINE ORDERABLES Final Resul t [facility] [address] [place] [phone] * Hepatitis C Antibody with Reflex to HCV, RNA, Quantitative, Real-Time PCR (05/21/2024 10:08 AM EDT) Hepatitis C Antibody Nonreactive Nonreactive [facility] Comment:Antibodies to HCV no t detected; does not exclude early acuteHCV infection. Blood Venous blood specimen / Unknown 05/21/2024 10:08 AM EDT 05/21/2024 11:01 AM EDT us Jh Bullard MD LAB BLOOD ORDERABLES Final Resul t Performing Organization Address [facility] Co de Phone Number [facility] [address] [place] [phone] * (ABNORMAL) Lipid Panel, Standard (05/21/2024 10:08 AM EDT) Triglycerides 69 <150 mg/dL [facility] Comment:Desirable Triglyceri de: less than 150 mg/dLBorderline High Triglyceride 150-199 mg/dLHigh Triglyceride: 200-499 mg/dLVery High Triglyceride: greater than or equal to 5OO mg/dL Cholesterol 177 <200 mg/dL [facility] [facility] Comment:Desirable Cholestero l: less than 200 mg/dLBorderline High Cholesterol: 200-239 mg/dLHigh Cholesterol: greater than 239 mg/dL LDL Cholesterol Calculated 109(H) <100 mg/dL [facility] Comment:Desirable LDL: less than 100 mg/dLNear Optimal/Above Optimal LDL: 110- 129 mg/dLBorderline High LDL: 130-159 mg/dLHigh LDL: 160-189 mg/dLVery High LDL: greater than or equal to 190 mg/dL HDL Cholesterol 55 >40 mg/dL [facility] Comment:Desirable HDL: great er than 40 mg/dL Note: This HDL assay may give artificially low results in patients with liver disease. Blood Venous blood specimen / Unknown 05/21/2024 10:08 AM EDT 05/21/2024 11:01 AM EDT us Jh Bullard MD LAB BLOOD ORDERABLES Final Resul t Performing Organization Address [facility]/ZIP Co de Phone Number [facility] [address] [place] [address] [phone] * (ABNORMAL) Hm Colonoscopy (04/02/2023) Colonoscopy Abnormal( A) Normal Comment:Tubular adenoma cecelia bob. us Jh Bullard MD HEALTH MAINTENANCE Final Result from Last 3 Months or Most Recently Relevant to Health Maintenance Insurance [facility] Care Teams Drafter Apprentice Relationship Specialty Start Date End Date Name, MD Jh [address] [place] [id number] PCP - General Family Medicine 05/29/16
--- OUTSIDE RECORDS SUMMARY | 2024-11-17 18:07 | XMS_ITS ---
Author Name [address] Address [address] [place] [address] Phone [phone] [facility] Care Team Providers Care Vise Hand Name Role Phone Court Hooker Unavailable [phone] Unavailable Unavailable Unavailable [facility] Unavailable [phone] Reason for Referral Not Available Allergies, adverse [...] 2021-03-20 No Data Available OneTouch Delica Plus [id number] Miscellaneous TEST BLOOD SUGAR THREE TIMES DAILY [...] PARA [place] DOLOR 2021-08-21 No Data Available Scancellio Flex System w/Device Kit TEST BLOOD SUGAR [...] mg Tab TAKE 1 TABLET BY JESS EVERY MORNING 2022-06-22 No Data Available Rosuvastatin [...] 2023-12-24 No Data Available TRUEplus 5-Bevel Pen [place] 32G X 4 MM Miscellaneous USE FOUR [...] Frequent panic attacksPlanned intervention: Transfer member to [address] [place] [address]/ Hydroxyzine (Vistaril) 25mg PO q6h PRN anxiety/ [...] Service Diagnosis/Co mplaint Medication List Documented (1159F) [facility] Medication List Documented (1159F) [facility] Medication List Documented (1159F) [facility] Medication List Documented (1159F) [facility]20[place] Medication List Documented (1159F) [facility]2021 Type 2 diabetes mellitus wit h mild nonproliferative diabetic retinopathy without macular edema, bilateralGeneralized anxiety disorderHeart failure, unspecifiedPain in unspecified shoulderEnlarged prostate without lower urinary tract symptomsOther specified health statusObesity, unspecifiedBody mass index (bmi) 31.0-31.9, adultHypertensive heart disease with heart failure Medication List Documented (1159F) [facility]2021 Medication List Documented (1159F) [facility] Estab. patient 30-39min; chronic exacerbation, 2 stable chronic or 1 acute illness add add modifier 95 for video, (do not use for phone, instead use 62713-28) [facility]07/2022 Type 2 diabetes mellitus [...] (do not use for phone, instead use 64239-80) [facility]/20[place] Estab. patient 30-39min; chronic exacerbation, 2 stable chronic or 1 acute illness add add modifier 95 for video, (do not use for phone, instead use 74899-87) [facility]/2022 Estab. patient 30-39min; chronic exacerbation, 2 stable chronic or 1 acute illness add add modifier 95 for video, (do not use for phone, instead use 47341-57) [facility]/2022 Estab. patient 30-39min; chronic exacerbation, 2 stable chronic or 1 acute illness add add modifier 95 for video, (do not use for phone, instead use 19939-93) [facility] 11/07/2022 Estab. patient 30-39min; chronic exacerbation, 2 stable chronic or 1 acute illness add add modifier 95 for video, (do not use for phone, instead use 69264-61) [facility]/07/2022 Estab. patient 30-39min; chronic exacerbation, 2 stable chronic or 1 acute illness add add modifier 95 for video, (do not use for phone, instead use 40112-96) [facility]/2022 Estab. patient 20-29min; 1 stable chronic or 2 minor; add add modifier 95 for video, modifier 93 for phone [facility] 11/14/2022 Type 2 diabetes mellitus wit [...] modifier 93 for phone [facility] [place]/14/2022 Estab. patient 20-29min; 1 stable chronic or 2 minor; add add modifier 95 for video, modifier 93 for phone [facility] [place] 11[place]14/2022 Estab. patient 30-39min; chronic exacerbation, 2 stable chronic or 1 acute illness add add modifier 95 for video, (do not use for phone, instead use 88258-40) [facility] [place] 06/12/2023 Type 2 diabetes mellitus wit [...] (do not use for phone, instead use 22245-94) [facility] 06[place]12/2023 Estab. patient 30-39min; chronic exacerbation, 2 stable chronic or 1 acute illness add add modifier 95 for video, (do not use for phone, instead use 22873-89) [facility] 06/12/2023 Estab. patient 30-39min; chronic exacerbation, 2 stable chronic or 1 acute illness add add modifier 95 for video, (do not use for phone, instead use 03865-81) [facility] ([place] 06/12/2023 Estab. patient 30-39min; chronic exacerbation, 2 stable chronic or 1 acute illness add add modifier 95 for video, (do not use for phone, instead use 80871-97) [facility] [place] 06[place]12/2023 Estab. patient 30-39min; chronic exacerbation, 2 stable chronic or 1 acute illness add add modifier 95 for video, (do not use for phone, instead use 70652-83) [facility] [place] 06/12/2023 Estab. patient 30-39min; chronic exacerbation, 2 stable chronic or 1 acute illness add add modifier 95 for video, (do not use for phone, instead use 36065-17) [facility] [place] 06/12/2023 Estab. patient 30-39min; chronic exacerbation, 2 stable chronic or 1 acute illness add add modifier 95 for video, (do not use for phone, instead use 67618-56) [facility] [place] 06/12/2023 Estab. patient 30-39min; chronic exacerbation, 2 stable chronic or 1 acute illness add add modifier 95 for video, (do not use for phone, instead use 54496-52) [facility] [place] 06/12/2023 Estab. patient 30-39min; chronic exacerbation, 2 stable chronic or 1 acute illness add add modifier 95 for video, (do not use for phone, instead use 23366-82) [facility] 06/12/2023 Estab. patient 30-39min; chronic exacerbation, 2 stable chronic or 1 acute illness add add modifier 95 for video, (do not use for phone, instead use 31946-88) [facility] 06/12/2023 RN, CN or CP time with patient by phone; use with 1111F, BP, A1c or other CPTII codes [facility], [place] 10/01/2023 Encounter for other specifie d aftercare RN, CN or CP time with patient by phone; use with 1111F, BP, A1c or other CPTII codes [facility], ([place] 10/01/2023 No Data Available [facility] ([place] 10/08/2023 Enlarged prostate without lo wer urinary tract symptomsOther problems related to medical facilities and other health care No Data Available [facility] 10/08/2023 No Data Available [facility] [place] 10/08/2023 Estab. patient 20-29min; 1 stable chronic or 2 minor; add add modifier 95 for video, modifier 93 for phone [facility] ([place] 04/17/2024 Type 2 diabetes mellitus wit [...] 95 for video, modifier 93 for phone [email or web address] ([place] 04/17/2024 Estab. patient 20-29min; [...] for phone [facility], ([place] 04/17/2024 Vital Signs Date [...] tive Time Current Smoking Status Former smoker 2024-10-27 3 Sex Male Gender identity Man History of [...] le No Data Available No Data Available [id number] 2021-12-07 No Data Available No Data Available SBP < 130 (3074F) 3074F 2021-12-07 No Data Available No Data Available DBP 80-89 (3079F) 3079F 2021-12-07 No Data Available No Data Available Estab. patient 30-39min; chronic exacerbation, 2 stable chronic or 1 acute illness add add modifier 95 for video, (do not use for phone, instead use 66288-28) 76429 2022-11-07 No Data Available No Data Availa [...] 95 for video, modifier 93 for phone 28541 2022-11-14 No Data Available No Data Availa [...] (do not use for phone, instead use 88826-32) 87856 2023-06-12 No Data Available No Data Availa [...] 1111F, BP, A1c or other CPTII codes 21548 2023-10-01 No Data Available No Data Avai lable Medications prescribed in hospital were reviewed and reconciled against what they were taking prior to admission during today's visit. (1111F) 1111F 2023-10-01 No Data Available No Data Availa ble No Data Available 42307 2023-10-08 No Data Available No Data Available [...] 95 for video, modifier 93 for phone 42318 2024-04-17 No Data Available No Data Availa [...] 2022-11-07 Reports using a cane to ambulate. 06-11 Fall in the last 6 months: yes, [...] Patient Education to avoid future hospitalization: Call [facility] if symptoms of illness develop.Other problems related [...] modifier 95Continue to see PCP. Follow-up with Enrrique as needed for any acute or disease education needs that may arise.On Lantus, Lispro, MetforminCautioned re risk of sedation, safety.Sending NarcanOn Amitriptylene, Buspirone, SertralineOn carvediloloxycodoneoxycodoneTamsulosinWill FU when pt can have a friend, CHANGER FIXER or family member with himLifestyle adviceOn carvedilol, [...] Documented (1125F)Continue to see PCP. Follow-up with Enrrique as needed for any acute or disease [...] modifier 95Continue to see PCP. Follow-up with Enrrique as needed for any acute or disease [...] Frequent panic attacksPlanned intervention: Transfer member to [address] [place] [address]/ Hydroxyzine (Vistaril) 25mg PO q6h PRN anxiety/ [...] Frequent panic attacksPlanned intervention: Transfer member to [address] [place] [address]/ Hydroxyzine (Vistaril) 25mg PO q6h PRN anxiety/ [...] Frequent panic attacksPlanned intervention: Transfer member to [address] [place] [address]/ Hydroxyzine (Vistaril) 25mg PO q6h PRN anxiety/ [...]
--- OUTSIDE RECORDS SUMMARY | 2024-11-17 18:07 | XMS_ITS | Encounter Summary ---
Author Organization [employer] Address [address] [facility] [address] [place] [address] Care Team Providers Care Cake Wrapper Name Role Phone Jh Bullard MD Primary Care Provider [phone] Juliet Wren PharmD Unavailable [phone] Reason for Visit * Reason Onset Date Comments triage 02/08/2022 Encounter Details Date Type Department Care Team (Late st Contact Info) Description 02/08/2022 Telephone [facility] [address] [place], [place] [phone] Name, MD Jh [address] [place] [address] triage Social History Tobacco Use Types Packs/Day [...] caller The caller accepted this outcome speaks [place] documented in this encounter Plan of Treatment Upcoming Encounters Date Type Department Care Team (Late st Contact Info) Description 01/25/2025 1:30 PM EST Clinical Support [address] [address] Cee Toussaint, RN 02/01/2025 2:30 PM EST Office Visit [address] [address] Name, MD Jh [address] [place] [phone] documented as of this encounter Visit Diagnoses Not on filedocumented in this encounter Care Teams Cake Wrapper Relationship Specialty Start Date End Date Name, MD Jh [address] [place] [address] PCP - General Family Medicine 05/29/16 Juliet Wren, FabyD [address] [place] [phone] Pharmacist Internal Medicine 07/17/22 11/02/24 documented as of this encounter
--- OUTSIDE RECORDS SUMMARY | 2024-11-17 18:07 | XMS_ITS | Encounter Summary ---
Author Organization [employer] Address [address] [facility] [facility] [address] [place] [address] Care Team Providers Care Coding Clerk Name Role Phone Name, Jh RACHEL Primary Care Provider [phone] Juliet Wren PharmD Unavailable [phone] Encounter Details Date Type Department Care Team ([facility] st Contact Info) Description 05/16/2023 Telephone [facility] [address] [place], [place] [phone] Name, MD Jh [address] [place] [address] Social History Tobacco Use Types Packs/Day Years Used Date Smoking Tobacco: Never Smokeless Tobacco: Never Alcohol Use Standard Drinks/Week Comments Never 0 (1 standard drink = 0.6 oz pur e alcohol) Depression Answer Date Recorded Patient Health Questionnaire-9 Score 0 03/08/2022 Housing Stability Answer Date Recorded What is your housing situation today? I have kaet arce 12/09/[address] you [...] Description 01/25/2025 1:30 PM EST Clinical Support [address] [phone] Cee Toussaint RN 02/01/2025 2:30 PM EST Office Visit [address] [phone] Name, MD Jh [address] [place] [address] [phone] documented as of this encounter Goals Goal Patient Goal Type Associated Problems Recent Progress Patient-Stated? Author Hemoglobin A1c < 7.5 Result Component 6.7( 3:28 PM EDT) No Juliet Wren, PharmDainlo Record your blood sugar as directed Result [...] as of this encounter Care Teams Coding Clerk Relationship Specialty Start Date End Date Jh Bullard MD [address] [place] [address] [phone] PCP - General Family Medicine 05/29/16 Juliet Wren PharmD [address] [place] [phone] Pharmacist Internal Medicine 07/17/22 11/02/24 documented as of this encounter
== END 2024-11-17 15:06 | disposition home or self-care (01) ==
LOC: HO.US 15:05
PROVIDERS: PCP Internal Medicine; Visit Provider Internal Medicine Geriatric Medicine
DX: I65.23 Occlusion and stenosis of bilateral carotid arteries (principal); R20.0 Anesthesia of skin
CPT/HCPCS: 93880

== ENCOUNTER → 2024-11-17 15:08 | Outpatient (BNV) | payer OTHER, SELFPAY | PROVIDERS: PCP Internal Medicine; Visit Provider Radiology Diagnostic Radiology | DX: R20.2 Paresthesia of skin (principal) | CPT/HCPCS: 93880 ==

== ENCOUNTER 2024-11-24 13:55 | Outpatient (AMB) | payer OTHER, SELFPAY ==
[2024-11-24 14:13] VITALS: BP 110/82; PULSE 70; BMI 30.9
--- NOTE | 2024-11-24 14:13 | A.OFFVIS_ITS ---
Vital Signs 11/24/24 14:13 Height 5 ft 9 in Weight 209 lb 7.026 oz BMI 30.9 BP 110/82 Blood Pressure Location Rt brachial Position Sitting Pulse 70 Pulse Source Pulse Oximeter Intake Visit Reasons: f/u after testing Junior Qa Analyst Required: Yes Junior Qa Analyst Language: Shade Cutter Name: crescencio danielle [id number] Doctor Podiatric Medicine: Doctor Podiatric Medicine Present Allergies No Known Allergies (No Known Allergies*) Allergy (Verified 11/24/24 14:15) Medication List - Last Reconciled 11/24/24 by ELIZABETH Farfan amitriptyline 75 mg PO BEDTIME bisacodyl (Dulcolax (bisacodyl)) 10 mg (2 x 5 mg) PO BEDTIME 30 days buspirone 5 mg PO DAILY carvedilol 12.5 mg PO BID docusate sodium 100 mg PO BID famotidine 40 mg PO BEDTIME insulin glargine (Lantus Solostar U-100 Insulin) 28 units subcut QAM insulin lispro 10 units subcut TID lancets (OneTouch Delica Plus Lancet) As directed linaclotide (Linzess) 290 mcg PO QAM 30 days lisinopril 20 mg PO DAILY magnesium oxide 400 mg PO DAILY metformin 1,000 mg PO BID methocarbamol 750 mg PO BID PRN 30 days naloxone 4 mg/actuation 1 spray intranasal DAILY omeprazole 40 mg PO DAILY oxycodone-acetaminophen 5-325 mg (Percocet) 1 tab PO TID PRN pen needle, diabetic (Pentips Pen Needle) As directed rosuvastatin 40 mg PO DAILY sertraline 50 mg PO QAM sildenafil (Viagra) 50 mg PO DAILY PRN HPI HPI f/u after testing: Details: Ladnen is a 69-year-old male with past medical history of diabetes, hypertension, hyperlipidemia, SVT, frequent PACs, prior reports of mouth and left hand numbness, who recently underwent a brain MRI and carotid ultrasound and now presents for follow-up. Today he reports that he has been doing well since his last visit in July. He had no episodes of mouth and left hand numbness. He has no new neurological type symptoms. No chest discomfort, heart palpitations, shortness of breath, lightheadedness, leg swelling. He tolerates normal ADLs without difficulty. is present. Certified trace evidence technician used. [facility] Medical History Cervical spondylosis Pre-op examination Cervical radiculitis Muscle spasm Left shoulder pain Low back pain Lumbar degenerative disc disease Diabetes type 2, controlled Palpitations SVT (supraventricular tachycardia) HLD (hyperlipidemia) HTN (hypertension) Surgical History Hx of colonoscopy S/P shoulder surgery Family History Father CVD (cardiovascular disease) Mother Cancer Social History Alcohol intake: former Year quit: 2016 Patient Tobacco Use Status: Former Tobacco user Years Smoked: 25 +/- Current occupational status: retired Current occupation: rt handed Review of Systems Const All systems reviewed & are unremarkable except as noted in HPI and below ENT Denies dizziness Card Denies chest pain, Denies chest pain at rest, Denies chest pain with activity, Denies rapid heart rate, Denies pedal edema, Denies edema, Denies leg edema, Denies lightheadedness, Denies palpitations, Denies dyspnea, Denies dyspnea on exertion and Denies orthopnea Resp Denies cough, Denies dyspnea and Denies dyspnea on exertion GI Denies hematochezia and Denies change in stool character Musc Denies abnormal gait, Denies limited range of motion, Denies muscle cramps, Denies muscle weakness, Denies numbness, Denies radiating pain into limb, Denies stiffness and Denies tingling Neuro Denies abnormal gait, Denies dizziness, Denies numbness and Denies tingling Endo Denies palpitations Physical Exam Vital Signs: Last Vital Signs Pulse 70 11/24/24 14:13 BP 110/82 11/24/24 14:13 BMI result Body Mass Index 30.9 Const General: cooperative, healthy appearing, comfortable and no acute distress Orientation/consciousness: patient oriented x3 Neck Neck: Yes normal visual inspection and Yes no JVD Resp Effort & Inspection: normal respiratory effort Auscultation: clear to auscultation bilaterally, no rales, no rhonchi and no wheezes Cardio Rate: tachycardic Rhythm: regular rhythm Heart sounds: S1 normal heart sound present, S2 normal heart sound present, no murmurs and no rubs Neuro General: patient oriented x3 Extrem General: Yes normal to inspection Psych Appearance: grossly normal Mental Status: mental status grossly normal Speech and movement: Normal speech and movement present Office Procedures EKG Details: Today, read by me, atrial flutter, 2-1 AV conduction left anterior fascicular block, can not exclude prior anterior infarct, rate 137, QTC 383 milliseconds [id number], Complete Assessment & Plan Assessment & Plan (1) Atrial flutter: Code(s): I48.92 - Unspecified atrial flutter Category: Medical Plan: New finding of atrial flutter on EKG today, rate 137. On exam he was noted to have asymptomatic rapid heartbeat. Previously known to have very frequent PACs and has been on carvedilol for heart rate and blood pressure control. Last Echocardiogram done 07/15/2024 showed EF 55-60%, no valve abnormalities, both atria normal size. Will have him stop carvedilol and start metoprolol tartrate 75 mg b.i.d.. Hold lisinopril for now. Labs 05/21/2024 showed hematocrit 43, creatinine 0.66 Will start Eliquis 5 mg b.i.d.. Diagnosis of atrial flutter, treatment plan, medications, stroke risk reviewed with him in detail. Will arrange for office EKG in 3-4 days. Cardiology follow-up in 1 month. If he still is having persistent atrial flutter then cardioversion will be planned after 1 month of anticoagulation. Future plan for ablation. (2) PAC (premature atrial contraction): Code(s): I49.1 - Atrial premature depolarization Category: Medical Plan: Holter monitor done 07/15/2024 for 7 days shows sinus rhythm with average heart rate 86, frequent PACs with burden 40%, short runs, longest 19 beats rate 169. At that time he was on carvedilol for blood pressure control in his dose was increased. Now with EKG finding as above (3) Numbness around mouth: Code(s): R20.0 - Anesthesia of skin Category: Medical Plan: Prior Reports intermittent numbness around the mouth and 2 occasion had additional numbness in his left hand. His cardiac testing showed frequent PACs but no atrial fibrillation. Brain MRI done 09/08/2024 showing no acute ischemia, moderate white matter disease. This result was previously faxed to his PCP. He now has finding of atrial flutter in his being put on anticoagulation. Still unclear if his prior episodes of numbness were related. (4) Abnormal EKG: Code(s): R94.31 - Abnormal electrocardiogram [ECG] [EKG] Category: Medical Plan: EKGs do show findings of possible anterior infarct. No prior known history of [place]. He has multiple cardiac risk factors including obesity, hypertension, hyperlipidemia and uncontrolled diabetes. Exercise nuclear stress test was done on 12/11/2022 showing exercise 5 minutes, no anginal symptoms, no EKG changes and normal myocardial perfusion imaging however EF noted at 47%. The EF on his echocardiogram at that time was normal. Continue Cardiac risk factor modification. Signs and symptoms of angina reviewed. (5) SVT (supraventricular tachycardia): Code(s): I47.1 - Supraventricular tachycardia Category: Medical Plan: History of SVT. He had been on carvedilol for heart rate control with dose increase for Holter findings of frequent PACs and short atrial runs. Now changing over to metoprolol. Reviewed reduction in caffeinated beverages, staying well hydrated getting good rest. (6) HTN (hypertension): Code(s): I10 - Essential (primary) hypertension Category: Medical Qualifiers: Hypertension type: primary hypertension Qualified Code(s): I10 - Essential (primary) hypertension Plan: Blood pressure goal less than 130/80. Blood pressure on low side today. Will be making medication adjustments as above. Lisinopril put on hold - coming for office EKG and will check blood pressure next week. (7) HLD (hyperlipidemia): Code(s): E78.5 - Hyperlipidemia, unspecified Category: Medical Qualifiers: Hyperlipidemia type: unspecified Qualified Code(s): E78.5 - Hyperlipidemia, unspecified Plan: [place] LDL goal less than 70 in patient with diabetes. Labs done 05/21/2024 showed LDL 109. Continue rosuvastatin. Followed by his PCP. Plan Time spent on chart review, documentation, interviewing assessment, orders Medications: New apixaban (Eliquis) 5 mg PO BID 60 tabs 5RF metoprolol tartrate stop Carvedilol - start Metoprolol 75mg bid 75 mg (1.5 x 50 mg) PO BID 90 t abs 2RF 30 days Discontinued carvedilol Discontinued Reason: Doctor's Order 12.5 mg PO BID 180 tabs 1RF Coding Level of Care Code Est Pt Level 4 (19628) Complex EM visit Add On G2211 Diagnoses Atrial flutter I48.92 PAC (premature atrial contraction) I49.1 Numbness around mouth R20.0 Abnormal EKG R94.31 SVT (supraventricular tachycardia) I47.1 Primary hypertension I10 Hypertension type: primary hypertension Hyperlipidemia, unspecified hyperlipidemia type E78.5 Hyperlipidemia type: unspecified CPT Codes EKG - CPT: 07010-[id number], Complete ([id number]) Time Spent (min) 36
--- OUTSIDE RECORDS SUMMARY | 2024-11-24 15:19 | XMS_ITS | Clinical Summary ---
Author Organization [employer] [facility] ity Address [address] [place] [address] Care Team Providers Care Associate Director Of Development Name Role Phone Name, Jh RACHEL Primary Care Provider [phone] Social History Tobacco Use Types Packs/Day Years [...] age to complete this topic Care Teams Associate Director Of Development Relationship Specialty Start Date End Date Name, MD Jh [address], [place] PCP - General Internal Medicine 11/16/19
--- OUTSIDE RECORDS SUMMARY | 2024-11-24 15:19 | XMS_ITS ---
Author Name [address] DAV[address] Address [address] [place] [address] Phone [phone] [facility] Care Team Providers Care Rubber Down Name Role Phone Court Hooker Unavailable [phone] Un[address] Un[address] [facility] Unavailable Reason for Referral Not Available Allergies, [...] 2021-03-20 No Data Available OneTouch Delica Plus [id number] Miscellaneous TEST BLOOD SUGAR THREE TIMES DAILY [...] PARA EL DOLOR 2021-08-21 No Data Available Fonixio Flex System w/Device Kit TEST BLOOD SUGAR [...] 2023-12-24 No Data Available TRUEplus 5-Bevel Pen [place] 32G X 4 MM Miscellaneous USE FOUR [...] Frequent panic attacksPlanned intervention: Transfer member to [address] [place] [address]/ Hydroxyzine (Vistaril) 25mg PO q6h PRN anxiety/ [...] Service Diagnosis/Co mplaint Medication List Documented (1159F) [facility] Medication List Documented (1159F) [facility]20[place] Medication List Documented (1159F) [facility] Medication List Documented (1159F) [facility]20[place] Medication List Documented (1159F) [facility]07/2021 Type 2 diabetes mellitus wit h mild nonproliferative diabetic retinopathy without macular edema, bilateralGeneralized anxiety disorderHeart failure, unspecifiedPain in unspecified shoulderEnlarged prostate without lower urinary tract symptomsOther specified health statusObesity, unspecifiedBody mass index (bmi) 31.0-31.9, adultHypertensive heart disease with heart failure Medication List Documented (1159F) [facility]2021 Medication List Documented (1159F) [facility]20[place] Estab. patient 30-39min; chronic exacerbation, 2 stable chronic or 1 acute illness add add modifier 95 for video, (do not use for phone, instead use 16213-63) [facility]/07/2022 Type 2 diabetes mellitus [...] (do not use for phone, instead use 20086-36) [facility]/20[place] Estab. patient 30-39min; chronic exacerbation, 2 stable chronic or 1 acute illness add add modifier 95 for video, (do not use for phone, instead use 71031-98) [facility]/07/2022 Estab. patient 30-39min; chronic exacerbation, 2 stable chronic or 1 acute illness add add modifier 95 for video, (do not use for phone, instead use 63052-60) [facility]/07/2022 Estab. patient 30-39min; chronic exacerbation, 2 stable chronic or 1 acute illness add add modifier 95 for video, (do not use for phone, instead use 85544-55) [facility] 11/07/2022 Estab. patient 30-39min; chronic exacerbation, 2 stable chronic or 1 acute illness add add modifier 95 for video, (do not use for phone, instead use 18758-06) [facility] 11/07/2022 Estab. patient 30-39min; chronic exacerbation, 2 stable chronic or 1 acute illness add add modifier 95 for video, (do not use for phone, instead use 24826-95) [facility]/07/2022 Estab. patient 20-29min; 1 stable chronic or 2 minor; add add modifier 95 for video, modifier 93 for phone [facility]/14/2022 Type 2 diabetes mellitus wit h [...] 93 for phone [facility] [place]/14/2022 Estab. patient 20-29min; 1 stable chronic or 2 minor; add add modifier 95 for video, modifier 93 for phone [facility] ([place] 11/14/2022 Estab. patient 30-39min; chronic exacerbation, 2 stable chronic or 1 acute illness add add modifier 95 for video, (do not use for phone, instead use 76027-46) [facility] ([place] 06/12/2023 Type 2 diabetes mellitus wit h [...] (do not use for phone, instead use 71830-68) [facility] 06/12/2023 Estab. patient 30-39min; chronic exacerbation, 2 stable chronic or 1 acute illness add add modifier 95 for video, (do not use for phone, instead use 26789-70) [facility] 06/12/2023 Estab. patient 30-39min; chronic exacerbation, 2 stable chronic or 1 acute illness add add modifier 95 for video, (do not use for phone, instead use 22949-69) [facility] [place] 06/12/2023 Estab. patient 30-39min; chronic exacerbation, 2 stable chronic or 1 acute illness add add modifier 95 for video, (do not use for phone, instead use 99649-61) [facility] [place] 06/12/2023 Estab. patient 30-39min; chronic exacerbation, 2 stable chronic or 1 acute illness add add modifier 95 for video, (do not use for phone, instead use 46407-38) [facility] [place] 06/12/2023 Estab. patient 30-39min; chronic exacerbation, 2 stable chronic or 1 acute illness add add modifier 95 for video, (do not use for phone, instead use 76681-60) [facility] [place] 06/12/2023 Estab. patient 30-39min; chronic exacerbation, 2 stable chronic or 1 acute illness add add modifier 95 for video, (do not use for phone, instead use 39790-25) [facility] [place] 06/12/2023 Estab. patient 30-39min; chronic exacerbation, 2 stable chronic or 1 acute illness add add modifier 95 for video, (do not use for phone, instead use 33641-11) [facility] [place] 06/12/2023 Estab. patient 30-39min; chronic exacerbation, 2 stable chronic or 1 acute illness add add modifier 95 for video, (do not use for phone, instead use 66919-72) [facility] 06/12/2023 Estab. patient 30-39min; chronic exacerbation, 2 stable chronic or 1 acute illness add add modifier 95 for video, (do not use for phone, instead use 92983-32) [facility] [place] 06/12/2023 RN, CN or CP time with patient by phone; use with 1111F, BP, A1c or other CPTII codes [facility], [place] 10/01/2023 Encounter for other specifie d aftercare RN, CN or CP time with patient by phone; use with 1111F, BP, A1c or other CPTII codes [facility] 10/01/2023 No Data Available [facility] ([place] 10/08/2023 Enlarged prostate without lo wer urinary tract symptomsOther problems related to medical facilities and other health care No Data Available [facility] 10/08/2023 No Data Available [facility] [place] 10/08/2023 Estab. patient 20-29min; 1 stable chronic or 2 minor; add add modifier 95 for video, modifier 93 for phone [facility] ([place] 04/17/2024 Type 2 diabetes mellitus wit h [...] modifier 93 for phone [facility], [place] 04/17/2024 Estab. patient 20-29min; 1 stable chronic or 2 minor; add add modifier 95 for video, modifier 93 for phone [facility], [place] 04/17/2024 Estab. patient 20-29min; 1 stable chronic or 2 minor; add add modifier 95 for video, modifier 93 for phone [facility], [place] 04/17/2024 Estab. patient 20-29min; 1 stable chronic or 2 minor; add add modifier 95 for video, modifier 93 for phone [facility], [place] 04/17/2024 Estab. patient 20-29min; 1 stable chronic or 2 minor; add add modifier 95 for video, modifier 93 for phone [facility], [place] 04/17/2024 Estab. patient 20-29min; 1 stable chronic or 2 minor; add add modifier 95 for video, modifier 93 for phone [facility] [place] 04/17/2024 Estab. patient 20-29min; 1 stable chronic or 2 minor; add add modifier 95 for video, modifier 93 for phone [facility], [place] 04/17/2024 Vital Signs Date of Collection Vitals [...] tive Time Current Smoking Status Former smoker 2024-10-28 0 Sex Male Gender identity Man History of [...] le No Data Available No Data Available [id number] 2021-12-07 No Data Available No Data Available SBP < 130 (3074F) 3074F 2021-12-07 No Data Available No Data Available DBP 80-89 (3079F) 3079F 2021-12-07 No Data Available No Data Available Estab. patient 30-39min; chronic exacerbation, 2 stable chronic or 1 acute illness add add modifier 95 for video, (do not use for phone, instead use 05566-33) 55169 2022-11-07 No Data Available No Data Availa [...] 95 for video, modifier 93 for phone 78492 2022-11-14 No Data Available No Data Availa [...] (do not use for phone, instead use 85243-81) 45652 2023-06-12 No Data Available No Data Availa [...] 1111F, BP, A1c or other CPTII codes 77017 2023-10-01 No Data Available No Data Avai lable Medications prescribed in hospital were reviewed and reconciled against what they were taking prior to admission during today's visit. (1111F) 1111F 2023-10-01 No Data Available No Data Availa ble No Data Available 17036 2023-10-08 No Data Available No Data Available [...] 95 for video, modifier 93 for phone 36455 2024-04-17 No Data Available No Data Availa [...] Patient Education to avoid future hospitalization: Call [facility] if symptoms of illness develop.Other problems [...] FU when pt can have a friend, SALES TEAM MEMBER or family member with himLifestyle adviceOn carvedilol, [...] Frequent panic attacksPlanned intervention: Transfer member to [address] [place] [address]/ Hydroxyzine (Vistaril) 25mg PO q6h PRN anxiety/ [...] Frequent panic attacksPlanned intervention: Transfer member to [address] [place] [address]/ Hydroxyzine (Vistaril) 25mg PO q6h PRN anxiety/ [...] Frequent panic attacksPlanned intervention: Transfer member to [address] [place] [address]/ Hydroxyzine (Vistaril) 25mg PO q6h PRN anxiety/ [...]
--- OUTSIDE RECORDS SUMMARY | 2024-11-24 15:19 | XMS_ITS | Clinical Summary ---
Author Organization [employer] Address [address] [facility] 7t [place] [address] Care Team Providers Care Hide Curer Name Role Phone Name, Jh RACHEL Primary [...] 2 each 2 025 Active Continuous Glucose Jigsaw Operator (FreeStyle Laurent 3 Kipton) deviceIndicatio ns:Type 2 diabetes mellitus without complication, with long-term current use of insulin (HCC) 1 each Once per day. Use as directed for CGM 1 each 025 Active Continuous Glucose Sensor (FreeStyle Laurent 3 Plus Sensor) miscIndications :Type 2 diabetes mellitus without complication, with long-term current use of insulin (HCC) Apply 1 every 15 days as directed for CGM 2 each Active glucose blood (FreeStyle Precision Chano Test) test stripIndication s:Type 2 diabetes mellitus without complication, with long-term current use of insulin ([facility]) Use to test blood sugar up to 3 times daily, as directed 100 each 025 Active OneTouch Verio test stripIndication s:Type 2 diabetes mellitus without complication, with long-term current use of insulin ([facility]) TEST BLOOD SUGAR THREE TIMES DAILY 100 strip Active Lancets (OneTouch Delica Plus Ioterg24D) miscIndications :Type 2 diabetes mellitus without complication, with long-term current use of insulin ([facility]) TEST BLOOD SUGAR THREE TIMES DAILY 100 each 11 025 Active Viagra 100 MG tablet TAKE 1 TABLET 1 HOUR BEFORE SEXUAL RELATIONS ONCE DAILY NEEDED. 10 tablet 3 025 Active tamsulosin (Flomax) 0.4 MG 24 hr capsule TAKE TWO CAPSULES DAILY 30 MINUTES AFTER THE SAME MEAL 60 capsule 5 025 Active docusate sodium (Colace) 100 MG capsule TAKE ONE CAPSULE TWICE DAILY 60 capsule 7 025 Active methocarbamol (Robaxin) 750 MG tablet Active TechLite Pen [place] 32G X 4 MM misc USE FOUR DAILY 100 each 4 025 Active Aspirin Low Dose 81 MG chewable tablet CHEW ONE TABLET ONCE DAILY 90 tablet 025 Active omeprazole (PriLOSEC) [address] capsuleIndicati ons:Essential hypertension TAKE 1 CAPSULE BY MOUTH EVERY DAY BEFORE A MEAL 30 capsule 5 025 Active oxyCODONE-aceta minophen (Percocet) 5-325 MG tabletIndicatio ns:Chronic pain syndrome Take 1 tablet by mouth every 8 (eight) hours if needed for severe pain for up to 28 days. Do not start before November 04, 2024. 84 tablet 025 2024 Active insulin degludec (Tresiba FlexTouch) 100 UNIT/ML injectionIndica tions:Type 2 diabetes mellitus without complication, with long-term current use of insulin ([facility]) INJECT 34 UNITS SUBCUTANEOUSLY EVERY MORNING 15 mL 025 Active insulin lispro (HumaLOG KWIKPEN) 100 UNIT/ML injectionIndica tions:Type 2 diabetes mellitus without complication, with long-term current use of insulin (HCC) Inject 4 units subQ three times daily with meals. Do not use if not eating / skipping a meal. 15 mL 11 025 Active lisinopril 20 MG tabletIndicatio ns:Type 2 diabetes mellitus without complication, with long-term current use of insulin (HCC),Essential hypertension Take 1 tablet (20 mg) by mouth Once per day. 90 tablet 3 025 Active metFORMIN (Glucophage) 1000 MG tabletIndicatio ns:Type 2 diabetes mellitus without complication, with long-term current use of insulin (HCC) Take 1 tablet (1,000 mg) by mouth with breakfast and with evening meal. 180 tablet 3 025 2025 Active rosuvastatin (Crestor) 40 MG tabletIndicatio ns:Type 2 diabetes mellitus without complication, with long-term current use of insulin (HCC) Take 1 tablet (40 mg) by mouth Once per day. 90 tablet 3 025 Active carvedilol (Coreg) 12.5 MG tabletIndicatio ns:Essential hypertension Take 1 tablet (12.5 mg) by mouth with breakfast and with evening meal. 60 tablet 025 Active insulin lispro (HumaLOG KWIKPEN) 100 UNIT/ML injectionIndica tions:Type 2 diabetes mellitus without complication, with long-term current use of insulin (HCC) Inject 8 units subQ three times daily with meals. Do not use if not eating / skipping a meal. 15 mL 5 024 2024 Discontinued(R eorder (will not trigger notification to Pharmacy)) metFORMIN (Glucophage) 1000 MG tabletIndicatio ns:Type 2 diabetes mellitus without complication, with long-term current use of insulin (HCC) Take 1 tablet (1,000 mg) by mouth with breakfast and with evening meal. 180 tablet 3 024 2024 Discontinued(R eorder (will not trigger notification to Pharmacy)) lisinopril 20 MG tabletIndicatio ns:Type 2 diabetes mellitus without complication, with long-term current use of insulin (HCC),Essential hypertension Take 1 tablet (20 mg) by mouth Once per day. 90 tablet 3 024 2024 Discontinued(R eorder (will not trigger notification to Pharmacy)) rosuvastatin (Crestor) 40 MG tabletIndicatio ns:Type 2 diabetes mellitus without complication, with long-term current use of insulin (HCC) Take 1 tablet (40 mg) by mouth [...] complication, with long-term current use of insulin ([facility]) INJECT 34 UNITS SUBCUTANEOUSLY EVERY MORNING 15 [...] complication, with long-term current use of insulin (HCC) INJECT 34 UNITS SUBCUTANEOUSLY EVERY MORNING 15 mL 025 2024 Discontinued(R eorder (will not trigger notification to Pharmacy)) Active Problems Problem Noted Date Diagnosed Date History of supraventricular tachycardia 09/30/19 Overview (09/29/2024): [place] [facility] He is on carvedilol. Holter monitor [...] 1 obesity 12/12/2023 Alcohol dependence in remission ([facility]) 2023 Tubular adenoma 10/17/2022 Overview (10/17/2022): Of the sigmoid colon 2016 Colonoscopy done at [facility] Type 2 diabetes mellitus 03/02/2022 Benign prostatic [...] Encounters Date Type Department Care Team Description 11/18/2024 Results Follow-Up [facility] [address] [place] [address] Jh Bullard MD Vascular US carotid artery duplex bilateral 11/16/2024 Telephone [facility] [address] [place] [address] Gaby Jean [place] DECEMBER RECALLS 11/03/2024 Travel 10/30/2024 Refill [facility] [address] [place] [address] Jh Bullard MD Essential hypertension 10/30/2024 Refill [facility] [address] [place] [address] Jh Bullard MD Chronic pain syndrome 10/27/2024 Refill [facility] [address] [place], [place] [phone] Jh Bullard MD Type 2 diabetes mellitus without complication, with long-term current use of insulin (CMS/HCC) 10/24/2024 Refill [facility] [address] [place] [address] Jh Bullard MD 10/19/2024 Telephone [facility] [address] [place] [address] Joy Kennedy, PharmD 10/07/2024 Refill [facility] [address] [place] [address] Amparo Sen MD Chronic pain syndrome 10/07/2024 Refill [facility] [address] [place] [address] Jh Bullard MD Chronic pain syndrome 09/29/2024 3:15 PM EDT Office Visit [facility] [address] [place] [address] Jh Bulalrd MD Type 2 diabetes mellitus without complication, with long-term current use of insulin (CMS/HCC) (Primary Dx); Left facial numbness; Numbness and tingling in left hand 09/29/2024 Travel 09/21/2024 Telephone [facility] [address] [place] [address] Gudelia Garcia, PharmDanilo 09/20/2024 Refill [facility] [address] [place] [address] Juliet Wren, PharmD Type 2 diabetes mellitus without complication, with long-term current use of insulin ([facility]) 09/11/2024 Refill [facility] [address] [place] [address] Jh Bullard MD Essential hypertension 09/08/2024 Refill [facility] [address] [place], [place] [phone] Katie Zhong NP Chronic pain syndrome 09/08/2024 Refill [facility] [address] [place] [address] Name, MD Jh Chronic pain syndrome 09/05/2024 Orders Only [facility] External Provider, [facility] 09/03/2024 Refill [facility] [address] [place], [place] [phone] Name, MD Jh from Last 3 Months [...] Description 01/25/2025 1:30 PM EST Clinical Support [facility] [address] [place] [address] Cee Toussaint RN 02/01/2025 2:30 PM EST Office Visit [address] [address] Name, MD Jh [address] [place] [address] Health Maintenance Due Date Last Done Comments [...] Procedure Name Priority Date/Time Associated Diagnosis Comments [facility] US CAROTID ARTERY DUPLEX BILATERAL Routine 11/17/2024 3:23 PM EDT Left facial numbness POCT GLYCATED HEMOGLOBIN, TOTAL Routine 09/29/2024 3:28 PM EDT Type 2 diabetes mellitus without complication, with long-term current use of insulin ([facility]) POCT GLUCOSE Routine 09/29/2024 3:22 PM EDT [...] 3:23 PM EDT) 11/17/2024 3:23 PM EDT Narrative [facility] IM[facility] - 11/17/2024 4:05 PM EDT [address] [address] Ultrasound Report Signed Patient: Landen Byers MR#: [id number] : 1955 Acct:[id number] Age/Sex: 69 / M ADM Date: 11/17/24 Loc: HO.US Attending Dr: Jh Bullard MD Ordering Physician: Jh Bullard MD Date of Service: 11/17/24 Procedure(s): US carotid duplex BI Accession Number(s): [id number] cc: Piper Johnson MD; Jh Bullard MD Reason for Exam: Transient left sided facial numbness for 2 minutes in [facility]. Possible TIA EXAMINATION: US EXTRACRANIAL CAROTID DUPLEX, [...] 11/17/24 1602 DD/ 1523 TD/TT: 11/17/24 1543 Real Estate Processor: Procedure Note Donotuseinterpreter, Image - 11/17/[address] [address] Ultrasound Report Signed Patient: Farideh Byers#: [id number] : 5Acct:[id number] Age/Sex: 69 / MADM Date: 11/17/24 Loc: HO.US Attending Dr: Jh Bullard MD Ordering Physician: NameJh MD Date of Service: 11/17/24 Procedure(s): US carotid duplex BI Accession Number(s): [id number] cc: Piper Johnson MD; Name,Jh RACHEL Reason [...] 11/17/24 1602 DD/ 1523 TD/TT: 11/17/24 1543 Real Estate Processor: us Jh Bullard MD CV VASCULAR PROCEDURES Final Res ult [facility] [address] [place] [address] [phone] * (ABNORMAL) POCT HGB A1C (09/29/2024 3:28 PM EDT) Hemoglobin A1C 6.7(A) 4.0 - 5.7 % QC Media Lot # [id number] Lot# Expiration Date 427 Blood 09/29/2024 3:28 PM EDT us Jh Bullard MD POINT OF CARE TEST ENTER/EDIT OR DERABLES Final Result * POCT Glucose (09/29/2024 3:22 PM EDT) Glucose Blood, POC 144 60 - 200 mg/dL QC Media Lot # [id number] Lot# Expiration Date 103,025 Blood Capillary blood specimen / Unknown 09/29/2024 3:22 PM EDT Jh Bullard MD POINT OF CARE TEST ENTER/EDIT OR DERABLES Final Result * MR Brain w/o Contrast (09/08/2024 11:32 AM EDT) Anatomical Region Laterality Modality Brain Magnetic Resonan ce 09/08/2024 11:3 2 AM EDT Narrative 09/08/2024 11:33 AM EDT [address] [address] Magnetic Resonance Report Signed Patient: Landen Byers MR#: [id number] : 1955 Acct:[id number] Age/Sex: 69 / M ADM Date: 09/05/24 Loc: HO.MRI Attending Dr: Macey JOHNSON Ordering Physician: Macey Noe Date of Service: 09/05/24 Procedure(s): MR head/brain wo con Accession Number(s): [id number] cc: Piper Johnson MD; Macey Noe CLINICAL [...] 09/08/24 1133 DD/ 1132 TD/TT: 09/08/24 1132 Real Estate Processor: Procedure Note Donotuseinterpreter, Image - 09/08/2024 [place] [address] Magnetic Resonance Report Signed Patient: Landen Byers#: [id number] : 5Acct:[id number] Age/Sex: 69 / MADM Date: 09/05/24 Loc: HO.MRI Attending Dr: Macey JOHNSON Ordering Physician: Macey Noe Date of Service: 09/05/24 Procedure(s): MR head/brain wo con Accession Number(s): [id number] cc: Piper Johnson MD; Macey Noe CLINICAL [...] 09/08/24 1133 DD/ 1132 TD/TT: 09/08/24 1132 Real Estate Processor: [facility] External Provider IMG MRI PROCEDURES Final Result * Albumin, Random Urine W/Creatinine (05/21/2024 10:08 AM EDT) Creatinine, Urine 63.26 mg/dL [facility] Microalbumin Urine <5.0 mg/L [facility] Microalbum Creatinine Ratio Ur TNP <30 ug/mg cr [facility] Comment:Unable to calculate albumin/creatinine ratio due to lowmicroalbumin or creatinine result. Urine (Urine, Random) 05/21/2024 10:08 AM EDT 05/21/2024 11:03 AM EDT Jh Bullard MD LAB URINE ORDERABLES Final Resul t [facility] [address] [place] [phone] [phone] * Hepatitis C Antibody with Reflex to HCV, RNA, Quantitative, Real-Time PCR (05/21/2024 10:08 AM EDT) Hepatitis C Antibody Nonreactive Nonreactive [facility] Comment:Antibodies to HCV no t detected; does not exclude early acuteHCV infection. Blood Venous blood specimen / Unknown 05/21/2024 10:08 AM EDT 05/21/2024 11:01 AM EDT us Jh Bullard MD LAB BLOOD ORDERABLES Final Resul t Performing Organization Address [facility]/ZIP Co de Phone Number [facility] [address] [place] [phone] * (ABNORMAL) Lipid Panel, Standard (05/21/2024 10:08 AM EDT) Triglycerides 69 <150 mg/dL [facility] Comment:Desirable Triglyceri de: less than 150 mg/dLBorderline High Triglyceride 150-199 mg/dLHigh Triglyceride: 200-499 mg/dLVery High Triglyceride: greater than or equal to 5OO mg/dL Cholesterol 177 <200 mg/dL [facility] Comment:Desirable Cholestero l: less than 200 mg/dLBorderline High Cholesterol: 200-239 mg/dLHigh Cholesterol: greater than 239 mg/dL LDL Cholesterol Calculated 109(H) <100 mg/dL [facility] Comment:Desirable LDL: less than 100 mg/dLNear Optimal/Above Optimal LDL: 110- 129 mg/dLBorderline High LDL: 130-159 mg/dLHigh LDL: 160-189 mg/dLVery High LDL: greater than or equal to 190 mg/dL HDL Cholesterol 55 >40 mg/dL [facility] Comment:Desirable HDL: great er than 40 mg/dL Note: This HDL assay may give artificially low results in patients with liver disease. Blood Venous blood specimen / Unknown 05/21/2024 10:08 AM EDT 05/21/2024 11:01 AM EDT us Jh Bullard MD LAB BLOOD ORDERABLES Final Resul t Performing Organization Address City/[facility]/ZIP Co de Phone Number [facility] [address] [place] [address] [phone] * (ABNORMAL) Hm Colonoscopy (04/02/2023) Colonoscopy Abnormal( A) Normal Comment:Tubular adenoma cecelia bob. us Jh Bullard MD HEALTH MAINTENANCE Final Result from Last 3 Months or Most Recently Relevant to Health Maintenance Insurance [facility] D[facility] Care Teams Hide Curer Relationship Specialty Start Date End Date Name, MD Jh [address] [place] [phone] PCP - General Family Medicine 05/29/16
--- OUTSIDE RECORDS SUMMARY | 2024-11-24 15:19 | XMS_ITS | Encounter Summary ---
Author Organization [employer] Address [address] [facility] [address] 7t [place] [address] Care Team Providers Care Rental Car Ferry Driver Name Role Phone Name, Jh RACHEL Primary Care Provider [phone] Juliet Wren PharmD Unavailable [phone] Encounter Details Date Type Department Care Team ([facility] st Contact Info) Description 05/02/2023 Telephone [facility] [address] [place], [place] [phone] Name, MD Jh [address] [place] [address] Social History Tobacco Use Types Packs/Day Years [...] Description 01/25/2025 1:30 PM EST Clinical Support [address] [phone] Cee Toussaint RN 02/01/2025 2:30 PM EST Office Visit [address] [phone] Name, MD Jh [address] [place] [address] [phone] documented as of this encounter Goals Goal [...] documented as of this encounter Care Teams Rental Car Ferry Driver Relationship Specialty Start Date End Date Jh Bullard MD [address] [place] [address] [phone] PCP - General Family Medicine 05/29/16 Juliet Wren PharmD [address] [place] [phone] Pharmacist Internal Medicine 07/17/22 11/02/24 documented as of this encounter
--- OUTSIDE RECORDS SUMMARY | 2024-11-24 15:19 | XMS_ITS | Encounter Summary ---
Author Organization [employer] Address 75 [facility] 7t [place] [address] Care Team Providers Care Multimedia Author Name Role Phone Name, Jh RACHEL Primary Care Provider [phone] Juliet Wren PharmD Unavailable [phone] Encounter Details Date Type Department Care Team (Late st Contact Info) Description 07/13/2022 Abstract [facility] MEDICINE [address] [place] [address] [phone] Name, MD Jh [address] [place] [address] Social History Tobacco Use Types Packs/Day Years [...] Description 01/25/2025 1:30 PM EST Clinical Support [facility]INE [address] [place] [address] [phone] Cee Toussaint RN 02/01/2025 2:30 PM EST Office Visit [facility] [address] [place] [address] Name, MD Jh [facility] [place] [address] documented as of this encounter Procedures Procedure [...] documented as of this encounter Care Teams Multimedia Author Relationship Specialty Start Date End Date Name, MD Jh [facility] [place] [address] PCP - General Family Medicine 05/29/16 Juliet Wren, [place] [address] Pharmacist Internal Medicine 07/17/22 11/02/24 documented as of this encounter
--- OUTSIDE RECORDS SUMMARY | 2024-11-24 15:19 | XMS_ITS | Encounter Summary ---
Author Organization [employer] Address 75 [facility] 7t [place] [address] Care Team Providers Care Lead Care Manager Name Role Phone Name, Jh RACHEL Primary Care Provider [phone] Juliet Wren PharmD Unavailable [phone] Reason for Visit * Reason Comments Med Refill Encounter Details Date Type Department Care Team ([facility] st Contact Info) Description 09/08/2024 Refill [facility] [address] [place], [place] [phone] Katie Zhong NP [address] [place], [place] [phone] Chronic pain syndrome Social History Tobacco Use [...] Description 01/25/2025 1:30 PM EST Clinical Support [address] [address] Cee Toussaint RN 02/01/2025 2:30 PM EST Office Visit [address] [address] Name, MD Jh [address] [place] [address] documented as of this encounter Goals Goal [...] documented as of this encounter Care Teams Lead Care Manager Relationship Specialty Start Date End Date Name, MD Jh [address] [place] [address] PCP - General Family Medicine 05/29/16 Juliet Wren PharmD [address] [place] [address] Pharmacist Internal Medicine 07/17/22 11/02/24 documented as of this encounter
--- OUTSIDE RECORDS SUMMARY | 2024-11-24 15:19 | XMS_ITS | Encounter Summary ---
Author Organization [employer] Address 75 [facility] 7t [place] [address] Care Team Providers Care Adoption Social Worker Name Role Phone Jh Bullard MD Primary Care Provider [phone] Juliet Wren PharmD Unavailable [phone] Reason for Visit * Reason Comments Med Refill Encounter Details Date Type Department Care Team ([facility] st Contact Info) Description 02/26/2023 Refill [facility] [address] [place], [place] [phone] Name, MD Jh [address] [place], [place] [phone] Chronic pain syndrome Social History Tobacco Use [...] Description 01/25/2025 1:30 PM EST Clinical Support [address] [address] Cee Toussaint RN 02/01/2025 2:30 PM EST Office Visit [address] [address] Name, MD Jh [address] [place] [address] documented as of this encounter Goals Goal [...] documented as of this encounter Care Teams Adoption Social Worker Relationship Specialty Start Date End Date Jh Bullard MD [address] [place] [address] PCP - General Family Medicine 05/29/16 Juliet Wren, PharmD [address] [place] [address] Pharmacist Internal Medicine 07/17/22 11/02/24 documented as of this encounter
--- OUTSIDE RECORDS SUMMARY | 2024-11-24 15:19 | XMS_ITS | Encounter Summary ---
Author Organization [employer] Address [address] [facility] [address] 7t [place] [address] Care Team Providers Care Bead Wire Insulator Name Role Phone Name, Jh RACHEL Primary Care Provider [phone] Juliet Wren PharmD Unavailable [phone] Encounter Details Date Type Department Care Team ([facility] st Contact Info) Description 05/16/2023 Telephone [facility] [address] [place], [place] [phone] Name, MD Jh [address] [place] [address] Social History Tobacco Use Types Packs/Day Years [...] Description 01/25/2025 1:30 PM EST Clinical Support [address] [phone] Cee Toussaint RN 02/01/2025 2:30 PM EST Office Visit [address] [phone] Name, MD Jh [address] [place] [address] [phone] documented as of this encounter Goals Goal [...] documented as of this encounter Care Teams Bead Wire Insulator Relationship Specialty Start Date End Date Jh Bullard MD [address] [place] [address] [phone] PCP - General Family Medicine 05/29/16 Juliet Wren PharmD [address] [place] [phone] Pharmacist Internal Medicine 07/17/22 11/02/24 documented as of this encounter
--- OUTSIDE RECORDS SUMMARY | 2024-11-24 15:19 | XMS_ITS | Encounter Summary ---
Author Organization [employer] Address 75 [facility] 7t [place] [address] Care Team Providers Care Manager Six Sigma Name Role Phone Jh Bullard MD Primary Care Provider [phone] Juliet Wren PharmD Unavailable [phone] Reason for Visit * Reason Comments Med Refill Encounter Details Date Type Department Care Team (Late st Contact Info) Description 08/07/2022 Refill [facility] [address] [place] [address] [phone] Name, MD Jh [address] [place] [address] Chronic pain syndrome Social History Tobacco Use [...] Description 01/25/2025 1:30 PM EST Clinical Support [facility] [address] [place] [address] Cee Toussaint RN 02/01/2025 2:30 PM EST Office Visit [facility] [address] [place] [address] Name, MD Jh [address] [place] [address] documented as of this encounter Goals Goal [...] documented as of this encounter Care Teams Manager [employer] Sigma Relationship Specialty Start Date End Date Name, MD Jh [address] [place] [address] PCP - General Family Medicine 05/29/16 Juliet Wren, PharmD [address] [place] [address] Pharmacist Internal Medicine 07/17/22 11/02/24 documented as of this encounter
--- OUTSIDE RECORDS SUMMARY | 2024-11-24 15:19 | XMS_ITS | Encounter Summary ---
Author Organization [employer] Address [address] [facility] 7t [place] [address] Care Team Providers Care Buttonhole Tacker Name Role Phone Jh Bullard MD Primary Care Provider [phone] Juliet Wren PharmD Unavailable [phone] Reason for Visit * Reason Onset Date Comments triage 02/08/2022 Encounter Details Date Type Department Care Team (Late st Contact Info) Description 02/08/2022 Telephone [facility] MEDICINE [address], [place] [phone] Name, MD Jh [address] [place] [address] triage Social History Tobacco Use Types Packs/Day [...] caller The caller accepted this outcome speaks Algerian documented in this encounter Plan of Treatment Upcoming Encounters Date Type Department Care Team (Late st Contact Info) Description 01/25/2025 1:30 PM EST Clinical Support [address] [address] Cee Toussaint, RN 02/01/2025 2:30 PM EST Office Visit [address] [address] Name, MD Jh [address] [place] [address] documented as of this encounter Visit Diagnoses Not on filedocumented in this encounter Care Teams Buttonhole Tacker Relationship Specialty Start Date End Date Name, MD Jh [address] [place] [address] PCP - General Family Medicine 05/29/16 Juliet Wren, FabyD [address] [place] [address] Pharmacist Internal Medicine 07/17/22 11/02/24 documented as of this encounter
== END 2024-11-24 15:07 | disposition home or self-care (01) ==
LOC: HO.HCS 13:56
PROVIDERS: PCP Internal Medicine Geriatric Medicine; Visit Provider Nurse Practitioner Family
DX: I48.92 Unspecified atrial flutter (principal); I49.1 Atrial premature depolarization; R20.0 Anesthesia of skin; R94.31 Abnormal electrocardiogram [ECG] [EKG]; I47.10 Supraventricular tachycardia, unspecified; I10 Essential (primary) hypertension; E78.5 Hyperlipidemia, unspecified
CPT/HCPCS: 93010; 99214; G2211

== ENCOUNTER → 2024-11-24 13:55 | Outpatient (BNVA) | payer OTHER, SELFPAY | PROVIDERS: PCP Internal Medicine Geriatric Medicine; Visit Provider Nurse Practitioner Family | DX: I49.1 Atrial premature depolarization (principal); I48.92 Unspecified atrial flutter; R94.31 Abnormal electrocardiogram [ECG] [EKG]; I47.10 Supraventricular tachycardia, unspecified; I10 Essential (primary) hypertension; E78.5 Hyperlipidemia, unspecified | CPT/HCPCS: 93005; 99212 ==

== ENCOUNTER 2024-12-22 13:43 | Outpatient (AMB) | payer OTHER, SELFPAY ==
[2024-12-22 13:49] VITALS: BP 100/62; PULSE 69; BMI 30.8
--- NOTE | 2024-12-22 13:49 | A.OFFVIS_ITS ---
Vital Signs 12/22/24 13:49 Height 5 ft 9 in Weight 208 lb 8.917 oz BMI 30.8 BP 100/62 Blood Pressure Location Lt brachial Position Sitting Pulse 69 Pulse Source Monitor Intake Visit Reasons: 1 Month follow up/ Per Dc Stroke Program Coordinator Required: Yes Stroke Program Coordinator Name: crescencio pelletier [id number] Allergies No Known Allergies (No Known Allergies*) Allergy (Verified 12/22/24 14:04) Medication List - Last Reconciled 12/22/24 by FARAZ FarfanC amiodarone 200 mg PO DAILY amitriptyline 75 mg PO BEDTIME apixaban (Eliquis) 5 mg PO BID bisacodyl (Dulcolax (bisacodyl)) 10 mg (2 x 5 mg) PO BEDTIME 30 days buspirone 5 mg PO DAILY docusate sodium 100 mg PO BID famotidine 40 mg PO BEDTIME insulin glargine (Lantus Solostar U-100 Insulin) 28 units subcut QAM insulin lispro 10 units subcut TID lancets (OneTouch Delica Plus Lancet) As directed linaclotide (Linzess) 290 mcg PO QAM 30 days magnesium oxide 400 mg PO DAILY metformin 1,000 mg PO BID methocarbamol 750 mg PO BID PRN 30 days metoprolol tartrate 100 mg PO BID naloxone 4 mg/actuation 1 spray intranasal DAILY omeprazole 40 mg PO DAILY oxycodone-acetaminophen 5-325 mg (Percocet) 1 tab PO TID PRN pen needle, diabetic (P[place]ips Pen Needle) As directed rosuvastatin 40 mg PO DAILY sacubitril-valsartan 24-26 mg (Entresto) 1 tab PO BID sertraline 50 mg PO QAM sildenafil (Viagra) 50 mg PO DAILY PRN HPI HPI 1 Month follow up/ Per Dc: Details: Landen is a 69-year-old male with past medical history of diabetes, hypertension, hyperlipidemia, SVT, frequent PACs, possible prior TIA, newer atrial flutter who recently presented to [facility] with shoulder discomfort and ruled in for NSTEMI. He was transferred to [facility] where he underwent cardiac catheterization showing moderate coronary artery disease. His echocardiogram did show reduced EF and he was treated with YASMANY cardioversion for his atrial flutter. He was put on amiodarone and Entresto. He now presents for follow-up. Today he reports that he has been doing well since his hospital discharge. He is no longer having any shoulder or arm discomfort. He has not had any recurrent episodes of mouth and left hand numbness which was previously reported. No chest discomfort, heart palpitations, shortness of breath, lightheadedness, leg swelling. No bleeding issues reported. He tolerates normal ADLs without difficulty. is present. Certified entry level electrical engineer used. [facility] Medical History Cervical spondylosis Pre-op examination Cervical radiculitis Muscle spasm Left shoulder pain Low back pain Lumbar degenerative disc disease Diabetes type 2, controlled Palpitations SVT (supraventricular tachycardia) HLD (hyperlipidemia) HTN (hypertension) Surgical History Hx of colonoscopy S/P shoulder surgery Family History Father CVD (cardiovascular disease) Mother Cancer Social History Alcohol intake: former Year quit: 2017 Patient Tobacco Use Status: Former Tobacco user Years Smoked: 25 +/- Current occupational status: retired Current occupation: rt handed Review of Systems Const All systems reviewed & are unremarkable except as noted in HPI and below ENT Denies dizziness Card Denies chest pain, Denies chest pain at rest, Denies chest pain with activity, Denies rapid heart rate, Denies pedal edema, Denies edema, Denies leg edema, Denies lightheadedness, Denies palpitations, Denies dyspnea, Denies dyspnea on exertion and Denies orthopnea Resp Denies cough, Denies dyspnea and Denies dyspnea on exertion GI Denies hematochezia and Denies change in stool character Musc Denies abnormal gait, Reports limited range of motion, Reports muscle cramps, Denies muscle weakness, Denies numbness, Denies radiating pain into limb, Denies stiffness and Denies tingling Neuro Denies abnormal gait, Denies dizziness, Denies numbness and Denies tingling Endo Denies palpitations Physical Exam Vital Signs: Last Vital Signs Pulse 69 12/22/24 13:49 BP 100/62 12/22/24 13:49 BMI result Body Mass Index 30.8 Const General: cooperative, healthy appearing, comfortable and no acute distress Orientation/consciousness: patient oriented x3 Neck Neck: Yes normal visual inspection and Yes no JVD Resp Effort & Inspection: normal respiratory effort Auscultation: clear to auscultation bilaterally, no rales, no rhonchi and no wheezes Cardio Rate: regular rate Rhythm: regular rhythm Heart sounds: S1 normal heart sound present, S2 normal heart sound present, no murmurs and no rubs Neuro General: patient oriented x3 Extrem General: Yes normal to inspection Psych Appearance: grossly normal Mental Status: mental status grossly normal Speech and movement: Normal speech and movement present Office Procedures EKG Details: Today, read by me, normal sinus rhythm, can not exclude prior anterior infarct, T-wave inversions inferior, V4 through V6 leads, rate 69 [id number], Complete Assessment & Plan Assessment & Plan (1) Atrial flutter: Code(s): I48.92 - Unspecified atrial flutter Category: Medical Plan: New finding of atrial flutter on EKG last visit, asymptomatic and not in heart failure at that time. His carvedilol was stopped and he was changed to metoprolol. He was to have a follow-up EKG 3-4 days later however he went to [facility] with shoulder/arm discomfort and ruled in for NSTEMI. For his atrial flutter he did have a YASMANY cardioversion while at [facility]. He was put on amiodarone for rhythm control. His metoprolol was increased to 100 mg b.i.d.. He was continued on Eliquis. His EKG today shows sinus rhythm, T-wave inversions inferior lateral leads, rate 69, QTC 411 milliseconds. I gave him lab slips to obtain CBC, CMP, TSH. At [facility] he did have reduced EF down to 22% which was likely tachycardia mediated. Now that he has rhythm control will check a limited echocardiogram to reassess EF. Holter to assess rate and rhythm. Cardiology follow-up 3 months, sooner if needed. (2) Cardiomyopathy: Code(s): I42.9 - Cardiomyopathy, unspecified Category: Medical Plan: Previously known to have normal EF and [facility] echo reports EF as low as 22%. Likely tachycardia mediated. He is on metoprolol and Entresto for neurohormonal modulation. He is not fluid overloaded on exam. Will update labs. Limited echo prior to next visit. (3) Coronary artery disease: Code(s): I25.10 - Atherosclerotic heart disease of [place] coronary artery without angina pectoris Category: Medical Plan: Nonobstructive coronary artery disease noted on recent cardiac catheterization. Troponin elevation at time of [facility] admission recently likely related to tachycardia continue metoprolol, will have him stop aspirin as he is now on Eliquis, continue rosuvastatin with ideal LDL goal less than 70. (4) S/P cardiac cath: Comment: 11/30/2024 left main mild luminal irregularities, lad mid proximal subsection 40% stenosis, left circumflex mild diffuse disease, RCA mid 50% stenosis Code(s): Z98.890 - Other specified postprocedural states Category: Surgical Plan: As above. Test results reviewed with him using charts in room (5) PAC (premature atrial contraction): Code(s): I49.1 - Atrial premature depolarization Category: Medical Plan: Holter monitor done 07/15/2024 for 7 days shows sinus rhythm with average heart rate 86, frequent PACs with burden 40%, short runs, longest 19 beats rate 169. Now with atrial flutter as above. (6) Numbness around mouth: Code(s): R20.0 - Anesthesia of skin Category: Medical Plan: Prior Reports intermittent numbness around the mouth and 2 occasion had additional numbness in his left hand. His cardiac testing showed frequent PACs but no atrial fibrillation/flutter at that time. Brain MRI done 09/08/2024 showing no acute ischemia, moderate white matter disease. He more recently has finding of atrial flutter in now on full anticoagulation. Still unclear if his prior episodes of numbness were TIA related. (7) HTN (hypertension): Code(s): I10 - Essential (primary) hypertension Category: Medical Qualifiers: Hypertension type: primary hypertension Qualified Code(s): I10 - Essential (primary) hypertension Plan: Blood pressure goal less than 130/80. Blood pressure low normal today, asymptomatic. No med changes made. (8) HLD (hyperlipidemia): Code(s): E78.5 - Hyperlipidemia, unspecified Category: Medical Qualifiers: Hyperlipidemia type: unspecified Qualified Code(s): E78.5 - Hyperlipidemia, unspecified Plan: [place] LDL goal less than 70 in patient with diabetes and CAD. Labs done 05/21/2024 showed LDL 109. Continue rosuvastatin. I gave him lab slip for repeat fasting lipids. (9) Hospital discharge follow-up: Code(s): Z09 - Encounter for follow-up examination after completed treatment for conditions other than malignant neoplasm Category: Medical Plan: [facility] and [facility] notes reviewed. Plan Time spent on chart review, documentation, interviewing assessment, orders Orders: Orders Lipid Panel Today E78.5 - Hyperlipidemia, unspecified CA Echo Limited 2 Weeks I42.9 - Cardiomyopathy, unspecified ECG 3 day holter monitor Today I48.92 - Unspecified atrial flutter Medications: New amiodarone 200 mg PO DAILY 30 tabs 4RF metoprolol tartrate 100 mg PO BID 60 tabs 4RF sacubitril-valsartan 24-26 mg (Entresto) 1 tab PO BID 60 tabs 5RF Coding Level of Care Code Est Pt Level 4 (43107) Complex EM visit Add On G2211 Diagnoses Atrial flutter I48.92 Cardiomyopathy I42.9 Coronary artery disease I25.10 S/P cardiac cath Z98.890 PAC (premature atrial contraction) I49.1 Numbness around mouth R20.0 Primary hypertension I10 Hypertension type: primary hypertension Hyperlipidemia, unspecified hyperlipidemia type E78.5 Hyperlipidemia type: unspecified Hospital discharge follow-up Z09 CPT Codes EKG - CPT: 65706-[id number], Complete ([id number]) Time Spent (min) 38
== END 2024-12-22 14:41 | disposition home or self-care (01) ==
LOC: HO.HCS 13:44
PROVIDERS: PCP Internal Medicine Geriatric Medicine; Visit Provider Nurse Practitioner Family
DX: I48.92 Unspecified atrial flutter (principal); I42.9 Cardiomyopathy, unspecified; I25.10 Atherosclerotic heart disease of native coronary artery without angina pectoris; Z98.890 Other specified postprocedural states; I49.1 Atrial premature depolarization; R20.0 Anesthesia of skin; I10 Essential (primary) hypertension; E78.5 Hyperlipidemia, unspecified; Z09 Encounter for follow-up examination after completed treatment for conditions other than malignant neoplasm
CPT/HCPCS: 93010; 99214; G2211

== ENCOUNTER → 2024-12-22 13:43 | Outpatient (BNVA) | payer OTHER, SELFPAY | PROVIDERS: PCP Internal Medicine Geriatric Medicine; Visit Provider Nurse Practitioner Family | DX: Z09 Encounter for follow-up examination after completed treatment for conditions other than malignant neoplasm (principal); I49.1 Atrial premature depolarization; I25.10 Atherosclerotic heart disease of native coronary artery without angina pectoris; I48.92 Unspecified atrial flutter; I42.9 Cardiomyopathy, unspecified; I10 Essential (primary) hypertension; E78.5 Hyperlipidemia, unspecified; R20.0 Anesthesia of skin | CPT/HCPCS: 93005; 99212 ==

== ENCOUNTER → 2025-01-07 08:26 | Outpatient (REF) | payer OTHER, SELFPAY ==
--- NOTE | 2025-01-07 08:34 | HM_ITS ---
* Total monitoring time 3 days. * Underlying rhythm is sinus with an average rate of 65/Min. * Supraventricular ectopy with a burden of 1.2%. * Rare ventricular ectopy. One episode of 4 beats. * No significant pauses or high-grade AV blocks. * No patient markers or diary events. MTDD
--- NOTE | 2025-01-07 08:34 | CA_ITS ---
Transthoracic Echocardiogram Patient (Last, First, Middle): Landen Byers, Gender: M Date of : 1955 Age: 69 Procedure Date: 01/07/2025 Procedure Type: Transthoracic Echocardiogram Location: OP Height: 175.26 cm Weight: 94.35 kg BSA: 2.10 m2 Heart Rate: 58 bpm BP: 110 / 64 mmHg Lab Intern: JONA Referring MD: Macey JOHNSON It Service Delivery Manager: Aakash Shen MD Symptoms: I42.9 - Cardiomyopathy, unspecified Study Quality: Adequate/limited study ordered ECG Rhythm: Bradycardia Conclusions: - Normal LV ejection fraction 55-60% with grade 1 diastolic dysfunction Findings Procedure Information Contrast agent, definity, is being given per protocol without apparent complications. Left Ventricle Normal left ventricular size, thickness, and systolic function. The visually estimated ejection fraction is between 55-60%. Spectral Doppler is indicative of an impaired relaxation filling pattern. E/E prime ratio is <8, consistent with normal filling pressures. Evidence suggests grade I (mild) diastolic dysfunction. Prior Study Comparison No significant change compared to prior study dated: 07/15/2024. Measurements 2D Linear Measurements IVSd: 1.02 0.6-0.9/0.6-1.0 cm LVIDd: 4.94 3.9-5.3/4.2-5.9 cm LVIDd Index: 2.35 2.4-3.2/2.2-3.1 cm/m2 LVIDs: 3.84 2.0-3.6 cm LVPWd: 0.81 0.7-1.1 cm LV Mass: 197.04 67-162/88-224 g LV Mass Index: 93.83 43-95/49-115 g/m2 LVOT Diam: 2.00 3.0+(-)1.3 cm 2D Systolic Function EF 4C: 60.50 >55% EF 2C: 52.20 >55% EF BiP: 54.90 >55% Mitral Valve MV Pk E: 0.71 MV PK A: 0.87 MV Decel Time: 200.00 E/A: 0.80 E'Lateral: 8.05 E'Medial: 5.77 E/E' Med: 12.30 E/E' Lat: 8.80 PHT: 58.00 MVA PHT: 3.79 Decel Mccone: 3.54 LVOT LVOT Pk Miko: 1.02 LVOT Mn Miko: 0.65 LVOT VTI: 0.22 LVOT Pk Grad: 4.00 LVOT Mn Grad: 2.00 LVOT Diam: 2.00 LVOT Area: 3.14 Diastolic Function MV Pk E: 0.71 MV Pk A: 0.87 E/A: 0.80 E'Medial: 5.77 E/E' Med: 12.30 E' Laterial: 8.05 E/E' Lat: 8.80 Right Ventricle TAPSE (mm): 21.70 TVS' Miko: 11.20 Tricuspid Valve RA Press: 3.00 Updated in Other Vendor System with Status of Final Aakash Shen MD electronically signed on 01/08/2025 2:46:24 PM with status of Final
[2025-01-07 08:48] LABS: MANUAL DIFF FLAG NO
--- OUTSIDE RECORDS SUMMARY | 2025-01-07 08:49 | XMS_ITS | Encounter Summary ---
Author Organization [employer] Address [address] [facility] 7t [place] [address] Care Team Providers Care Control Room Technician Name Role Phone Jh Bullard MD Primary Care Provider [phone] Juliet Wren PharmD Unavailable [phone] Reason for Visit * Reason Comments Med Refill Encounter Details Date Type Department Care Team (Late st Contact Info) Description 08/07/2022 Refill [facility] MEDICINE [address] [place] [address] [phone] Name, MD Jh [address] [place] [address] Chronic pain syndrome Social History Tobacco Use [...] Description 01/25/2025 1:30 PM EST Clinical Support [facility] MEDICINE [address] [place] [address] Cee Toussaint RN 02/01/2025 2:30 PM EST Office Visit [facility] MEDICINE [address] [place] [address] Name, MD Jh [address] [place] [address] documented as of this encounter Goals Goal [...] documented as of this encounter Care Teams Control Room Technician Relationship Specialty Start Date End Date Name, MD Jh [address] [place] [address] PCP - General Family Medicine 05/29/16 Juliet Wren, PharmD [address] [place] [address] Pharmacist Internal Medicine 07/17/22 11/02/24 documented as of this encounter
--- OUTSIDE RECORDS SUMMARY | 2025-01-07 08:49 | XMS_ITS | Encounter Summary ---
Author Organization [email or web address] Address [address] [facility] [address] 7[address] [place] [address] Care Team Providers Care Seo Team Lead Name Role Phone Name, Jh RACHEL Primary Care Provider [phone] Juliet Wren PharmD Unavailable [phone] Encounter Details Date Type Department Care Team ([facility] st Contact Info) Description 05/02/2023 Telephone [facility] [address] [place], [place] [phone] Name, MD Jh [address] [place] [address] Social History Tobacco Use Types Packs/Day Years [...] Description 01/25/2025 1:30 PM EST Clinical Support [address] [phone] Cee Toussaint RN 02/01/2025 2:30 PM EST Office Visit [address] [phone] Name, MD Jh [address] [place] [address] [phone] documented as of this encounter Goals Goal [...] documented as of this encounter Care Teams Seo Team Lead Relationship Specialty Start Date End Date Jh Bullard MD [address] [place] [address] [phone] PCP - General Family Medicine 05/29/16 Juliet Wren PharmD [address] [place] [address] Pharmacist Internal Medicine 07/17/22 11/02/24 documented as of this encounter
--- OUTSIDE RECORDS SUMMARY | 2025-01-07 08:49 | XMS_ITS | Encounter Summary ---
Author Organization [employer] Address [address] [facility] 7t [place] [address] Care Team Providers Care Laboratory Associate Name Role Phone Jh Bullard MD Primary Care Provider Juliet Wren PharmD Unavailable [phone] Reason for Visit * Reason Comments Med Refill Encounter Details Date Type Department Care Team ([facility] st Contact Info) Description 02/26/2023 Refill [facility] MEDICINE [address] [place], [place] [phone] Name, MD Jh [address] [place], [place] [phone] Chronic pain syndrome Social History Tobacco Use [...] Description 01/25/2025 1:30 PM EST Clinical Support [address] [address] Cee Toussaint RN 02/01/2025 2:30 PM EST Office Visit [address] [address] Name, MD Jh [address] [place] [address] documented as of this encounter Goals Goal [...] documented as of this encounter Care Teams Laboratory Associate Relationship Specialty Start Date End Date Jh Bullard MD [address] [place] [address] PCP - General Family Medicine 05/29/16 Juliet Wren, PharmD [address] [place] [address] Pharmacist Internal Medicine 07/17/22 11/02/24 documented as of this encounter
--- OUTSIDE RECORDS SUMMARY | 2025-01-07 08:49 | XMS_ITS | Encounter Summary ---
Author Organization [employer] Address [address] [facility] 7t [place] [address] Care Team Providers Care Unit Director Name Role Phone Jh Bullard MD Primary Care Provider [phone] Juliet Wren PharmD Unavailable [phone] Reason for Visit * Reason Onset Date Comments triage 02/08/2022 Encounter Details Date Type Department Care Team (Late st Contact Info) Description 02/08/2022 Telephone [facility] MEDICINE [address] [place], [place] [phone] Name, MD Jh [address] [place] [address] triage Social History Tobacco Use Types Packs/Day [...] caller The caller accepted this outcome speaks [place]ican documented in this encounter Plan of Treatment Upcoming Encounters Date Type Department Care Team (Late st Contact Info) Description 01/25/2025 1:30 PM EST Clinical Support [address] [address] Cee Toussaint, RN 02/01/2025 2:30 PM EST Office Visit [address] [address] Name, MD Jh [address] [place] [address] documented as of this encounter Visit Diagnoses Not on filedocumented in this encounter Care Teams Unit Director Relationship Specialty Start Date End Date Name, MD Jh [address] [place] [address] PCP - General Family Medicine 05/29/16 Juliet Wren, FabyD [address] [place] [phone] Pharmacist Internal Medicine 07/17/22 11/02/24 documented as of this encounter
--- OUTSIDE RECORDS SUMMARY | 2025-01-07 08:49 | XMS_ITS | Clinical Summary ---
Author Organization [employer] Address [address] [facility] [address] [place] [address] Care Team Providers Care Census Enumerator Name Role Phone Name, Jh RACHEL Primary [...] 1 tablet by mouth in the morning. 022 Active Multiple Vitamins-Minera ls (Centrum Silver 50+Men) tablet Take 1 tablet by mouth Once daily. (OTC) Active naloxone (Narcan) 4 mg/0.1 mL nasal spray FOR SUSPECTED OPIOID OVERDOSE. SPRAY 0.1mL IN ONE NOSTRIL. REPEAT IN ALTERNATE NOSTRIL EVERY 2-3 MINUTES IF NEEDED. SEEK MEDICAL ATTENTION IMMEDIATELY EVEN IF PT RESPONDS. 2 each 2 025 Active Continuous Glucose Bottle Filler (FreeStyle Laurent 3 [place]) deviceIndicatio ns:Type 2 diabetes mellitus without complication, [...] long-term current use of insulin ([facility]) Use to test blood sugar up to 3 times daily, as directed 100 each 025 Active OneTouch Verio test stripIndication s:Type 2 diabetes mellitus without complication, with long-term current use of insulin ([facility]) TEST BLOOD SUGAR THREE TIMES DAILY 100 strip Active Lancets (OneTouch Delica Plus [id number]) miscIndications :Type 2 diabetes mellitus without complication, with long-term current use of insulin ([facility]) TEST BLOOD SUGAR THREE TIMES DAILY 100 each 11 025 Active docusate sodium (Colace) 100 MG capsule TAKE ONE CAPSULE TWICE DAILY 60 capsule 025 Active methocarbamol (Robaxin) 750 MG tablet Active TechLite Pen [place] 32G X 4 MM misc USE FOUR DAILY 100 each 4 025 Active insulin degludec (Tresiba FlexTouch) 100 UNIT/ML injectionIndica tions:Type 2 diabetes mellitus without complication, with long-term current use of insulin ([facility]) INJECT 34 UNITS SUBCUTANEOUSLY EVERY MORNING 15 mL 025 Active insulin lispro (HumaLOG KWIKPEN) 100 UNIT/ML injectionIndica tions:Type 2 diabetes mellitus without complication, with long-term current use of insulin ([facility]) Inject 4 units subQ three times daily with meals. Do not use if not eating / skipping a meal. 15 mL 025 Active metFORMIN (Glucophage) 1000 MG tabletIndicatio ns:Type 2 diabetes mellitus without complication, with long-term current use of insulin ([facility]) Take 1 tablet (1,000 mg) by mouth with breakfast and with evening meal. 180 tablet 025 2025 Active rosuvastatin (Crestor) 40 MG tabletIndicatio ns:Type 2 diabetes mellitus without complication, with long-term current use of insulin ([facility]) Take 1 tablet (40 mg) by mouth Once per day. 90 tablet Active Eliquis 5 MG tablet Take 5 mg by mouth 2 times daily. Active metoprolol tartrate (Lopressor) 100 MG tablet Take 1 tablet by mouth 2 times daily. Active Entresto 24-26 MG tablet Take 1 tablet by mouth 2 times daily. Active tamsulosin (Flomax) 0.4 MG 24 hr capsule TAKE TWO CAPSULES DAILY 30 MINUTES AFTER THE SAME MEAL 60 capsule 5 Active amiodarone (Pacerone) 200 MG tabletIndicatio ns:ACS (acute coronary syndrome) (HCC),Atrial flutter, unspecified type (CMS/HCC) (HCC) Take 1 tablet (200 mg) by mouth Once per day for 14 days. 14 tablet Active pantoprazole (Protonix) 40 MG EC tablet Take 1 tablet (40 mg) by mouth before breakfast. Do not crush, chew, or split. 30 tablet 11 025 2025 Active oxyCODONE-aceta minophen (Percocet) 5-325 MG tabletIndicatio ns:Chronic pain syndrome Take 1 tablet by mouth every 8 (eight) hours if needed for severe pain. Do not start before December 31, 2024. 84 tablet Active Viagra 100 MG tablet TAKE 1 TABLET 1 HOUR BEFORE SEXUAL RELATIONS ONCE DAILY NEEDED. 10 tablet 3 025 2024 Discontinued(T herapy completed) tamsulosin (Flomax) 0.4 MG 24 hr capsule TAKE TWO CAPSULES DAILY 30 MINUTES AFTER THE SAME MEAL 60 capsule 5 025 2024 Discontinued omeprazole (PriLOSEC) [address] capsuleIndicati ons:Essential hypertension TAKE 1 CAPSULE BY MOUTH EVERY DAY BEFORE A MEAL 30 capsule 5 025 2024 Discontinued(I neffective) lisinopril 20 MG tabletIndicatio ns:Type 2 diabetes mellitus without complication, with long-term current use of insulin ([facility]),Essential hypertension Take 1 tablet (20 mg) by mouth Once per day. 90 tablet 3 025 2024 Discontinued(M ed list cleanup (will not trigger notification to Pharmacy)) metoprolol tartrate (Lopressor) 50 MG tablet 025 2024 Discontinued(M ed list cleanup (will not trigger notification to Pharmacy)) oxyCODONE-aceta minophen (Percocet) 5-325 MG tabletIndicatio ns:Chronic pain syndrome Take 1 tablet by mouth every 8 (eight) hours if needed for severe pain for up to 28 days. Do not start before December 02, 2024. 84 tablet 2024 Discontinued Active Problems Problem Noted Date Diagnosed Date Non-ischemic cardiomyopathy (CMS/HCC) 12/15/2024 Heart failure with reduced e jection fraction (HFrEF, <= 40%) 12/15/2024 Atrial fibrillation (CMS/HCC) 12/15/2024 NSTEMI (non-ST elevated myocardial infarction) 1 ACS (acute coronary syndrome) 12/11/2024 Atrial flutter (CMS/HCC) 11/26/2024 History of supraventricular tachycardia 09/30/19 Overview (09/29/2024): Patient follows with [facility] cardi He is on carvedilol. Holter monitor [...] 1 obesity 12/12/2023 Alcohol dependence in remission (CMS/HCC) 2023 Tubular adenoma 10/17/2022 Overview (10/17/2022): Of the sigmoid colon 2016 [place] [facility] [place] [facility] 2 diabetes mellitus 03/02/2022 Benign prostatic [...] Encounters Date Type Department Care Team Description 12/28/2024 Refill [facility] [address] [place] [address] Jh Bullard MD Chronic pain syndrome 12/15/2024 1:15 PM EDT Office Visit [facility] [address] [place] [phone] Jh Bullard MD Heart failure with reduced ejection fraction (HFrEF, <= 40%) (HCC) (Primary Dx); Non-ischemic cardiomyopathy (CMS/HCC) (HCC); Atrial fibrillation, unspecified type (CMS/HCC) (HCC); NSTEMI (non-ST elevated myocardial infarction) (HCC); Heartburn; Encounter for immunization; Encounter for vaccination 12/15/2024 Travel 12/14/2024 Telephone [facility] [address] [place] [address] Jh Bullard MD CHARTPREP 12/11/2024 Refill [facility] [address], [place] [phone] Jh Bullard MD 12/10/2024 Telephone [facility] [address] [place] [address] Rosaline Nevarez, PharmD 12/04/2024 Telephone [facility] [address] [place] [address] Jh Bullard MD 12/04/2024 Patient Outreach [facility] [address] [place] [address] Jh Bullard MD Transition Of Care (Tcm) (HDF scheduled. ) 12/01/2024 Refill [facility] [address] [place] [place] [address] Jh Bullard MD Chronic pain syndrome 12/01/2024 Refill [facility] [address] [place] [place] [address] Jh Bullard MD Chronic pain syndrome 11/26/2024 Orders Only [facility] [address] [place] [place] [address] Jh Bullard MD Atrial flutter, unspecified type (CMS/HCC) (HCC) (Primary Dx) 11/18/2024 Results Follow-Up [facility] [address] [place] [place] [address] Jh Bullard MD Vascular US carotid artery duplex bilateral 11/16/2024 Telephone [facility] [address] [place] [address] Gaby Jean [place] DECEMBER RECALLS 11/03/2024 Travel 10/30/2024 Refill [facility] [address] [place] [address] Jh Bullard MD Essential hypertension 10/30/2024 Refill [facility] [address] [place] [address] Jh Bullard MD Chronic pain syndrome 10/27/2024 Refill [facility] [address] [place] [address] Jh Bullard MD Type 2 diabetes mellitus without complication, with long-term current use of insulin (CMS/HCC) 10/24/2024 Refill [facility] [address] [place] [address] Jh Bullard MD 10/19/2024 Telephone [facility] [address] [place] [address] Joy Kennedy, PharmD 10/07/2024 Refill [facility] [address] [place] [address] Amparo Sen MD Chronic pain syndrome 10/07/2024 Refill [facility] [address] [place] [address] Name, MD Jh Chronic pain syndrome from Last 3 Months Immunizations Immunization Administration Dates Next Due Pfizer Covid-19 Vaccine 12+ 12/15/2024,0 02/28/2023,04/28/2020,04/08 Pfizer Covid-19 Vaccine 12+ julio-sucrose (Cook Cap) 07/31/2021 Pneumococcal Conjugate PCV 13 11/19/2019 Pneumococcal Conjugate PCV 20 12/15/2024 Pneumococcal Polysaccharide PPSV23 03/05/2017, RSV Bivalent 03/05/2023 [...] is your housing situation today? I have [employer] arce 06/14/[address] you [...] the past 12 months, has t he [employer], [employer], oil or water [employer] threatened to shut off services in your [...] Sign Reading Time Taken Comments Blood Pressure 115/58 12/15/2024 1:23 PM EDT Pulse 65 12/15/2024 1:23 PM EDT Temperature 35.8 C (96.4 F) 12/15/2024 1:23 PM EDT Respiratory Rate 18 12/15/2024 1:23 PM EDT Oxygen Saturation 99% 12/15/2024 1:23 PM EDT Inhaled Oxygen Concentration - - Weight 93.8 kg (206 lb 12.8 oz) 12/15/2024 1:23 PM EDT Height 175.3 cm (5' 9 ) 12/15/2024 1:23 PM EDT Body Mass Index 30.54 12/15/2024 1:23 PM EDT Plan of Treatment Upcoming Encounters Date Type Department Care Team (Late st Contact Info) Description 01/25/2025 1:30 PM EST Clinical Support [address] [address] Cee Toussaint RN 02/01/2025 2:30 PM EST Office Visit [address] [address] Name, MD Jh [address] [place] [phone] Health Maintenance Due Date Last Done Comments CT Colonography 1955 FIT DNA/Cologuard 1955 FIT 1955 FOBT 1955 Sigmoidoscopy 1955 Diabetes: Foot Exam 1964 Hepatitis A Vaccines (1 of 2 - Risk 2-dose series) 1973 Zoster Vaccines (1 of 2) 2004 Hepatitis B Vaccines (1 of 3 - Risk 3-dose series) 2014 Colonoscopy 04/02/2024 04/02/2023, 02/26, 12/12/2016, Additional history exists Colorectal Cancer Screening 04/02/2024 Influenza Vaccine (#1) 2024 Diabetes: Hemoglobin A1C 04/01/2025 025, 04/28/2024, 01/28/2024, Additional history exists Depression Screening 05/18/2025 05/18/2024, 05/19/19 25 SDOH Screening 05/18/2025 05/18/2024 Diabetes: Urine Protein Screening 05/21/2025 05/21/2024, 07/11/2023, 07/17/2022, Additional history exists Lipid Panel 05/21/2025 05/21/2024, 12/26, 10/08/2022, Additional history exists COVID-19 Vaccine ( season) 2025 12/15/2024, 02/28/2023, 01/05/2022, Additional history exists Eye Exam 06/25/2025 06/25/2024, 02/2024, 06/25/2024, Additional history exists Alcohol/Substance Use Screening 12/15/2025 12/15/2024 Tobacco Screening 12/15/2025 12/15/2024 DTaP/Tdap/Td Vaccines (3 - Td or Tdap) 03/05/2027 03/05/2017, 06/03/2012 RSV Patients and Patients Aged 60 years or older Completed 03/05/2023 Hepatitis C Screening Completed 05/21/2024 Pneumococcal Vaccine: 50+ Years Completed 12/15/2024, 11/19/2019, 03/05/2017, Additional history exists HIB Vaccines Aged Out No longer eligi [...] PharmD Blood Pressure < 140/90 Blood Pressure 115/58(2024 1:23 PM EDT) No Puia, Juliet, PharmD Hemoglobin [...] with long-term current use of insulin (CMS/HCC) HEPATITIS C AB W/REFL TO HCV RNA, [...] PM EDT) 11/17/2024 3:23 PM EDT Narrative [facility] - 11/17/2024 4:05 PM EDT [place] [address] Ultrasound Report Signed Patient: Landen Byers MR#: [id number] : 1955 Acct:[id number] Age/Sex: 69 / M ADM Date: 11/17/24 Loc: HO.US Attending Dr: Jh Bullard MD Ordering Physician: Jh Bullard MD Date of Service: 11/17/24 Procedure(s): US carotid duplex BI Accession Number(s): [id number] cc: Piper Johnson MD; Name,Jh RACHEL Reason for Exam: Transient left sided facial numbness for 2 minutes in [facility]. Possible TIA EXAMINATION: US EXTRACRANIAL CAROTID [...] Wiley Forbes MD 11/17/2024 04:02 PM EDT RP Dictated By: Wiley Sanders MD Signed By: <Electronically signed by Wiley De Paz MD in OV> 11/17/24 1602 DD/ 1523 TD/TT: 11/17/24 1543 Cutter Machine Tender: Procedure Note Donotuseinterpreter, Image - 11/17/2024 [place] [address] Ultrasound Report Signed Patient: Farideh Byers#: [id number] : 5Acct:[id number] Age/Sex: 69 / MADM Date: 11/17/24 Loc: . Attending Dr: Jh Bullard MD Ordering Physician: Jh Bullard MD Date of Service: 11/17/24 Procedure(s): US carotid duplex BI Accession Number(s): [id number] cc: Piper Johnson MD; Name,Jh RACHEL Reason [...] 11/17/24 1602 DD/ 1523 TD/TT: 11/17/24 1543 Cutter Machine Tender: us Jh Bullard MD CV VASCULAR PROCEDURES Final Res ult [facility] [address] [place] [phone] * (ABNORMAL) POCT HGB A1C (09/29/2024 3:28 PM EDT) Hemoglobin A1C 6.7(A) 4.0 - 5.7 % QC Media Lot # [id number] Lot# Expiration Date Blood 09/29/2024 3:28 PM EDT us Jh Bullard MD POINT OF CARE TEST ENTER/EDIT OR DERABLES Final Result * Albumin, Random Urine W/Creatinine (05/21/2024 10:08 AM EDT) Creatinine, Urine 63.26 mg/dL [facility] Microalbumin Urine <5.0 mg/L [facility] Microalbum Creatinine Ratio Ur TNP <30 ug/mg cr [facility] Comment:Unable to calculate albumin/creatinine ratio due to lowmicroalbumin or creatinine result. Urine (Urine, Random) 05/21/2024 10:08 AM EDT 05/21/2024 11:03 AM EDT us Jh Bullard MD LAB URINE ORDERABLES Final Resul t Performing Organization Address City/[facility] Co de Phone Number [facility] [address] [place] [phone] * Hepatitis C Antibody with Reflex to HCV, RNA, Quantitative, Real-Time PCR (05/21/2024 10:08 AM EDT) Hepatitis C Antibody Nonreactive Nonreactive [facility] Comment:Antibodies to HCV no t detected; does not exclude early acuteHCV infection. Blood Venous blood specimen / Unknown 05/21/2024 10:08 AM EDT 05/21/2024 11:01 AM EDT us Jh Bullard MD LAB BLOOD ORDERABLES Final Resul t Performing Organization Address City/[facility]/ZIP Co de Phone Number [facility] [address] [place] [phone] * (ABNORMAL) Lipid Panel, Standard (05/21/2024 10:08 AM EDT) Triglycerides 69 <150 mg/dL [facility] Comment:Desirable Triglyceri de: less than 150 mg/dLBorderline High Triglyceride 150-199 mg/dLHigh Triglyceride: 200-499 mg/dLVery High Triglyceride: greater than or equal to 5OO mg/dL Cholesterol 177 <200 mg/dL [facility] Comment:Desirable Cholestero l: less than 200 mg/dLBorderline High Cholesterol: 200-239 mg/dLHigh Cholesterol: greater than 239 mg/dL LDL Cholesterol Calculated 109(H) <100 mg/dL [facility] Comment:Desirable LDL: less than 100 mg/dLNear Optimal/Above Optimal LDL: 110- 129 mg/dLBorderline High LDL: 130-159 mg/dLHigh LDL: 160-189 mg/dLVery High LDL: greater than or equal to 190 mg/dL HDL Cholesterol 55 >40 mg/dL [facility] Comment:Desirable HDL: great er than 40 mg/dL Note: This HDL assay may give artificially low results in patients with liver disease. Blood Venous blood specimen / Unknown 05/21/2024 10:08 AM EDT 05/21/2024 11:01 AM EDT us Jh Bullard MD LAB BLOOD ORDERABLES Final Resul t Performing Organization Address City/State/[facility] Co de Phone Number [facility] [address] [place] [phone] * (ABNORMAL) Colonoscopy (04/02/2023) Colonoscopy Abnormal( A) Normal Comment:Tubular adenoma cecelia bob. us Jh Bullard MD HEALTH MAINTENANCE Final Result from Last 3 Months or Most Recently Relevant to Health Maintenance Insurance [id number] DUAL COMPLETE [facility] Care Teams Census Enumerator Relationship Specialty Start Date End Date Name, MD Jh [address] [place] [phone] PCP - General Family Medicine 05/29/16
--- OUTSIDE RECORDS SUMMARY | 2025-01-07 08:49 | XMS_ITS | Encounter Summary ---
Author Organization [employer] Address [address] [place] [address] Care Team Providers Care Media Production Operator Name Role Phone Name, Jh RACHEL Primary Care Provider [phone] Juliet Wren PharmD Unavailable [phone] Encounter Details Date Type Department Care Team ([facility] st Contact Info) Description 05/16/2023 Telephone [facility] [address] [place], [place] [phone] Name, MD Jh [address] [place] [address] Social History Tobacco Use Types Packs/Day Years [...] Description 01/25/2025 1:30 PM EST Clinical Support [address] [phone] Cee Toussaint RN 02/01/2025 2:30 PM EST Office Visit [address] [phone] Name, MD Jh [address] [place] [address] [phone] documented as of this encounter Goals Goal [...] documented as of this encounter Care Teams Media Production Operator Relationship Specialty Start Date End Date Jh Bullard MD [address] [place] [address] [phone] PCP - General Family Medicine 05/29/16 Juliet Wren PharmD [address] [place] [phone] Pharmacist Internal Medicine 07/17/22 11/02/24 documented as of this encounter
--- OUTSIDE RECORDS SUMMARY | 2025-01-07 08:49 | XMS_ITS | Clinical Summary ---
Author Organization [facility] Address [address] [place] [address] Phone Care Team Providers Care Marine Scientist Name Role Phone Unavailable Primary Care Provider Unavailabl e Allergies No known active allergies Medications amitriptyline (ELAVIL) 75 mg tablet Take 1 tablet (75 mg total) by mouth at bedtime. Active aspirin 81 mg chewable tablet Chew 1 tablet (81 mg total) 1 (one) time each day. 5 Active busPIRone (BUSPAR) 5 mg tablet Take 1 tablet (5 mg total) by mouth 2 (two) times a day. Active Tresiba FlexTouch U-100 100 unit/mL (3 mL) injection pen Inject 34 Units under the skin 1 (one) time each day. 5 Active metFORMIN (GLUCOPHAGE) 1,000 mg tablet Take 1 tablet (1,000 mg total) by mouth 2 (two) times a day with meals. 4 026 Active rosuvastatin (CRESTOR) 40 mg tablet Take 1 tablet (40 mg total) by mouth daily. 3 Active sertraline (ZOLOFT) 50 mg tablet Take 1 tablet (50 mg total) by mouth 1 (one) time each day in the morning. Active tamsulosin (FLOMAX) 0.4 mg 24 hr capsule Take 1 capsule (0.4 mg total) by mouth 1 (one) time each day. Active apixaban (ELIQUIS) 5 mg tablet Take 1 tablet (5 mg total) by mouth 2 (two) times a day for 7 days. 14 each 5 Active metoprolol tartrate (LOPRESSOR) 100 mg tablet Take 1 tablet (100 mg total) by mouth 2 (two) times a day for 7 days. 14 each 5 Active carvediloL (COREG) 12.5 mg tablet Take 1 tablet (12.5 mg total) by mouth 2 (two) times a day with meals. 5 025 Discontinued lisinopriL (PRINIVIL,ZEST RIL) 20 mg tablet Take 1 tablet (20 mg total) by mouth daily. 2 025 Discontinued heparin infusion 100 units/mL in D5W Infuse 1,030.7 Units/hr into a venous catheter continuously . 5 025 Discontinued sacubitriL-sky sartan (ENTRESTO) 24-26 mg per tablet Take 1 tablet by mouth 2 (two) times a day for 7 days. 14 tablet 5 025 Active Problems Problem Noted Date Diagnosed Date NSTEMI (non-ST elevated myoc ardial infarction) (CMS/HCC V24, CMS/HCC V28) 11/28/2024 Resolved Problems Problem Noted Date Diagnosed Date Resolved Date Chest pain, unspecified type 11/28/2024 11/28/2024 Encounters Date Type Department Care Team Description 12/26/2024 11:32 PM EDT - 12/27/2024 1:29 AM EDT Emergency [facility] Emergency [address] [place] [id number] Tangela Melissa MD Primary hypertension (Primary Dx); Hyperglycemia; Hypomagnesemia Discharge Disposition: Home or Self Care 11/27/2024 7:43 PM EDT - 11/28/2024 3:07 PM EDT Hospital Encounter [facility] Intermediate Care Unit [address] [place] [id number] Lux Bob MD Lawrenz, Cedric W, MD Santoyo-Pachec o, Omar D, MD Surendran, Anupama, MD Rasul, Yar M, MD Chest pain, unspecified type (Primary Dx); Atrial flutter, unspecified type (CMS/HCC V24, CMS/HCC V28); Pulmonary nodules; [place]STEMI (non-ST elevated myocardial infarction[place] [place] [facility] Hepatosplenomegaly Discharge Disposition: Short Term Hospital from Last 3 Months Medical History Medical History Date Comments Depression Diabetes mellitus [place] [facility] [place] GERD (gastroesophageal reflux disease) Hypertension Hypercholesteremia SVT (supraventricular tachycardia) [place] BPH (benign prostatic hyperplasia) Pulmonary nodules Social History Tobacco Use Types Packs/Day Years Used Date Smoking Tobacco: Never Smokeless Tobacco: Never Alcohol Use Standard Drinks/Week Comments No 0 (1 standard drink = 0.6 oz pur e alcohol) Interpersonal Safety Answer Date Record ed Physical Abuse Unrecognized value 11/28/2024 Verbal Abuse Unrecognized value 11/28/2024 Sex and Gender Information Value Date Recorded Sex Assigned at Not on file Legal Sex Male 5:05 AM EST Gender Identity Not on file Sexual Orientation Not on file Obstetrics History Last Filed Vital Signs Vital Sign Reading Time Taken Comments Blood Pressure 152/76 12/27/2024 1:48 AM EDT Pulse 64 12/27/2024 1:48 AM EDT Temperature 36.2 C (97.1 F) 12/26/2024 11:46 PM EDT Respiratory Rate 18 12/27/2024 1:48 AM EDT Oxygen Saturation 96% 12/27/2024 1:48 AM EDT Inhaled Oxygen Concentration - - Weight 90.7 kg (200 lb) 12/26/2024 10:29 PM EDT Height 175.3 cm (5' 9 ) 12/26/2024 10:29 PM EDT Body Mass Index 29.53 12/26/2024 10:29 PM EDT Plan of Treatment Health Maintenance Due Date Last Done Comments Colorectal Cancer Screening: Colonoscopy 1954 Diabetes: Annual Foot Exam 1964 Diabetes: Annual Retina Eye Exam 1964 Hepatitis A Vaccines (1 of 2 - Risk 2-dose series) 1973 Zoster Vaccines (1 of 2) 2004 Hepatitis B Vaccines (1 of 3 - Risk 3-dose series) 2014 Medicare Annual Wellness Visit 01/28/2022 Social Influencers of Health Screening 01/28/2022 Depression Screening 02/26/2024 Influenza Vaccine (#1) 2024 Diabetes: Annual Urine Albumin-Creatinine Ratio (uACR) 11/27/2024 Diabetes: Blood Sugar Control Test (HGBA1C) 04/01/2025 09/29/2024 COVID-19 Vaccine ( season) 2025 12/15/2024, 02/28/2023, 01/05/2022, Additional history exists Falls Risk Assessment 11/28/2025 11/28/2024 Diabetes: Annual GFR (Glomerular Filtration Rate) 12/26/2025 12/26/2024, 11/28/2024, 11/27/2024 Hypertension/CHF/CAD Annual BMP Blood Test 12/26/2025 12/26/2024, 11/28/2024, 11/27/2024 DTaP,Tdap,and Td Vaccines (3 - Td or Tdap) 03/05/2027 03/05/2017, 06/03/2012 Cholesterol Screening (Lipid Panel) 05/21/2029 05/21/2024 RSV Immunization Adult Patients Completed 03/05/2023 Hepatitis C Screening Completed 05/21/2024 [...] to complete this topic RSV Immunization Patients Under 20 months Aged Out No longer eligible based on patient's age to complete this topic Varicella Vaccines Aged Out No longer eligible based on patient's age to complete this topic Procedures Procedure Name Priority Date/Time Associated Diagnosis Comments ECG ANNOTATED 12/29/2024 POCT GLUCOSE BLOOD Routine 12/27/2024 1: 44 AM EDT POCT GLUCOSE BLOOD Routine 12/26/2024 11 :41 PM EDT CBC WITH AUTO DIFFERENTIAL STAT 12/26/2024 11:00 PM EDT TROPONIN I HIGH SENSITIVITY Timed 12/26/2024 11:00 PM EDT MAGNESIUM STAT 12/26/2024 11:00 PM EDT BASIC METABOLIC PANEL STAT 12/26/2024 11:00 PM EDT CBC AND DIFFERENTIAL STAT 12/26/2024 11:00 PM EDT ECG 12-LEAD STAT 12/26/2024 10:56 PM EDT ECG ANNOTATED 11/30/2024 POCT GLUCOSE BLOOD Routine 11/28/2024 11 :09 AM EDT HEPARIN AND LOW MOLECULAR WEIGHT ANTI XA LEVEL Timed 11/28/2024 10:40 AM EDT ECG 12-LEAD Routine 11/28/2024 9:59 AM EDT POCT GLUCOSE BLOOD Routine 11/28/2024 7: 52 AM EDT TROPONIN I HIGH SENSITIVITY Routine 11/28/2024 6:56 AM EDT HEPARIN AND LOW MOLECULAR WEIGHT ANTI XA LEVEL Timed 11/28/2024 4:35 AM EDT CBC WITH AUTO DIFFERENTIAL Routine 11/28/2024 4:35 AM EDT CBC AND DIFFERENTIAL Routine 11/28/2024 4:35 AM EDT MAGNESIUM Routine 11/28/2024 4:35 AM EDT BASIC METABOLIC PANEL Routine 11/28/2024 4:35 AM EDT HEPARIN AND LOW MOLECULAR WEIGHT ANTI XA LEVEL STAT 11/28/2024 2:30 AM EDT POCT GLUCOSE BLOOD Routine 11/28/2024 2: 20 AM EDT ACTIVATED PARTIAL THROMBOPLASTIN TIME STAT 11/28/2024 12:58 AM EDT ECG 12-LEAD STAT 11/27/2024 11:04 PM EDT TROPONIN I HIGH SENSITIVITY STAT 11/27/2024 11:01 PM EDT [place] [facility] 30-74 MINUTES Routine 11/27/2024 10:[address] ANGIO CHEST/ABDOMEN/PELVIS WO AND/OR W CONTRAST STAT 11/27/2024 9:44 PM EDT Chest pain, unspecified type ECG 12-LEAD STAT 11/27/2024 8:54 PM EDT ETHANOL STAT Add-on 11/27/2024 8:30 PM EDT PROTHROMBIN TIME WITH INR STAT 11/27/2024 8:30 PM EDT MAGNESIUM STAT 11/27/2024 8:30 PM EDT LIPASE STAT 11/27/2024 8:30 PM EDT COMPREHENSIVE METABOLIC PANEL STAT 11/27/2024 8:30 PM EDT TROPONIN I HIGH SENSITIVITY Timed 11/27/2024 8:30 PM EDT XR CHEST 2 VIEWS STAT 11/27/2024 8:20 PM EDT CBC WITH AUTO DIFFERENTIAL STAT 11/27/2024 7:54 PM EDT B-TYPE NATRIURETIC PEPTIDE STAT 11/27/2024 7:54 PM EDT CBC AND DIFFERENTIAL STAT 11/27/2024 7:54 PM EDT TROPONIN I HIGH SENSITIVITY Timed 11/27/2024 7:54 PM EDT ECG 12-LEAD STAT 11/27/2024 7:36 PM EDT from Last 3 Months Results * ECG-Annotated (12/29/2024) Only the most recent of2 resultswithin the time period is included. us Provider Onbase MD ECG ORDERABLES Final Result * (ABNORMAL) POCT Glucose, blood (12/27/2024 1:44 AM EDT) Only the most recent of5 resultswithin the time period is included. [facility] Glucose POCT 230(H) 70 - 100 mg/dL 12/27/2024 1:44 AM EDT [facility] Blood Capillary blood specimen / Unknown 12/27/2024 1:44 AM EDT 12/27/2024 1:45 AM EDT Tangela Melissa MD LAB POINT OF CARE TE ST DOCKED DEVICE UNSOLICITED RESULTS Final Result [facility] [address] [place] [address], * Troponin I high sensitivity (12/26/2024 11:00 PM EDT) Only the most recent of5 resultswithin the time period is included. [facility] High Sensitivity Troponin I 7 <=79 ng/L LAB CHEMISTRY METHOD 12/26/2024 11:43 PM EDT [facility] Blood Venous blood specimen / Unknown Venipuncture / Unknown 12/26/2024 11:00 PM EDT 12/26/2024 11:11 PM EDT Narrative [facility] - 12/26/2024 11:43 PM EDT High levels of biotin in samples may falsely decrease hsTroponin values. Use caution when interpreting hsTroponin results in patients taking biotin who exhibit renal impairment (eGFR <60) or in patients taking more than 20 mg/day of biotin. Kristen GILLIAM LAB BLOOD ORDERABLES Steve al Result [facility] [address] [place] [address], * (ABNORMAL) CBC auto differential (12/26/2024 11:00 PM EDT) Only the most recent of3 resultswithin the time period is included. WBC 3.9(L) 4.8 - 10.8 K/mcL LAB HEMETOLOGY METHOD 12/26/2024 11:16 PM EDT [facility] RBC 4.80 4.50 - 5.50 M/mcL LAB HEMETOLOGY METHOD 12/26/2024 11:16 PM EDT [facility] Hemoglobin 12.5(L) 13.5 - 17.5 g/dL LAB HEMETOLOGY METHOD 12/26/2024 11:16 PM EDT [facility] Hematocrit 40.3(L) 42.0 - 54.0 % LAB HEMETOLOGY METHOD 12/26/2024 11:16 PM EDT [facility] MCV 84.0 79.0 - 98.0 FL LAB HEMETOLOGY METHOD 12/26/2024 11:16 PM EDT [facility] MCH 26.0(L) 27.0 - 32.0 pcg LAB HEMETOLOGY METHOD 12/26/2024 11:16 PM EDT [facility] MCHC 31.0(L) 32.0 - 37.0 g/dL LAB HEMETOLOGY METHOD 12/26[facility]24 [facility] RDW 13.2 11.0 - 15.0 % LAB HEMETOLOGY METHOD 12/26[facility]24 [facility] Platelets 156 130 - 400 K/mcL LAB HEMETOLOGY METHOD 12/26/2024 11:16 PM [facility] MPV 9.7 7.0 - 11.0 FL LAB HEMETOLOGY METHOD 12/26/2024 11:16 PM [facility] NRBC 0.0 <1.0 % LAB HEMETOLOGY METHOD 12/26/2024 11:16 PM [facility] NRBC Absolute 0.00 <0.10 K/mcL LAB HEMETOLOGY METHOD 12/26/2024 11:16 PM [facility] Neutrophils Relative 60.7 % LAB HEMETOLOGY METHOD 12/26/2024 11:16 PM [facility] Lymphocytes Relative 25.4 % LAB HEMETOLOGY METHOD 12/26/2024 11:16 PM [facility] Monocytes Relative 9.0 % LAB HEMETOLOGY METHOD 12/26/2024 11:16 PM [facility] Eosinophils Relative 2.8 % LAB HEMETOLOGY METHOD 12/26/2024 11:16 PM [facility] Basophils Relative 0.8 % LAB HEMETOLOGY METHOD 12/26/2024 11:16 PM [facility] Immature Granulocytes Relative 1.3 % LAB HEMETOLOGY METHOD 12/26/2024 11:16 PM [facility] Neutrophils Absolute 2.36 1.50 - 7.00 K/mcL LAB HEMETOLOGY METHOD 12/26/2024 11:16 PM [facility] Lymphocytes Absolute 0.99(L) 1.00 - 5.00 K/mcL LAB HEMETOLOGY METHOD 12/26/2024 11:16 PM [facility] Monocytes Absolute 0.35 0.20 - 1.00 K/mcL LAB HEMETOLOGY METHOD 12/26/2024 11:16 PM EDT [facility] Eosinophils Absolute 0.11 0.00 - 0.50 K/mcL LAB HEMETOLOGY METHOD 12/26/2024 11:16 PM EDT [facility] Basophils Absolute 0.03 0.00 - 0.20 K/[facility] LAB HEMETOLOGY METHOD 12/26/2024 11:16 PM EDT [facility] Immature Granulocytes Absolute 0.05(H) 0.00 - 0.03 K/[facility] LAB HEMETOLOGY METHOD 12/26/2024 11:16 PM EDT [facility] Blood Venous blood specimen / Unknown Venipuncture / Unknown 12/26/2024 11:00 PM EDT 12/26/2024 11:11 PM EDT Kristen GILLIAM LAB BLOOD ORDERABLES Fin al Result Performing Organization Address City/[facility]/ZIP Co de Phone Number [facility] [address] [place] [address], [place] [phone] * (ABNORMAL) Magnesium (12/26/2024 11:00 PM EDT) Only the most recent of3 resultswithin the time period is included. [facility] Magnesium 1.5(L) 1.9 - 2.6 mg/dL LAB CHEMISTRY METHOD 12/26/2024 11:47 PM EDT [facility] Blood Venous blood specimen / Unknown Venipuncture / Unknown 12/26/2024 11:00 PM EDT 12/26/2024 11:11 PM EDT Kristen GILLIAM LAB BLOOD ORDERABLES Fin al Result [facility] [address] [place] [address], [place] [phone] * (ABNORMAL) Basic metabolic panel (12/26/2024 11:00 PM EDT) Only the most recent of2 resultswithin the time period is included. Sodium 136 133 - 145 mmol/L LAB CHEMISTRY METHOD 12/26/2024 11:52 PM [facility] Potassium 4.2 3.5 - 5.5 mmol/L LAB CHEMISTRY METHOD 12/26/2024 11:52 PM [facility] Chloride 101 96 - 110 mmol/L LAB CHEMISTRY METHOD 12/26/2024 11:52 PM [facility] CO2 28 21 - 32 mmol/L LAB CHEMISTRY METHOD 12/26/2024 11:52 PM [facility] Anion Gap 7 3 - 11 LAB CHEMISTRY METHOD 12/26/2024 11:52 PM [facility] Glucose 321(H) 70 - 100 mg/dL LAB CHEMISTRY METHOD 12/26/2024 11:52 PM [facility] BUN 10 5 - 25 mg/dL LAB CHEMISTRY METHOD 12/26/2024 11:52 PM [facility] Creatinine 1.00 0.70 - 1.30 mg/dL LAB CHEMISTRY METHOD 12/26/2024 11:52 PM [facility] eGFR 81 >=60 mL/min/1. 73m2 LAB CHEMISTRY METHOD 12/26/2024 11:52 PM [facility] Comment:Calculation based on the Chronic Kidney Disease Epidemiology Collaboration (CKD-EPI) equation refit without adjustment for race. BUN/Creatinine Ratio 10.0 LAB CHEMISTRY METHOD 12/26/2024 11:52 PM [facility] Calcium 9.5 8.5 - 10.5 mg/dL LAB CHEMISTRY METHOD 12/26/2024 11:52 PM [facility] Blood Venous blood specimen / Unknown Venipuncture / Unknown 12/26/2024 11:00 PM EDT 12/26/2024 11:11 PM EDT Kristen GILLIAM LAB BLOOD ORDERABLES Fin al Result Performing Organization Address City/[facility]/ZIP Co de Phone Number [facility] [address] [place] [address], [place] [phone] * ECG 12 lead (12/26/2024 10:56 PM EDT) Only the most recent of5 resultswithin the time period is included. Ventricular Rate ECG 79 BPM GEMUSE Atrial Rate 79 BPM GEMUSE P-R Interval 198 ms GEMUSE QRS Duration 98 ms GEMUSE Q-T Interval 368 ms GEMUSE QTc 421 ms GEMUSE P Wave [place] 24 degrees GEMUSE R [place] -34 degrees GEMUSE T [place] -27 degrees GEMUSE ECG Interpretation Normal sinus rhythm Left axis deviation ST depression in Inferolateral leads Abnormal ECG When compared with ECG of 28-NOV-2024 09:59, Sinus rhythm has replaced Atrial flutter Nonspecific T wave abnormality has replaced inverted T waves in Anterior leads Confirmed by Amrik AVILEZ JOHN ([id number]) on 12/27/2024 4:42:21 PM GEMUSE 12/26/2024 10:5 6 PM EDT 12/27/2024 4:42 PM EST Kristen GILLIAM ECG ORDERABLES Final Re sult Performing Organization Address [facility] Co de Phone Number GEMUSE * Anti-Xa - Every 6 Hours (11/28/2024 10:40 AM EDT) Only the most recent of3 resultswithin the time period is included. Heparin Anti-Xa 0.46 0.30 - 0.70 I Unit/mL LAB COAGULATION METHOD 11/28/2024 11:04 AM EDT [facility] Blood Venous blood specimen / Unknown Venipuncture / Unknown 11/28/2024 10:40 AM EDT 11/28/2024 10:53 AM EDT Narrative [facility] - 11/28/2024 11:04 AM EDT Therapeutic range listed is for Unfractionated Heparin. LMW Heparin therapeutic range: 0.50-1.20 IU/mL us Juan Goodman MD LAB BLOOD ORDERABLES F inal Result Performing Organization Address [facility]/ZIP Co de Phone Number [facility] [address] [place] [address], [place] [phone] * Activated Partial Thromboplastin Time - STAT (11/28/2024 12:58 AM EDT) [facility] Signature aPTT 29.7 24.1 - 39.3 sec LAB COAGULATION METHOD 11/28/2024 1:25 AM EDT [facility] Blood Venous blood specimen / Unknown Venipuncture / Unknown 11/28/2024 12:58 AM EDT 11/28/2024 1:12 AM EDT us Marcell Lerner MD LAB BLOOD ORDERABLES Final R esult Performing Organization Address [facility] Co de Phone Number [facility] [address] [place] [address], [place] [phone] * [place] [facility] 30-74 MINUTES (11/27/2024 10:34 PM EDT) Narrative Marcell Lerner MD - 11/27/2024 10:34 PM EDT Marcell Lerner MD 11/28/2024 2:25 AM Critical Care Performed by: Marcell Lerner MD Authorized by: Lux Bob MD Critical care provider statement: Critical care time (minutes): 45 Total face to face critical care time (minutes): 25 Critical care time was exclusive of: Separately billable procedures and treating other patients Critical care was necessary to treat or prevent imminent or life-threatening deterioration of the following conditions: Cardiac failure, circulatory failure and respiratory failure Critical care was time spent personally by me on the following activities: Development of treatment plan with patient or surrogate, discussions with consultants, evaluation of patient's response to treatment, ordering and review of laboratory studies, ordering and review of radiographic studies, re-evaluation of patient's condition, review of old charts, ordering and performing treatments and interventions, examination of patient, obtaining history from patient or surrogate and pulse oximetry Face to face critical care was time spent personally by me on the following activities: Examination of patient, evaluation of patient's response to treatment, re-evaluation of patient's condition, pulse oximetry, obtaining history from patient or surrogate and development of treatment plan with patient or surrogate I assumed direction of critical care for this patient from another provider in my specialty: no Care discussed with: admitting provider Comments: A flutter requiring multiple pushes of IV metoprolol and diltiazem as well as diltiazem drip, NSTEMI requiring IV heparin and discussion with cardiology us Lux Bob MD IN CLINIC/BEDSIDE ORDERABLES Fin al Result * CT Angio Chest/Abdomen/Pelvis wo and/or w Contrast (11/27/2024 9:44 PM EDT) Anatomical Region Laterality Modality Body Computed Tomogra phy 11/27/2024 10:3 6 PM EDT Impressions 11/27/2024 10:36 PM EDT Impression: No acute abnormality Multiple pulmonary nodules, recommend short-term follow-up CT angiogram abdomen and pelvis with contrast Multiplanar and 3D reconstructions. Comparison: None provided Findings: Abdominal aorta normal caliber without dissection. Celiac and mesenteric origins patent without stenosis. Bilateral renal artery origins patent without stenosis. Patent accessory left renal arteries also noted. Common and external iliac arteries unremarkable. Bilateral common femoral arteries within normal limits. No acute bony abnormalities. Hepatosplenomegaly with fatty infiltration of the liver. No significant focal abnormalities in liver or spleen. Pancreas and adrenal glands unremarkable. Gallbladder is within normal limits. No significant focal renal abnormalities. No renal stones or hydronephrosis. No free fluid or adenopathy in the pelvis. No diverticulitis. Appendix unremarkable. Impression: No acute process This document has been electronically signed by: Banadr Santiago MD on 11/27/2024 22:36:29 Narrative 11/27/2024 10:36 PM EDT INDICATION: R/o aortic dissection, CP radiating to arms and back, asymmetric pulses, hypertensive and tachycardic CT angiogram chest without/with contrast Multiplanar reconstructions and MIPS Comparison: None provided Findings: No filling defects are noted to suggest pulmonary embolus. Main pulmonary artery normal in caliber. Thoracic aorta normal caliber without dissection. Heart size enlarged. Great vessel origins patent. Dense coronary calcifications. Scattered indeterminate bilateral pulmonary nodules. Largest measures 7 mm in right middle lobe. Recommend short-term follow-up chest CT. No significant mediastinal or hilar adenopathy. No free pleural fluid. No acute bony abnormality noted. Procedure Note Bandar Santiago MD - 11/27/2024 INDICATION: R/o aortic dissection, CP radiating to arms and back, asymmetric pulses, hypertensive and tachycardic CT angiogram chest without/with contrast Multiplanar reconstructions and MIPS Comparison: None provided Findings: No filling defects are noted to suggest pulmonary embolus. Main pulmonary artery normal in caliber. Thoracic aorta normal caliber without dissection. Heart size enlarged. Great vessel origins patent. Dense coronary calcifications. Scattered indeterminate bilateral pulmonary nodules. Largest measures 7 mm in right middle lobe. Recommend short-term follow-up chest CT. No significant mediastinal or hilar adenopathy. No free pleural fluid. No acute bony abnormality noted. IMPRESSION: Impression: No acute abnormality Multiple pulmonary nodules, recommend short-term follow-up CT angiogram abdomen and pelvis with contrast Multiplanar and 3D reconstructions. Comparison: None provided Findings: Abdominal aorta normal caliber without dissection. Celiac and mesenteric origins patent without stenosis. Bilateral renal artery origins patent without stenosis. Patent accessory left renal arteries also noted. Common and external iliac arteries unremarkable. Bilateral common femoral arteries within normal limits. No acute bony abnormalities. Hepatosplenomegaly with fatty infiltration of the liver. No significant focal abnormalities in liver or spleen. Pancreas and adrenal glands unremarkable. Gallbladder is within normal limits. No significant focal renal abnormalities. No renal stones or hydronephrosis. No free fluid or adenopathy in the pelvis. No diverticulitis. Appendix unremarkable. Impression: No acute process This document has been electronically signed by: Bandar Santiago MD on 11/27/2024 22:36:29 Lux Bob MD IMG CT PROCEDURES Final Result * Protime-INR (11/27/2024 8:30 PM EDT) [facility] Protime 13.7 10.6 - 13.9 sec LAB COAGULATION METHOD 11/27/2024 9:15 PM EDT [facility] INR 1.1 LAB COAGULATION METHOD 11/27/2024 9:15 PM EDT [facility] Blood Venous blood specimen / Unknown Venipuncture / Unknown 11/27/2024 8:30 PM EDT 11/27/2024 9:06 PM EDT Lux Bob MD LAB BLOOD ORDERABLES Final Resul t Performing Organization Address [facility]/ZIP Co de Phone Number [facility] [address] [place] [address], [place] [phone] * Lipase (11/27/2024 8:30 PM EDT) [facility] Lipase 15 13 - 75 unit/L LAB CHEMISTRY METHOD 11/27/2024 9:32 PM EDT [facility] Blood Venous blood specimen / Unknown Venipuncture / Unknown 11/27/2024 8:30 PM EDT 11/27/2024 9:06 PM EDT Lux Bob MD LAB BLOOD ORDERABLES Final Resul t [facility] [address] [place] [address], [place] [phone] * Ethanol (11/27/2024 8:30 PM EDT) [facility] Ethanol Level <3 0 - 10 mg/dL LAB CHEMISTRY METHOD 11/28/2024 2:27 AM EDT [facility] Blood Venous blood specimen / Unknown Venipuncture / Unknown 11/27/2024 8:30 PM EDT 11/27/2024 9:06 PM EDT Marcell Lerner MD LAB BLOOD ORDERABLES Final R esult [facility] [address] [place] [address], [place] [phone] * (ABNORMAL) Comprehensive metabolic panel (11/27/2024 8:30 PM EDT) Sodium 135 133 - 145 mmol/L LAB CHEMISTRY METHOD 11/27/2024 9:32 PM EDT [facility] Potassium 4.3 3.5 - 5.5 mmol/L LAB CHEMISTRY METHOD 11/27/2024 9:32 PM [facility] Chloride 101 96 - 110 mmol/L LAB CHEMISTRY METHOD 11/27/2024 9:32 PM [facility] CO2 28 21 - 32 mmol/L LAB CHEMISTRY METHOD 11/27/2024 9:32 PM [facility] Anion Gap 6 3 - 11 LAB CHEMISTRY METHOD 11/27/2024 9:32 PM [facility] Glucose 160(H) 70 - 100 mg/dL LAB CHEMISTRY METHOD 11/27/2024 9:32 PM [facility] BUN 8 5 - 25 mg/dL LAB CHEMISTRY METHOD 11/27/2024 9:32 PM [facility] Creatinine 0.93 0.70 - 1.30 mg/dL LAB CHEMISTRY METHOD 11/27/2024 9:32 PM [facility] eGFR 88 >=60 mL/min/1. 73m2 LAB CHEMISTRY METHOD 11/27/2024 9:32 PM [facility] Comment:Calculation based on the Chronic Kidney Disease Epidemiology Collaboration (CKD-EPI) equation refit without adjustment for race. BUN/Creatinine Ratio 8.6 LAB CHEMISTRY METHOD 11/27/2024 9:32 PM EDT [facility] Calcium 9.9 8.5 - 10.5 mg/dL LAB CHEMISTRY METHOD 11/27/2024 9:32 PM EDT [facility] AST (SGOT) 27 10 - 42 unit/L LAB CHEMISTRY METHOD 11/27/2024 9:32 PM EDT [facility] ALT (SGPT) 35 10 - 60 unit/L LAB CHEMISTRY METHOD 11/27/2024 9:32 PM EDT [facility] Alkaline Phosphatase 75 42 - 121 unit/L LAB CHEMISTRY METHOD 11/27/2024 9:32 PM EDT [facility] Total Protein 6.6 6.0 - 8.0 g/dL LAB CHEMISTRY METHOD 11/27/2024 9:32 PM EDT [facility] Albumin 3.8 3.2 - 5.0 g/dL LAB CHEMISTRY METHOD 11/27/2024 9:32 PM EDT [facility] Total Bilirubin 0.3 0.0 - 1.4 mg/dL LAB CHEMISTRY METHOD 11/27/2024 9:32 PM EDT [facility] Blood Venous blood specimen / Unknown Venipuncture / Unknown 11/27/2024 8:30 PM EDT 11/27/2024 9:06 PM EDT us Lux Bbo MD LAB BLOOD ORDERABLES Final Resul t [facility] [address] [place] [address], * XR Chest 2 Views (11/27/2024 8:20 PM EDT) Anatomical Region Laterality Modality Body Radiographic Lily ging 11/27/2024 10:2 7 PM EDT Impressions 11/27/2024 10:27 PM EDT Impression: No acute processes This document has been electronically signed by: Bandar Santiago MD on 11/27/2024 22:27:36 Narrative 11/27/2024 10:27 PM EDT INDICATION: chest pain 2 view chest x-ray Comparison: None provided Findings: Lungs are clear without acute infiltrates. No pneumothorax. Heart size normal. No acute bony abnormalities. Procedure Note Bandar Santiago MD - 11/27/2024 INDICATION: chest pain 2 view chest x-ray Comparison: None provided Findings: Lungs are clear without acute infiltrates. No pneumothorax. Heart size normal. No acute bony abnormalities. IMPRESSION: Impression: No acute processes This document has been electronically signed by: Bandar Santiago MD on 11/27/2024 22:27:36 Lux Bob MD IMG XR PROCEDURES Final Result * B-type natriuretic peptide (11/27/2024 7:54 PM EDT) BNP 75 <=100 pcg/mL LAB CHEMISTRY METHOD 11/27/2024 8:42 PM EDT [facility] Blood Venous blood specimen / Unknown Venipuncture / Unknown 11/27/2024 7:54 PM EDT 11/27/2024 8:07 PM EDT Lux Bob MD LAB BLOOD ORDERABLES Final Resul t [facility] [address] [place] [address], [place] [phone] from Last 3 Months Insurance MEDICAID [place] [id number] Advance Directives * Full Code - Default (Latest Code Status on File) Date Activated Date Inactivated Comments 11/28/2024 1:10 AM 11/28/2024 5:12 PM This is orde r is used when code status has not been discussed with the patient, or code status is otherwise unknown/unconfirmed To update the patient's code status, place a code status order. Do not modify or discontinue any currently active code status orders.
--- OUTSIDE RECORDS SUMMARY | 2025-01-07 08:49 | XMS_ITS | Encounter Summary ---
Author Organization [employer] Address [address] [place] [address] Care Team Providers Care Web Knitter Name Role Phone Name, Jh RACHEL Primary Care Provider [phone] Juliet Wren PharmD Unavailable [phone] Encounter Details Date Type Department Care Team (Late st Contact Info) Description 07/13/2022 Abstract [facility] [address] [place] [address] [phone] Name, MD Jh [address] [place] [id number] Social History Tobacco Use Types Packs/Day Years [...] Description 01/25/2025 1:30 PM EST Clinical Support [facility] [address] [place] [address] [phone] Cee Toussaint RN 02/01/2025 2:30 PM EST Office Visit [facility] [address] [place] [address] Name, MD [facility] [place] [address] documented as of this encounter Procedures Procedure [...] documented as of this encounter Care Teams Web Knitter Relationship Specialty Start Date End Date Name, MD [facility] [place] [address] PCP - General Family Medicine 05/29/16 Juliet Wren, [place] [address] Pharmacist Internal Medicine 07/17/22 11/02/24 documented as of this encounter
--- OUTSIDE RECORDS SUMMARY | 2025-01-07 08:49 | XMS_ITS ---
Author Name [address] [facility] Address [address] [place] [address] Phone [phone] [facility] Care Team Providers Care Photographer Motion Picture Name Role Phone Court Hooker Unavailable [phone] Unavailable Unavailable Unavailable [facility] Unavailable Reason for Referral [...] BY MOUTH TWICE DAILY WITH FOOD 2021-03-20 2024-12-04 Docusate Sodium 100 mg Cap TAKE 1 [...] 2021-03-20 No Data Available OneTouch Delica Plus Nbhmia12G Miscellaneous TEST BLOOD SUGAR THREE TIMES DAILY 2020-08-16 No Data Available OneTouch Verio Strip TEST BLOOD SUGAR TH REE TIMES DAILY 2020-08-16 No Data Available Amitriptyline 75 mg Tab TAKE 1 TABLET BY MOUTH EVERY DAY AT BEDTIME 2021-06-07 No Data Available Lantus SoloStar 100 UNIT/ML Solution Pen-injector Subcutaneous INJECT 28 UNITS SUBCUTANEOUSLY ONCE DAILY 2021-03-20 2024-12-04 Tamsulosin 0.4 mg Cap TAKE 1 CAPSULE BY MOUTH TWICE DAILY 2021-05-12 No Data Available Insulin Lispro (1 Unit Dial) 100 UNIT/ML Solution Pen-injector 10 UNITS PRIOR TO MEALS 3 TIMES PER DAY 2021-07-19 No Data Available Atorvastatin Calcium 20 mg Tab TAKE 1 TABLET BY MOUTH ONCE DAILY 2021-05-12 2022-11-07 Lisinopril 20 mg Tab TAKE 1 TABLET [facility] 2021-08-16 2024-12-04 Chlorhexidine Gluconate 0.12 % Solution SWISH THEN SPIT15 ML BY MOUTH TWICE A DAY 2021-08-21 No Data Available Ibuprofen 600 mg Tab TOME MICHELLE TABLETA TR ES VECES AL D A CUANDO SEA NECESARIO PARA EL DOLOR 2021-08-21 No Data Available [employer] Flex System w/Device Kit TEST BLOOD SUGAR THREE TIMES DAILY 2021-09-15 No Data Available Viagra 50 mg Tab TAKE 1 TABLET 1 HOUR BEFORE SEXUAL RELATIONS ONCE DAILY NEEDED. 2021-11-24 No Data Available oxyCODONE 5 mg Tab 1 tab 2-3 times a da y PRN pain 2021-12-07 2024-12-04 Narcan 4 mg/0.1ML Liquid Nasal use 1 spray in one nostril in the event of opioid overdose. Call 911 after use 2021-12-07 No Data Available Chlorhexidine Gluconate 0.12 % Solution Mouth/Throat 15 ML swish and spit BID 2021-12-07 2023-10-01 Finasteride 5 mg Tab TAKE 1 TABLET BY [facility] EVERY MORNING. DO NOT BREAK, CRUSH, DISSOLVE [...] 2022-06-13 2023-10-02 metFORMIN 1000 mg Tab Take 1 tablet oral ly twice daily 2023-03-12 No Data Available Daily Value Multivitamin Tab take 1 tablet by mouth da jerson 2023-10-01 No Data Available TechLITE Pen Needle 32 gauge x 5/32 USE FOUR DAILY 2023-06-26 No Data Available Tresiba FlexTouch 100 UNIT/ML Solution Pen-injector INJECT 34 UNITS SUBCUTANEOUSLY EVERY MORNING 2023-12-24 No Data Available TRUEplus 5-Bevel Pen [place] 32G X 4 MM Miscellaneous USE FOUR DAILY 2023-11-11 No Data Availab le Melatonin 5 mg Cap 1-2 gummies QHS 2024-04-17 No Ian a Available Diclofenac Sodium 1 % Gel APPLY TWO GRAM TO THE AFFECTED AREA(s) IN THE MORNING AND EVENING FOR PAIN 2024-06-08 No Data Available Aspirin Low Dose 81 mg Tab Chewable CHEW ONE TABLET ONCE DAILY 2024-09-29 No Data Avail able Metoprolol Tartrate 100 mg Tab take one tablet orally twice daily 2024-11-24 No Data Available Eliquis 5 mg Tab TAKE ONE TABLET TWICE DAILY 2025-09-3 0 No Data Available Entresto 24/26 mg Tab take 2 tablets ora lly twice a day and after 12/09 start taking 1 tablet orally twice a day 2024-12-03 No Data Available oxyCODONE-Acetaminophen 5/325 mg Tab 1 tablet orally three times a day as needed 2024-12-04 No Data Available Lisinopril 20 mg Tab Take 1 tablet daily 2024-12-09 No Data Available Magnesium Oxide 400 mg Tab 1 tablet oral ly 1 time per day 2024-12-09 No Data Available Problem List Problem Status Onset Date Resolved Date Synopsis History of alcohol abuse Active 2022-11-07 N/A StableStopped 2015Continue with Etoh remission, coping mechanisms, and continue with PCP. Enlarged prostate Inactive 2023-10-08 N/A 09/19 pl [...] both shoulders Supraventricular tachycardia Active 2021-12-07 N/A Cardioversion at hospital stay 11/28-12/03 Type 2 diabetes mellitus, with long-term current use [...] with PCP and cardiology every 6 months. 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 Active 2024-12-09 N/A N/A GERD (gastroesophageal reflux disease) Active 2024-12-09 N/A N/A Other problems related to medical facilities and other health care Active 2024-12-09 N/A HYPERTENSIO N CONTINGENCY PLANLast updated: 12/09/2024[facility] following [facility]: BP >180/100 / Chest pain / HeadachePlanned intervention: Assess for signs of end organ damage (headache, vision changes, chest pain)/ Encourage low sodium diet Encounters Encounters Type Facility Date of Service Diagnosis/Co mplaint Medication List Documented (1159F) [facility] ([place]20[place] Medication List Documented (1159F[place] [facility] Medication List Documented (1159F[place] [facility] Medication List Documented (1159F[place] [facility] Medication List Documented (1159F) [facility] Type 2 diabetes mellitus wit h mild nonproliferative diabetic retinopathy without macular edema, bilateralGeneralized anxiety disorderHeart failure, unspecifiedPain in unspecified shoulderEnlarged prostate without lower urinary tract symptomsOther specified health statusObesity, unspecifiedBody mass index (bmi) 31.0-31.9, adultHypertensive heart disease with heart failure Medication List Documented (1159F) [facility] ([place] Medication List Documented (1159F[place] [facility] [place] Estab. patient 30-39min; chronic exacerbation, 2 stable chronic or 1 acute illness add add modifier 95 for video, (do not use for phone, instead use [id number]) [facility] [place] Type 2 diabetes mellitus wit h [...] (do not use for phone, instead use 04867-03) [facility] Estab. patient 30-39min; chronic exacerbation, 2 stable chronic or 1 acute illness add add modifier 95 for video, (do not use for phone, instead use 63163-19) [facility] [place] Estab. patient 30-39min; chronic exacerbation, 2 stable chronic or 1 acute illness add add modifier 95 for video, (do not use for phone, instead use 98828-86) [facility] Estab. patient 30-39min; chronic exacerbation, 2 stable chronic or 1 acute illness add add modifier 95 for video, (do not use for phone, instead use 47090-28) [facility] [place] Estab. patient 30-39min; chronic exacerbation, 2 stable chronic or 1 acute illness add add modifier 95 for video, (do not use for phone, instead use 53907-20) [facility] Estab. patient 30-39min; chronic exacerbation, 2 stable chronic or 1 acute illness add add modifier 95 for video, (do not use for phone, instead use 45551-46) [facility] Estab. patient 20-29min; 1 stable chronic or 2 minor; add add modifier 95 for video, modifier 93 for phone [facility]/2022 Type 2 diabetes mellitus [...] 95 for video, modifier 93 for phone [facility] Estab. patient 20-29min; 1 stable chronic or 2 minor; add add modifier 95 for video, modifier 93 for phone [facility] Estab. patient 30-39min; chronic exacerbation, 2 stable chronic or 1 acute illness add add modifier 95 for video, (do not use for phone, instead use 40081-59) [facility]2023 Type 2 diabetes mellitus [...] (do not use for phone, instead use 23440-34) [facility] Estab. patient 30-39min; chronic exacerbation, 2 stable chronic or 1 acute illness add add modifier 95 for video, (do not use for phone, instead use 79416-45) [facility] Estab. patient 30-39min; chronic exacerbation, 2 stable chronic or 1 acute illness add add modifier 95 for video, (do not use for phone, instead use 00490-98) [facility] Estab. patient 30-39min; chronic exacerbation, 2 stable chronic or 1 acute illness add add modifier 95 for video, (do not use for phone, instead use 78057-47) [facility] Estab. patient 30-39min; chronic exacerbation, 2 stable chronic or 1 acute illness add add modifier 95 for video, (do not use for phone, instead use 75979-95) [facility] Estab. patient 30-39min; chronic exacerbation, 2 stable chronic or 1 acute illness add add modifier 95 for video, (do not use for phone, instead use 01152-86) [facility] Estab. patient 30-39min; chronic exacerbation, 2 stable chronic or 1 acute illness add add modifier 95 for video, (do not use for phone, instead use 05575-49) [facility] Estab. patient 30-39min; chronic exacerbation, 2 stable chronic or 1 acute illness add add modifier 95 for video, (do not use for phone, instead use 16474-38) [facility] Estab. patient 30-39min; chronic exacerbation, 2 stable chronic or 1 acute illness add add modifier 95 for video, (do not use for phone, instead use 37169-62) [facility] Estab. patient 30-39min; chronic exacerbation, 2 stable chronic or 1 acute illness add add modifier 95 for video, (do not use for phone, instead use 99752-38) [facility] RN, CN or CP time with patient by phone; use with 1111F, BP, A1c or other CPTII codes [facility]/2023 Encounter for other specifie d aftercare RN, CN or CP time with patient by phone; use with 1111F, BP, A1c or other CPTII codes [facility] 10[place]/2023 No Data Available [facility] [place]2023 Enlarged prostate without lo wer urinary tract symptomsOther problems related to medical facilities and other health care No Data Available [facility] [place]2023 No Data Available [facility] [place]23 Estab. patient 20-29min; 1 stable chronic or 2 minor; add add modifier 95 for video, modifier 93 for phone [facility] [place] 04/17/2024 Type 2 diabetes mellitus [...] 95 for video, modifier 93 for phone [facility] [place] 04/17/2024 Estab. patient 20-29min; 1 stable chronic or 2 minor; add add modifier 95 for video, modifier 93 for [facility] [place] 04/17/20[place] Estab. patient 20-29min; 1 stable chronic or 2 minor; add add modifier 95 for video, modifier 93 for phone [facility] [place] 04/17/2024 Estab. patient 20-29min; 1 stable chronic or 2 minor; add add modifier 95 for video, modifier 93 for phone [facility]/17/2024 Estab. patient 20-29min; 1 stable chronic or 2 minor; add add modifier 95 for video, modifier 93 for phone [facility] 04/17/[place] Estab. patient 20-29min; 1 stable chronic or 2 minor; add add modifier 95 for video, modifier 93 for phone [facility]17/2024 Estab. patient 20-29min; 1 stable chronic or 2 minor; add add modifier 95 for video, modifier 93 for phone [facility]/20[place] RN, CN or CP time with patient by phone; use with 1111F, BP, A1c or other CPTII codes [facility] 12/04/2024 Encounter for other specifie d aftercare RN, CN or CP time with patient by phone; use with 1111F, BP, A1c or other CPTII codes [facility] 12/04/[place] Estab. patient 10-29min; 1 minor problem; add add modifier 95 for video, modifier 93 for phone [facility]/2024 Supraventricular tachycardia , unspecifiedHypertensive heart disease with heart failureHeart failure, unspecifiedOther problems related to medical facilities and other health care Estab. patient 10-29min; 1 minor problem; add add modifier 95 for video, modifier 93 for phone [facility] Estab. patient 10-29min; 1 minor problem; add add modifier 95 for video, modifier 93 for phone [facility]24 Estab. patient 10-29min; 1 minor problem; add add modifier 95 for video, modifier 93 for phone [facility]24 Estab. patient 10-29min; 1 minor problem; add add modifier 95 for video, modifier 93 for phone [facility] Estab. patient 10-29min; 1 minor problem; add add modifier 95 for video, modifier 93 for phone [facility] 12/[place]/2024 Unlisted special service; to be used for medical record reviews and reporting CPTII codes (1111F, etc) [facility]/20[place] Encounter for other specifie d aftercare Unlisted special service; to be used for medical record reviews and reporting CPTII codes (1111F, etc) [facility] 12/[place] Vital Signs Date of Collection Vitals 2021-12-07 [...] - 80.0 mm[Hg]BP Systolic - 120.0 mm[Hg] 2024-12-09 09:55:43 BP Diastolic - 80.0 mm[Hg]BP Systolic - 132.0 mm[Hg]Heart Rate - 74.0 /min Social History Social History Social History Observation Description Effec tive Time Current Smoking Status Former smoker 2024-12-26 3 Sex Male Gender identity Man History [...] le No Data Available No Data Available [id number] 2021-12-07 No Data Available No Data Available SBP < 130 (3074F) 3074F 2021-12-07 No Data Available No Data Available DBP 80-89 (3079F) 3079F 2021-12-07 No Data Available No Data Available Estab. patient 30-39min; chronic exacerbation, 2 stable chronic or 1 acute illness add add modifier 95 for video, (do not use for phone, instead use 23672-91) 57076 2022-11-07 No Data Available No Data Availa [...] 95 for video, modifier 93 for phone [id number] 2022-11-14 No Data Available No Data Availa [...] (do not use for phone, instead use 09407-72) 95766 2023-06-12 No Data Available No Data Availa [...] 1111F, BP, A1c or other CPTII codes 96123 2023-10-01 No Data Available No Data Avai lable Medications prescribed in hospital were reviewed and reconciled against what they were taking prior to admission during today's visit. (1111F) 1111F 2023-10-01 No Data Available No Data Availa ble No Data Available [id number] 2023-10-08 No Data Available No Data Available [...] 95 for video, modifier 93 for phone [id number] 2024-04-17 No Data Available No Data Availa [...] 1111F, BP, A1c or other CPTII codes 59406 2024-12-04 No Data Available No Data Avai lable Medications prescribed in hospital were reviewed and reconciled against what they were taking prior to admission during today's visit. (1111F) 1111F 2024-12-04 No Data Available No Data Availa ble Estab. patient 10-29min; 1 minor problem; add add modifier 95 for video, modifier 93 for phone [id number] 2024-12-09 No Data Available No Data Availa ble Medications prescribed in hospital were reviewed and reconciled against what they were taking prior to admission during today's visit. (1111F) 1111F 2024-12-09 No Data Available No Data Availa ble Advance care planning discussed and documented advance care plan or surrogate decision-maker was documented in the medical record. (1123F) 1123F 2024-12-09 No Data Available No Data Availa ble SBP 130-139 (3075F) 3075F 2024-12-09 No Data Availabl e No Data Available DBP 80-89 (3079F) 3079F 2024-12-09 No Data Available No Data Available Medication List Documented (1159F) 1159F 2024-12-09 No Data Available No Data Codi ilable Unlisted special service; to be used for medical record reviews and reporting CPTII codes (1111F, etc) 68146 2024-12-24 No Data Available No Data Availa ble Medications prescribed in hospital were reviewed and reconciled against what they were taking prior to admission during today's visit. (1111F) 1111F 2024-12-24 No Data Available No Data Availa ble Functional Status Functional Category Effective Dates ADLsDressing [...] Patient Education to avoid future hospitalization: Call [facility] if symptoms of illness develop.Other problems related [...] vertebraOpioid UseMajor depressive disorder in partial remissionGAD 2024-12-09 09:55:43 Supraventricular tac hycardiaHypertensive heart disease with heart failureOther problems related to medical facilities and other health care Plan of Care Date of Service Plans 2021-12-07 13:29:02 Medication Review by prescribing provider or pharmacist documented (1160F)Medication List Documented (1159F)Functional Status Assessed (1170F)BMI obtained (3008F)SBP < 130 (3074F)DBP 80-89 (3079F)Televideo new patient,40-59min; chronic exacerbation, 2 stable chronic or 1 acute illness add modifier 95Continue to see PCP. Follow-up with [facility] as needed for any acute or disease education needs that may arise.On Lantus, Lispro, MetforminCautioned re risk of sedation, safety.Sending NarcanOn Amitriptylene, Buspirone, SertralineOn carvediloloxycodoneoxycodoneTamsulosinWill FU when pt can have a friend, LEAD [employer] or family member with himLifestyle adviceOn carvedilol, [...] Frequent panic attacksPlanned intervention: Transfer member to [address] [place] [address]/ Hydroxyzine (Vistaril) 25mg PO q6h PRN anxiety/ [...] Frequent panic attacksPlanned intervention: Transfer member to [address] [place] [address]/ Hydroxyzine (Vistaril) 25mg PO q6h PRN anxiety/ [...] Frequent panic attacksPlanned intervention: Transfer member to [address] [place] [address]/ Hydroxyzine (Vistaril) 25mg PO q6h PRN anxiety/ [...] worsening depression and continue f/u with psych. 2024-12-09 09:55:43 Discharge medication s reconciled with current medication listAdvance care planning discussed and documented advance care plan or surrogate decision-maker was documented in the medical record. (1123F)Estab. patient 10-29min; 1 minor problem; add add modifier 95 for video, modifier 93 for phoneContinue to see PCP. Follow-up with [facility] as needed for any acute or disease education needs that may arise.Cardioversion at hospital stay 11/28-hecking BP at home Encouraged heart healthy low sodium dietHYPERTENSION CONTINGENCY PLANLast updated: 12/09/2024[facility] to [facility] the following symptoms: BP >180/100 / Chest pain / High heart rate Planned intervention: Assess for signs of end organ damage (headache, vision changes, chest pain)/ Encourage low sodium dietHYPERTENSION CONTINGENCY PLANLast updated: 12/09/2024[facility] to call for the following symptoms: BP >180/100 / Chest pain / High heart rate Planned intervention: Assess for signs of end organ damage (headache, vision changes, chest pain)/ Encourage low sodium diet Goals Date Goal 2021-12-07 Remember to 2021-12-07 [...]
--- OUTSIDE RECORDS SUMMARY | 2025-01-07 08:49 | XMS_ITS | Encounter Summary ---
Author Organization [employer] Address [address] [facility] 7t [place] [address] Care Team Providers Care Quality Assurance Group Leader Name Role Phone Name, Jh RACHEL Primary Care Provider [phone] Juliet Wren PharmD Unavailable [phone] Reason for Visit * Reason Comments Med Refill Encounter Details Date Type Department Care Team ([facility] st Contact Info) Description 09/08/2024 Refill [facility] [address] [place], [place] [phone] Katie Zhong NP 230 [place], [place] [phone] Chronic pain syndrome Social History Tobacco Use [...] 01/25/2025 1:30 PM EST Clinical Support [address] [address] Cee Toussaint RN 02/01/2025 2:30 PM EST Office Visit [address] [address] Name, MD Jh [address] [place] [address] documented as of this encounter Goals Goal [...] documented as of this encounter Care Teams Quality Assurance Group Leader Relationship Specialty Start Date End Date Name, MD Jh [address] [place] [address] PCP - General Family Medicine 05/29/16 Juliet Wren PharmD 230 [place] [address] Pharmacist Internal Medicine 07/17/22 11/02/24 documented as of this encounter
[2025-01-07 09:27] LABS: Hematocrit 45.2 % (42.0-52.0); Hemoglobin 14.4 g/dl (14.0-18.0); Imm Gran Abs Auto 0.03 X10*3/uL (0.00-0.03); Imm Gran Pct Auto 0.6 % (0.0-0.4); Lymphocytes Absolute Auto 1.9 X10*3/uL (1.2-4.9); Mean Corpuscular HGB Conc 31.9 g/dl (31.0-36.0); Mean Corpuscular Hemoglobin 26.4 pg (27.0-33.0); Mean Corpuscular Volume 82.9 fL (80.0-98.0); NRBC Abs Auto 0.000 X10*3/uL (0.0-0.012); NRBC Pct Auto 0.0 /100WBC (0.0-0.2); Platelet Count 172 X10*3/uL (160-400); Red Blood Count 5.45 X10*6/uL (4.60-5.80); White Blood Count 4.9 X10*3/uL (4.8-10.8)
[2025-01-07 09:53] LABS: Anion Gap 14 (12-20); Blood Urea Nitrogen 9 mg/dL (9-16); Calcium 9.3 mg/dL (8.4-10.2); Carbon Dioxide 22 mmol/L (22-29); Chloride 107 mmol/L (96-108); Estimated Glomerular Filt Rate > 60; Potassium 4.2 mmol/L (3.3-5.1); Sodium 139 mmol/L (135-145)
== END ==
LOC: HO.CARD 08:26
PROVIDERS: Absent Provider Internal Medicine Geriatric Medicine; PCP Internal Medicine Geriatric Medicine; Visit Provider Nurse Practitioner Family
DX: I21.4 Non-ST elevation (NSTEMI) myocardial infarction (principal); I42.9 Cardiomyopathy, unspecified; I48.91 Unspecified atrial fibrillation; I48.92 Unspecified atrial flutter; I50.20 Unspecified systolic (congestive) heart failure; I42.8 Other cardiomyopathies; R12 Heartburn
CPT/HCPCS: 36415; 80048; 85025; 93242; 93308; Q9957

== ENCOUNTER → 2025-01-07 08:34 | Outpatient (BNV) | payer OTHER, SELFPAY | PROVIDERS: Absent Provider Internal Medicine Geriatric Medicine; PCP Internal Medicine Geriatric Medicine; Visit Provider Internal Medicine Cardiovascular Disease | DX: I42.9 Cardiomyopathy, unspecified (principal) | CPT/HCPCS: 93308; 93321 ==

== ENCOUNTER 2025-01-28 08:46 | Outpatient (REF) | payer OTHER, SELFPAY ==
--- OUTSIDE RECORDS SUMMARY | 2025-01-25 13:30 | XMS_ITS | Encounter Summary ---
Author Organization [employer] Address [address] [facility] [address] 7t [place] [address] Care Team Providers Care Kayaking Instructor Name Role Phone Name, Jh RACHEL Primary Care Provider Reason for Visit * Reason Comments BUTCHER [facility] RV Encounter Details Date Type Department Care Team (Latest Contact Info) Description 01/25/2025 1:30 PM EST Clinical Support [facility]INE 230 [place], [place] [phone] Cee Toussaint RN Long-term current use of opiate analgesic (Primary Dx) Social History Tobacco Use Types Packs/Day Years [...] AM EDT documented as of this encounter Progress Notes * Cee Toussaint RN - 01/25/2025 1:30 PM EST SUBJECTIVE: Landen Hilton is a 69 y.o. year old male who presents for BUTCHER FISH RV Accompanied by his Tracie. Preferred language for medical information: [place] Interpreted needed: Yes Laboratory Technologist service utilized: [facility] Laboratory Technologist name: Piero Laboratory Technologist I.D #: [id number] Landen Hilton does report adherence to Percocet 5 mg, take 1 tablet every 8 hours PRN, last refilled 12/31/2024. The patient last took Percocet on: 01/25/2025 Medication is: 70% % effective at alleviating pain. Pt stated that the hospital had recommended his percocet dosing be increased to 7.5mg Q6hr PRN. Ptis asking if PCP will be increasing dose. OBJECTIVE: FACING BASTER checked: 01/25/2025 Pill count completed for Percocet , count today is 10 , anticipated count should be 8, this is as expected. Vital Signs Pain Score: 4 Pain Loc: Back Pain Education: Yes Additional pain site: left shoulder Last PCP visit: 12/15/2024 BPI completed on: 01/25/2025 , pain severity score: 6, activity interference score: 5 BPI completed on: 08/06/2024 , pain severity score: 7, activity interference score: 8 Controlled substance agreement signed: Controlled Substance Agreement 08/06/2024 BUTCHER FISH Tier: 3 Current Medications[1] Smoking status: Denies ETOH use: Denies Illicit substances: Denies Marijuana use: Denies Lab Results Component Value Date POCTHC Negative 01/25/2025 POCCOCAINEUR Negative 01/25/2025 POCOPIATEUR Negative 01/25/2025 DOAUR Negative 01/25/2025 POCAMPHETAMI Negative 01/25/2025 POCBENZODIUR Negative 01/25/2025 POCBARBSCRN Negative 01/25/2025 POCMETHADOUR Negative 01/25/2025 POCBUPSCRN Negative 01/25/2025 POCTCAUR Positive (A) 01/25/2025 POCMDMAUR Negative 01/25/2025 POCOXYCODONE Positive (A) 01/25/2025 POCPHENCYCUR Negative 01/25/2025 PROPOXUR Negative 01/25/2025 FENTANYLURIN Negative 01/25/2025 ASSESSMENT: Encounter Diagnosis Name Primary? Long-term current use of opiate analgesic Yes PLAN: Per [facility] 12/04/24 discharge summary, hospital was administering Percocet 7.5mg Q6hr PRN and did send him home with that listed for his discharge medication. Will message PCP and ask if he will be making any changes to pts Percocet orders and send request for refill. Information on pain group given: Previously discussed Information on acupuncture given: Previously discussed Narcan education provided: Previously discussed Narcan prescription: active Landen Hilton will continue taking medication as prescribed and follow up at the next BUTCHER FISH visitor sooner if needed. Landen Hilton has verbalized understanding of care plan. Future Appointments Date Time Provider Department Center 01/25/2025 1:30 PM Cee Toussaint RN MEDICINE [facility] 02/01/2025 2:30 PM Jh Bullard MD [facility] 05/27/2025 1:30 PM Cee Toussaint RN [facility] Cee Toussaint RN [1] Current Outpatient Medications: oxyCODONE-acetaminophen (Percocet) 5-325 MG tablet, Take 1 tablet by mouth every 8 (eight) hours ifneeded for severe pain. Do not start before December 31, 2024., Disp: 84 tablet, Rfl: 0 Accu-Chek Softclix Lancets lancets, Use as instructed, Disp: 100 each, Rfl: 12 amiodarone (Pacerone) 200 MG tablet, TOME 1 TABLETA POR VIA ORAL TODOS [place], Disp: 30 tablet, Rfl: 1 amitriptyline (Elavil) 75 MG tablet, Take 1 tablet by mouth at bedtime., Disp: , Rfl: Blood Glucose Monitoring Suppl (Accu-Chek Guide) w/Device kit, 1 Device Once per day., Disp: 1 kit,Rfl: 0 busPIRone (Buspar) 5 MG tablet, Take 1 tablet by mouth 2 times daily., Disp: , Rfl: Continuous Glucose Cash Sales Audit Clerk (FreeStyle Laurent 3 [place]) device, 1 each Once per day. Use as directedfor CGM, Disp: 1 each, Rfl: 0 Continuous Glucose Sensor (FreeStyle Laurent 3 Plus Sensor) [facility], Apply 1 every 15 days as directed for CGM, Disp: 2 each, Rfl: 11 docusate sodium (Colace) 100 MG capsule, TAKE ONE CAPSULE TWICE DAILY, Disp: 60 capsule, Rfl: 7 Eliquis 5 MG tablet, Take 5 mg by mouth 2 times daily., Disp: , Rfl: Entresto 24-26 MG tablet, Take 1 tablet by mouth 2 times daily., Disp: , Rfl: glucose blood (Accu-Chek Guide Test) test strip, Once a day, Disp: 100 each, Rfl: 12 glucose blood (FreeStyle Precision [place] Test) test strip, Use to test blood sugar up to 3 times daily, as directed, Disp: 100 each, Rfl: 11 insulin degludec (Tresiba FlexTouch) 100 UNIT/ML injection, INJECT 34 UNITS SUBCUTANEOUSLY EVERY MORNING, Disp: 15 mL, Rfl: 11 insulin lispro (HumaLOG KWIKPEN) 100 UNIT/ML injection, Inject 4 units subQ three times daily with meals. Do not use if not eating / skipping a meal., Disp: 15 mL, Rfl: 11 Lancets (OneTouch Delica Plus [id number]) [facility], TEST BLOOD SUGAR THREE TIMES DAILY, Disp: 100 each, Rfl: 11 magnesium oxide (Mag-Ox) 400 (240 Mg) MG tablet, Take 1 tablet by mouth 1 (one) time each day., Disp: , Rfl: metFORMIN (Glucophage) 1000 MG tablet, Take 1 tablet (1,000 mg) by mouth with breakfast and with evening meal., Disp: 180 tablet, Rfl: 3 methocarbamol (Robaxin) 750 MG tablet, , Disp: , Rfl: metoprolol tartrate (Lopressor) 100 MG tablet, Take 1 tablet by mouth 2 times daily., Disp: , Rfl: Multiple Vitamins-Minerals (Centrum Silver 50+Men) tablet, Take 1 tablet by mouth Once daily. (OTC), Disp: , Rfl: naloxone (Narcan) 4 mg/0.1 mL nasal spray, FOR SUSPECTED OPIOID OVERDOSE. SPRAY 0.1mL IN ONE NOSTRIL. REPEAT IN ALTERNATE NOSTRIL EVERY 2-3 MINUTES IF NEEDED. SEEK MEDICAL ATTENTION IMMEDIATELY EVEN IF PT RESPONDS., Disp: 2 each, Rfl: 2 OneTouch Verio test strip, TEST BLOOD SUGAR THREE TIMES DAILY, Disp: 100 strip, Rfl: 11 pantoprazole (Protonix) 40 MG EC tablet, Take 1 tablet (40 mg) by mouth before breakfast. Do not crush, chew, or split., Disp: 30 tablet, Rfl: 11 rosuvastatin (Crestor) 40 MG tablet, Take 1 tablet (40 mg) by mouth Once per day., Disp: 90 tablet,Rfl: 3 sertraline (Zoloft) 50 MG tablet, Take 1 tablet by mouth in the morning., Disp: , Rfl: tamsulosin (Flomax) 0.4 MG 24 hr capsule, TAKE TWO CAPSULES DAILY 30 MINUTES AFTER THE SAME MEAL, Disp: 60 capsule, Rfl: 5 TechLite Pen [place] 32G X 4 [facility], USE FOUR DAILY, Disp: 100 each, Rfl: 4 documented in this encounter Plan of Treatment Upcoming Encounters Date Type Department Care Team (Late st Contact Info) Description 02/01/2025 2:30 PM EST Office Visit [facility] [address] [place] [address] Name, MD Jh 230 [place] [address] 05/27/2025 1:30 PM EDT Clinical Support [facility] [address] [place] [address] Cee Toussaint RN 06/28/2025 2:00 PM EDT Office Visit [facility]OM[facility] [address] [place] [address] Milvia Lincoln, OD [address] [place] [address] documented as of this encounter Goals Goal Patient Goal Type Associated Problems Recent Progress Patient-Stated? Author Record your blood pressure once a week Blood Pressure No Severo Wrenyssa, PharmD Blood Pressure < 140/90 Blood Pressure 115/58(2024 1:23 PM EDT) No Juliet Wren, PharmD Hemoglobin A1c < 7.5 Result Component 6.7( 3:28 PM EDT) No Severo Wrenyssa, PharmD Record your blood sugar as directed Result Component No Juliet Wren PharmD Note: Use CGM, ensuring sensor is scanned at least once every 8 hours to capture 24H data. Check BG manually, as directed. Help patients manage their type 2 diabetes Care Plan Help patients manage their type 2 diabetes No Cee Toussaint RN Weekly blood pressure task Care Plan Weekly blood pressure task No Cee Toussaint RN Help patients manage their type 2 diabetes Care Plan Help patients manage their type 2 diabetes No Cee Toussaint RN Patient has chronic kidney disease Care Plan Patient has chronic kidney disease No Cee Toussaint RN Weekly blood pressure task Care Plan Weekly blood pressure task No Cee Toussaint RN Patient has chronic kidney disease Care Plan Patient has chronic kidney disease No Cee Toussaint RN Weekly blood pressure task Care Plan Weekly blood pressure task No Elaina Cadet RN Weekly blood pressure task Care Plan Weekly blood pressure task No Elaina Cadet RN Patient has chronic kidney disease Care Plan Patient has chronic kidney disease No Elaina Cadet RN Patient has chronic kidney disease Care Plan Patient has chronic kidney disease No Elaina Cadet RN Weekly blood pressure task Care Plan Weekly blood pressure task No Cee Toussaint RN Weekly blood pressure task Care Plan Weekly blood pressure task No Cee Toussaint RN Patient has chronic kidney disease Care Plan Patient has chronic kidney disease No Cee Toussaint RN Patient has chronic kidney disease Care Plan Patient has chronic kidney disease No Cee Toussaint RN Weekly blood pressure task Care Plan Weekly blood pressure task No Cee Toussaint RN Weekly blood pressure task Care Plan Weekly blood pressure task No Cee Toussaint RN Patient has chronic kidney disease Care Plan Patient has chronic kidney disease No Cee Toussaint RN Patient has chronic kidney disease Care Plan Patient has chronic kidney disease Cee Daley RN documented as of this encounter Procedures Procedure Name Priority Date/Time Associated Diagnosis Comments POCT MARCELLE-14 URINE DRUG SCREEN Routine 01/25/2025 1:28 PM EST Long-term current use of opiate analgesic documented in this encounter Results * (ABNORMAL) POCT MARCELLE-14 Urine Drug Screen (01/25/2025 1:28 PM EST) THC Negative Negative Cocaine Screen, Urine Negative Negative Opiate Screen, Urine Negative Negative Methamphetamine Screen Urine Negative Negative Amphetamine Screen, Urine Negative Negative Benzodiazepines Screen, Urine Negative Negative Barbiturate Screen, Urine Negative Negative Methadone Screen, Urine Negative Negative Buprenophine Screen, Urine Negative Negative TCA, Urine Positive(A) Negative MDMA Urine Negative Negative ng/mL Oxycodone Screen, Urine Positive(A) Negative Comment:BUTCHER FISH pt on Percocet Phencyclidine (PCP), Urine Negative Negative Propoxyphene, Urine Negative Negative Fentanyl, Urine Negative Negative Urine Urine specimen obtained by clean catch procedure / Unknown 01/25/2025 1:28 PM EST Narrative Cee Toussaint RN - 01/25/2025 1:28 PM EST UTOX cup Lot#[id number] Exp. 01/25/26 Internal Pass Control us Jh Name POINT OF CARE TEST ENTER/EDIT OR DERABLES Final Result documented in this encounter Visit Diagnoses Diagnosis Long-term current use of opiate analgesic- Primary Encounter for long-term (current) use of other medications documented in this encounter Additional Health Concerns Active Problems Noted Date Diagnosed Date Help patients manage their type 2 diabetes 01/12 Weekly blood pressure task 01/12/2025 Help patients manage their type 2 diabetes 01/12 Patient has chronic kidney disease 01/12/2025 Weekly blood pressure task 01/12/2025 Patient has chronic kidney disease 01/12/2025 Weekly blood pressure task 01/18/2025 Weekly blood pressure task 01/18/2025 Patient has chronic kidney disease 01/18/2025 Patient has chronic kidney disease 01/18/2025 Weekly blood pressure task 01/25/2025 Weekly blood pressure task 01/25/2025 Patient has chronic kidney disease 01/25/2025 Patient has chronic kidney disease 01/25/2025 Weekly blood pressure task 01/25/2025 Weekly blood pressure task 01/25/2025 Patient has chronic kidney disease 01/25/2025 Patient has chronic kidney disease 01/25/2025 Assessment Noted Time PHQ-9 Depression Total Score: 4 05/19/19 25 2:01 PM EDT documented as of this encounter Care Teams Kayaking Instructor Relationship Specialty Start Date End Date Name, MD Jh [address] [place] [address] PCP - General Family Medicine 05/29/16 documented as of this encounter
--- OUTSIDE RECORDS SUMMARY | 2025-01-28 09:31 | XMS_ITS | Encounter Summary ---
Author Organization [employer] Address [address] [facility] 7t [place] [address] Care Team Providers Care Button Puncher Name Role Phone Name, Jh RACHEL Primary Care Provider [phone] Juliet Wren PharmD Unavailable [phone] Reason for Visit * Reason Comments Med Refill Encounter Details Date Type Department Care Team ([facility] st Contact Info) Description 09/08/2024 Refill [facility] MED[facility]INE 230 [place], [place] [phone] Katie Zhong NP [address] [place], [place] [phone] Chronic pain syndrome Social History Tobacco Use [...] Description 02/01/2025 2:30 PM EST Office Visit [facility] MED[facility] [address] [place] [address] Name, MD Jh 230 [place] [address] 05/27/2025 1:30 PM EDT Clinical Support [facility] [address] [place] [address] Cee Toussaint RN 06/28/2025 2:00 PM EDT Office Visit [facility] OPTOMETRY [address] [place], [place] [phone] Milvia Lincoln, OD [address] [place] [address] documented as of this encounter Goals Goal Patient Goal Type Associated Problems Recent Progress Patient-Stated? Author Record your blood pressure once a week Blood Pressure No Puia, Juliet, PharmD Blood Pressure < 140/90 Blood Pressure 115/58(2024 1:23 PM EDT) No Puia, Juliet, PharmD Hemoglobin A1c < 7.5 Result Component 6.7( 3:28 PM EDT) No Juliet Wren PharmD Record your blood [...] documented as of this encounter Care Teams Button Puncher Relationship Specialty Start Date End Date Name, MD Jh 230 [place] [address] PCP - General Family Medicine 05/29/16 Juliet Wren PharmD 230 [place] [address] Pharmacist Internal Medicine 07/17/22 11/02/24 documented as of this encounter
--- OUTSIDE RECORDS SUMMARY | 2025-01-28 09:31 | XMS_ITS | Encounter Summary ---
Author Organization [employer] Address [address] 7t [place] [address] Care Team Providers Care Helicopter Mechanic Name Role Phone Name, Jh RACHEL Primary Care Provider [phone] Reason for Visit * Reason Onset Date Comments Percocet dosing/frequency 01/25/2025 Encounter Details Date Type Department Care Team ([facility] st Contact Info) Description 01/25/2025 Telephone [facility] [address] [place] [address] Cee Toussaint RN Percocet dosing/frequency Social History Tobacco Use Types Packs/Day Years [...] Telephone Encounter - Cee Toussaint RN - 01/25/2025 2:17 PM EST TC via P/I#[id number], pt notified that PCP wont be making changes to his percocet dosing/frequency at this time. Advised pt to speak with PCP at his next appointment. documented in this encounter Plan of Treatment Upcoming Encounters Date Type Department Care Team (Late st Contact Info) Description 02/01/2025 2:30 PM EST Office Visit [facility] [address] [place] [address] Name, MD Jh [address] [place] [address] 05/27/2025 1:30 PM EDT Clinical Support [facility] [address] [place], [place] [phone] Cee Toussaint RN 06/28/2025 2:00 PM EDT Office Visit [facility] OPTOMETRY [address] [place], [place] [phone] Milvia Lincoln, CELIO [address] [place] [address] documented as of this encounter Goals Goal Patient Goal Type Associated Problems Recent Progress Patient-Stated? Author Record your blood pressure once a week Blood Pressure No Juliet Wren PharmD Blood Pressure < 140/90 Blood Pressure 115/58(2024 1:23 PM EDT) No Juliet Wren PharmDanilo Hemoglobin A1c < 7.5 Result Component 6.7( [...] Plan Patient has chronic kidney disease No Breana, Cee, RN documented as of this encounter Visit Diagnoses Not on filedocumented in this encounter Additional Health Concerns Active [...] documented as of this encounter Care Teams Helicopter Mechanic Relationship Specialty Start Date End Date Name, MD Jh [address] [place] [address] PCP - General Family Medicine 05/29/16 documented as of this encounter
--- OUTSIDE RECORDS SUMMARY | 2025-01-28 09:31 | XMS_ITS | Encounter Summary ---
Author Organization [employer] [facility] Address [address] [facility] 7t [place] [address] Care Team Providers Care Dining Room Tables Set Up Attendant Name Role Phone NameJh MD Primary Care Provider [phone] Juliet Wren PharmD Unavailable [phone] Reason for Visit * Reason Comments Med Refill Encounter Details Date Type Department Care Team (Late st Contact Info) Description 08/07/2022 Refill [facility] [address] [place] [address] [phone] Name, MD Jh 230 [place] [address] Chronic pain syndrome Social History Tobacco Use [...] Description 02/01/2025 2:30 PM EST Office Visit [facility] [address] [place] [phone] Name, MD Jh [address] [place], [place] 05/27/2025 1:30 PM EDT Clinical Support [facility] [address] [place] [address] Cee Toussaint, RN 06/28/2025 2:00 PM EDT Office Visit [facility] OPTOMETRY [address] [place], [place] [phone] Milvia Lincoln, OD [address] [place], [place] documented as of this encounter Goals [...] documented as of this encounter Care Teams Dining Room Tables Set Up Attendant Relationship Specialty Start Date End Date Name, MD Jh [place], [place] PCP - General Family Medicine 05/29/16 Juliet Wren, [place] [address] Pharmacist Internal Medicine 07/17/22 11/02/24 documented as of this encounter
--- OUTSIDE RECORDS SUMMARY | 2025-01-28 09:31 | XMS_ITS | Encounter Summary ---
Author Organization [employer] Address [address] 7t [place] [address] Care Team Providers Care Manager Facility Name Role Phone Name, Jh RACHEL Primary Care Provider [phone] Encounter Details Date Type Department Care Team (Latest Contact Info) Description 01/25/2025 Travel Social History Tobacco Use Types Packs/Day [...] Description 02/01/2025 2:30 PM EST Office Visit [facility] MEDICINE 230 [place] [address] Name, MD Jh [address] [place] [address] 05/27/2025 1:30 PM EDT Clinical Support [facility] MEDICINE [address] [place] [address] Cee Toussaint RN 06/28/2025 2:00 PM EDT Office Visit [facility] OPTOMETRY [address] [place], [place] [phone] Salazar, Milvia, OD 230 [place] [address] documented as of this encounter Goals Goal Patient Goal Type Associated Problems Recent Progress Patient-Stated? Author Record your blood pressure once a week Blood Pressure No Severo Wrenyssa, PharmD Blood Pressure < 140/90 Blood Pressure 115/58(2024 1:23 PM EDT) No Severo Wrenyssa, PharmD Hemoglobin A1c < 7.5 Result Component 6.7( 3:28 PM EDT) No Puvelia Juliet, PharmD Record your blood sugar as [...] chronic kidney disease No Cee Toussaint RN documented as of this encounter Visit [...] as of this encounter Care Teams Manager Facility Relationship Specialty Start Date End Date Name, MD Jh [address] [place] [address] PCP - General Family Medicine 05/29/16 documented as of this encounter
--- OUTSIDE RECORDS SUMMARY | 2025-01-28 09:31 | XMS_ITS | Encounter Summary ---
Author Organization [employer] Address [address] [facility] [address] [place] [address] Care Team Providers Care Civil Transportation Engineer Name Role Phone Name, Jh RACHEL Primary Care Provider [phone] Reason for Visit * Reason Onset Date Comments Med Refill 01/25/2025 Encounter Details Date Type Department Care Team (Late st Contact Info) Description 01/25/2025 Refill [facility]INE [address] [place] [address] Cee Toussaint RN Chronic pain syndrome Social History Tobacco Use [...] Encounter - Cee Toussaint RN - 01/25/2025 1:37 PM EST Pt had INSTRUMENTATION ENGINEERING TECHNICIAN RV appointment today Pt stated that the hospital had recommended his percocet dosing be increased to 7.5mg Q6hr PRN. Per [facility] 12/04/24 discharge summary, hospital was administering Percocet 7.5mg Q6hr PRN and did send him home with that listed for his discharge dosing. Will you be making changes to his Percocet order? documented in this encounter Plan of Treatment Upcoming Encounters Date Type Department Care Team (Late st Contact Info) Description 02/01/2025 2:30 PM EST Office Visit [facility] MED[facility]INE [address] [place] [address] Name, MD Jh [address] [place] [address] 05/27/2025 1:30 PM EDT Clinical Support [facility] [address] [place] [address] Cee Toussaint RN 06/28/2025 2:00 PM EDT Office Visit [facility] OPTOMETRY [address] [place] [address] Milvia Lincoln, OD 230 [place] [address] documented as of this encounter Goals Goal Patient Goal Type Associated Problems Recent Progress Patient-Stated? Author Record your blood pressure once a week Blood Pressure No Juliet Wren PharmD Blood Pressure < 140/90 Blood Pressure 115/58(2024 1:23 PM EDT) No Juliet Wren PharmD Hemoglobin [...] Plan Patient has chronic kidney disease Cee Daley, RN Patient has chronic kidney disease Care [...] documented as of this encounter Care Teams Civil Transportation Engineer Relationship Specialty Start Date End Date Name, MD Jh [address] [place] [phone] PCP - General Family Medicine 05/29/16 documented as of this encounter
--- OUTSIDE RECORDS SUMMARY | 2025-01-28 09:31 | XMS_ITS ---
Author Name [address] DAVIS Address [address] [place] [address] Phone [phone] [facility] Care Team Providers Care Charter Representative Name Role Phone Court Hooker Unavailable [phone] Unavailable Unavailable Unavailable [facility] Unavailable Reason for Referral Not Available Allergies, [...] 2021-03-20 No Data Available OneTouch Delica Plus [id number] Miscellaneous TEST BLOOD SUGAR THREE TIMES DAILY [...] mg Tab TAKE 1 TABLET BY [facility] EVERY DAY 2021-08-16 2024-12-04 Chlorhexidine Gluconate 0.12 % Solution SWISH THEN SPIT15 ML BY MOUTH TWICE A DAY 2021-08-21 No Data Available Ibuprofen 600 mg Tab TOME MICHELLE TABLETA TR ES VECES AL D A CUANDO SEA NECESARIO PARA EL DOLOR 2021-08-21 No Data Available VIP[employer] Software Flex System w/Device Kit TEST BLOOD SUGAR [...] mg Tab TAKE 1 TABLET BY [facility] EVERY MORNING. DO NOT BREAK, CRUSH, DISSOLVE [...] 2023-12-24 No Data Available TRUEplus 5-Bevel [place] 32G X 4 MM Miscellaneous USE FOUR [...] 2024-12-09 N/A HYPERTENSIO N CONTINGENCY PLANLast updated: 12/09/2024[facility] call for the following symptoms: [...] with heart failure Medication List Documented (1159F) [facility] [place]/2021 Medication List Documented (1159F) [facility] [place] 12/07/[place]21 Estab. patient 30-39min; chronic exacerbation, 2 stable chronic or 1 acute illness add add modifier 95 for video, (do not use for phone, instead use 06133-52) [facility] [place] 11/07/2022 Type 2 diabetes mellitus wit h [...] (do not use for phone, instead use 92560-69) [facility] [place] 11/07/2022 Estab. patient 30-39min; chronic exacerbation, 2 stable chronic or 1 acute illness add add modifier 95 for video, (do not use for phone, instead use 27816-42) [facility] [place] 11/07/2022 Estab. patient 30-39min; chronic exacerbation, 2 stable chronic or 1 acute illness add add modifier 95 for video, (do not use for phone, instead use 58363-83) [facility] [place] 11/07/2022 Estab. patient 30-39min; chronic exacerbation, 2 stable chronic or 1 acute illness add add modifier 95 for video, (do not use for phone, instead use 11939-90) [facility] ([place] 11/07/2022 Estab. patient 30-39min; chronic exacerbation, 2 stable chronic or 1 acute illness add add modifier 95 for video, (do not use for phone, instead use 89549-88) [facility] [place] 11/07/2022 Estab. patient 30-39min; chronic exacerbation, 2 stable chronic or 1 acute illness add add modifier 95 for video, (do not use for phone, instead use 35749-92) [facility] [place] 11/07/2022 Estab. patient 20-29min; 1 stable chronic or 2 minor; add add modifier 95 for video, modifier 93 for phone [facility] [place] 11/14/2022 Type 2 diabetes mellitus [...] video, modifier 93 for phone [facility] [place] 11/14/2022 Estab. patient 20-29min; 1 stable chronic or 2 minor; add add modifier 95 for video, modifier 93 for phone [facility] [place] 11/14/2022 Estab. patient 30-39min; chronic exacerbation, 2 stable chronic or 1 acute illness add add modifier 95 for video, (do not use for phone, instead use 09933-39) [facility] [place] 06/12/2023 Type 2 diabetes mellitus wit [...] (do not use for phone, instead use 78836-80) [facility] 06[place] Estab. patient 30-39min; chronic exacerbation, 2 stable chronic or 1 acute illness add add modifier 95 for video, (do not use for phone, instead use 16012-86) [facility] 06[place] Estab. patient 30-39min; chronic exacerbation, 2 stable chronic or 1 acute illness add add modifier 95 for video, (do not use for phone, instead use 60658-47) [facility] 06[place]2023 Estab. patient 30-39min; chronic exacerbation, 2 stable chronic or 1 acute illness add add modifier 95 for video, (do not use for phone, instead use 84764-32) [facility] 06[place]/2023 Estab. patient 30-39min; chronic exacerbation, 2 stable chronic or 1 acute illness add add modifier 95 for video, (do not use for phone, instead use 44954-73) [facility] 06[place]/2023 Estab. patient 30-39min; chronic exacerbation, 2 stable chronic or 1 acute illness add add modifier 95 for video, (do not use for phone, instead use 34840-90) [facility] 06[place]12/2023 Estab. patient 30-39min; chronic exacerbation, 2 stable chronic or 1 acute illness add add modifier 95 for video, (do not use for phone, instead use 82457-26) [facility] 06/12/2023 Estab. patient 30-39min; chronic exacerbation, 2 stable chronic or 1 acute illness add add modifier 95 for video, (do not use for phone, instead use 24893-14) [facility] 06[place]12/2023 Estab. patient 30-39min; chronic exacerbation, 2 stable chronic or 1 acute illness add add modifier 95 for video, (do not use for phone, instead use 10246-87) [facility] 06/12/2023 Estab. patient 30-39min; chronic exacerbation, 2 stable chronic or 1 acute illness add add modifier 95 for video, (do not use for phone, instead use 36484-20) [facility] ([place] 06/12/2023 RN, CN or CP time with patient by phone; use with 1111F, BP, A1c or other CPTII codes [facility] [place] 10/01/2023 Encounter for other specifie d aftercare RN, CN or CP time with patient by phone; use with 1111F, BP, A1c or other CPTII codes [facility] [place] 10/01/2023 No Data Available [facility] [place] 10/08/2023 Enlarged prostate without lo wer urinary tract symptomsOther problems related to medical facilities and other health care No Data Available [facility] [place] 10/08/2023 No Data Available [facility] [place] 10/08/2023 Estab. patient 20-29min; 1 stable chronic or 2 minor; add add modifier 95 for video, modifier 93 for phone [facility] [place] 04/17/2024 Type 2 diabetes mellitus wit [...] video, modifier 93 for phone [facility] [place] 04/17/2024 Estab. patient 20-29min; 1 stable chronic or 2 minor; add add modifier 95 for video, modifier 93 for [facility], [place] 04/17/2024 Estab. patient 20-29min; 1 stable chronic or 2 minor; add add modifier 95 for video, modifier 93 for phone [facility] [place] 04/17/2024 Estab. patient 20-29min; 1 stable [...] A1c or other CPTII codes [facility] [place] 12/04/2024 Encounter for other specifie d aftercare [...] 95 for video, modifier 93 for phone [facility]09/20[place] Estab. patient 10-29min; 1 minor [...] le No Data Available No Data Available 30795 2021-12-07 No Data Available No Data Available SBP < 130 (3074F) 3074F 2021-12-07 No Data Available No Data Available DBP 80-89 (3079F) 3079F 2021-12-07 No Data Available No Data Available Estab. patient 30-39min; chronic exacerbation, 2 stable chronic or 1 acute illness add add modifier 95 for video, (do not use for phone, instead use 13704-38) 35831 2022-11-07 No Data Available No Data Availa [...] 95 for video, modifier 93 for phone 01991 2022-11-14 No Data Available No Data Availa [...] (do not use for phone, instead use 00622-17) 70499 2023-06-12 No Data Available No Data Availa [...] 1111F, BP, A1c or other CPTII codes 48484 2023-10-01 No Data Available No Data Avai lable Medications prescribed in hospital were reviewed and reconciled against what they were taking prior to admission during today's visit. (1111F) 1111F 2023-10-01 No Data Available No Data Availa ble No Data Available 09013 2023-10-08 No Data Available No Data Available [...] 95 for video, modifier 93 for phone 69755 2024-04-17 No Data Available No Data Availa [...] 1111F, BP, A1c or other CPTII codes 84857 2024-12-04 No Data Available No Data Avai lable Medications prescribed in hospital were reviewed and reconciled against what they were taking prior to admission during today's visit. (1111F) 1111F 2024-12-04 No Data Available No Data Availa ble Estab. patient 10-29min; 1 minor problem; add add modifier 95 for video, modifier 93 for phone 44389 2024-12-09 No Data Available No Data Availa [...] reviews and reporting CPTII codes (1111F, etc) 90048 2024-12-24 No Data Available No Data Availa [...] Patient Education to avoid future hospitalization: Call [facility] if symptoms of illness develop.Other problems [...] modifier 95Continue to see PCP. Follow-up with [facility] as needed for any acute or disease education needs that may arise.On Lantus, Lispro, MetforminCautioned re risk of sedation, safety.Sending NarcanOn Amitriptylene, Buspirone, SertralineOn carvediloloxycodoneoxycodoneTamsulosinWill FU when pt can have a friend, MARKETING PROGRAM MANAGER or family member with himLifestyle adviceOn carvedilol, [...] panic attacksPlanned intervention: Transfer member to [address] [place] [address]/ Hydroxyzine (Vistaril) 25mg PO q6h PRN anxiety/ [...] panic attacksPlanned intervention: Transfer member to [address] [place] [address]/ Hydroxyzine (Vistaril) 25mg PO q6h PRN anxiety/ [...] panic attacksPlanned intervention: Transfer member to [address] [place] [address]/ Hydroxyzine (Vistaril) 25mg PO q6h PRN anxiety/ [...] healthy low sodium dietHYPERTENSION CONTINGENCY PLANLast updated: 12/09/2024[facility] to call for the following symptoms: BP >180/100 / Chest pain / High heart rate Planned intervention: Assess for signs of end organ damage (headache, vision changes, chest pain)/ Encourage low sodium dietHYPERTENSION CONTINGENCY PLANLast updated: 12/09/2024[facility] to call for the following symptoms: [...]
--- OUTSIDE RECORDS SUMMARY | 2025-01-28 09:31 | XMS_ITS | Encounter Summary ---
Author Organization [employer] Address [address] [facility] [address] [place] [address] Care Team Providers Care Washtub Worker Helper Name Role Phone Jh Bullard MD Primary Care Provider [phone] Juliet Wren PharmD Unavailable [phone] Reason for Visit * Reason Onset Date Comments triage 02/08/2022 Encounter Details Date Type Department Care Team (Late st Contact Info) Description 02/08/2022 Telephone [facility] MEDICINE [address] [place], [place] [phone] Name, MD Jh [address] [place] [address] triage Social History Tobacco Use Types Packs/Day [...] caller The caller accepted this outcome speaks [place] documented in this encounter Plan of Treatment Upcoming Encounters Date Type Department Care Team (Late st Contact Info) Description 02/01/2025 2:30 PM EST Office Visit [facility] MEDICINE [address] [place] [address] Name, MD [facility]h [address] [facility] [place] [address] 05/27/2025 1:30 PM EDT Clinical Support [facility] MEDICINE [address] [place] [address] Cee Toussaint, EMILIO 06/28/2025 2:00 PM EDT Office Visit [facility] OPTOMETRY [address] [place], [place] [phone] Milvia Lincoln, OD [address] [place] [address] documented as of this encounter Visit Diagnoses Not on filedocumented in this encounter Care Teams Washtub Worker Helper Relationship Specialty Start Date End Date Name, [place] [address] PCP - General Family Medicine 05/29/16 Juliet Wren PharmD [address] [place], [place] [phone] Pharmacist Internal Medicine 07/17/22 11/02/24 documented as of this encounter
--- OUTSIDE RECORDS SUMMARY | 2025-01-28 09:31 | XMS_ITS | Encounter Summary ---
Author Organization [employer] Address [address] [facility] [address] [place] [address] Care Team Providers Care Reference Services Head Name Role Phone Jh Bullard MD Primary Care Provider [phone] Juliet Wren PharmD Unavailable [phone] Reason for Visit * Reason Comments Med Refill Encounter Details Date Type Department Care Team ([facility] st Contact Info) Description 02/26/2023 Refill [facility] MEDICINE [address] [place], [place] [phone] Name, MD Jh [address] [place], [place] [phone] Chronic pain syndrome Social History Tobacco Use [...] Description 02/01/2025 2:30 PM EST Office Visit [facility] MEDICINE [address] [place] [phone] Name, MD Jh [address] [place] [address] 05/27/2025 1:30 PM EDT Clinical Support [facility] MEDICINE [address] [place] [address] Cee Toussaint RN 06/28/2025 2:00 PM EDT Office Visit [facility] OPTOMETRY [address] [place], [place] [phone] Milvia Lincoln, OD [address] [place], [place] [phone] documented as of this encounter Goals Goal [...] documented as of this encounter Care Teams Reference Services Head Relationship Specialty Start Date End Date Name, MD Jh [address] [place] [address] PCP - General Family Medicine 05/29/16 Juliet Wren PharmD [address] [place] [address] Pharmacist Internal Medicine 07/17/22 11/02/24 documented as of this encounter
--- OUTSIDE RECORDS SUMMARY | 2025-01-28 09:31 | XMS_ITS | Encounter Summary ---
Author Organization [employer] Address [address] [facility] [address] [place] [address] Care Team Providers Care Experimental Mechanic Spacecraft Name Role Phone Name, Jh RACHEL Primary Care Provider [phone] Juliet Wren PharmD Unavailable [phone] Encounter Details Date Type Department Care Team ([facility] st Contact Info) Description 05/02/2023 Telephone [facility] PEDIATRICS [address] [place], [place] [phone] Name, MD Jh [address] [place] [address] Social History Tobacco Use Types Packs/Day Years [...] Description 02/01/2025 2:30 PM EST Office Visit [facility] MEDICINE [address] [place] [address] Jh Bullard MD [address] [place] [address] 05/27/2025 1:30 PM EDT Clinical Support [facility] MEDICINE [address] [place] [address] Cee Toussaint, EMILIO 06/28/2025 2:00 PM EDT Office Visit [facility] OPTOMETRY [address] [place], [place] [phone] Milvia Lincoln, OD [address] [place] [address] documented as of this encounter Goals Goal [...] documented as of this encounter Care Teams Experimental Mechanic Spacecraft Relationship Specialty Start Date End Date Jh Bullard MD [address] [place] [address] PCP - General Family Medicine 05/29/16 Juliet Wren, Ezekiel [address] [place] [address] Pharmacist Internal Medicine 07/17/22 11/02/24 documented as of this encounter
--- OUTSIDE RECORDS SUMMARY | 2025-01-28 09:31 | XMS_ITS | Clinical Summary ---
Author Organization [employer] Address [address] [facility] 7t [place] [address] Care Team Providers Care Director Of Infection Prevention Name Role Phone Name, Jh RACHEL Primary Care Provider [phone] Allergies No known active allergies Medications amitriptyline [...] by mouth in the morning. Active Multiple Vitamins-Fults als (Centrum Silver 50+Men) tablet Take 1 tablet by mouth Once daily. (OTC) Active naloxone (Narcan) 4 mg/0.1 mL nasal spray FOR SUSPECTED OPIOID OVERDOSE. SPRAY 0.1mL IN ONE NOSTRIL. REPEAT IN ALTERNATE NOSTRIL EVERY 2-3 MINUTES IF NEEDED. SEEK MEDICAL ATTENTION IMMEDIATELY EVEN IF PT RESPONDS. 2 each 2 025 Active Continuous Glucose Shirt Maker (FreeStyle Laurent 3 [place]) deviceIndicati ons:Type 2 diabetes mellitus without complication, with long-term current use of insulin (HCC) 1 each Once per day. Use as directed for CGM 1 each 025 Active Continuous Glucose Sensor (FreeStyle Laurent 3 Plus Sensor) miscIndication s:Type 2 diabetes mellitus without complication, with long-term current use of insulin (HCC) Apply 1 every 15 days as directed for CGM 2 each 01/15/20 25 10:22 AM EST 025 Active glucose blood (FreeStyle Precision [place] Test) test stripIndicatio ns:Type 2 diabetes mellitus without complication, with long-term current use of insulin (HCC) Use to test blood sugar up to 3 times daily, as directed 100 each 11 025 Active OneTouch Verio test stripIndicatio ns:Type 2 diabetes mellitus without complication, with long-term current use of insulin ([facility]) TEST BLOOD SUGAR THREE TIMES DAILY 100 strip 11 025 Active Lancets (OneTouch Delica Plus [id number]) miscIndication s:Type 2 diabetes mellitus without complication, with long-term current use of insulin ([facility]) TEST BLOOD SUGAR THREE TIMES DAILY 100 each 11 025 Active docusate sodium (Colace) 100 MG capsule TAKE ONE CAPSULE TWICE DAILY 60 capsule 025 Active methocarbamol (Robaxin) 750 MG tablet 025 Active TechLite Pen [place] 32G X 4 MM misc USE FOUR DAILY 100 each 4 025 Active insulin degludec (Tresiba FlexTouch) 100 UNIT/ML injectionIndic ations:Type 2 diabetes mellitus without complication, with long-term current use of insulin ([facility]) INJECT 34 UNITS SUBCUTANEOUSLY EVERY MORNING 15 mL 01/21/20 25 10:48 AM EST 025 Active insulin lispro (HumaLOG KWIKPEN) 100 UNIT/ML injectionIndic ations:Type 2 diabetes mellitus without complication, with long-term current use of insulin ([facility]) Inject 4 units subQ three times daily with meals. Do not use if not eating / skipping a meal. 15 mL 025 Active metFORMIN (Glucophage) 1000 MG tabletIndicati ons:Type 2 diabetes mellitus without complication, with long-term current use of insulin ([facility]) Take 1 tablet (1,000 mg) by mouth with breakfast and with evening meal. 180 tablet 3 025 2025 Active rosuvastatin (Crestor) 40 MG tabletIndicati ons:Type 2 diabetes mellitus without complication, with long-term current use of insulin ([facility]) Take 1 tablet (40 mg) by mouth Once per day. 90 tablet 3 Active Eliquis 5 MG tablet Take 5 mg by mouth 2 times daily. Active metoprolol tartrate (Lopressor) 100 MG tablet Take 1 tablet by mouth 2 times daily. Active Entresto 24-26 MG tablet Take 1 tablet by mouth 2 times daily. Active tamsulosin (Flomax) 0.4 MG 24 hr capsule TAKE TWO CAPSULES DAILY 30 MINUTES AFTER THE SAME MEAL 60 capsule 5 Active pantoprazole (Protonix) 40 MG EC tablet Take 1 tablet (40 mg) by mouth before breakfast. Do not crush, chew, or split. 30 tablet 11 01/15/20 10:22 AM EST 2025 Active amiodarone (Pacerone) 200 MG tabletIndicati ons:ACS (acute coronary syndrome) (HCC),Atrial flutter, unspecified type (CMS/HCC) (HCC) TOME 1 TABLETA POR VIA ORAL TODOS [place]D 30 tablet 1 Active glucose blood (Accu-Chek Guide Test) test strip Once a day 100 each 12 01/21/20 10:48 AM EST 2025 Active Accu-Chek Softclix Lancets lancets Use as instructed 100 each 12 01/21/20 10:48 AM EST 2025 Active Blood Glucose Monitoring Suppl (Accu-Chek Guide) w/Device kit 1 Device Once per day. 1 kit 01/21/20 10:48 AM EST 2025 Active oxyCODONE-acet aminophen (Percocet) 5-325 MG tabletIndicati ons:Chronic pain syndrome Take 1 tablet by mouth every 8 (eight) hours if needed for severe pain. Do not start before January 28, 2025. 84 tablet 2025 Active amiodarone (Pacerone) 200 MG tabletIndicati ons:ACS (acute coronary syndrome) (HCC),Atrial flutter, unspecified type (CMS/HCC) (HCC) Take 1 tablet (200 mg) by mouth Once per day for 14 days. 14 tablet 025 2024 Discontinued oxyCODONE-acet aminophen (Percocet) 5-325 MG tabletIndicati ons:Chronic pain syndrome Take 1 tablet by mouth every 8 (eight) hours if needed for severe pain. Do not start before December 31, 2024. 84 tablet 025 2024 Discontinued(R eorder (will not trigger notification to Pharmacy)) Active Problems Problem Noted Date Diagnosed Date Non-ischemic cardiomyopathy (CMS/HCC) 12/15/2024 Heart failure with reduced e jection fraction (HFrEF, <= 40%) 12/15/2024 Atrial fibrillation (CMS/HCC) 12/15/2024 NSTEMI (non-ST elevated myocardial infarction) 1 ACS (acute coronary syndrome) 12/11/2024 Atrial flutter (CMS/HCC) 11/26/2024 History of supraventricular tachycardia 09/30/19 Overview (09/29/2024): Patient [facility] with [facility] He is on carvedilol. Holter monitor [...] the sigmoid colon 2016 Colonoscopy done at [facility] Type 2 diabetes mellitus 03/02/2022 Benign prostatic [...] Encounters Date Type Department Care Team Description 01/25/2025 1:30 PM EST Clinical Support [facility] [address] [place] [address] Cee Toussaint RN Long-term current use of opiate analgesic (Primary Dx) 01/25/2025 Telephone [facility] [address] [place] [address] Cee Toussaint, EMILIO Percocet dosing/frequency 01/25/2025 Refill [facility] [address] [place] [address] Cee Toussaint RN Chronic pain syndrome 01/25/2025 Travel 01/18/2025 Refill [facility] [address] [place] [address] Jh Bullard MD 01/11/2025 Orders Only [place] [facility] [address] [place] [address] ProviderMarkel MD 01/07/2025 Refill [facility] [address] [place] [address] Ariadna West NP ACS (acute coronary syndrome) (HCC); Atrial flutter, unspecified type (CMS/HCC) (HCC) 12/28/2024 Refill [facility] [address] [place] [address] Jh Bullard MD Chronic pain syndrome 12/15/2024 1:15 PM EDT Office Visit [facility] [place] [address] Jh Bullard MD Heart failure with reduced ejection fraction (HFrEF, <= 40%) (HCC) (Primary Dx); Non-ischemic cardiomyopathy (CMS/HCC) (HCC); Atrial fibrillation, unspecified type (CMS/HCC) (HCC); NSTEMI (non-ST elevated myocardial infarction) (HCC); Heartburn; Encounter for immunization; Encounter for vaccination 12/15/2024 Travel 12/14/2024 Telephone [facility] [place] [address] Jh Bullard MD CHARTPREP 12/11/2024 Refill [facility] [address] [facility] [place] [address] Jh Bullard MD 12/10/2024 Telephone [facility] [place] [address] Rosaline Nevarez, PharmD 12/04/2024 Telephone [facility] [address] [place] [address] Jh Bullard MD 12/04/2024 Patient Outreach [facility] [address] [facility] [place] [address] Jh Bullard MD Transition Of Care (Tcm) (HDF scheduled. ) 12/01/2024 Refill [facility] [place] [address] Jh Bullard MD Chronic pain syndrome 12/01/2024 Refill [facility] [place] [address] Jh Bullard MD Chronic pain syndrome 11/26/2024 Orders Only [facility] [place] [address] Jh Bullard MD Atrial flutter, unspecified type (CMS/HCC) (HCC) (Primary Dx) 11/18/2024 Results Follow-Up [facility] [place] [address] Jh Bullard MD Vascular US carotid artery duplex bilateral 11/16/2024 Telephone [facility] [address] [place] [address] Gaby Jean CHERYL DECEMBER RECALLS 11/03/2024 Travel 10/30/2024 Refill [facility] [address] [place] [address] NameJh MD Essential hypertension 10/30/2024 Refill [facility] [address] [facility] [place] [place] [address] Name, MD Jh Chronic pain syndrome from [...] Description 02/01/2025 2:30 PM EST Office Visit [facility] [address] [place] [phone] Name, MD Jh [address] [place] [address] 05/27/2025 1:30 PM EDT Clinical Support [facility] [address] [place] [address] Cee Toussaint RN 06/28/2025 2:00 PM EDT Office Visit [facility] [address] [place] [address] Milvia Lincoln, OD [address] [place] [address] Health Maintenance Due Date Last Done Comments [...] Result Component 6.7( 3:28 PM EDT) No Sandra Wrensa, PharmD Record your blood sugar as directed [...] chronic kidney disease No Cee Toussaint RN Procedures Procedure Name Priority Date/Time Associated Diagnosis Comments POCT MARCELLE-14 URINE DRUG SCREEN Routine 01/25/2025 1:28 PM EST Long-term current use of opiate analgesic BASIC METABOLIC PANEL Routine 01/07/2025 8:46 AM EST Atrial fibrillation, unspecified type (CMS/HCC) (HCC) Heart failure with reduced ejection fraction (HFrEF, <= 40%) (HCC) Non-ischemic cardiomyopathy (CMS/HCC) (HCC) NSTEMI (non-ST elevated myocardial infarction) (HCC) Heartburn Encounter for immunization CBC WITH AUTO DIFFERENTIAL Routine 01/07/2025 8:46 AM EST Atrial fibrillation, unspecified type (CMS/HCC) (HCC) Heart failure with reduced ejection fraction (HFrEF, <= 40%) (HCC) Non-ischemic cardiomyopathy (CMS/HCC) (HCC) NSTEMI (non-ST elevated myocardial infarction) (HCC) Heartburn Encounter for immunization CT ANGIOGRAM ABDOMEN PELVIS W CONTRAST Routine 11/27/2024 VASC US CAROTID ARTERY DUPLEX BILATERAL Routine [...] to Health Maintenance Results * (ABNORMAL) POCT MARCELLE-14 Urine Drug [...] Negative ng/mL Oxycodone Screen, Urine Positive(A) Negative 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 01/25/26 Internal Pass Control Jh Bullard MD POINT OF CARE TEST ENTER/EDIT OR DERABLES Final Result * (ABNORMAL) CBC auto differential (01/07/2025 8:46 AM EST) White Blood Count 4.9 4.8 - 10.8 X10*3/uL [facility] Red Blood Count 5.45 4.60 - 5.80 X10*6/uL [facility] Hemoglobin 14.4 14.0 - 18.0 g/dl [facility] Hematocrit 45.2 42.0 - 52.0 % [facility] Mean Corpuscular Volume 82.9 80.0 - 98.0 fL [facility] Mean Corpuscular Hemoglobin 26.4(L) 27.0 - 33.0 pg [facility] Mean Corpuscular HGB Conc 31.9 31.0 - 36.0 g/dl [facility] Red Cell Distribution Width 13.3 11.0 - 16.0 % [facility] Platelet Count 172 160 - 400 X10*3/uL [facility] Mean Platelet Volume 9.8 9.4 - 12.4 fL [facility] Neutrophils Percent Auto 46.6 45 - 73 % [facility] Imm Gran Pct Auto 0.6(H) 0.0 - 0.4 % [facility] Lymphocytes Percent Auto 38.1 20 - 40 % [facility] Monocytes Percent Auto 8.4 2 - 11 % [facility] Eosinophils Percent Auto 5.1(H) 0 - 4 % [facility] Basophils Percent Auto 1.2 0 - 2 % [facility] NRBC Pct Auto 0.0 0.0 - 0.2 /100WBC [facility] Neutrophils Absolute Auto 2.3 2.0 - 8.3 x10*3/uL [facility] Imm Gran Abs Auto 0.03 0.00 - 0.03 X10*3/uL [facility] Lymphocytes Absolute Auto 1.9 1.2 - 4.9 X10*3/uL [facility] Monocytes Absolute Auto 0.4 0.1 - 1.2 X10*3/uL [facility] Eosinophils Absolute Auto 0.3 0.0 - 0.4 X10*3/uL [facility] Basophils Absolute Auto 0.1 0.0 - 0.2 X10*3/uL [facility] NRBC Abs Auto 0.000 0.0 - 0.012 X10*3/uL [facility] Blood Venous blood specimen / Unknown 01/07/2025 8:46 AM EST 01/07/2025 8:46 AM EST us Jh Bullard MD LAB BLOOD ORDERABLES Final Resul t Performing Organization Address [facility] Co de Phone Number [facility] [address] [place] [phone] * Basic Metabolic Panel (01/07/2025 8:46 AM EST) Sodium 139 135 - 145 mmol/L [facility] Potassium 4.2 3.3 - 5.1 mmol/L [facility] Chloride 107 96 - 108 mmol/L [facility] Carbon Dioxide 22 22 - 29 mmol/L [facility] Anion Gap 14 12 - 20 [facility] Urea Nitrogen (BUN) 9 9 - 16 mg/dL [facility] Creatinine, Serum 0.70 0.5 - 1.4 mg/dL [facility] Estimated Glomerular Filt Rate >60 [facility] Comment:Chronic Kidney Disea se: Estimated GFR < 60 mL/min/1.52c9Eqgtxl Kidney Disease: Estimated GFR < 15 mL/min/1.73m2 Glucose 106 60 - 115 mg/dL [facility] Calcium 9.3 8.4 - 10.2 mg/dL [facility] Blood Venous blood specimen / Unknown 01/07/2025 8:46 AM EST 01/07/2025 8:46 AM EST us Jh Bullard MD LAB BLOOD ORDERABLES Final Resul t Performing Organization Address [facility] Co de Phone Number [facility] [address] [place] [phone] * CT ANGIOGRAM ABDOMEN PELVIS W CONTRAST (11/27/2024) Anatomical Region Laterality Modality Body, Pelvis, Abdomen Computed T omography us Historical Provider MD VICENTE CT PROCEDURES Final R esult * Vascular US carotid artery duplex bilateral (11/17/2024 3:23 PM EDT) 11/17/2024 3:23 PM EDT Narrative [facility] - 11/17/2024 4:05 PM EDT [address] [address] Ultrasound Report Signed Patient: Landen Byers MR#: [id number] : 1955 Acct:[id number] Age/Sex: 69 / M ADM Date: 11/17/24 Loc: .US Attending Dr: Jh Bullard MD Ordering Physician: NameJh MD Date of Service: 11/17/24 Procedure(s): US carotid duplex BI Accession Number(s): [id number] cc: Piper Johnson MD; Name,Jh RACHEL Reason for Exam: Transient left sided facial numbness for 2 minutes in [facility]. Possible TIA EXAMINATION: US EXTRACRANIAL [...] 11/17/24 1602 DD/ 1523 TD/TT: 11/17/24 1543 Dock Superintendent: Procedure Note Donotuseinterpreter, Image - 11/17/2024 [place] [address] Ultrasound Report Signed Patient: Farideh Byers#: [id number] : 5Acct:[id number] Age/Sex: 69 / MADM Date: 11/17/24 Loc: . Attending Dr: Jh Bullard MD Ordering Physician: NameJh MD Date of Service: 11/17/24 Procedure(s): US carotid duplex BI Accession Number(s): [id number] cc: Piper Johnson MD; Name,Jh RACHEL Reason [...] 11/17/24 1602 DD/ 1523 TD/TT: 11/17/24 1543 Dock Superintendent: us Jh Bullard MD CV VASCULAR PROCEDURES Final Res ult [facility] [address] [place] [address] [phone] * (ABNORMAL) POCT HGB A1C (09/29/2024 3:28 PM EDT) Hemoglobin A1C 6.7(A) 4.0 - 5.7 % QC Media Lot # [id number] Lot# Expiration Date Blood 09/29/2024 3:28 PM EDT us Jh Bullard MD POINT OF CARE TEST ENTER/EDIT OR DERABLES Final Result * Albumin, Random Urine W/Creatinine (05/21/2024 10:08 AM EDT) Creatinine, Urine 63.26 mg/dL [facility] Microalbumin Urine <5.0 mg/L [facility] Microalbum Creatinine Ratio Ur TNP <30 ug/mg cr [facility] Comment:Unable to calculate albumin/creatinine ratio due to lowmicroalbumin or creatinine result. Urine (Urine, Random) 05/21/2024 10:08 AM EDT 05/21/2024 11:03 AM EDT us Jh Bullard MD LAB URINE ORDERABLES Final Resul t Performing Organization Address [facility] Co wy Phone Number [facility] [address] [place] [phone] * Hepatitis C Antibody with Reflex to HCV, RNA, Quantitative, Real-Time PCR (05/21/2024 10:08 AM EDT) Pathologist [facility] Hepatitis C Antibody Nonreactive Nonreactive [facility] Comment:Antibodies to HCV no t detected; does not exclude early acuteHCV infection. Blood Venous blood specimen / Unknown 05/21/2024 10:08 AM EDT 05/21/2024 11:01 AM EDT us Jh Bullard MD LAB BLOOD ORDERABLES Final Resul t Performing Organization Address [facility] Co de Phone Number [facility] [address] [place] [phone] * (ABNORMAL) Lipid Panel, Standard (05/21/2024 10:08 AM EDT) Triglycerides 69 <150 mg/dL [facility] Comment:Desirable Triglyceri de: less than 150 mg/dLBorderline High Triglyceride 150-199 mg/dLHigh Triglyceride: 200-499 mg/dLVery High Triglyceride: greater than or equal to 5OO mg/dL Cholesterol 177 <200 mg/dL [facility] Comment:Desirable Cholestero l: less than 200 mg/dLBorderline High Cholesterol: 200-239 mg/dLHigh Cholesterol: greater than 239 mg/dL LDL Cholesterol Calculated 109(H) <100 mg/dL [facility] Comment:Desirable LDL: less than 100 mg/dLNear Optimal/Above Optimal LDL: 110- 129 mg/dLBorderline High LDL: 130-159 mg/dLHigh LDL: 160-189 mg/dLVery High LDL: greater than or equal to 190 mg/dL HDL Cholesterol 55 >40 mg/dL [facility] Comment:Desirable HDL: great er than 40 mg/dL Note: This HDL assay may give artificially low results in patients with liver disease. Blood Venous blood specimen / Unknown 05/21/2024 10:08 AM EDT 05/21/2024 11:01 AM EDT us Jh Bullard MD LAB BLOOD ORDERABLES Final Resul t [facility] [address] [place] [phone] * (ABNORMAL) Colonoscopy (04/02/2023) Colonoscopy Abnormal( A) Normal Comment:Tubular adenoma cecelia bob. us Jh Bullard MD HEALTH MAINTENANCE Final Result from Last 3 Months or Most Recently Relevant to Health Maintenance Additional Health Concerns Active Problems Noted Date [...] 01/25/2025 Patient has chronic kidney disease 01/25/2025 Insurance [facility] D[facility] COMPLETE [facility] STAND[facility] Care Teams Director Of Infection Prevention Relationship Specialty Start Date End Date Name, MD Jh [address] [place] [phone] PCP - General Family Medicine 05/29/16
--- OUTSIDE RECORDS SUMMARY | 2025-01-28 09:32 | XMS_ITS | Encounter Summary ---
Author Organization [employer] [facility] Address [address] [facility] 7t [place] [address] Care Team Providers Care Bottle Labeler Name Role Phone Jh Bullard MD Primary Care Provider [phone] Juliet Wren PharmD Unavailable [phone] Encounter Details Date Type Department Care Team ([facility] st Contact Info) Description 07/13/2022 Abstract [facility] [address] [place] [address] [phone] NameJh MD [address] [place] [phone] Social History Tobacco Use Types Packs/Day Years [...] Description 02/01/2025 2:30 PM EST Office Visit [facility] [address] [place] [address] [phone] Jh Bullard, MD [address] [facility] [place] [address] 05/27/2025 1:30 PM EDT Clinical Support [facility] [address] [facility] [place] [address] Cee Toussaint RN 06/28/2025 2:00 PM EDT Office Visit [facility] [address] [place], [place] [phone] Milvia Lincoln, OD [address] [facility] [place] [address] documented as of this encounter Procedures Procedure [...] documented as of this encounter Care Teams Bottle Labeler Relationship Specialty Start Date End Date Name, MD Jh [facility] [place] [address] PCP - General Family Medicine 05/29/16 Juliet Wren PharmD [facility] [facility] [place] [address] Pharmacist Internal Medicine 07/17/22 11/02/24 documented as of this encounter
--- OUTSIDE RECORDS SUMMARY | 2025-01-28 09:32 | XMS_ITS | Encounter Summary ---
Author Organization [employer] Address [address] [facility] [address] 7[address] [place] [address] Care Team Providers Care Point Of Care Specialist Name Role Phone Name, Jh RACHEL Primary Care Provider [phone] Juliet Wren PharmD Unavailable [phone] Encounter Details Date Type Department Care Team ([facility] st Contact Info) Description 05/16/2023 Telephone [facility] [address] [place], [place] [phone] Name, MD Jh [address] [place] [address] Social History Tobacco Use Types Packs/Day Years [...] Description 02/01/2025 2:30 PM EST Office Visit [facility] [address] [place] [phone] Jh Bullard MD [address] [place] [address] 05/27/2025 1:30 PM EDT Clinical Support [facility] [address] [place] [address] Cee Toussaint, EMILIO 06/28/2025 2:00 PM EDT Office Visit [facility] [address] [place], [place] [phone] Milvia Lincoln, OD [address] [place] [address] documented as of this encounter Goals Goal [...] documented as of this encounter Care Teams Point Of Care Specialist Relationship Specialty Start Date End Date Jh Bullard MD [address] [place] [address] PCP - General Family Medicine 05/29/16 Juliet Wren, Ezekiel [address] [place] [address] Pharmacist Internal Medicine 07/17/22 11/02/24 documented as of this encounter
--- OUTSIDE RECORDS SUMMARY | 2025-01-28 09:32 | XMS_ITS | Encounter Summary ---
Author Organization [employer] Address [address] [facility] 7t [place] [address] Care Team Providers Care Industrial Radiographer Name Role Phone Name, Jh RACHEL Primary Care Provider [phone] Encounter Details Date Type Department Care Team (Late st Contact Info) Description 01/11/2025 Orders Only [facility] [address] [place] [address] Provider, MD Markel Social History Tobacco Use Types Packs/Day Years [...] t he electric, gas, oil or water [employer] threatened to shut off services in your [...] 2:30 PM EST Office Visit [facility] [address] [place] [phone] Name, MD Jh [address] [place], [place] [phone] 05/27/2025 1:30 PM EDT Clinical Support [facility] [address] [place], [place] [phone] Cee Toussaint RN 06/28/2025 2:00 PM EDT Office Visit [facility] [address] [place], [place] [phone] Salazar, Milvia, OD [address] [place], [place] [phone] documented as of this encounter Goals Goal [...] Procedure Name Priority Date/Time Associated Diagnosis Comments CT ANGIOGRAM ABDOMEN PELVIS W CONTRAST Routine 11/27/2024 documented in this encounter Results * CT ANGIOGRAM ABDOMEN PELVIS W CONTRAST (11/27/2024) Anatomical Region Laterality Modality Body, Pelvis, Abdomen Computed T omography us Historical Provider MD VICENTE CT PROCEDURES Final R esult documented in this encounter Visit Diagnoses Not on filedocumented in this encounter Additional Health Concerns Assessment Noted Time PHQ-9 Depression Total Score: 4 05/19/19 25 2:01 PM EDT documented as of this encounter Care Teams Industrial Radiographer Relationship Specialty Start Date End Date Name, MD Jh [address] [place] [address] PCP - General Family Medicine 05/29/16 documented as of this encounter
[2025-01-28 11:12] LABS: MANUAL DIFF FLAG NO
[2025-01-28 11:20] LABS: Hematocrit 41.2 % (42.0-52.0); Hemoglobin 13.0 g/dl (14.0-18.0); Imm Gran Abs Auto 0.02 X10*3/uL (0.00-0.03); Imm Gran Pct Auto 0.5 % (0.0-0.4); Lymphocytes Absolute Auto 1.3 X10*3/uL (1.2-4.9); Mean Corpuscular HGB Conc 31.6 g/dl (31.0-36.0); Mean Corpuscular Hemoglobin 26.5 pg (27.0-33.0); Mean Corpuscular Volume 83.9 fL (80.0-98.0); NRBC Abs Auto 0.000 X10*3/uL (0.0-0.012); NRBC Pct Auto 0.0 /100WBC (0.0-0.2); Platelet Count 150 X10*3/uL (160-400); Red Blood Count 4.91 X10*6/uL (4.60-5.80); White Blood Count 3.7 X10*3/uL (4.8-10.8)
[2025-01-28 13:05] LABS: Alanine Aminotransferase 27 U/L (0-40); Albumin Level 4.4 g/dL (3.5-5.0); Alkaline Phosphatase 68 U/L (39-117); Anion Gap 14 (12-20); Aspartate Amino Transferase 32 U/L (5-37); Blood Urea Nitrogen 12 mg/dL (9-16); Calcium 9.6 mg/dL (8.4-10.2); Carbon Dioxide 24 mmol/L (22-29); Chloride 105 mmol/L (96-108); Cholesterol 108 mg/dL (<200); Estimated Glomerular Filt Rate > 60; HDL Cholesterol 51 mg/dL (>40); Potassium 4.4 mmol/L (3.3-5.1); Sodium 139 mmol/L (135-145); Total Protein 6.7 g/dL (6.5-8.0); Triglycerides 81 mg/dL (<150)
== END 2025-01-28 08:47 | disposition home or self-care (01) ==
LOC: HO.HHCL 08:46
PROVIDERS: PCP Internal Medicine Geriatric Medicine; Visit Provider Nurse Practitioner Family
DX: R00.2 Palpitations (principal); E78.5 Hyperlipidemia, unspecified
CPT/HCPCS: 36415; 80053; 80061; 84443; 85025